=== PATIENT | male | born 1970 | race Caucasian/White ===

== ENCOUNTER 2019-10-29 12:53 | Day surgery (SDC) | payer MEDICARE, MEDICAID, SELFPAY ==
[2019-10-29 13:10] VITALS: BP 116/76; PULSE 83; RESP 16; TEMP 37.2; O2SAT 98; BMI 33.6
--- NOTE | 2019-10-29 13:18 | ANES.PREANE2 ---
Pre-Anesthetic Assessment Pre-Anesthetic Assessment: Height/Weight: Height 1.88 m Preop Diagnosis: Atrial Fibrillation Proposed Procedure: Operation Date: 10/29/19 14:00 Proposed Procedures p ANTONIO (Transesophageal Echocardiogram)(Not Applicable) - Namita Mckeon MD s Cardioversion(Not Applicable) - Namita Mckeon MD Was Beta Francisco taken within 24 hours: Yes Last intake: 10/27 2200 sip with meds 0600 Social: Social History: Tobacco (current smoker- 1.5pk a day) Exam: Pre-Anes Outpt Exam: alert, oriented x 3 and clear to auscultation bilaterally Airway: Submandibular: WNL Cervical ROM: WNL Additional comments: poor/missing Pulmonary: Pulmonary: COPD, ROY and SOB CV/HEM: CV/HEM: Afib, CAD and HTN Comments: 2x PTCA 2017 here in Aug 2019 AFib rvr. : : None reported Hepatic: Hepatic: None reported GI: GI: GERD Metabolic: Metabolic: Hyperlipidemia and Morbid obesity Musc/skel: Musc/skel: None reported Neuropsych: Neuropsych: CORONADO Anesthetic Plan: ASA status: 4 Anesthesia: MAC PFSH Anesthesia PFSH: Family History (Updated 08/24/19 @ 13:52 by Yamilet Carrera RN) Other CAD (coronary artery disease) Cancer Social History Smoking and tobacco status: current every day smoker cigarettes Packs smoked per day: 1.5 Alcohol intake: current Alcohol intake frequency: holidays/special occasions only Data Anesthesia Cardiac Studies: No Data to Display
--- NOTE | 2019-10-29 13:32 | USCV_ITS ---
Darlin Youssef Age: 49 Gender: M : 1970 Exam Date: 10/29/2019 14:15 Ordering Phys: Namita Mckeon MD ([email or web address]) Technologist: Mavrin Cornejo [place] [facility] [place]: AFIB, pre cardioversion BP: / HR: Rhythm: Atrial fibrillation Technical Quality: Excellent MEASUREMENTS (Male / Female) Normal Values Medications The posterior pharynx was sprayed with Cetacaine spray. Propofol by anesthesia. Complications Patient had a loose tooth so a focused exam was performed. Intubation attempts x1. No blood on probe post procedure. No complications post procedure. Proc. Components Multiple images were obtained at mid esophageal and transgastric level. FINDINGS Left Ventricle Normal left ventricular systolic function. Left ventricular ejection fraction is estimated at 55 %. No regional wall motion abnormalities. Right Ventricle Normal right ventricular size and [id number] function. Right Atrium Moderately increased right atrial size. Left Atrium Moderately increased left atrial size. LA Appendage Decreased flow velocities in the left atrial appendage. Echodense mass noted in left atrial appendage in multiple views, highly concerning for thrombus. IA Septum Normal interatrial septum. No patent foramen ovale atrial septal defect detected by color Doppler. Mitral Valve Structurally normal mitral valve. Trace mitral valve regurgitation. Aortic Valve Structurally normal trileaflet aortic valve. No aortic valve stenosis. Trace aortic valve regurgitation. Tricuspid Valve Structurally normal tricuspid valve. Trace tricuspid valve regurgitation. Pulmonic Valve Structurally normal pulmonic valve. Trace pulmonary valve regurgitation. Pericardium No pericardial effusion. Aorta Normal-sized aortic root and proximal ascending aorta. No aortic dilation aneurysm or dissection. CONCLUSIONS 1. Normal left ventricular systolic function. Left ventricular ejection fraction is estimated at 55 %. No regional wall motion abnormalities. 2. Normal right ventricular size and [id number] function. 3. Moderate biatrial enlargement. 4. Echodense mass noted in left atrial appendage in multiple views, highly concerning for thrombus. Namita Mckeon MD (Electronically Signed) Final Date: 03 November 2019 12:30 S
[2019-10-29 13:37] VITALS: PULSE 76; RESP 16; O2SAT 97
[2019-10-29] MEDS: sodium chloride 0.9% 1,000 ML 30 ML IV (13:54)
--- NOTE | 2019-10-29 13:55 | ECG_ITS ---
Measurements Intervals [place] Rate: 72 P: [place]: 0 QRS: 33 QRSD: 101 T: 88 QT: 416 QTc: 457 ATRIAL FIBRILLATION LOW QRS VOLTAGE IN PRECORDIAL LEADS [QRS DEFLECTION < 1.0 mV IN CHEST LEADS] POSSIBLE ANTERIOR MYOCARDIAL INFARCTION [30 ms Q WAVE IN V3/V4, OR R < 0.2 mV IN V4], PROBABLY OLD POSSIBLE INFERIOR MYOCARDIAL INFARCTION [30 ms Q WAVE IN II/aVF], PROBABLY OLD ABNORMAL RHYTHM ECG WARNING: DATA QUALITY MAY AFFECT INTERPRETATION Compared to ECG 06/06/2019 03:24:58 Low QRS voltage now present Ventricular premature complex(es) no longer present Aberrant conduction of supraventricular beat(s) no longer present Myocardial infarct finding still present Electronically Signed On 10-30-2019 8:03:50 CDT by Francheska Andrea [email or web address]
[2019-10-29 14:35] VITALS: BP 89/67; PULSE 90; RESP 18; TEMP 37.1; O2SAT 99
--- NOTE | 2019-10-29 15:39 | SUR.PHASEII ---
1445 VS 104/60 R 18 HR 68 SAT 99 room air 1500 VS 116/75 R 17 HR 83 Sat 96 room air
--- NOTE | 2019-10-30 16:52 | PM.ACPR ---
Procedure/Consent Time out: Time Out Performed: Yes Consent: Consent for Procedure: Consent obtained from patient, Risks & Benefits reviewed and Agrees to proceed with procedure Procedure Narrative: ANTONIO Indication: Atrial fibrillation Anesthesia: By Propofol Prelim: No ASD or PFO identified. Thrombus noted in RANJIT. Full report to follow. Acute Procedures Epistaxis Control: Time out performed: Yes
== END 2019-10-29 15:30 | disposition home or self-care (01) ==
PROVIDERS: PCP Nurse Practitioner Family; Visit Provider Internal Medicine Cardiovascular Disease
PROC: (CPT 93312; principal; 2019-10-29 14:00)
DX: I48.19 Other persistent atrial fibrillation (principal); I25.10 Atherosclerotic heart disease of native coronary artery without angina pectoris; I25.2 Old myocardial infarction; E78.5 Hyperlipidemia, unspecified; I10 Essential (primary) hypertension; Z79.82 Long term (current) use of aspirin; J44.9 Chronic obstructive pulmonary disease, unspecified; G47.30 Sleep apnea, unspecified; F17.210 Nicotine dependence, cigarettes, uncomplicated; Z82.49 Family history of ischemic heart disease and other diseases of the circulatory system; K21.9 Gastro-esophageal reflux disease without esophagitis
CPT/HCPCS: 12345; 93005; 93010; 93312; 93320; 93325; 94640; J2704; J3010; J7030; J7611

== ENCOUNTER → 2020-06-27 14:07 | Outpatient (BNVA) | payer MEDICARE, MEDICAID, SELFPAY | PROVIDERS: PCP Nurse Practitioner Family; Visit Provider Internal Medicine Cardiovascular Disease | DX: E78.5 Hyperlipidemia, unspecified (principal); I48.19 Other persistent atrial fibrillation; R06.02 Shortness of breath; Z79.899 Other long term (current) drug therapy | CPT/HCPCS: 80053; 83735; 84443; 85025 ==

== ENCOUNTER 2020-07-30 18:03 | Emergency (ER) | payer MEDICARE, MEDICAID, SELFPAY ==
[2020-07-30 18:06] VITALS: BP 167/117; PULSE 109; RESP 22; TEMP 36.7; O2SAT 94; BMI 38.2
--- NOTE | 2020-07-30 18:55 | ED_ITS ---
HPI - Nausea/Vomiting/Diarrhea General: Chief complaint: Nausea/Vomiting/Diarrhea Stated complaint: fever, n/v Time Seen by Provider: 07/30/20 18:25 History of Present Illness: HPI Narrative: 50-year-old gentleman here with nausea vomiting and diarrhea. He states it started last night. It was worse today, but is slowing down now he says. He remains quite nauseated though. He states I need water . No sick contacts. No family members with similar sympt oms. He states that he ate the same food as everyone else in his family recently. No blood in the stool. MD elicited complaint: nausea, vomiting and diarrhea Pertinent past history: other Onset (ago): hour(s) (24) Description of vomiting: food contents and watery Description of diarrhea: watery Associated nausea: Yes Associated abdominal pain: No Location of pain: None Radiation: diffuse Exacerbating factors: bowel movement and vomiting Associated symtoms: Reports decreased urine output, fevers/chills, headache(s), myalgias and nausea; Denies change in vision, chest pain, dizziness, dysuria, fecal incontinence, palpitations or short of breath Review of Systems Eyes: Denies: change in vision Card: Reports: irregular heart rhythm; Denies: chest pain or palpitations Resp: Reports: non-productive cough; Denies: dyspnea GI: Reports: nausea; Denies: fecal incontinence : Denies: dysuria Neuro: Reports: headache(s); Denies: dizziness [facility] ED PFSH: Medical History (Updated 07/30/20 @ 20:25 by Ethan Stevens DO) Atrial fibrillation CAD (coronary artery disease) COPD (chronic obstructive pulmonary disease) Dyslipidemia Hypotension Sleep apnea syndrome Tobacco abuse Family History Other CAD (coronary artery disease) Cancer Social History Smoking and tobacco status: current every day smoker cigarettes Packs smoked per day: 1.5 Alcohol intake: current Alcohol intake frequency: holidays/special occasions only Physical Exam Const: GENERAL APPEARANCE: ill appearing NUTRITIONAL APPEARANCE: obese Eye: COMMON NORMALS: Equal, round and reactive pupils present and EOMs intact bilaterally PUPIL: Yes Equal, round and reactive pupils present Chest: COMMONS NORMALS: normal inspection of the chest Resp: COMMON NORMALS: No use of accessory muscles and clear to auscultation bilaterally EFFORT & INSPECTION: Yes tachypneic AUSCULTATION: clear to auscultation bilaterally Cardio: COMMON NORMALS: Peripheral pulses 2+ throughout PERIPHERAL PULSES: Peripheral pulses 2+ throughout GI: COMMON NORMALS: Normal to inspection, nondistended, normoactive bowel sounds present, Soft to palpation and non-tender PALPATION: Yes Soft to palpation : COMMON NORMALS: No no CVA tenderness BLADDER/KIDNEY EXAM: No no CVA tenderness Back/Pelvis: COMMON NORMALS: negative for no CVA tenderness Skin: COMMON NORMALS: no rashes or lesions noted GENERAL SKIN EXAM: no rashes or lesions noted Course Vital Signs: Vital signs: Vital Signs Temperature 98.1 F 07/30/20 18:06 Pulse Rate 99 07/30/20 20:37 Respiratory Rate 18 07/30/20 20:37 Blood Pressure 169/114 07/30/20 20:37 Pulse Oximetry 92 07/30/20 20:37 MDM - Nausea/Vomiting/Diarrhea MDM Narrative: Medical decision making narrative: No vomiting since here. He is less nauseated. He is received an IV fluid bolus. He is been quite hyp ertensive, but this is improving. His chest x-ray shows some diffuse scarring with nothing acute. He has a history of emphysema according to his . There is no leukocytosis. His electrolytes are normal. His belly is nontender. He will be allowed home. He is in atrial fibrillation but his rate has been under control. He knows to return for worsening symptoms. He will be released on liquid diet with antiemetics. Lab Data: Labs: Lab Results 07/30/20 07/30/20 07/30/20 Range/Units 18:50 18:50 18:50 WBC 5.8 (4.0-10.0) 10^3/ uL RBC 5.36 H (4.1-5.3) 10^6/u L Hgb 17.1 H (11.7-16.6) g/dL Hct 49.0 (42.0-52.0) % MCV 91.4 (80-94) fL MCH 31.9 (28.0-34.0) pg MCHC 34.9 (30.0-36.0) g/dL RDW 12.4 (12.1-15.1) % Plt Count 211 (130-400) 10^3/c mm MPV 9.1 (7.4-10.4) fL Neut % (Auto) 76.4 % Lymph % (Auto) 19.8 % Piatt % (Auto) 2.1 % Eos % (Auto) 0.5 % Baso % (Auto) 1.0 % Neut # (Auto) 4.43 (1.8-7.7) 10^3/u L Lymph # (Auto) 1.2 (0.8-4.8) 10^3/u L Piatt # (Auto) 0.1 L (0.2-0.9) 10^3/u L Eos # (Auto) 0.0 (0.0-0.8) 10^3/u L Baso # (Auto) 0.1 (0.0-0.1) 10^3/u L Nucleated RBC % (a uto) 0 % Nucleated RBCs # 0.0 /100WBC Sodium 144 (136-145) mmol/L Potassium 4.1 (3.5-5.1) mmol/L Chloride 100 (98-107) mmol/L Carbon Dioxide 32 H (22-29) mmol/L Anion Gap 16.1 (5-19) BUN 10 (6-20) mg/dL Creatinine 0.8 (0.7-1.2) mg/dL GFR Calculation 101.9 (90-130) mL/min Glucose 139 H (65-115) mg/dL Calculated Osmolal ity 299 H (285-295) mOsm/k g Calcium 9.2 (8.5-10.5) mg/dL Total Bilirubin 0.8 (0.15-1.2) mg/dL AST 11 (0-40) U/L ALT 12 (0-41) U/L Alkaline Phosphata se 64 (40-130) IU/L C-Reactive Protein 0.9 (0.0-4.9) mg/L Total Protein 7.2 (6.6-8.7) g/dL Albumin 4.5 (3.5-5.2) g/dL Globulin 2.7 (1.3-4.6) g/dL Lipase 14 (13-60) U/L Procalcitonin 0.06 (0-0.5) ng/mL Urine Color (Yellow) Urine Appearance (CLEAR) Urine pH (5-7) Ur Specific Gravit y (1.005-1.030) Urine Protein (Negative) Urine Glucose (UA) (Normal) Urine Ketones (Negative) Urine Blood (Negative) Urine Nitrate (Negative) Urine Bilirubin (Negative) Urine Urobilinogen (Negative) mg/dL Ur Leukocyte Mag ase (Negative) Urine RBC (0-2) /hpf Urine WBC (0-5) /hpf Ur Squamous Epith Cells (0-5) /hpf Amorphous Sediment Urine Bacteria (NONE) /hpf Urine Mucus /hpf SARS-CoV-2 Ag (Rap id) Negative (Negative) 07/30/20 Range/Units 19:29 WBC (4.0-10.0) 10^3/ uL RBC (4.1-5.3) 10^6/u L Hgb (11.7-16.6) g/dL Hct (42.0-52.0) % MCV (80-94) fL MCH (28.0-34.0) pg MCHC (30.0-36.0) g/dL RDW (12.1-15.1) % Plt Count (130-400) 10^3/c mm MPV (7.4-10.4) fL Neut % (Auto) % Lymph % (Auto) % Piatt % (Auto) % Eos % (Auto) % Baso % (Auto) % Neut # (Auto) (1.8-7.7) 10^3/u L Lymph # (Auto) (0.8-4.8) 10^3/u L Piatt # (Auto) (0.2-0.9) 10^3/u L Eos # (Auto) (0.0-0.8) 10^3/u L Baso # (Auto) (0.0-0.1) 10^3/u L Nucleated RBC % (a uto) % Nucleated RBCs # /100WBC Sodium (136-145) mmol/L Potassium (3.5-5.1) mmol/L Chloride (98-107) mmol/L Carbon Dioxide (22-29) mmol/L Anion Gap (5-19) BUN (6-20) mg/dL Creatinine (0.7-1.2) mg/dL GFR Calculation (90-130) mL/min Glucose (65-115) mg/dL Calculated Osmolal ity (285-295) mOsm/k g Calcium (8.5-10.5) mg/dL Total Bilirubin (0.15-1.2) mg/dL AST (0-40) U/L ALT (0-41) U/L Alkaline Phosphata se (40-130) IU/L C-Reactive Protein (0.0-4.9) mg/L Total Protein (6.6-8.7) g/dL Albumin (3.5-5.2) g/dL Globulin (1.3-4.6) g/dL Lipase (13-60) U/L Procalcitonin (0-0.5) ng/mL Urine Color Yellow (Yellow) Urine Appearance Clear (CLEAR) Urine pH 5 (5-7) Ur Specific Gravit y 1.020 (1.005-1.030) Urine Protein Trace (Negative) Urine Glucose (UA) Norm (Normal) Urine Ketones 1+ H (Negative) Urine Blood Neg (Negative) Urine Nitrate Negative (Negative) Urine Bilirubin Neg (Negative) Urine Urobilinogen 1 H (Negative) mg/dL Ur Leukocyte Mag ase Negative (Negative) Urine RBC 0-4 H (0-2) /hpf Urine WBC 0-4 H (0-5) /hpf Ur Squamous Epith Cells 0-4 H (0-5) /hpf Amorphous Sediment Not Reportable Urine Bacteria Trace (NONE) /hpf Urine Mucus 3+ /hpf SARS-CoV-2 Ag (Rap id) (Negative) Discharge Plan Discharge Patient Disposition: Home Clinical Impression: Gastroenteritis Condition: Stable Prescriptions: New Zofran 4 mg tablet 4 mg PO Q6H PRN (Reason: nausea and vomiting) Qty: 10 RF: 0 No Action albuterol sulfate 90 mcg/actuation HFA aerosol inhaler See Rx Instructions .ROUTE .COMPLEX Qty: 25.5 RF: 3 aspirin [Adult Aspirin Regimen] 81 mg tablet,delayed release (DR/EC) 81 mg PO DAILY Qty: 30 RF: 0 verapamil 240 mg capsule,ext rel. pellets 24 hr 240 mg PO QAM Qty: 90 RF: 3 rivaroxaban [Xarelto] 20 mg tablet See Rx Instructions .ROUTE .COMPLEX Qty: 90 RF: 3 atorvastatin 40 mg tablet See Rx Instructions .ROUTE .COMPLEX Qty: 90 RF: 3 metoprolol succinate 100 mg tablet extended release 24 hr See Rx Instructions .ROUTE .COMPLEX Qty: 180 RF: 3 lisinopril 10 mg tablet See Rx Instructions .ROUTE .COMPLEX Qty: 90 RF: 3 nitroglycerin 0.4 mg tablet, sublingual 0.4 mg sublingual Q5M PRN (Reason: chest pain) Qty: 25 RF: 2 Discharge Orders: Discharge ED (Routine); Ordered 07/30/20 Ordered By: Ethan Stevens Referrals: Janelle Pryor FNP [Primary Care Provider] - 1-3 days Discharge Diet: Clear Liquid Discharge Activity: Limit activity as instructed Patient Instructions: Gastroenteritis (ED) Activity Restrictions/Additional Instructions: Follow a clear liquid diet for least 24 hours, then advance as tolerated. Use the nausea medicine you were given every 6 hours scheduled for the first 24 hours, then as needed. Return for significant belly pain, continued fever greater than 100, vomiting liquids and medications despite treatment, blood in the stool, any other concerning symptoms. Coding Level of Care Code ED Geoscience Laboratory Technician for Ronit Fwd Exam Detailed
[2020-07-30] MEDS: metoclopramide 5 mg/mL SDV 2 mL 10 MG IVP (18:59)
[2020-07-30] MEDS: sodium chloride 0.9% 1,000 ML 999 ML IV (18:59)
[2020-07-30] MEDS: ondansetron 2 mg/ML SDV 2 mL 4 MG IVP (18:59)
--- NOTE | 2020-07-30 18:59 | XRR_ITS ---
PROCEDURE INFORMATION: Exam: XR Chest, 1 View Exam date and time: 07/30/2020 7:28 PM Age: 50 years old Clinical indication: Cough; Patient HX: N/v/d chills, fever TECHNIQUE: Imaging protocol: XR of the chest Views: 1 view. COMPARISON: CR Chest 1 [place] [id number] 06/05/2019 10:49 AM FINDINGS: Lungs: Unremarkable. No consolidation. Pleural space: Unremarkable. No pleural effusion. No pneumothorax. Heart/Mediastinum: Unremarkable. No cardiomegaly. Bones/joints: Unremarkable. XR/XR chest 1V portable [id number] IMPRESSION: No acute findings.
--- NOTE | 2020-07-30 19:00 | PC.NURSE ---
Patient report received from EPIFANIO Funes and care transferred to EPIFANIO Ontiveros
[2020-07-30 19:01] LABS: Basophils # 0.1 10^3/uL (0.0-0.1); Eosinophils % 0.5 %; Hemoglobin 17.1 g/dL (11.7-16.6); Lymphocytes # 1.2 10^3/uL (0.8-4.8); Lymphocytes % 19.8 %; Mean Corpuscular HGB Conc 34.9 g/dL (30.0-36.0); Mean Corpuscular Hemoglobin 31.9 pg (28.0-34.0); Mean Corpuscular Volume 91.4 fL (80-94); Mean Platelet Volume 9.1 fL (7.4-10.4); Monocytes # 0.1 10^3/uL (0.2-0.9); Monocytes % 2.1 %; Neutrophils # 4.43 10^3/uL (1.8-7.7); Neutrophils % 76.4 %; Nucleated Red Blood Cells % 0 %; Platelet Count 211 10^3/cmm (130-400); Red Blood Count 5.36 10^6/uL (4.1-5.3); Red Cell Distribution Width 12.4 % (12.1-15.1); White Blood Count 5.8 10^3/uL (4.0-10.0)
--- NOTE | 2020-07-30 19:09 | PC.NURSE ---
patient given ice chips and urinal by this nurse
[2020-07-30 19:11] VITALS: BP 184/120
[2020-07-30 19:18] LABS: SARS Covid-2 Antigen Negative (Negative)
[2020-07-30 19:26] LABS: Procalcitonin 0.06 ng/mL (0-0.5)
[2020-07-30 19:31] VITALS: BP 171/97; RESP 17
[2020-07-30 19:36] LABS: Add Urine Microscopic? YES; Bilirubin Urine Neg (Negative); Blood Urine Neg (Negative); Glucose Urine UA Norm (Normal); Ketones Urine 1+ (Negative); Leukocyte Esterase Urine Negative (Negative); Nitrate Urine Negative (Negative); Protein Urine Trace (Negative); Urine Appearance Clear (CLEAR); Urine Color Yellow (Yellow); Urobilinogen Urine 1 mg/dL (Negative); pH Urine 5 (5-7)
[2020-07-30 19:37] LABS: Alanine Aminotransferase 12 U/L (0-41); Albumin Level 4.5 g/dL (3.5-5.2); Alkaline Phosphatase 64 IU/L (40-130); Anion Gap 16.1 (5-19); Aspartate Amino Transferase 11 U/L (0-40); Blood Urea Nitrogen 10 mg/dL (6-20); C Reactive Protein 0.9 mg/L (0.0-4.9); Calcium 9.2 mg/dL (8.5-10.5); Carbon Dioxide 32 mmol/L (22-29); Chloride 100 mmol/L (98-107); Globulin 2.7 g/dL (1.3-4.6); Glomerular Filtration Rate 101.9 mL/min (90-130); Glucose 139 mg/dL (65-115); Lipase 14 U/L (13-60); Osmolality Calculated 299 mOsm/kg (285-295); Potassium 4.1 mmol/L (3.5-5.1); Sodium 144 mmol/L (136-145); Total Bilirubin 0.8 mg/dL (0.15-1.2); Total Protein 7.2 g/dL (6.6-8.7)
[2020-07-30 19:43] LABS: Add Urine Culture? No; Bacteria Urine TRACE /hpf; Mucus Urine 3+ /hpf; RBC Urine 0-4 /hpf (0-2); Squamous Epithelial Cell Urine 0-4 /hpf (0-5); WBC Urine 0-4 /hpf (0-5)
[2020-07-30] MEDS: acetaminophen 500 mg Tablet 1000 MG PO (19:46)
[2020-07-30 20:21] VITALS: BP 146/113; PULSE 91; RESP 19; O2SAT 93
[2020-07-30 20:37] VITALS: BP 169/114; PULSE 99; RESP 18; O2SAT 92
[2020-07-31 15:12] LABS: Coronavirus Test Green County Not Detected
== END 2020-07-30 20:33 | disposition home or self-care (01) ==
PROVIDERS: Emergency Provider Emergency Medicine; PCP Nurse Practitioner Family
DX: K52.9 Noninfective gastroenteritis and colitis, unspecified (principal); Z79.82 Long term (current) use of aspirin; I48.91 Unspecified atrial fibrillation; I25.10 Atherosclerotic heart disease of native coronary artery without angina pectoris; J44.9 Chronic obstructive pulmonary disease, unspecified; E78.5 Hyperlipidemia, unspecified; F17.210 Nicotine dependence, cigarettes, uncomplicated
CPT/HCPCS: 12345; 71045; 80053; 81001; 83690; 84145; 85025; 86140; 87426; 87635; 96361; 96374; 96375; 99283; J2405; J2765; J7030

== ENCOUNTER 2020-08-17 15:38 | Emergency (ER) | payer MEDICARE, MEDICAID, SELFPAY ==
[2020-08-17 15:43] VITALS: BP 144/91; PULSE 65; RESP 24; TEMP 36.2; O2SAT 95; BMI 38.2
--- NOTE | 2020-08-17 18:03 | XR_ITS ---
WS: [id number] PORTABLE CHEST HISTORY: cough COMPARISON: 07/30/2020 New mild interstitial thickening throughout the LEFT lung. RIGHT lung remains clear. No pneumonia. No pleural effusion or pneumothorax. Cardiac size: Normal. Mediastinum/Aorta: Normal mediastinum. No osseous abnormality seen. XR/XR chest 1V portable [id number] IMPRESSION: New very mild interstitial thickening throughout the LEFT lung. Suspect very mi nimal areas of pneumonitis.
[2020-08-17 19:11] VITALS: O2SAT 92
[2020-08-17 19:18] VITALS: BP 130/83; PULSE 88; RESP 21; O2SAT 94
--- NOTE | 2020-08-17 19:20 | W.ED.COVID ---
HPI - COVID General: Chief Complaint: COVID symptoms Stated Complaint: COVID SYMPTOMS/SOB Time Seen by Provider: 08/17/20 18:38 Triage information: Has fever, cough or shortness of breath. No known COVID + exposure last 14 days History of Present Illness: HPI Narrative: Patient has had a flareup of his COPD said he has been tested twice for Covid last couple weeks been negative denies fever chills loss of taste or smell muscle aches or any Covid type symptoms besides shortness of breath and cough which he has a chronic history of. Prior covid testing: yes, results known COVID 19 common symptoms: positive cough and productive cough; negative fever(s), chills, body aches, headache(s), throat pain, nasal congestion, nausea or vomiting COVID 19 other sytmptoms: negative chest pain Onset (ago): day(s) Severity: mild Pertinent comorbid conditions: COPD/respiratory disease Treatment prior to arrival: none COVID Results: SARS-CoV-2 Antigen (Rapid) Negative (Negative) 07/30/20 18:50 07/30/20 Nasal/Oral Coronavirus 2019 PCR Not detected 07/30/20 18:50 07/30/20 Review of Systems Const: Denies: fever(s), chills or body aches Eyes: Denies: change in vision or blurry vision ENMT: Denies: throat pain or nasal congestion Card: Denies: chest pain or dyspnea on exertion Resp: Reports: productive cough GI: Denies: abdominal pain, nausea or vomiting : Denies: difficulty urinating Musc: Denies: extremity pain Skin/Breast: Denies: rash Neuro: Denies: headache(s) Psych: Denies: anxiety or depression Edouard/Lymph: Denies: easy bruising PFSH ED PFSH: Medical History (Updated 08/07/20 @ 00:00 by ) Atrial fibrillation CAD (coronary artery disease) COPD (chronic obstructive pulmonary disease) Dyslipidemia Hypotension Sleep apnea syndrome Tobacco abuse Family History Other CAD (coronary artery disease) Cancer Social History Smoking and tobacco status: current every day smoker cigarettes Packs smoked per day: 1.5 Alcohol intake: current Alcohol intake frequency: holidays/special occasions only Physical Exam Const: COMMON NORMALS: no acute distress, average body habitus and patient oriented x3 HENMT: COMMON NORMALS: normocephalic HEAD & SCALP: normal to inspection and normocephalic FACE & SINUS: normal facial exam Eye: COMMON NORMALS: conjunctivae normal GENERAL EYE: appearance normal, both eyes and all related structures CONJUNCTIVA: Yes conjunctivae normal Neck/C-Spine: COMMON NORMALS: no JVD Chest: COMMONS NORMALS: normal inspection of the chest Resp: COMMON NORMALS: normal respiratory effort and clear to auscultation bilaterally EFFORT & INSPECTION: No abnormal respiratory pattern, No respiratory distress and No pursed lip breathing AUSCULTATION: clear to auscultation bilaterally and diminished lung sounds Cardio: COMMON NORMALS: no JVD, regular rate and regular rhythm RATE: regular rate RHYTHM: regular rhythm GI: COMMON NORMALS: Normal to inspection, nondistended, normoactive bowel sounds present Extremity: COMMON NORMALS: normal to inspection and full ROM Neuro: COMMON NORMALS: patient oriented x3 Course Vital Signs: Vital signs: Vital Signs Temperature 97.2 F L 08/17/20 15:43 Pulse Rate 88 08/17/20 19:18 Respiratory Rate 21 H 08/17/20 19:18 Blood Pressure 130/83 08/17/20 19:18 Pulse Oximetry 94 08/17/20 19:18 MDM - COVID COVID Results: SARS-CoV-2 Antigen (Rapid) Negative (Negative) 07/30/20 18:50 07/30/20 Nasal/Oral Coronavirus 2019 PCR Not detected 07/30/20 18:50 07/30/20 Discharge Plan Discharge Prescriptions: No Action albuterol sulfate 90 mcg/actuation HFA aerosol inhaler See Rx Instructions .ROUTE .COMPLEX Qty: 25.5 RF: 3 aspirin [Adult Aspirin Regimen] 81 mg tablet,delayed release (DR/EC) 81 mg PO DAILY Qty: 30 RF: 0 verapamil 240 mg capsule,ext rel. pellets 24 hr 240 mg PO QAM Qty: 90 RF: 3 rivaroxaban [Xarelto] 20 mg tablet See Rx Instructions .ROUTE .COMPLEX Qty: 90 RF: 3 atorvastatin 40 mg tablet See Rx Instructions .ROUTE .COMPLEX Qty: 90 RF: 3 metoprolol succinate 100 mg tablet extended release 24 hr See Rx Instructions .ROUTE .COMPLEX Qty: 180 RF: 3 lisinopril 10 mg tablet See Rx Instructions .ROUTE .COMPLEX Qty: 90 RF: 3 nitroglycerin 0.4 mg tablet, sublingual 0.4 mg sublingual Q5M PRN (Reason: chest pain) Qty: 25 RF: 2 Zofran 4 mg tablet 4 mg PO Q6H PRN (Reason: nausea and vomiting) Qty: 10 RF: 0 Coding Level of Care Code ED Flight Instructor for Ronit Hendricks
[2020-08-17] MEDS: azithromycin 250 mg Tablet 500 MG PO (19:59)
[2020-08-17 20:00] VITALS: BP 147/101; PULSE 83; PULSE 85; RESP 18; O2SAT 91; O2SAT 95
[2020-08-17] MEDS: ipratropium-albuterol 3 mL Neb INHALATION (20:05)
[2020-08-17 20:09] VITALS: PULSE 85
[2020-08-17 20:25] VITALS: BP 151/93; PULSE 81; RESP 19; O2SAT 91
== END 2020-08-17 20:21 | disposition home or self-care (01) ==
PROVIDERS: Emergency Provider Nurse Practitioner Family
DX: R05 Cough (principal); R06.02 Shortness of breath; Z79.82 Long term (current) use of aspirin; I48.91 Unspecified atrial fibrillation; I25.10 Atherosclerotic heart disease of native coronary artery without angina pectoris; J44.9 Chronic obstructive pulmonary disease, unspecified; E78.5 Hyperlipidemia, unspecified; F17.210 Nicotine dependence, cigarettes, uncomplicated
CPT/HCPCS: 12345; 71045; 94640; 96374; 99283; J2930; Q0144

== ENCOUNTER 2020-08-21 14:34 | Emergency (ER) | payer MEDICARE, MEDICAID, SELFPAY ==
[2020-08-21 14:48] VITALS: BP 174/121; PULSE 91; RESP 16; TEMP 36.3; O2SAT 96; BMI 38.5
--- NOTE | 2020-08-21 15:09 | ECG_ITS ---
[facility] Test Date: 2020-08-21 Pat Name: Darlin Youssef Department: Room: Gender: Male Silverer: : 1970 Requested By: Andrew Mckeon Order Number: [id number] Indira MD: Namita Mckeon M.D. Measurements Intervals [place] Rate: 91 P: [place]: QRS: 64 QRSD: 83 T: 74 QT: 384 QTc: 474 Interpretive Statements ATRIAL FIBRILLATION ANTEROSEPTAL MYOCARDIAL INFARCTION , PROBABLY OLD [40+ ms Q WAVE IN V1-V4] Compared to ECG 10/29/2019 14:01:45 No significant changes Electronically Signed On 08-21-2020 17:21:34 AUTOMATIC FOLDER SEAMER by Namita Mckeon M.D. [email or web address]
[2020-08-21] MEDS: sodium chloride 0.9% 1,000 ML 999 ML IV ×2 (15:12→16:01)
[2020-08-21] MEDS: ondansetron 2 mg/ML SDV 2 mL 4 MG IVP ×2 (15:12→19:17)
--- NOTE | 2020-08-21 15:13 | ED_ITS ---
Documented by User: Andrew Sanches DO 08/22/20 06:46 HPI - Nausea/Vomiting/Diarrhea General: Chief complaint: Nausea/Vomiting/Diarrhea Stated complaint: vomiting Time Seen by Provider: 08/21/20 14:54 History of Present Illness: HPI Narrative: 50 yo male present to the ER with complaints of N/V that started today, and cough, myalgias for the last several days. no fever. he has had intermittnet chest pain. Pt does have a hx of CAD with previous stenting. Pt has a hx of COPD as well. he hasn't been able to keep anything down today. MD elicited complaint: nausea and vomiting Onset (ago): hour(s) Associated nausea: No Location of pain: Chest Radiation: chest Pain consistency: intermittent Severity: mild Exacerbating factors: none Relieving factors: none Associated symtoms: Reports chest pain and cough; Denies altered mental status, anxiety, bloating, change in vision, diaphoresis, decreased urine output, dizziness, dysuria, epistaxis, fatigue, fecal incontinence, fevers/chills, headache(s), anorexia, malaise, myalgias, nausea, numbness, palpitations, rash, short of breath, syncope, tenesmus, tinnitus or weakness Review of Systems Const: Denies: fatigue, malaise or diaphoresis Eyes: Denies: change in vision ENMT: Denies: tinnitus or epistaxis Card: Reports: chest pain; Denies: palpitations or syncope Resp: Reports: dyspnea and non-productive cough; Denies: productive cough GI: Denies: nausea, bloating or fecal incontinence : Denies: flank pain, dysuria, urinary frequency or urinary urgency Skin/Breast: Denies: rash or pruritus Neuro: Denies: headache(s) or dizziness Psych: Denies: anxiety PFSH ED PFSH: Medical History (Updated 08/21/20 @ 19:19 by Cam Tam MD) Atrial fibrillation CAD (coronary artery disease) COPD (chronic obstructive pulmonary disease) Dyslipidemia Hypotension Sleep apnea syndrome Tobacco abuse Family History Other CAD (coronary artery disease) Cancer Social History Smoking and tobacco status: current every day smoker cigarettes Packs smoked per day: 1.5 Alcohol intake: current Alcohol intake frequency: holidays/special occasions only Physical Exam Const: COMMON NORMALS: no acute distress EXAM LIMITATIONS: no altered mental status GENERAL APPEARANCE: cooperative and comfortable ORIENTATION/CONSCIOUSNESS: Yes awake, Yes oriented to person, Yes oriented to place and Yes oriented to time HENMT: COMMON NORMALS: normocephalic, atraumatic and hearing grossly normal bilaterally HEAD & SCALP: normocephalic and atraumatic Neck/C-Spine: COMMON NORMALS: no JVD Resp: COMMON NORMALS: normal respiratory effort, No retractions, No use of accessory muscles and clear to auscultation bilaterally AUSCULTATION: clear to auscultation bilaterally Cardio: COMMON NORMALS: no JVD, regular rate, regular rhythm and No murmurs present (Cardio) RATE: regular rate RHYTHM: regular rhythm GI: COMMON NORMALS: Soft to palpation and No hepatosplenomegaly present AUSCULTATION: Yes normoactive bowel sounds PALPATION: Yes Soft to palpation, No Tenderness to palpation present (GI), No Guarding due to palpation present (GI) and Yes No hepatosplenomegaly present Extremity: COMMON NORMALS: normal to inspection, capillary refill normal, no clubbing, cyanosis or edema, no calf tenderness and no pedal edema Neuro: SENSORIUM/ORIENTATION: Yes oriented to person, Yes oriented to place and Yes oriented to time Skin: COMMON NORMALS: no rashes or lesions noted GENERAL SKIN EXAM: no rashes or lesions noted Course Vital Signs: Vital signs: Vital Signs Temperature 97.3 F L 08/21/20 14:48 Pulse Rate 85 08/21/20 19:51 Respiratory Rate 18 08/21/20 19:51 Blood Pressure 165/89 08/21/20 19:51 Pulse Oximetry 96 08/21/20 19:51 MDM - Nausea/Vomiting/Diarrhea MDM Narrative: Medical decision making narrative: Care turned over to Dr. Tam at change of shift see his notes for final diagnosis and disposition Lab Data: Labs: Lab Results 08/21/20 08/21/20 08/21/20 Range/Units 15:08 15:08 15:08 WBC 9.6 (4.0-10.0) 10^3/ uL RBC 5.14 (4.1-5.3) 10^6/u L Hgb 16.5 (11.7-16.6) g/dL Hct 47.6 (42.0-52.0) % MCV 92.6 (80-94) fL MCH 32.1 (28.0-34.0) pg MCHC 34.7 (30.0-36.0) g/dL RDW 12.5 (12.1-15.1) % Plt Count 323 (130-400) 10^3/c mm MPV 8.7 (7.4-10.4) fL Neut % (Auto) 74.0 % Lymph % (Auto) 20.3 % [place] % (Auto) 4.4 % Eos % (Auto) 0.5 % Baso % (Auto) 0.5 % Neut # (Auto) 7.09 (1.8-7.7) 10^3/u L Lymph # (Auto) 1.9 (0.8-4.8) 10^3/u L [place] # (Auto) 0.4 (0.2-0.9) 10^3/u L Eos # (Auto) 0.1 (0.0-0.8) 10^3/u L Baso # (Auto) 0.1 (0.0-0.1) 10^3/u L Nucleated RBC % (a uto) 0 % Nucleated RBCs # 0.0 /100WBC Sodium 137 (136-145) mmol/L Potassium 3.7 (3.5-5.1) mmol/L Chloride 95 L (98-107) mmol/L Carbon Dioxide 35 H (22-29) mmol/L Anion Gap 10.7 (5-19) BUN 13 (6-20) mg/dL Creatinine 0.8 (0.7-1.2) mg/dL GFR Calculation 101.9 (90-130) mL/min Glucose 132 H (65-115) mg/dL Calculated Osmolal ity 286 (285-295) mOsm/k g Calcium 9.3 (8.5-10.5) mg/dL Total Bilirubin 0.7 (0.15-1.2) mg/dL AST 10 (0-40) U/L ALT 17 (0-41) U/L Alkaline Phosphata se 64 (40-130) IU/L Troponin T Baselin e 16 H (0-15) ng/L Troponin T 120 Min [place] (0-15) ng/L Delta Troponin T (0-10) ABS# Total Protein 6.6 (6.6-8.7) g/dL Albumin 4.2 (3.5-5.2) g/dL Globulin 2.4 (1.3-4.6) g/dL Lipase 26 (13-60) U/L Urine Color (Yellow) Urine Appearance (CLEAR) Urine pH (5-7) Ur Specific Gravit y (1.005-1.030) Urine Protein (Negative) Urine Glucose (UA) (Normal) Urine Ketones (Negative) Urine Blood (Negative) Urine Nitrate (Negative) Urine Bilirubin (Negative) Urine Urobilinogen (Negative) mg/dL Ur Leukocyte Mag ase (Negative) SARS-CoV-2 Ag (Rap id) (Negative) 08/21/20 08/21/20 08/21/20 Range/Units 15:45 15:58 17:24 WBC (4.0-10.0) 10^3/ uL RBC (4.1-5.3) 10^6/u L Hgb (11.7-16.6) g/dL Hct (42.0-52.0) % MCV (80-94) fL MCH (28.0-34.0) pg MCHC (30.0-36.0) g/dL RDW (12.1-15.1) % Plt Count (130-400) 10^3/c mm MPV (7.4-10.4) fL Neut % (Auto) % Lymph % (Auto) % [place] % (Auto) % Eos % (Auto) % Baso % (Auto) % Neut # (Auto) (1.8-7.7) 10^3/u L Lymph # (Auto) (0.8-4.8) 10^3/u L [place] # (Auto) (0.2-0.9) 10^3/u L Eos # (Auto) (0.0-0.8) 10^3/u L Baso # (Auto) (0.0-0.1) 10^3/u L Nucleated RBC % (a uto) % Nucleated RBCs # /100WBC Sodium (136-145) mmol/L Potassium (3.5-5.1) mmol/L Chloride (98-107) mmol/L Carbon Dioxide (22-29) mmol/L Anion Gap (5-19) BUN (6-20) mg/dL Creatinine (0.7-1.2) mg/dL GFR Calculation (90-130) mL/min Glucose (65-115) mg/dL Calculated Osmolal ity (285-295) mOsm/k g Calcium (8.5-10.5) mg/dL Total Bilirubin (0.15-1.2) mg/dL AST (0-40) U/L ALT (0-41) U/L Alkaline Phosphata se (40-130) IU/L Troponin T Baselin e (0-15) ng/L Troponin T 120 Min [place] 13.36 (0-15) ng/L Delta Troponin T -2.64 L (0-10) ABS# Total Protein (6.6-8.7) g/dL Albumin (3.5-5.2) g/dL Globulin (1.3-4.6) g/dL Lipase (13-60) U/L Urine Color Yellow (Yellow) Urine Appearance Clear (CLEAR) Urine pH 7 (5-7) Ur Specific Gravit y 1.005 (1.005-1.030) Urine Protein Neg (Negative) Urine Glucose (UA) Norm (Normal) Urine Ketones Negative (Negative) Urine Blood Neg (Negative) Urine Nitrate Negative (Negative) Urine Bilirubin Neg (Negative) Urine Urobilinogen 1 H (Negative) mg/dL Ur Leukocyte Mag ase Negative (Negative) SARS-CoV-2 Ag (Rap id) Negative (Negative) Discharge Plan Discharge Patient Disposition: Home Clinical Impression: Vomiting Qualifiers: Vomiting type: unspecified Vomiting Intractability: non-intractable Nausea presence: with nausea Qualified Code(s): R11.2 - Nausea with vomiting, unspecified Hypertension Qualifiers: Hypertension type: unspecified Qualified Code(s): I10 - Essential (primary) hypertension Condition: Stable Prescriptions: New ondansetron 4 mg tablet,disintegrating 4 mg PO Q6H PRN (Reason: nausea and vomiting) Qty: 14 RF: 0 No Action nitroglycerin 0.4 mg tablet, sublingual 0.4 mg sublingual Q5M PRN (Reason: chest pain) Qty: 25 RF: 2 ondansetron HCl [Zofran] 4 mg tablet 4 mg PO Q6H PRN (Reason: nausea and vomiting) Qty: 10 RF: 0 azithromycin [Zithromax Z-Toro] 250 mg tablet See Rx Instructions .ROUTE .COMPLEX Qty: 6 RF: 0 methylprednisolone [Medrol (Toro)] 4 mg tablets,dose pack See Rx Instructions .ROUTE .COMPLEX Qty: 21 RF: 0 Wixela Inhub 250-50 mcg/dose blister with device 2 inh INHALATION Q6H PRN (Reason: sob/wheezing) RF: 0 atorvastatin 40 mg tablet 40 mg PO DAILY@2199 RF: 0 metoprolol succinate 100 mg tablet extended release 24 hr 100 mg PO BID@1000,2199 RF: 0 Adult Aspirin Regimen 81 mg tablet,delayed release (DR/EC) 81 mg PO DAILY@999 RF: 0 lisinopril 10 mg tablet 10 mg PO DAILY@2199 RF: 0 ProAir HFA 90 mcg/actuation HFA aerosol inhaler See Rx Instructions .ROUTE .COMPLEX RF: 0 verapamil 240 mg capsule,ext rel. pellets 24 hr 240 mg PO DAILY@2199 RF: 0 Xarelto 20 mg tablet 20 mg PO DAILY@2199 RF: 0 Discharge Orders: Discharge ED (Routine); Ordered 08/21/20 Ordered By: Cam Tam Discharge Diet: Advance as tolerated Discharge Activity: Resume usual activity Patient Instructions: Acute Nausea and Vomiting (ED) Coding Level of Care Code ED Tax Adjuster for g Fwd Exam Comprehensive Documented by User: Cam Tam MD 08/21/20 19:24 HPI - Nausea/Vomiting/Diarrhea General: Chief complaint: Nausea/Vomiting/Diarrhea Stated complaint: vomiting Time Seen by Provider: 08/21/20 14:54 PFS ED PFSH: Medical History (Updated 08/21/20 @ 19:19 by Cam Tam MD) Atrial fibrillation CAD (coronary artery disease) COPD (chronic obstructive pulmonary disease) Dyslipidemia Hypotension Sleep apnea syndrome Tobacco abuse Family History Other CAD (coronary artery disease) Cancer Social History Smoking and tobacco status: current every day smoker cigarettes Packs smoked per day: 1.5 Alcohol intake: current Alcohol intake frequency: holidays/special occasions only Course Vital Signs: Vital signs: Vital Signs Temperature 97.3 F L 08/21/20 14:48 Pulse Rate 85 08/21/20 19:51 Respiratory Rate 18 08/21/20 19:51 Blood Pressure 165/89 08/21/20 19:51 Pulse Oximetry 96 08/21/20 19:51 MDM - Nausea/Vomiting/Diarrhea MDM Narrative: Medical decision making narrative: Took patient over from Dr. Whitlock. Patient's 2-hour troponin here is negative. He is hypertensive likely due to vomiting his medicine as he has not taken his medicine today. Patient feels much improved here and is able to tolerate p.o. We will not change his blood pressure medicine as he has not taken it today due to his vomiting. P atient's feeling much improved. He is stable for discharge will prescribe Zofran he is to follow-up his PCP and return if worsening. Lab Data: Labs: Lab Results 08/21/20 08/21/20 08/21/20 Range/Units 15:08 15:08 15:08 WBC 9.6 (4.0-10.0) 10^3/ uL RBC 5.14 (4.1-5.3) 10^6/u L Hgb 16.5 (11.7-16.6) g/dL Hct 47.6 (42.0-52.0) % MCV 92.6 (80-94) fL MCH 32.1 (28.0-34.0) pg MCHC 34.7 (30.0-36.0) g/dL RDW 12.5 (12.1-15.1) % Plt Count 323 (130-400) 10^3/c mm MPV 8.7 (7.4-10.4) fL Neut % (Auto) 74.0 % Lymph % (Auto) 20.3 % [place] % (Auto) 4.4 % Eos % (Auto) 0.5 % Baso % (Auto) 0.5 % Neut # (Auto) 7.09 (1.8-7.7) 10^3/u L Lymph # (Auto) 1.9 (0.8-4.8) 10^3/u L [place] # (Auto) 0.4 (0.2-0.9) 10^3/u L Eos # (Auto) 0.1 (0.0-0.8) 10^3/u L Baso # (Auto) 0.1 (0.0-0.1) 10^3/u L Nucleated RBC % (a uto) 0 % Nucleated RBCs # 0.0 /100WBC Sodium 137 (136-145) mmol/L Potassium 3.7 (3.5-5.1) mmol/L Chloride 95 L (98-107) mmol/L Carbon Dioxide 35 H (22-29) mmol/L Anion Gap 10.7 (5-19) BUN 13 (6-20) mg/dL Creatinine 0.8 (0.7-1.2) mg/dL GFR Calculation 101.9 (90-130) mL/min Glucose 132 H (65-115) mg/dL Calculated Osmolal ity 286 (285-295) mOsm/k g Calcium 9.3 (8.5-10.5) mg/dL Total Bilirubin 0.7 (0.15-1.2) mg/dL AST 10 (0-40) U/L ALT 17 (0-41) U/L Alkaline Phosphata se 64 (40-130) IU/L Troponin T Baselin e 16 H (0-15) ng/L Troponin T 120 Min [place] (0-15) ng/L Delta Troponin T (0-10) ABS# Total Protein 6.6 (6.6-8.7) g/dL Albumin 4.2 (3.5-5.2) g/dL Globulin 2.4 (1.3-4.6) g/dL Lipase 26 (13-60) U/L Urine Color (Yellow) Urine Appearance (CLEAR) Urine pH (5-7) Ur Specific Gravit y (1.005-1.030) Urine Protein (Negative) Urine Glucose (UA) (Normal) Urine Ketones (Negative) Urine Blood (Negative) Urine Nitrate (Negative) Urine Bilirubin (Negative) Urine Urobilinogen (Negative) mg/dL Ur Leukocyte Mag ase (Negative) SARS-CoV-2 Ag (Rap id) (Negative) 08/21/20 08/21/20 08/21/20 Range/Units 15:45 15:58 17:24 WBC (4.0-10.0) 10^3/ uL RBC (4.1-5.3) 10^6/u L Hgb (11.7-16.6) g/dL Hct (42.0-52.0) % MCV (80-94) fL MCH (28.0-34.0) pg MCHC (30.0-36.0) g/dL RDW (12.1-15.1) % Plt Count (130-400) 10^3/c mm MPV (7.4-10.4) fL Neut % (Auto) % Lymph % (Auto) % [place] % (Auto) % Eos % (Auto) % Baso % (Auto) % Neut # (Auto) (1.8-7.7) 10^3/u L Lymph # (Auto) (0.8-4.8) 10^3/u L [place] # (Auto) (0.2-0.9) 10^3/u L Eos # (Auto) (0.0-0.8) 10^3/u L Baso # (Auto) (0.0-0.1) 10^3/u L Nucleated RBC % (a uto) % Nucleated RBCs # /100WBC Sodium (136-145) mmol/L Potassium (3.5-5.1) mmol/L Chloride (98-107) mmol/L Carbon Dioxide (22-29) mmol/L Anion Gap (5-19) BUN (6-20) mg/dL Creatinine (0.7-1.2) mg/dL GFR Calculation (90-130) mL/min Glucose (65-115) mg/dL Calculated Osmolal ity (285-295) mOsm/k g Calcium (8.5-10.5) mg/dL Total Bilirubin (0.15-1.2) mg/dL AST (0-40) U/L ALT (0-41) U/L Alkaline Phosphata se (40-130) IU/L Troponin T Baselin e (0-15) ng/L Troponin T 120 Min [place] 13.36 (0-15) ng/L Delta Troponin T -2.64 L (0-10) ABS# Total Protein (6.6-8.7) g/dL Albumin (3.5-5.2) g/dL Globulin (1.3-4.6) g/dL Lipase (13-60) U/L Urine Color Yellow (Yellow) Urine Appearance Clear (CLEAR) Urine pH 7 (5-7) Ur Specific Gravit y 1.005 (1.005-1.030) Urine Protein Neg (Negative) Urine Glucose (UA) Norm (Normal) Urine Ketones Negative (Negative) Urine Blood Neg (Negative) Urine Nitrate Negative (Negative) Urine Bilirubin Neg (Negative) Urine Urobilinogen 1 H (Negative) mg/dL Ur Leukocyte Mag ase Negative (Negative) SARS-CoV-2 Ag (Rap id) Negative (Negative) Imaging Data^: CXR: Attestation: I personally reviewed and interpreted this imaging study as follows: My impression: no acute abnormalities EKG Data^: EKG 1: Attestation: I personally reviewed and interpreted this EKG as follows: EKG interpretation date: 08/21/20 EKG interpretation time: 15:22 Interpretation: afib hr [address] or t wave abnormalities qrs 83 qtc 433 unchanged from 10/28 EKG 2: Attestation: I personally reviewed and interpreted this EKG as follows: EKG interpretation date: 08/21/20 EKG interpretation time: 17:01 Interpretation: nsr hr [address] or t wave abnormalities qrs 83 qtc 433 Discharge Plan Discharge Patient Disposition: Home Clinical Impression: Vomiting Qualifiers: Vomiting type: unspecified Vomiting Intractability: non-intractable Nausea presence: with nausea Qualified Code(s): R11.2 - Nausea with vomiting, unspecified Hypertension Qualifiers: Hypertension type: unspecified Qualified Code(s): I10 - Essential (primary) hypertension Condition: Stable Prescriptions: New ondansetron 4 mg tablet,disintegrating 4 mg PO Q6H PRN (Reason: nausea and vomiting) Qty: 14 RF: 0 No Action nitroglycerin 0.4 mg tablet, sublingual 0.4 mg sublingual Q5M PRN (Reason: chest pain) Qty: 25 RF: 2 ondansetron HCl [Zofran] 4 mg tablet 4 mg PO Q6H PRN (Reason: nausea and vomiting) Qty: 10 RF: 0 azithromycin [Zithromax Z-Toro] 250 mg tablet See Rx Instructions .ROUTE .COMPLEX Qty: 6 RF: 0 methylprednisolone [Medrol (Toro)] 4 mg tablets,dose pack See Rx Instructions .ROUTE .COMPLEX Qty: 21 RF: 0 Wixela Inhub 250-50 mcg/dose blister with device 2 inh INHALATION Q6H PRN (Reason: sob/wheezing) RF: 0 atorvastatin 40 mg tablet 40 mg PO DAILY@2199 RF: 0 metoprolol succinate 100 mg tablet extended release 24 hr 100 mg PO BID@1000,2199 RF: 0 Adult Aspirin Regimen 81 mg tablet,delayed release (DR/EC) 81 mg PO DAILY@999 RF: 0 lisinopril 10 mg tablet 10 mg PO DAILY@2199 RF: 0 ProAir HFA 90 mcg/actuation HFA aerosol inhaler See Rx Instructions .ROUTE .COMPLEX RF: 0 verapamil 240 mg capsule,ext rel. pellets 24 hr 240 mg PO DAILY@2199 RF: 0 Xarelto 20 mg tablet 20 mg PO DAILY@2199 RF: 0 Discharge Orders: Discharge ED (Routine); Ordered 08/21/20 Ordered By: Cam Tam Discharge Diet: Advance as tolerated Discharge Activity: Resume usual activity Patient Instructions: Acute Nausea and Vomiting (ED) Coding Level of Care Code ED Tax Adjuster for Ronit Fwfrancisco Exam Comprehensive
[2020-08-21 15:30] LABS: Basophils # 0.1 10^3/uL (0.0-0.1); Basophils % 0.5 %; Eosinophils # 0.1 10^3/uL (0.0-0.8); Eosinophils % 0.5 %; Hematocrit 47.6 % (42.0-52.0); Hemoglobin 16.5 g/dL (11.7-16.6); Lymphocytes # 1.9 10^3/uL (0.8-4.8); Lymphocytes % 20.3 %; Mean Corpuscular HGB Conc 34.7 g/dL (30.0-36.0); Mean Corpuscular Hemoglobin 32.1 pg (28.0-34.0); Mean Corpuscular Volume 92.6 fL (80-94); Mean Platelet Volume 8.7 fL (7.4-10.4); Monocytes # 0.4 10^3/uL (0.2-0.9); Monocytes % 4.4 %; Neutrophils # 7.09 10^3/uL (1.8-7.7); Nucleated Red Blood Cells % 0 %; Platelet Count 323 10^3/cmm (130-400); Red Blood Count 5.14 10^6/uL (4.1-5.3); Red Cell Distribution Width 12.5 % (12.1-15.1); White Blood Count 9.6 10^3/uL (4.0-10.0)
[2020-08-21 16:05] LABS: Alanine Aminotransferase 17 U/L (0-41); Albumin Level 4.2 g/dL (3.5-5.2); Alkaline Phosphatase 64 IU/L (40-130); Anion Gap 10.7 (5-19); Aspartate Amino Transferase 10 U/L (0-40); Blood Urea Nitrogen 13 mg/dL (6-20); Calcium 9.3 mg/dL (8.5-10.5); Carbon Dioxide 35 mmol/L (22-29); Chloride 95 mmol/L (98-107); Globulin 2.4 g/dL (1.3-4.6); Glomerular Filtration Rate 101.9 mL/min (90-130); Glucose 132 mg/dL (65-115); Lipase 26 U/L (13-60); Osmolality Calculated 286 mOsm/kg (285-295); Potassium 3.7 mmol/L (3.5-5.1); Sodium 137 mmol/L (136-145); Total Bilirubin 0.7 mg/dL (0.15-1.2); Total Protein 6.6 g/dL (6.6-8.7)
[2020-08-21 16:06] LABS: Troponin(5th) Baseline 16 ng/L (0-15)
[2020-08-21 16:09] LABS: Add Urine Microscopic? NO
[2020-08-21 16:21] LABS: Bilirubin Urine Neg (Negative); Blood Urine Neg (Negative); Glucose Urine UA Norm (Normal); Ketones Urine Negative (Negative); Leukocyte Esterase Urine Negative (Negative); Nitrate Urine Negative (Negative); Protein Urine Neg (Negative); Specific Gravity, Urine 1.005 (1.005-1.030); Urine Appearance Clear (CLEAR); Urine Color Yellow (Yellow); Urobilinogen Urine 1 mg/dL (Negative); pH Urine 7 (5-7)
[2020-08-21 16:35] VITALS: BP 171/118; PULSE 93; RESP 16; O2SAT 89
[2020-08-21 16:38] LABS: SARS Covid-2 Antigen Negative (Negative)
[2020-08-21 17:00] VITALS: BP 152/103; PULSE 91; O2SAT 88
--- NOTE | 2020-08-21 17:09 | ECG_ITS ---
[facility] Test Date: 2020-08-21 Pat Name: Darlin Youssef Department: Room: Gender: Male Home Care Liaison: : 1970 Requested By: Andrew Mckeon Order Number: [id number] Indira MD: Namita Mckeon M.D. Measurements Intervals [place] Rate: 92 P: NM: QRS: 28 QRSD: 98 T: 72 QT: 383 QTc: 476 Interpretive Statements ATRIAL FIBRILLATION POSSIBLE ANTERIOR MYOCARDIAL INFARCTION , PROBABLY OLD [30 ms Q WAVE IN V3/V4, OR R < 0.2 mV IN V4] Compared to ECG 08/21/2020 15:23:22 No significant changes Electronically Signed On 08-21-2020 20:24:37 PROJECT PRODUCT MANAGER by Namita Mckeon M.D. [id number]
--- NOTE | 2020-08-21 18:22 | XRR_ITS ---
PROCEDURE INFORMATION: Exam: XR Chest, 1 View Exam date and time: 08/21/2020 6:41 PM Age: 50 years old Clinical indication: Shortness of breath; Prior surgery; Surgery type: Stents; Additional info: SOB TECHNIQUE: Imaging protocol: XR of the chest Views: 1 view. COMPARISON: CR XR chest 1V portable [id number] 08/17/2020 6:28 PM FINDINGS: Lungs: No consolidation. Pleural space: No pleural effusion. No pneumothorax. Heart/Mediastinum: No cardiomegaly. Bones/joints: No acute fracture. XR/XR chest 1V portable [id number] IMPRESSION: No acute findings.
[2020-08-21 18:30] VITALS: BP 169/127; PULSE 96; O2SAT 95
[2020-08-21 19:14] LABS: Troponin 5 2HR 13.36 ng/L (0-15)
[2020-08-21 19:15] LABS: Troponin 5 2HR Delta -2.64 ABS# (0-10)
[2020-08-21 19:51] VITALS: BP 165/89; PULSE 85; RESP 18; O2SAT 96
[2020-08-22 16:53] LABS: Coronavirus Test Green County Not Detected
== END 2020-08-21 19:53 | disposition home or self-care (01) ==
PROVIDERS: Family Medicine; Physician Assistant; Emergency Provider Emergency Medicine
DX: R11.2 Nausea with vomiting, unspecified (principal); I10 Essential (primary) hypertension; Z79.82 Long term (current) use of aspirin; I48.91 Unspecified atrial fibrillation; I25.10 Atherosclerotic heart disease of native coronary artery without angina pectoris; J44.9 Chronic obstructive pulmonary disease, unspecified; E78.5 Hyperlipidemia, unspecified; F17.210 Nicotine dependence, cigarettes, uncomplicated
CPT/HCPCS: 12345; 71045; 80053; 81003; 83690; 84484; 85025; 87426; 87635; 93005; 96361; 96374; 96376; 99283; 99284; J2405; J7030

== ENCOUNTER 2020-08-29 07:36 | Outpatient (CLI) | payer MEDICARE, MEDICAID, SELFPAY ==
--- NOTE | 2020-08-29 08:19 | PFTS_ITS ---
Date of Study:08/29/20 Date of Dictation: 09/06/20 MECHANICS: Forced vital capacity (FVC) is reduced . Forced expiratory volume in one second (FEV1) is reduced 30% . FEV1/FVC is reduced. There is significant response of bronchodilators FLOW VOLUME LOOP: severe scooping of expiratory limb suggestive of severe airway obstruction . LUNG VOLUMES: Not measured DIFFUSING CAPACITY FOR CARBON MONOXIDE: Moderately reduced . INTERPRETATION: The Spirometry consistent with severe obstruction. There is significant response of bronchodilators. Gas transfer is reduced moderately. Please correlate clinically. MTDD
== END 2020-08-29 07:37 | disposition home or self-care (01) ==
LOC: RT 07:37
PROVIDERS: Visit Provider Internal Medicine Cardiovascular Disease
DX: R06.00 Dyspnea, unspecified (principal)
CPT/HCPCS: 94060; 94729; J7611

== ENCOUNTER 2020-12-20 09:54 | Outpatient (CLI) | payer MEDICARE, MEDICAID, SELFPAY ==
--- NOTE | 2020-12-20 10:15 | CT_ITS ---
WS: [id number] HIGH-RESOLUTION CT CHEST TECHNIQUE: High-resolution CT chest with inspiratory, expiratory, prone imaging CLINICAL INFORMATION: CHRONIC OBSTRUCTIVE PULMONARY DZ,DYSPNEA ON EXERTION COMPARISON: CT chest 8 10,018 DLP: 352.[address] scans at [facility] use at least one of these dose optimization techniques: automat ed exposure control; mA and/or kV adjustment per patient size (includes targeted exams where dose is matched to clinical indication); or iterative reconstruction. FINDINGS: Moderate centrilobular emphysematous changes. Spiculated suspicious right lower lobe mass measuring a pproximately 2.3 x 3.6 cm. Masslike right hilar and infrahilar lymphadenopathy suspicious for neoplas m measuring approximately 1.9 x 3.9 cm and 5.1 x 3.1 CM. Associated right hilar and infrahilar bronch ovascular thickening. Additional pleural-based opacity along the right fissure measuring 10 mm. Recom mend further evaluation with contrast-enhanced diagnostic CT. No subpleural honeycombing to suggest interstitial lung disease. Coronary calcification. No axillary lymphadenopathy. Cholecystectomy clips. Fatty atrophy of the pancreas. Adrenal glands are normal. CT/CT chest wo con [id number] IMPRESSION: 1. Bulky masslike right hilar and infrahilar lymphadenopathy with right lower lobe spiculated mass measuring 2.3 x 3.6 cm suspicious for neoplasm. Only high- resolution images obtained today. Recommend further evaluation with contrast-en hanced diagnostic chest CT. 2. Additional suspicious Pleural-based nodule along the right fissure measurin g 10 mm adjacent to the spiculated mass. 3. No evidence of interstitial lung disease. No subpleural honeycombing. 4. Coronary calcification.
== END 2020-12-20 09:55 | disposition home or self-care (01) ==
LOC: RAD 09:58
PROVIDERS: Visit Provider Internal Medicine Cardiovascular Disease
DX: J44.9 Chronic obstructive pulmonary disease, unspecified (principal); R06.00 Dyspnea, unspecified; R91.1 Solitary pulmonary nodule
CPT/HCPCS: 71250

== ENCOUNTER → 2020-12-25 14:04 | Outpatient (BNVA) | payer MEDICARE, MEDICAID, SELFPAY | PROVIDERS: Visit Provider Internal Medicine Pulmonary Disease | DX: Z01.812 Encounter for preprocedural laboratory examination (principal); Z20.822 Contact with and (suspected) exposure to COVID-19 | CPT/HCPCS: 87635 ==

== ENCOUNTER 2020-12-29 05:45 | Day surgery (SDC) | payer MEDICARE, MEDICAID, SELFPAY ==
[2020-12-27 14:15] VITALS: BMI 34.7
[2020-12-29] VITALS (15 sets, daily range): BP systolic 66–129; BP diastolic 42–91; PULSE 50–86; RESP 14–20; TEMP 36.3–37.1; O2SAT 88–98
[2020-12-29] MEDS: sodium chloride 0.9% 1,000 ML 30 ML IV ×2 (06:39→08:05)
--- NOTE | 2020-12-29 06:47 | W.PM.OPSFHP ---
Same Day Surgery H&P Indication for Procedure/HPI DATE OF PROCEDURE: December 29, 2020 CHIEF COMPLAINT/INDICATIONFOR SURGICAL PROCEDURE: Right hilar lung mass PREOP DIAGNOSIS: Suspected lung cancer PLANNED PROCEDRUE: Bronchoscopy inspection of the airway, possible endobronchial biopsy, bronchoalveolar lavage, Cytobrush, endobronchial ultrasound-guided transbronchial aspiration of lymph nodes. Operation Date: 12/29/20 07:00 Proposed Procedures p Ebus [id number] R91.8(Not Applicable) - Fidel Anderson MD s Bronchoscopy(Not Applicable) - Fidel Anderson MD This is a 50-year-old gentleman with multiple medical comorbidities including atrial fibrillation on chronic anticoagulation, coronary disease status post ST elevated [place] in August 2016 requiring 2 stents. He also has COPD, obstructive sleep apnea. The patient had a high-resolution CT scan of the chest on December 20 and was found to have bulky right hilar lung mass.There is also a spiculated nodule in the right lower lobe measuring 2.3 x 3.6 cm. The patient was referred to me for bronchoscopic evaluation by my colleague Dr. Ortega. Medications/Allergies* Home Medications Medication Instructions Recorded Confirmed Type fluticasone propion-salmeterol 2 inh INHALATION Q6H PRN 08/21/20 12/27/20 History [Wixela Inhub] lisinopril 10 mg PO DAILY@2200 08/21/20 12/27/20 History aspirin 325 mg tablet 325 mg PO BID 10/25/20 12/27/20 History [id number]-guaifen 2 tab PO BID tab 12/13/20 12/29/20 History 5 mg-10 mg-325 mg-200 mg tablet sotalol 80 mg PO BID 12/29/20 12/29/20 History verapamil 240 mg PO DAILY 12/29/20 12/29/20 History Allergies/Adverse Reactions Allergy/AdvReac Type Severity Reaction Status Date / Time influenza virus vaccine Allergy Severe ALGY-Hives Verified 12/27/20 14:09 tval,purif- wool Allergy Unknown Verified 12/27/20 14:09 talcum powder Allergy Unknown Uncoded 12/27/20 14:09 Current Medications: Generic Name Dose Route Start Last Admin Trade Name Freq PRN Reason Stop Dose Admin Sodium Chloride 1,000 mls @ 30 mls/hr 12/29/20 06:15 12/29/20 06:39 Sodium Chloride 0.9% IV 12/30/20 06:14 30 mls/hr .Q24H ROCKY Administration Pertinent History/Comorbid Conditions* Medical History (Updated 12/13/20 @ 14:04 by Theodore Ortega MD) Atrial fibrillation CAD (coronary artery disease) COPD (chronic obstructive pulmonary disease) Dyslipidemia Hypotension Sleep apnea syndrome Tobacco abuse Family History (Updated 11/28/20 @ 10:38 by Yamilet Carrera RN) Diabetes CAD (coronary artery disease) Lung disease Cancer Stroke Denies family history of Bleeding disorder Social History Smoking and tobacco status: current every day smoker cigarettes Packs smoked per day: 1.5 Years cigarettes smoked: 48 Quit status (tobacco): considering quitting Second hand smoke exposure: Yes Smoking risk assessment/counseling performed?: Yes Alcohol intake: current Alcohol intake frequency: holidays/special occasions only Lives independently: Yes Household members: significant other and children Marital status: Life Partner service: No Current occupational status: disabled Pets and animals: Yes History of recent travel: No Current gender identity: Male Pertinent Exam Findings alert and oriented x 3 Pulmonary: Reduced breath sound bilaterally, no crackles, wheezing and rhonchi present bilaterally Cardiovascular: Regular rate and rhythm, S1-S2 present, no murmur Recommendations Surgery/Procedure today Coding Level of Care Code Acute Supervisor Hydrochloric Area for Ronit Hendricks
--- NOTE | 2020-12-29 06:57 | ANES.PREANE2 ---
Pre-Anesthetic Assessment Pre-Anesthetic Assessment: Height/Weight: Height 1.88 m Weight 122.47 kg Temp Pulse Resp BP Pulse Ox 98.3 F 68 18 120/82 93 12/29/20 06:26 12/29/20 06:26 12/29/20 06:26 12/29/20 06:26 12/29/20 06:26 Preop Diagnosis: Suspected lung cancer Proposed Procedure: Operation Date: 12/29/20 07:00 Proposed Procedures p Ebus [id number] R91.8(Not Applicable) - Fidel Anderson MD s Bronchoscopy(Not Applicable) - Fidel Anderson MD Was Beta Francisco taken within 24 hours: Yes Last intake: Intake Last Liquid Date 12/28/20 Last Liquid Time 22:00 Last Solid Date 12/28/20 Last Solid Time 21:30 Social: Social History: Alcohol and Tobacco Exam: Pre-Anes Outpt Exam: alert, oriented x 3, clear to auscultation bilaterally and regular rate & rhythm Airway: Submandibular: WNL Cervical ROM: WNL MP: 2 Additional comments: poor History/ROS: No significant history except as noted and No significant complaints Pulmonary: Pulmonary: COPD, Cough and SOB CV/HEM: CV/HEM: Afib, CAD, HTN and KS : : None reported Hepatic: Hepatic: None reported GI: GI: None reported Metabolic: Metabolic: None reported Musc/skel: Musc/skel: None reported Neuropsych: Neuropsych: None reported Anesthetic Plan: ASA status: 4 Anesthesia: Anesthesia Evaluation and General Risk of > 500 ml blood loss (7ml/kg in children): No Meds/Allergies Current Medications: Current Medications Generic Name Dose Route Start Last Admin Trade Name Freq PRN Reason Stop Dose Admin Sodium Chloride 1,000 mls @ 30 ml s/hr 12/29/20 06:15 12/29/20 06:39 Sodium Chloride 0.9% IV 12/30/20 06:14 30 mls/hr .Q24H ROCKY Administration PFSH Anesthesia PFSH: Medical History (Updated 12/13/20 @ 14:04 by Theodore Ortega MD) Atrial fibrillation CAD (coronary artery disease) COPD (chronic obstructive pulmonary disease) Dyslipidemia Hypotension Sleep apnea syndrome Tobacco abuse Family History Other CAD (coronary artery disease) Cancer Diabetes Lung disease Stroke Denies family history of Bleeding disorder Social History (Updated 12/13/20 @ 13:57 by Darvin Saeed LPN) Smoking and tobacco status: current every day smoker cigarettes Packs smoked per day: 1.5 Years cigarettes smoked: 48 Quit status (tobacco): considering quitting Second hand smoke exposure: Yes Smoking risk assessment/counseling performed?: Yes Alcohol intake: current Alcohol intake frequency: holidays/special occasions only Lives independently: Yes Household members: significant other and children Marital status: Life Partner service: No Current occupational status: disabled Pets and animals: Yes History of recent travel: No Current gender identity: Male Data Anesthesia Cardiac Studies: Holter Monitor 12/24/19
[2020-12-29] MEDS: lidocaine 1% INJ 20 mL XX (07:33)
--- NOTE | 2020-12-29 08:11 | P.OP_ITS ---
Operative Report Date of procedure: December 29, 2020 Pre-op Diagnosis: Suspected lung cancer Brief History: This is a 50-year-old gentleman with recently identified right hilar lung mass in addition to a spiculated right lower lobe lung nodule coming in for bronchoscopic evaluation. Procedure: Name of the procedure: Bronchoscopy with inspection of the airway, endobronchial sound guided transbronchial needle aspiration of lymph nodes and control of bleeding. Indication: Suspected lung cancer Anesthesia: General anesthesia. Local anesthesia: The dahiana in the right and left mainstem bronchi were anesthetized with 1% lidocaine, 3 mL. Description of the procedure: The procedure was explained to the patient and the consent was obtained. The patient was brought to the OR. The patient underwent endotracheal intubation for general anesthesia. Following induction of general anesthesia, the bronchoscope was advanced through the ET tube. The lower trachea appeared to be normal. The dahiana was sharp. The dahiana, the right and left mainstem bronchi are anesthetized with 1% lidocaine. In a systematic manner bilateral bronchial tree was then examined. The bronchoscope was advanced into the left mainstem bronchus. The left upper lobe, lingula and left lower lobe bronchi were examined up to the third subsegmental level and no abnormalities were identified.The bronchoscope was then introduced into the r ight mainstem bronchus. The right upper lobe, right middle lobe and right lower lobe bronchi were examined up to the third subsegmental level and no abnormalities were identified. There was mucus throughout the airways. The endobronchial ultrasound was introduced through the ET tube. Large right hilar mass was identified. No significant lymphadenopathy was noted in the paratracheal and subcarinal lymph node area. Fine-needle aspiration was performed from station 7 and right hilar lung mass. Samples: 1. The transbronchial needle aspiration of the aforementioned lymph node groups were sent for histopathology. Complications: There was no immediate complications.
--- NOTE | 2020-12-29 09:03 | SUR.PHASEI ---
0900 PT AWAKE EARLIER AND ORAL AIRWAY OUT PT VERBALIZING APPROP, VSS PT COUGHING UP BRIGHT RED THICK BLOOD, PT HOB ELEVATED , SATS 90-92 ON 8L MASK.DR DONG AT BEDSIDE, ALBUTEROL NEB ORDERED PT UP IN BED AT 45 DEGREES, LUNGS WITH DIM NOTED IN RT UPPER AND LOWER, SOME RHONCHI TO LT LOWER BUT NO WHEEZING OTHERWISE CLEAR TO LT UPPER AND LOWER. 0908 SATS UP TO 98% PT COUGHS OCCASIONALLY VSS.
--- NOTE | 2020-12-29 09:33 | SUR.PHASEI ---
0915 PT SITTING UP IN BED BP STABLE SATS 92% ON 3LNC PT AWAKE AND TALKATIVE , TAKEN TO OPS HANDOFF AT BEDSIDE.
--- NOTE | 2020-12-29 11:06 | SUR.PHASEII ---
1030: blood pressure of 96/[address] Crooks. He says patient is ok to be discharged. Patient awake and alert, room air at 94%.
--- NOTE | 2020-12-29 12:46 | ANE.PACU2 ---
Inpatient post-anesthesia follow up: Airway intact: Yes Vital signs: Temperature 98.7 F Pulse Rate 62 Respiratory Rate 18 Blood Pressure 96/42 Pulse Oximetry 93 Oxygen Delivery Me thod Room Air Oxygen Flow Rate 3 Fraction of Inspir ed Oxygen Hydration adequate: Yes Nausea and vomiting: No Pain level: 2 Mental status: Baseline
[2021-01-15 05:38] LABS: PD-L1 (Clone 22C3) by IHC BBPL See Report
== END 2020-12-29 10:50 | disposition home or self-care (01) ==
PROVIDERS: Internal Medicine Critical Care Medicine; Visit Provider Internal Medicine Pulmonary Disease
PROC: BB4BZZZ Ultrasonography of Pleura (ICD-10-PCS; principal; 2020-12-29 07:00)
PROC: 0BJ08ZZ Inspection of Tracheobronchial Tree, Via Natural or Artificial Opening Endoscopic (ICD-10-PCS; CPT 31622; 2020-12-29 07:00)
DX: C34.90 Malignant neoplasm of unspecified part of unspecified bronchus or lung (principal); J44.9 Chronic obstructive pulmonary disease, unspecified; I48.91 Unspecified atrial fibrillation; I25.10 Atherosclerotic heart disease of native coronary artery without angina pectoris; I25.2 Old myocardial infarction; E78.5 Hyperlipidemia, unspecified; F17.210 Nicotine dependence, cigarettes, uncomplicated
CPT/HCPCS: 31622; 31652; 80500; 88305; 88342; 96360; 96361; J2370; J2704; J2710; J3010; J3490; J7030

== ENCOUNTER 2021-01-03 11:48 | Outpatient (CLI) | payer MEDICARE, MEDICAID, SELFPAY ==
--- NOTE | 2021-01-04 05:06 | ONC CON_ITS ---
Dr. Jo New Patient Note Patient: Darlin Youssef Unit #: [id number]: 1970 Dicatated By: Theron Jo M.D.Date of Visit: January 03, 2021 Onc MED New Patient/Consult Referring Physician: Theodore Ortega Chief Complaint: Lung cancer. 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 Patient with known COPD and coronary artery disease. He underwent coronary angioplasty with stent placement following myocardial infarction in August 2016. He also has atrial fibrillation for which he is on anticoagulation with rivaroxaban. He has chronic cough and he had presented to Dr. Mckeon in November with complaints of worsening shortness of breath. He had pulmonary consultation with Dr. Ortega on 12/13/2020. His chest CT on 12/20/2020 showed moderate centrilobular emphysematous changes. A spiculated right lower lobe mass measuring 2.3 x 3.6 cm was suspicious for neoplasm and there was associated masslike right hilar and infrahilar lymphadenopathy measuring 1.9 x 3.9 cm and 5.1 x 3.1 cm. An additional pleural-based opacity along the right fissure measured 10 mm. With those findings he underwent bronchoscopy/EBUS on 12/29/2020. There were no endobronchial lesions identified. The endobronchial ultrasound showed evidence of large right hilar mass but no significant lymphadenopathy was noted in the paratracheal or subcarinal node areas. He underwent FNA biopsies of the right hilar mass and station 7 lymph node. Pathology showed adenocarcinoma at both sites. He is scheduled to have staging PET/CT on Friday. He says his energy is not real great, and he does have limited activity. He is able to do some light work. His ECOG score is 1. His appetite is good and his weight has been stable. He has not had fever. He has been having episodes of sweating both during the daytime and at night. He has shortness of breath with any activity and he also complains that he coughs a lot. His indicates that he typically coughs for about 3 hours when he first gets up in the morning, and he brings up sputum which varies from white to brown to green-colored. He has had no hemoptysis other than transiently following the bronchoscopy. He sometimes has chest pain and he also has palpitations. He has no GI/ complaints other than some mild constipation. He has joint pain, mainly in the hands and knees, and he has chronic back pain. He says he has had headaches all his life. He occasionally has dizziness, mainly with coughing. He has some numbness in his hands which comes and goes. Past Medical History: His medical history includes anxiety, atrial fibrillation, chronic obstructive pulmonary disease, coronary artery disease, dyslipidemia, hypotension, macular degeneration, and sleep apnea syndrome. Past Surgical History: He underwent bronchoscopy/EBUS on 12/29/2020. His other surgical/procedural history includes coronary angioplasty/stent placement in 2017, and cholecystectomy in 2011. Medications: Advair Diskus 2 Inhalation (of 250-50 mcg/dose) Aerosol Powder, Breath Activated Inhalation b.i.d., Albuterol Sulfate HFA 2 Puff(s) (of 108 (90 base) mcg/act) Aerosol, solution Inhalation q 4 to 6 hours PRN, Aspirin 1 (325 mg) Tablet Oral daily, Atorvastatin Calcium 1 (40 mg) Tablet Oral daily, Combivent Respimat Aerosol, solution Inhalation PRN, Lisinopril 1 (10 mg) Tablet Oral daily, Nicotine 1 Patch(es) (of 21 mg/24hr) Patch 24 Hr Transdermal daily, Trelegy Ellipta 1 (100-62.5-25 mcg/inh) Aerosol Powder, Breath Activated Inhalation daily, Verapamil HCl ER 1 (240 mg) Capsule SR 24 HR Oral daily, Xarelto 1 (20 mg) Tablet Oral daily Allergies: Influenza Virus Vacc Split PF Social History: Mr. Youssef is . He began smoking at age 7 and he smoked up to 3 packs of cigarettes daily. He has cut down now to 10 cigarettes/day. He had heavy alcohol use in the past, from about age 13 through age 24. He now has just very occasional alcohol use. Family History: Father at age 53 with emphysema. Mother with lung cancer at around age 60. A brother age 32 with complications of epilepsy. He also had heart disease. His other brother with lung disease. Review Of Symptoms: Constitutional - His energy is not real great. He has limited activity, but he is able to do some light work. Appetite is good and weight is stable. He has had episodes of sweating both during the daytime and at night. ECOG score is 1, Eyes - His vision has been declining due to macular degeneration, ENMT - No hearing loss or tinnitus. He has chronic sinus drainage. No mouth sores. No sore throat or difficulty swallowing, Hematologic/Lymphatic - No abnormal bruising or bleeding, Respiratory - He has shortness of breath, which has been getting worse over the past 8 months or so. He coughs a lot, typically for about 3 hours when he first gets up in the morning. He brings up sputum which varies from white to brown to green in color. No pleuritic pain or hemoptysis, Cardiovascular - He has coronary artery disease and atrial fibrillation. He sometimes has chest pain he has palpitations, Gastrointestinal - No nausea or vomiting. No heartburn or acid reflux. He has constipation, but it is adequately managed. No blood in the stool or black stools, Genitourinary (M) - No dysuria or hematuria. No urinary frequency. No urgency or incontinence, Musculoskeletal - He has joint pain, mainly in his hands and knees, and he has chronic back pain, Integumentary - No skin rash or other skin changes, Neurologic - He has had headaches all his life. He has occasional dizziness, mainly in association with coughing. He has numbness in his hands which comes and goes, Psychiatric - He has anxiety and he has insomnia. Vital Signs: Performed on January 03, 2021 13:13: 0, 7, 35.33 (HIGH), 2.49 sq.m, 74 in, 95 % (LOW), 82 /min, 18 /min, 115/62 mm(hg), 96.9 F (LOW), and 275.2 lbs (HIGH). Physical Examination: Constitutional - He appears chronically ill, Eyes - Sclerae nonicteric. Conjunctivae clear, ENMT - No lesions noted in the oral cavity, Neck - No mass or thyromegaly, Hematologic/Lymphatic - No cervical, clavicular, or axillary adenopathy, Respiratory - Lungs show markedly diminished air movement bilaterally, Cardiovascular - Heart rhythm is irregular. There is no murmur, gallop, or rub noted, Abdomen - Mildly distended. Liver and spleen are not enlarged. There is no abdominal mass or ascites noted and there is no inguinal adenopathy, Back/Spine - No spine or CVA tenderness noted, Extremities - No edema, Integumentary - No rashes. No suspicious skin lesions noted, Neurologic - No focal neurologic deficits noted. Problem List: 1. Adenocarcinoma involving the lower lobe of the right lung. 2. COPD. 3. Coronary artery disease with previous angioplasty/stent placement. 4. Atrial fibrillation. 5. Dyslipidemia. 6. Hypotension. 7. Sleep apnea syndrome. 8. Macular degeneration. 9. Chronic anxiety. Problems Addressed with this Encounter and Plan: Patient with adenocarcinoma involving the lower lobe of the right lung. He underwent bronchoscopy/EBUS on 12/29/2020. By clinical evaluation, his disease is stage at least IIIA (T2a, N2, M0). However, he does need to complete his staging evaluation with PET/CT, which has been scheduled for this Friday, and with brain MRI, which will be scheduled now. We discussed the fact that with hilar and mediastinal lymph node involvement, his disease is inoperable. If it is localized to lung/lymph nodes the recommended treatment will be chemoradiation with the potential for maintenance immunotherapy to follow. He also will need additional pathologic studies, including assessment of PD-L1 expression and a next generation sequencing, and those studies will be requested. I will see him again to discuss treatment in more detail when the staging studies have been completed. Signed By: Theron Jo M.D. <<Signature on File>>
== END 2021-01-03 11:49 | disposition home or self-care (01) ==
LOC: ONCMED 11:53
PROVIDERS: Visit Provider Internal Medicine Medical Oncology
DX: C34.31 Malignant neoplasm of lower lobe, right bronchus or lung (principal); J44.9 Chronic obstructive pulmonary disease, unspecified; I25.10 Atherosclerotic heart disease of native coronary artery without angina pectoris; Z95.5 Presence of coronary angioplasty implant and graft; I48.20 Chronic atrial fibrillation, unspecified; E78.5 Hyperlipidemia, unspecified; I10 Essential (primary) hypertension; I95.1 Orthostatic hypotension; G47.30 Sleep apnea, unspecified; H35.30 Unspecified macular degeneration; F41.9 Anxiety disorder, unspecified; Z79.899 Other long term (current) drug therapy
CPT/HCPCS: 99205

== ENCOUNTER 2021-01-23 08:07 | Outpatient (CLI) | payer MEDICARE, MEDICAID, SELFPAY ==
--- NOTE | 2021-01-23 08:45 | MR_ITS ---
WS: [id number] MRI BRAIN WITH AND WITHOUT CONTRAST HISTORY: LUNG CA COMPARISON: CT head 10/16/2014 TECHNIQUE: Multiplanar imaging performed through the brain with MultiHance 20 ml's IV. No acute infarcts are seen. Poole-white matter differentiation is well preserved. Mild chronic microvascular ischemic type changes. No cytotoxic or vasogenic edema. No susceptibility artifacts or prior lacunar infarcts. Ventricles and extra-axial spaces are normal. Clivus and pituitary gland are normal. Visualized posterior fossa and brainstem are also normal. Postcontrast images are negative for masses or vascular malformations. Dural venous sinuses are normal. Paranasal sinuses: Well aerated with no significant disease. Mastoid air cells: Normal. Calvarium and scalp: Normal. MR/MR head wo/w con [id number] IMPRESSION: 1. No acute infarcts. 2. No evidence for metastatic disease to the brain. 3. Mild chronic microvascular ischemic changes.
[2021-01-23] MEDS: gadobenate dimeglumine 20 mL vial IV (10:53)
== END 2021-01-23 08:08 | disposition home or self-care (01) ==
PROVIDERS: Visit Provider Internal Medicine Medical Oncology
DX: C34.31 Malignant neoplasm of lower lobe, right bronchus or lung (principal)
CPT/HCPCS: 70553; A9577

== ENCOUNTER 2021-01-31 10:33 | Outpatient (CLI) | payer MEDICARE, MEDICAID, SELFPAY ==
--- NOTE | 2021-01-31 11:29 | N.ONRAD NP_ITS ---
Radiation Oncology Consultation Patient Name: Darlin Youssef Date of : 1970 Date of Service: 01/31/2021 Attending Physician: Jeff Stewart M.D. Darlin Youssef was seen in consultation this morning at the request of Theron Jo M.D. for consideration of thoracic radiotherapy in the management of a recently diagnosed non-small cell lung cancer. He was evaluated by Theodore Ortega M.D. 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 Pulmonary function testing acquired in August revealed an FVC of 3.2 L (56% of predicted), and FEV1 of 0.96 L (21% of predicted), and a DLCO of 21.8 mL/min/mmHg (57% of predicted). A high resolution CT chest with inspiratory, expiratory and prone imaging was ordered on December 20, 2020. A spiculated right lower lobe mass measuring 2.3 cm x 3.6 cm was identified with a right hilar lymphadenopathy measuring 1.9 cm x 3.9 cm and right infrahilar lymphadenopathy measuring 5.1 cm x 3.1 cm. A bronchoscopy with endobronchial ultrasound guided biopsy performed on December 29, 2020 diagnosed and adenocarcinoma from biopsy specimens from the right hilar mass and station 7 lymph node. PD???L1 expression level was less than 1%. A PET CT completed on January 06, 2021 demonstrated a hypermetabolic right lower lobe nodule measuring 1.3 cm x 1.5 cm (SUV 6.8), and a right inferior hilar mass measuring 3.3 cm x 3.6 cm (SUV 10.6). Subcentimeter mediastinal lymphadenopathy was present but FDG negative. An MRI of the brain obtained on January 23, 2021 did not demonstrate metastatic disease. The patient was evaluated for definitive thoracic radiotherapy. I discussed with Mr. Youssef the AJCC clinical stage IIIA (T2aN2) lung cancer corresponding to his disease. I also reviewed the National Comprehensive Cancer Network Guidelines for concurrent chemoradiotherapy in the management of locally advanced lung cancer established by the classic study RTOG 9410 comparing sequential versus concurrent chemoradiotherapy that demonstrated an overall survival advantage for the concurrent chemoradiotherapy regimen I would endorse a six week course of thoracic radiotherapy. A computed tomographic radiotherapy planning scan in the treatment position will be performed and co-registered to the patient's staging PET CT scan to identify the gross tumor volume. The potential toxicities of thoracic radiotherapy were reviewed. I will prescribe a PPI for dyspepsia symptom prevention during radiotherapy. I have also ordered a home oxygen qualification assessment. The patient has verbalized understanding would like to proceed as recommended. The patient???s treatment plan was discussed with Theron Jo M.D. Signed by: Dr. Jeff Stewart 01/31/2021 11:28:10 AM
[2021-01-31 12:45] LABS: Basophils # 0.1 10^3/uL (0.0-0.1); Basophils % 1.6 %; Eosinophils # 0.1 10^3/uL (0.0-0.8); Eosinophils % 2.5 %; Hematocrit 44.1 % (42.0-52.0); Hemoglobin 15.1 g/dL (11.7-16.6); Lymphocytes % 36.4 %; Mean Corpuscular HGB Conc 34.2 g/dL (30.0-36.0); Mean Corpuscular Hemoglobin 31.9 pg (28.0-34.0); Mean Platelet Volume 9.4 fL (7.4-10.4); Monocytes # 0.3 10^3/uL (0.2-0.9); Monocytes % 5.5 %; Neutrophils # 2.96 10^3/uL (1.8-7.7); Neutrophils % 53.8 %; Nucleated Red Blood Cells % 0 %; Platelet Count 184 10^3/cmm (130-400); Red Blood Count 4.74 10^6/uL (4.1-5.3); Red Cell Distribution Width 11.6 % (12.1-15.1); White Blood Count 5.5 10^3/uL (4.0-10.0)
[2021-01-31 13:08] LABS: Alanine Aminotransferase 15 U/L (0-41); Albumin Level 4.2 g/dL (3.5-5.2); Alkaline Phosphatase 65 IU/L (40-130); Anion Gap 10.2 (5-19); Aspartate Amino Transferase 12 U/L (0-40); Blood Urea Nitrogen 11 mg/dL (6-20); Calcium 9.1 mg/dL (8.5-10.5); Carbon Dioxide 32 mmol/L (22-29); Chloride 105 mmol/L (98-107); Glucose 105 mg/dL (65-115); Osmolality Calculated 296 mOsm/kg (285-295); Potassium 4.2 mmol/L (3.5-5.1); Sodium 143 mmol/L (136-145); Total Bilirubin 0.4 mg/dL (0.15-1.2); Total Protein 6.2 g/dL (6.6-8.7)
== END 2021-01-31 10:34 | disposition home or self-care (01) ==
PROVIDERS: Visit Provider Radiology Radiation Oncology
DX: C34.31 Malignant neoplasm of lower lobe, right bronchus or lung (principal); J44.9 Chronic obstructive pulmonary disease, unspecified; Z79.899 Other long term (current) drug therapy
CPT/HCPCS: 80053; 85025; 99205

== ENCOUNTER → 2021-02-09 10:29 | Outpatient (BNVA) | payer MEDICARE, MEDICAID, SELFPAY | PROVIDERS: Visit Provider Surgery | DX: Z11.52 Encounter for screening for COVID-19 (principal); C34.91 Malignant neoplasm of unspecified part of right bronchus or lung; Z79.01 Long term (current) use of anticoagulants | CPT/HCPCS: 87635 ==

== ENCOUNTER 2021-02-14 10:45 | Day surgery (SDC) | payer MEDICARE, MEDICAID, SELFPAY ==
[2021-02-13 11:59] VITALS: BMI 34.7
[2021-02-14] VITALS (8 sets, daily range): BP systolic 62–142; BP diastolic 42–101; PULSE 66–92; RESP 17–21; TEMP 36.1–36.6; O2SAT 92–99
--- NOTE | 2021-02-14 | SCC_ITS ---
Procedure Done: Placement of PowerPort in the left subclavian vein Fluoroscopic guidance and interpretation for placement of catheter 33.9 seconds of fluoroscopic guidance, for a cumulative dose of 9.02 mGy, was provided to Dr. Freedman by the radiology department. C-arm images of the chest were saved for the patient's permanent record. [facility]
--- NOTE | 2021-02-14 | SC_ITS ---
C-ARM RADIOGRAPHS CHEST; 3 IMAGES HISTORY: PORT COMPARISON: None available. Intraoperative imaging during LEFT subclavian Mediport placement. Tip overlies the distal SVC. IMPRESSION: Intraoperative imaging during Mediport placement. [facility] SC/C-arm FL for CVA [id number] Impression: Possible left lower lobe consolidation, atelectasis and/or effusion.
[2021-02-14] MEDS: sodium chloride 0.9% 1,000 ML 30 ML IV (11:24)
--- NOTE | 2021-02-14 11:38 | ANES.PREANE2 ---
Pre-Anesthetic Assessment Pre-Anesthetic Assessment: Height/Weight: Height 1.88 m Weight 122.47 kg Temp Pulse Resp BP Pulse Ox 97.8 F 70 18 124/81 95 02/14/21 11:10 02/14/21 11:10 02/14/21 11:10 02/14/21 11:10 02/14/21 11:10 Preop Diagnosis: Right lung cancer Proposed Procedure: Operation Date: 02/14/21 12:30 Proposed Procedures p Portacath Placement 29744 C34.91(Not Applicable) - Tomas Freedman MD Familial anesthetic complications: none Was Beta Francisco taken within 24 hours: Yes Was Clonidine taken within 24 hours: N/A Last intake: Intake Last Liquid Date 02/13/21 Last Liquid Time 22:00 Last Solid Date 02/13/21 Last Solid Time 21:00 Social: Social History: Alcohol and Tobacco Exam: Pre-Anes Outpt Exam: alert, oriented x 3 and regular rate & rhythm Additional Exam Findings (including area of procedure): coarse breath sounds b/l Airway: Cervical ROM: WNL MP: 4 Dentition: Other (poor dentition) Additional comments: Full claudio Pulmonary: Pulmonary: COPD, Cough and Sleep apnea Comments: lung cancer CV/HEM: CV/HEM: Afib, CAD (Stent in 2017) and HTN (2017) Metabolic: Metabolic: Hyperlipidemia and Morbid obesity Anesthetic Plan: ASA status: 4 Anesthesia: MAC Risk of > 500 ml blood loss (7ml/kg in children): No Meds/Allergies Current Medications: Current Medications Generic Name Dose Route Start Last Admin Trade Name Freq PRN Reason Stop Dose Admin Sodium Chloride 1,000 mls @ 30 ml s/hr 02/14/21 11:00 02/14/21 11:24 Sodium Chloride 0.9% IV 02/15/21 10:59 30 mls/hr .Q24H ROCKY Administration PFSH Anesthesia PFSH: Medical History (Updated 02/09/21 @ 10:33 by Tomas Freedman MD) Atrial fibrillation CAD (coronary artery disease) COPD (chronic obstructive pulmonary disease) Dyslipidemia Hypotension Sleep apnea syndrome Surgical History (Updated 02/09/21 @ 10:33 by Tomas Freedman MD) History of cholecystectomy Family History Other CAD (coronary artery disease) Cancer Diabetes Lung disease Stroke Denies family history of Bleeding disorder Social History (Updated 12/13/20 @ 13:57 by Darvin Saeed LPN) Smoking and tobacco status: current every day smoker cigarettes Packs smoked per day: 1.5 Years cigarettes smoked: 48 Quit status (tobacco): considering quitting Second hand smoke exposure: Yes Smoking risk assessment/counseling performed?: Yes Alcohol intake: current Alcohol intake frequency: holidays/special occasions only Lives independently: Yes Household members: significant other and children Marital status: Life Partner service: No Current occupational status: disabled Pets and animals: Yes History of recent travel: No Current gender identity: Male Data Anesthesia Cardiac Studies: Holter Monitor 12/24/19
--- NOTE | 2021-02-14 11:40 | W.PM.OPSUD ---
Surgery/Procedure H&P Update DATE OF PROCEDURE: February 14, 2021 DATE H&P PERFORMED: 02/09/21 H&P UPDATE INFORMATION: I have reviewed H&P completed within last 30 days, I have examined patient prior to procedure and No changes to prior documentation PREOP DIAGNOSIS: Right lung cancer PLANNED PROCEDURE: Operation Date: 02/14/21 12:30 Proposed Procedures p Portacath Placement 92950 C34.91(Not Applicable) - Tomas Freedman MD
[2021-02-14] MEDS: lidocaine 1% INJ 20 mL SUBCUT (12:36)
[2021-02-14] MEDS: heparin, porcine 1,000 unit/mL INJ 10 mL 10000 UNIT IRRIGATION (12:36)
--- NOTE | 2021-02-14 12:37 | SC_ITS ---
WS: [id number] Portable AP upright chest, 02/14/2021 Clinical Data: PORT Comparison: Portable chest, 07/16/2018. Findings: There is a retrocardiac density which may represent consolidation, atelectasis and/or effus ion. There is a minimal patchy opacity in the lateral aspect of the right midlung which is probably a telectasis and is unchanged. There is also patchy atelectasis at the right costophrenic angle. No nod ules or masses are seen. The heart is normal. The pulmonary vascularity is not increased. No pneumoni a or pneumothorax is seen. Monitor leads are on the chest wall.
--- NOTE | 2021-02-14 13:01 | PM.OP ---
Operative Report Date of procedure: February 14, 2021 Pre-op Diagnosis: Right lung cancer Post-op diagnosis: same Procedure Done: Placement of PowerPort in the left subclavian vein Fluoroscopic guidance and interpretation for placement of catheter Pathology: none sent Surgeon: Tomas Freedman Anesthesia: MAC Condition: stable Disposition: PACU Procedure: The patient was taken to the Operating Room and the chest and neck bilaterally were prepped and draped in a sterile manner after the antibiotic had been administered and shoulder rolls had been placed. A total of 10 mL of 1% lidocaine with 0.5% Marcaine was infiltrated under the clavicle on the left side at the site of the planned entry into the subclavian vein. An introducer needle was then used to access the subclavian vein under the clavicle and after withdrawing blood syringe was removed and a guidewire passed under fluoroscopy into the superior vena cava. The site of the planned port was then marked on the chest and a 15 blade was used to make a 3 cm skin incision this was extended into the subcutaneous tissue using electrocautery and a subcutaneous pocket over the pectoralis fascia was created 2-0 Vicryl suture was used to suture the port to the pectoral fascia in the pocket on 3 sides. The catheter, after having been flushed with hep saline, was attached to the tunneler and a tunnel created between the port site and the subclavian vein entry site. Under fluoroscopy the dilator sheath was passed over the guidewire into the proximal superior vena cava. The inner dilator was removed and the sheath left behind and~ the catheter was introduced through the peel-away sheath with the tip in the superior vena cava. The peel-away sheath was removed. The proximal end of the catheter was cut to the right size and was attached to the port. Using a Weiss needle the port was accessed, it withdrew blood easily and flushed easily. A final 5cc of heparin was used to flush the PowerPort. The subcutaneous tissue was approximated using interrupted 3-0 Vicryl sutures and the skin at the introducer site and the port site was closed using subcuticular running 4-0 Monocryl sutures. Surgical glue was applied and the patient was stable throughout the procedure. Fluoroscopic guidance and interpretation was performed for introduction of the guidewire in the left subclavian vein, passage of dilator and placement of catheter tip in the distal superior vena cava.
--- NOTE | 2021-02-14 14:32 | ANE.PACU2 ---
Inpatient post-anesthesia follow up: Airway intact: Yes Vital signs: Temperature 97 F Pulse Rate 66 Respiratory Rate 18 Blood Pressure 112/81 Pulse Oximetry 92 Oxygen Delivery Me thod Room Air Oxygen Flow Rate 6 Fraction of Inspir ed Oxygen Hydration adequate: Yes Nausea and vomiting: No Pain level: 2 Mental status: Baseline
== END 2021-02-14 14:00 | disposition home or self-care (01) ==
PROVIDERS: Visit Provider Surgery
PROC: (CPT 36561; principal; 2021-02-14 12:30)
DX: C34.91 Malignant neoplasm of unspecified part of right bronchus or lung (principal); J44.9 Chronic obstructive pulmonary disease, unspecified; G47.30 Sleep apnea, unspecified; I48.91 Unspecified atrial fibrillation; I25.10 Atherosclerotic heart disease of native coronary artery without angina pectoris; Z95.5 Presence of coronary angioplasty implant and graft; I10 Essential (primary) hypertension; E78.5 Hyperlipidemia, unspecified; E66.01 Morbid (severe) obesity due to excess calories; Z68.34 Body mass index [BMI] 34.0-34.9, adult; F17.210 Nicotine dependence, cigarettes, uncomplicated
CPT/HCPCS: 36561; 77001; C1788; J0690; J1644; J2704; J3010; J3490; J7030

== ENCOUNTER 2021-03-09 05:50 | Outpatient (RCR) | payer MEDICARE, MEDICAID, SELFPAY ==
--- NOTE | 2021-02-16 | CT_ITS ---
Radiation Therapy Planning CT images; total exam DLP: 1294.91 mGy-cm MTDD
[2021-03-05 11:51] LABS: Basophils # 0.1 10^3/uL (0.0-0.1); Basophils % 1.8 %; Eosinophils # 0.2 10^3/uL (0.0-0.8); Eosinophils % 3.9 %; Hematocrit 42.6 % (42.0-52.0); Lymphocytes % 34.7 %; Mean Corpuscular HGB Conc 35.2 g/dL (30.0-36.0); Mean Corpuscular Hemoglobin 32.8 pg (28.0-34.0); Mean Corpuscular Volume 93.2 fL (80-94); Mean Platelet Volume 9.1 fL (7.4-10.4); Monocytes # 0.2 10^3/uL (0.2-0.9); Monocytes % 4.2 %; Neutrophils # 3.14 10^3/uL (1.8-7.7); Neutrophils % 55.2 %; Nucleated Red Blood Cells % 0 %; Platelet Count 206 10^3/cmm (130-400); Red Blood Count 4.57 10^6/uL (4.1-5.3); White Blood Count 5.7 10^3/uL (4.0-10.0)
[2021-03-05 12:08] LABS: Alanine Aminotransferase 11 U/L (0-41); Albumin Level 3.9 g/dL (3.5-5.2); Alkaline Phosphatase 64 IU/L (40-130); Anion Gap 10.4 (5-19); Aspartate Amino Transferase 10 U/L (0-40); Blood Urea Nitrogen 9 mg/dL (6-20); Calcium 8.5 mg/dL (8.5-10.5); Carbon Dioxide 31 mmol/L (22-29); Chloride 102 mmol/L (98-107); Globulin 2.2 g/dL (1.3-4.6); Glomerular Filtration Rate 141.5 mL/min (90-130); Glucose 194 mg/dL (65-115); Osmolality Calculated 294 mOsm/kg (285-295); Potassium 3.4 mmol/L (3.5-5.1); Sodium 140 mmol/L (136-145); Total Bilirubin 0.6 mg/dL (0.15-1.2); Total Protein 6.1 g/dL (6.6-8.7)
--- NOTE | 2021-03-05 13:38 | ONCRAD TMN_ITS ---
Radiation Oncology Weekly Treatment Management Patient: Darlin Youssef MR#: [id number] : 1970 Attending Physician: Dr. Nahun Zhu Date of Service: 03/05/2021 Referring Physician(s) : Lucretia Sun Diagnosis: C34.31 - Malignant neoplasm of lower lobe, right bronchus or lung, Diagnosed 01/03/2021 (Active) Stage IIIA, T2a, N2, M0 Radiotherapy to date: Course: Lung 2020, Treatment Site: Lung Ca RLL, Ref. ID: [id number], Energy: 6X, Dose/Fx (cGy): 200, #Fx: , Dose Correction (cGy): 0, Total Dose (cGy): 200, Start Date: 03/05/2021, Elapsed Days: 0 Reason for visit: The patient is being seen today as part of their regularly scheduled weekly on treatment visits to assess for acute toxicities from radiotherapy. Review of Systems: No new complaints. He has a chronic productive cough that is unchanged. Dyspnea with exertion and wheezing are unchanged as well. He is on a nicotine patch but is still smoking about a half a pack of cigarettes a day. He was not aware to take his premeds today before coming in for chemotherapy. Chemotherapy was canceled and will be given tomorrow. Vital Signs: Performed on 03/05/2021 12:24 PM Height - 74.00 in, Weight - 276 lbs (low), BSA - 2.49 sq.m, BMI - 35.44 (high), Temperature - 97.4 f (low), Pulse - 83 /min, Respiration - 18 /min, O2 Sat - 95 % (low), Pain - 0 and BP - 133/ 76 mm(hg). Physical Exam: Alert, oriented, no distress. No cervical or supraclavicular lymphadenopathy. Lungs are clear bilaterally with no rales rhonchi or wheezes. Heart rhythm regular. Imaging: Radiation therapy imaging related to accurate target localization (i.e. KV, MV and CBCT) was reviewed. Appropriate changes, if any, were made to ensure treatment accuracy. The treatment set up was reviewed at the treatment console. The set up appears excellent. Plan: Continue treatment as planned. He will receive chemotherapy tomorrow. He will receive his radiation treatment at 1030 and then will start the process of getting his chemotherapy at 11 AM. He has a written schedule. Signed by: Dr. Nahun Zhu 03/05/2021 1:36:41 PM
[2021-03-06] MEDS: famotidine 20 mg/2 mL INJ IVP (11:16)
[2021-03-06] MEDS: sodium chloride 0.9% 250 ML 75 ML IV (11:17)
[2021-03-06] MEDS: palonosetron 0.25 mg/5 mL SDV IVP (11:17)
[2021-03-06] MEDS: diphenhydrAMINE 50 mg/mL SDV 1mL 25 MG IVP (11:18)
--- NOTE | 2021-03-08 16:09 | ONC FU_ITS ---
Dr. Jo Patient Follow-Up Note Patient: Darlin Youssef Unit #: [id number]: 1970 Dicatated By: Theron Jo M.D.Date of Visit:Mar 05, 2021 Onc Med Follow-up/Prog Note Chief Complaint: Lung cancer. 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 Patient with known COPD and coronary artery disease. He underwent coronary angioplasty with stent placement following myocardial infarction in August 2016. He also has atrial fibrillation for which he is on anticoagulation with rivaroxaban. He has chronic cough and he had presented to Dr. Mckeon in November with complaints of worsening shortness of breath. He had pulmonary consultation with Dr. Ortega on 12/13/2020. His chest CT on 12/20/2020 showed moderate centrilobular emphysematous changes. A spiculated right lower lobe mass measuring 2.3 x 3.6 cm was suspicious for neoplasm and there was associated masslike right hilar and infrahilar lymphadenopathy measuring 1.9 x 3.9 cm and 5.1 x 3.1 cm. An additional pleural-based opacity along the right fissure measured 10 mm. With those findings he underwent bronchoscopy/EBUS on 12/29/2020. There were no endobronchial lesions identified. The endobronchial ultrasound showed evidence of large right hilar mass but no significant lymphadenopathy was noted in the paratracheal or subcarinal node areas. He underwent FNA biopsies of the right hilar mass and station 7 lymph node. Pathology showed adenocarcinoma at both sites. His staging PET/CT on 01/06/2021 showed central right lower lobe solid nodule measuring 1.3 x 1.5 cm, SUV 6.8, consistent with malignancy. An adjacent nodule was noted to be almost contiguous and likely malignant. A right inferior hilar mass measuring 3.3 x 3.6 cm has SUV 10.6 consistent with local metastatic disease. Other mediastinal lymph nodes are subcentimeter in size and FDG negative. His brain MRI showed no evidence of metastatic disease. With those findings he was recommended to undergo radiation concurrently with weekly carboplatin/paclitaxel chemotherapy. There was a significant delay in getting his port placed in his treatment started due to interim illnesses in part to compliance issues. His other medical illnesses include COPD, dyslipidemia, coronary artery disease, hypotension, obstructive sleep apnea, macular degeneration, and chronic anxiety. He has a history of smoking beginning at age 7. He had previously smoked up to 3 packs of cigarettes daily. He has cut down to less than 1/2 pack/day. He is seen for a follow-up visit. He says he is feeling all right, though he has been sleeping a lot. He is able to do some light work. ECOG score is 1. Appetite has been okay. He has not had fever. He has sweating both during the daytime and at night. He always has sinus drainage and he has chronic cough. He has shortness of breath with activity. He has just occasional chest pain. He has no GI complaints other than his bowels tend to be pretty loose. He has frequent urination. He has joint pain, mainly in the knees. He has chronic back pain. He says he has headache all the time. He does not complain of dizziness. He has some intermittent numbness/tingling, which tends to be positional. Medications: Advair Diskus 2 Inhalation (of 250-50 mcg/dose) Aerosol Powder, Breath Activated Inhalation b.i.d., Albuterol Sulfate HFA 2 Puff(s) (of 108 (90 base) mcg/act) Aerosol, solution Inhalation q 4 to 6 hours PRN, Aspirin 1 (325 mg) Tablet Oral daily, Atorvastatin Calcium 1 (40 mg) Tablet Oral daily, Combivent Respimat Aerosol, solution Inhalation PRN, Lisinopril 1 (10 mg) Tablet Oral daily, Nicotine 1 Patch(es) (of 21 mg/24hr) Patch 24 Hr Transdermal daily, Trelegy Ellipta 1 (100-62.5-25 mcg/inh) Aerosol Powder, Breath Activated Inhalation daily, Verapamil HCl ER 1 (240 mg) Capsule SR 24 HR Oral daily, Xarelto 1 (20 mg) Tablet Oral daily Allergies: Influenza Virus Vacc Split PF, Marigold, Talcum powder, and Wool. Vital Signs: Performed on Mar 05, 2021 13:20 Height - 74.00 in Weight - 276.0 lbs Temperature - 97.4 F Pulse - 83 Respiration - 18 BP - 133/76 mm(hg) O2 Sat - 95 % (LOW) Pain - 0 Performed on Mar 05, 2021 13:20 BMI - 35.437 kg/m2 (HIGH) Performed on Mar 05, 2021 12:24 Height - 74.00 in Weight - 276 lbs (LOW) BSA - 2.49 sq.m BMI - 35.44 (HIGH) Temperature - 97.4 F (LOW) Pulse - 83 /min Respiration - 18 /min BP - 133/76 mm(hg) O2 Sat - 95 % (LOW) Pain - 0 Physical Examination: Constitutional - He appears chronically ill, Eyes - Sclerae nonicteric. Conjunctivae clear, ENMT - No lesions noted in the oral cavity, Hematologic/Lymphatic - No cervical, clavicular, or axillary adenopathy, Respiratory - Lungs show diminished air movement bilaterally, Cardiovascular - Heart rhythm is irregular. There is no murmur, gallop, or rub noted, Abdomen - Moderately distended. Liver and spleen are not enlarged. There is no abdominal mass or ascites noted and there is no inguinal adenopathy, Extremities - No edema, Neurologic - No focal neurologic deficits noted. Lab/Imaging: Test performed on Mar 05, 2021 11:32 Sodium 140 mmol/L Potassium 3.4 mmol/L Chloride 102 mmol/L CO2 31 mmol/L Anion Gap 10.4 BUN 9 mg/dL Creatinine 0.6 mg/dL Cr Clearance (Est) 255.02 mL/min eGFR 141.5 mL/min Glucose 194 mg/dL Osmolality - Calculated 294 mOsm/kg Calcium 8.5 mg/dL Protein, Total 6.1 g/dL Albumin 3.9 g/dL Globulin 2.2 g/dL Bilirubin, Total 0.6 mg/dL ALT (SGPT) 11 U/L AST (SGOT) 10 U/L Alkaline Phosphatase 64 IU/L WBC 5.7 10 3/uL RBC 4.57 10 6/uL HGB 15.0 g/dL HCT 42.6 % MCV 93.2 fL MCH 32.8 pg MCHC 35.2 g/dL RDW 13.0 % Platelet Count 206 10 3/cmm MPV 9.1 fL Neutrophils 3.14 10 3/uL Lymphocytes 2.0 10 3/uL Monocytes 0.2 10 3/uL Eosinophils 0.2 10 3/uL Basophils 0.1 10 3/uL Neutrophil % 55.2 % Lymphocyte % 34.7 % Monocyte % 4.2 % Eosinophil % 3.9 % Basophils % 1.8 % NRBC % 0 % Problem List: 1. Adenocarcinoma involving the lower lobe of the right lung, stage IIIB (T3, N2, M0). 2. COPD. 3. Coronary artery disease with previous angioplasty/stent placement. 4. Atrial fibrillation. 5. Dyslipidemia. 6. Hypotension. 7. Sleep apnea syndrome. 8. Macular degeneration. 9. Chronic anxiety. Problems Addressed with this Encounter and Plan: Patient with adenocarcinoma involving the lower lobe of the right lung. He underwent bronchoscopy/EBUS on 12/29/2020. By clinical evaluation, his disease is stage IIIB(T3, N2, M0). I reviewed the clinical findings and staging with the patient. We discussed the fact that the recommended treatment is radiation concurrently with weekly carboplatin/paclitaxel chemotherapy. Depending on response, he would then potentially be eligible for maintenance immunotherapy with avelumab. He will be starting radiation today. He will see his initial chemotherapy treatment tomorrow, as he neglected to take his steroid premedication yesterday. I did review anticipated side effects with the chemotherapy which may include nausea/vomiting, alopecia, fatigue, low blood counts, and neuropathy, among others. I will see him again in 1 week. Signed By: Theron Jo M.D. <<Signature on File>>
== END 2021-03-10 23:59 | disposition home or self-care (01) ==
LOC: ONCMED 05:50
PROVIDERS: Absent Provider Specialist; Visit Provider Internal Medicine Medical Oncology
DX: Z51.0 Encounter for antineoplastic radiation therapy (principal); Z51.11 Encounter for antineoplastic chemotherapy; C34.31 Malignant neoplasm of lower lobe, right bronchus or lung; J44.9 Chronic obstructive pulmonary disease, unspecified; I25.10 Atherosclerotic heart disease of native coronary artery without angina pectoris; Z95.5 Presence of coronary angioplasty implant and graft; I48.20 Chronic atrial fibrillation, unspecified; E78.5 Hyperlipidemia, unspecified; I95.1 Orthostatic hypotension; G47.33 Obstructive sleep apnea (adult) (pediatric); H35.30 Unspecified macular degeneration; F41.9 Anxiety disorder, unspecified; Z79.899 Other long term (current) drug therapy
CPT/HCPCS: 36591; 77300; 77301; 77334; 77338; 77386; 77470; 80053; 85025; 96367; 96375; 96413; 96417; 99215; J1100; J1200; J2469; J3490; J7030; J7040; J7050; J9045; J9267; Q9967

== ENCOUNTER 2021-03-16 05:52 | Outpatient (RCR) | payer MEDICARE, MEDICAID, SELFPAY ==
--- NOTE | 2021-03-12 11:15 | ONCRAD TMN_ITS ---
Radiation Oncology Treatment Management Note Patient Name: Darlin Youssef Date of : 1970 Date of Service: 03/12/2021 Attending Physician: Jeff Stewart M.D. Darlin Youssef is a 51 year-old white male diagnosed with a clinical stage IIIA (T2aN2) adenocarcinoma of the right lower lobe of the lung (PD???L1 expression level was less than 1%). The patient has received 10 Gy of a prescribed 60 Poole with an intensity modulated radiotherapy plan utilizing a step and shoot treatment technique. He has been prescribed Carboplatin (AUC 2) and Paclitaxel (50 mg/m???) weekly during therapy. Upon review of systems, he denied pulmonary symptoms. On physical examination, the patient weighed 274 lbs. Her temperature was 96.5 ???F with a blood pressure of 112/60 mmHg. The pulse was 65 bpm and his respiratory rate was 20. Oxygen saturation while breathing room air was 95%. There was no erythema within the treatment guerrero. Auscultation of the posterior lung guerrero identified significantly decreased breath sounds. Continue thoracic radiotherapy as prescribed. Signed by: Dr. Jeff Stewart 03/12/2021 11:13:26 AM
[2021-03-13 11:58] LABS: Basophils % 0.3 %; Hematocrit 39.3 % (42.0-52.0); Hemoglobin 13.9 g/dL (11.7-16.6); Lymphocytes # 0.6 10^3/uL (0.8-4.8); Lymphocytes % 5.3 %; Mean Corpuscular HGB Conc 35.4 g/dL (30.0-36.0); Mean Corpuscular Hemoglobin 32.7 pg (28.0-34.0); Mean Corpuscular Volume 92.5 fL (80-94); Mean Platelet Volume 9.7 fL (7.4-10.4); Monocytes # 0.3 10^3/uL (0.2-0.9); Monocytes % 2.4 %; Neutrophils # 10.66 10^3/uL (1.8-7.7); Neutrophils % 89.9 %; Nucleated Red Blood Cells % 0 %; Platelet Count 244 10^3/cmm (130-400); Red Blood Count 4.25 10^6/uL (4.1-5.3); Red Cell Distribution Width 12.6 % (12.1-15.1); White Blood Count 11.9 10^3/uL (4.0-10.0)
[2021-03-13 12:29] LABS: Alanine Aminotransferase 7 U/L (0-41); Albumin Level 3.7 g/dL (3.5-5.2); Alkaline Phosphatase 59 IU/L (40-130); Anion Gap 10.2 (5-19); Aspartate Amino Transferase 6 U/L (0-40); Blood Urea Nitrogen 15 mg/dL (6-20); Calcium 8.9 mg/dL (8.5-10.5); Carbon Dioxide 34 mmol/L (22-29); Chloride 96 mmol/L (98-107); Globulin 2.1 g/dL (1.3-4.6); Glomerular Filtration Rate 141.5 mL/min (90-130); Glucose 237 mg/dL (65-115); Osmolality Calculated 293 mOsm/kg (285-295); Potassium 3.2 mmol/L (3.5-5.1); Sodium 137 mmol/L (136-145); Total Bilirubin 0.5 mg/dL (0.15-1.2); Total Protein 5.8 g/dL (6.6-8.7)
[2021-03-14] MEDS: sodium chloride 0.9% 250 ML 75 ML IV (11:46)
[2021-03-14] MEDS: famotidine 20 mg/2 mL INJ IVP (11:46)
[2021-03-14] MEDS: diphenhydrAMINE 50 mg/mL SDV 1mL 25 MG IV (11:48)
[2021-03-14] MEDS: LORazepam 2 mg/mL INJ 1 mL 0.5 MG IV (11:52)
[2021-03-14] MEDS: palonosetron 0.25 mg/5 mL SDV IV (11:57)
--- NOTE | 2021-03-14 19:45 | ONC FU_ITS ---
Dr. Jo Patient Follow-Up Note Patient: Darlin Youssef Unit #: [id number]: 1970 Dicatated By: Theron Jo M.D.Date of Visit:Mar 14, 2021 Onc Med Follow-up/Prog Note Chief Complaint: Lung cancer. 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 Patient with known COPD and coronary artery disease. He underwent coronary angioplasty with stent placement following myocardial infarction in August 2016. He also has atrial fibrillation for which he is on anticoagulation with rivaroxaban. He has chronic cough and he had presented to Dr. Mckeon in November with complaints of worsening shortness of breath. He had pulmonary consultation with Dr. Ortega on 12/13/2020. His chest CT on 12/20/2020 showed moderate centrilobular emphysematous changes. A spiculated right lower lobe mass measuring 2.3 x 3.6 cm was suspicious for neoplasm and there was associated masslike right hilar and infrahilar lymphadenopathy measuring 1.9 x 3.9 cm and 5.1 x 3.1 cm. An additional pleural-based opacity along the right fissure measured 10 mm. With those findings he underwent bronchoscopy/EBUS on 12/29/2020. There were no endobronchial lesions identified. The endobronchial ultrasound showed evidence of large right hilar mass but no significant lymphadenopathy was noted in the paratracheal or subcarinal node areas. He underwent FNA biopsies of the right hilar mass and station 7 lymph node. Pathology showed adenocarcinoma at both sites. His staging PET/CT on 01/06/2021 showed central right lower lobe solid nodule measuring 1.3 x 1.5 cm, SUV 6.8, consistent with malignancy. An adjacent nodule was noted to be almost contiguous and likely malignant. A right inferior hilar mass measuring 3.3 x 3.6 cm has SUV 10.6 consistent with local metastatic disease. Other mediastinal lymph nodes are subcentimeter in size and FDG negative. His brain MRI showed no evidence of metastatic disease. With those findings he was recommended to undergo radiation concurrently with weekly carboplatin/paclitaxel chemotherapy. There was a significant delay in getting his port placed in his treatment started due to interim illnesses in part to compliance issues. His other medical illnesses include COPD, dyslipidemia, coronary artery disease, hypotension, obstructive sleep apnea, macular degeneration, and chronic anxiety. He has a history of smoking beginning at age 7. He had previously smoked up to 3 packs of cigarettes daily. He has cut down to less than 1/2 pack/day. INTERIM HISTORY: He began radiation on 03/05/2021. He received his initial infusion of chemotherapy was deferred to the following day, as he had neglected to take his steroid premedication. He tolerated the chemotherapy without acute toxicity. He is seen for a followup visit. He continues to have very limited activity. His ECOG score is 2. His appetite has been poor. He initially did not have any nausea or vomiting, but he has been having recurrent episodes of vomiting during the past 2 days. He thinks he may have had some low-grade fever. He has had a lot of sweating. He has not had mouth sores. He has shortness of breath. He has normal cough. He does not complain of chest pain. His bowels have not been moving well. Bladder function remains adequate. He has joint pain, which is chronic. He has chronic headache. He has lightheadness with coughing. He has just occasional numbness. Medications: Advair Diskus 2 Inhalation (of 250-50 mcg/dose) Aerosol Powder, Breath Activated Inhalation b.i.d., Albuterol Sulfate HFA 2 Puff(s) (of 108 (90 base) mcg/act) Aerosol, solution Inhalation q 4 to 6 hours PRN, Aspirin 1 (325 mg) Tablet Oral daily, Atorvastatin Calcium 1 (40 mg) Tablet Oral daily, Combivent Respimat Aerosol, solution Inhalation PRN, Lisinopril 1 (10 mg) Tablet Oral daily, Nicotine 1 Patch(es) (of 21 mg/24hr) Patch 24 Hr Transdermal daily, Trelegy Ellipta 1 (100-62.5-25 mcg/inh) Aerosol Powder, Breath Activated Inhalation daily, Verapamil HCl ER 1 (240 mg) Capsule SR 24 HR Oral daily, Xarelto 1 (20 mg) Tablet Oral daily Allergies: Influenza Virus Vacc Split PF, Marigold, Talcum powder, and Wool. Vital Signs: Performed on Mar 14, 2021 14:56 Height - 74.00 in Weight - 275.2 lbs (HIGH) BSA - 2.49 sq.m BMI - 35.33 (HIGH) Temperature - 97.3 F (LOW) Pulse - 109 /min (HIGH) Respiration - 20 /min BP - 133/77 mm(hg) O2 Sat - 98 % Pain - 0 Fatigue - 5 Physical Examination: Constitutional - He appears chronically ill, Eyes - Sclerae nonicteric. Conjunctivae clear, ENMT - No lesions noted in the oral cavity, Hematologic/Lymphatic - No cervical, clavicular, or axillary adenopathy, Respiratory - Lungs show markedly diminished air movement bilaterally, Cardiovascular - Heart rhythm is irregular. There is no murmur, gallop, or rub noted, Abdomen - Moderately distended. Liver and spleen are not enlarged. There is no abdominal mass or ascites noted and there is no inguinal adenopathy, Extremities - No edema, Neurologic - No focal neurologic deficits noted. Lab/Imaging: Test performed on Mar 13, 2021 11:30 Sodium 137 mmol/L Potassium 3.2 mmol/L Chloride 96 mmol/L CO2 34 mmol/L Anion Gap 10.2 BUN 15 mg/dL Creatinine 0.6 mg/dL Cr Clearance (Est) 255.0200 mL/min eGFR 141.5 mL/min Glucose 237 mg/dL Osmolality - Calculated 293 mOsm/kg Calcium 8.9 mg/dL Protein, Total 5.8 g/dL Albumin 3.7 g/dL Globulin 2.1 g/dL Bilirubin, Total 0.5 mg/dL ALT (SGPT) 7 U/L AST (SGOT) 6 U/L Alkaline Phosphatase 59 IU/L WBC 11.9 10 3/uL RBC 4.25 10 6/uL HGB 13.9 g/dL HCT 39.3 % MCV 92.5 fL MCH 32.7 pg MCHC 35.4 g/dL RDW 12.6 % Platelet Count 244 10 3/cmm MPV 9.7 fL Neutrophils 10.66 10 3/uL Lymphocytes 0.6 10 3/uL Monocytes 0.3 10 3/uL Eosinophils 0.0 10 3/uL Basophils 0.0 10 3/uL Neutrophil % 89.9 % Lymphocyte % 5.3 % Monocyte % 2.4 % Eosinophil % 0.0 % Basophils % 0.3 % NRBC % 0 % Problem List: 1. Adenocarcinoma involving the lower lobe of the right lung, stage IIIB (T3, N2, M0). 2. COPD. 3. Coronary artery disease with previous angioplasty/stent placement. 4. Atrial fibrillation. 5. Dyslipidemia. 6. Hypotension. 7. Sleep apnea syndrome. 8. Macular degeneration. 9. Chronic anxiety. Problems Addressed with this Encounter and Plan: Patient with adenocarcinoma involving the lower lobe of the right lung. He underwent bronchoscopy/EBUS on 12/29/2020. By clinical evaluation, his disease was stage IIIB (T3, N2, M0) at intial diagnosis. He was recommended to undergo chemoradiation. He began radiation on 03/05/2021. His initial chemotherapy infusion was deferred to the following day because he had neglected to take his steroid premedication. He tolerated the chemotherapy without acute toxicity. However, he has now developed significant nausea/vomiting, which I assume is a delayed effect from the chemotherapy. He will be given IV hydration and IV anti-emetics today. If his symptoms improve, I will continue with his week 2 carboplatin/paclitaxel with a dexamethasone taper. He will be scheduled for a followup visit in 1 week. In the meantime, he will be given further IV hydration as needed. Signed By: Theron Jo M.D. <<Signature on File>>
[2021-03-16] MEDS: LORazepam 2 mg/mL INJ 1 mL 1 MG IV (11:33)
[2021-03-16] MEDS: sodium chloride 0.9% 1,000 ML 999 ML IV (11:33)
== END 2021-03-17 04:00 | disposition home or self-care (01) ==
LOC: ONCMED 05:52
PROVIDERS: Internal Medicine Medical Oncology; Absent Provider Radiology Radiation Oncology; Visit Provider Radiology Radiation Oncology
DX: Z51.0 Encounter for antineoplastic radiation therapy (principal); Z51.11 Encounter for antineoplastic chemotherapy; C34.31 Malignant neoplasm of lower lobe, right bronchus or lung; J44.9 Chronic obstructive pulmonary disease, unspecified; I25.10 Atherosclerotic heart disease of native coronary artery without angina pectoris; Z95.5 Presence of coronary angioplasty implant and graft; I48.91 Unspecified atrial fibrillation; E78.5 Hyperlipidemia, unspecified; I95.9 Hypotension, unspecified; G47.30 Sleep apnea, unspecified; H35.30 Unspecified macular degeneration; F41.9 Anxiety disorder, unspecified; Z79.899 Other long term (current) drug therapy
CPT/HCPCS: 36415; 36591; 77336; 77386; 80053; 85025; 96361; 96365; 96367; 96375; 96413; 96417; 99214; J1100; J1200; J2060; J2469; J3490; J7030; J7040; J7050; J9045; J9267

== ENCOUNTER 2021-03-17 04:23 | Emergency (ER) | payer MEDICARE, MEDICAID, SELFPAY ==
[2021-03-17] VITALS (7 sets, daily range): BP systolic 114–157; BP diastolic 82–109; PULSE 78–98; RESP 16–18; TEMP 36–36.6; O2SAT 88–99; BMI 33.3
--- NOTE | 2021-03-17 05:10 | XRR_ITS ---
PROCEDURE INFORMATION: Exam: XR Chest Exam date and time: 03/17/2021 5:10 AM Age: 51 years old Clinical indication: Other: Hiccups x 3 days; Prior surgery; Surgery type: Coronary stents, port; Additional info: Cancer TECHNIQUE: Imaging protocol: XR of the chest. Views: 1 view. COMPARISON: CT chest con [id number] 12/20/2020 10:32 AM FINDINGS: Tubes, catheters and devices: There is a left subclavian port with the catheter tip in the superior vena cava. Lungs: There are changes compatible with emphysema. The previously demonstrated right lower lobe mass is not radiographically apparent. However, there does appear to be asymmetric enlargement of the inferior right hilum which can be due to adenopathy. No pulmonary vascular congestion, pulmonary edema or pneumonia. Pleural spaces: No large pleural effusion. The extreme costophrenic sulci are not on the image. No pneumothorax. Heart/Mediastinum: The heart is not felt to be enlarged when allowing for the AP portable nature of the radiograph. The mediastinal contours are normal. Bones/joints: No acute osseous abnormality. XR/XR chest 1V portable [id number] IMPRESSION: 1. Emphysema. 2. Possible inferior right hilar adenopathy.
--- NOTE | 2021-03-17 05:10 | W.ED.GENADLT ---
HPI - General Adult General: Chief complaint: General Medical Stated complaint: Chemo PT\ Diaphragm is Jumping\Cant Sleep Time Seen by Provider: 03/17/21 04:48 Source: patient Mode of arrival: ambulatory Limitations: no limitations History of Present Illness: HPI narrative: 51-year-old male who has a history of lung cancer states he has had persistent hiccups over the last 2 nights. He states he is currently on radiation and has had these hiccups in the past. He states that have something to relax diaphragm. States he is not able to sleep due to the hiccups. Denies any pain denies any fever denies any cough. Associated symptoms: Deny chest pain, dyspnea, headache(s), nausea, rash or vomiting Review of Systems Const: Denies: fever(s), chills, body aches or change in appetite Eyes: Denies: blurry vision or eye discomfort ENMT: Denies: throat pain or dental pain Card: Denies: chest pain Resp: Denies: dyspnea GI: Denies: abdominal pain, nausea, vomiting or diarrhea : Denies: dysuria Musc: Denies: neck pain or back pain Skin/Breast: Denies: rash Neuro: Denies: headache(s) Psych: Denies: depression Edouard/Lymph: Denies: easy bruising All/Imm: Denies: urticaria PFSH ED PFSH: Medical History Atrial fibrillation CAD (coronary artery disease) COPD (chronic obstructive pulmonary disease) Dyslipidemia Hypotension Sleep apnea syndrome Surgical History History of cholecystectomy Port-A-Cath in place (02/14/21) Family History Other CAD (coronary artery disease) Cancer Diabetes Lung disease Stroke Denies family history of Bleeding disorder Social History Quit status (tobacco): considering quitting Second hand smoke exposure: Yes Smoking risk assessment/counseling performed?: Yes Alcohol intake: current Alcohol intake frequency: holidays/special occasions only Lives independently: Yes Household members: significant other and children Marital status: Life Partner service: No Current occupational status: disabled Pets and animals: Yes History of recent travel: No Current gender identity: Male Physical Exam Const: COMMON NORMALS: no acute distress, patient oriented x3 and healthy appearing HENMT: COMMON NORMALS: normocephalic and atraumatic HEAD & SCALP: normocephalic and atraumatic Eye: COMMON NORMALS: Equal, round and reactive pupils present and EOMs intact bilaterally PUPIL: Yes Equal, round and reactive pupils present Neck/C-Spine: COMMON NORMALS: full ROM and supple Chest: COMMONS NORMALS: normal inspection of the chest and normal palpation of entire chest wall Resp: COMMON NORMALS: normal respiratory effort, No retractions, No use of accessory muscles and clear to auscultation bilaterally AUSCULTATION: clear to auscultation bilaterally Cardio: COMMON NORMALS: regular rate, regular rhythm and No murmurs present (Cardio) RATE: regular rate RHYTHM: regular rhythm GI: COMMON NORMALS: Normal to inspection, nondistended, normoactive bowel sounds present, Soft to palpation, non-tender and no masses PALPATION: Yes Soft to palpation Extremity: COMMON NORMALS: normal to inspection and full ROM Neuro: COMMON NORMALS: patient oriented x3, moves all extremities and no focal motor deficits Psych: COMMON NORMALS: mental status grossly normal, Normal thought process present and cooperative THOUGHT PROCESS: Normal thought process present Skin: COMMON NORMALS: no rashes or lesions noted and no wounds GENERAL SKIN EXAM: no rashes or lesions noted Course Vital Signs: Vital signs: Vital Signs Temperature 97.9 F 03/17/21 05:15 Pulse Rate 97 03/17/21 05:15 Respiratory Rate 18 03/17/21 04:38 Blood Pressure 147/93 03/17/21 05:15 Pulse Oximetry 94 03/17/21 05:15 MDM - General Adult MDM Narrative: Medical decision making narrative: Patient presents here with hiccups likely from his cancer. X-ray shows no acute findings. He feels much improved after Reglan and Benadryl and is stable for discharge. He is to follow-up his PCP and return if worsening. Imaging Data^: CXR: Attestation: I personally reviewed and interpreted this imaging study as follows: My impression: No acute findings Discharge Plan Discharge Patient Disposition: Home Clinical Impression: Hiccups Condition: Stable Prescriptions: No Action atorvastatin 40 mg tablet 40 mg PO DAILY@2200 Qty: 30 RF: 3 nitroglycerin 0.4 mg tablet, sublingual 0.4 mg sublingual Q5M PRN (Reason: chest pain) Qty: 25 RF: 2 aspirin 325 mg tablet See Rx Instructions PO DAILY RF: 0 metoprolol succinate 100 mg tablet extended release 24 hr 100 mg PO BID Qty: 90 RF: 2 Tylenol Cold and Flu Severe 8-02-101-200 mg tablet 2 tab PO BID RF: 0 Trelegy Ellipta 100-62.5-25 mcg blister with device 1 inh inhalation DAILY Qty: 60 RF: 3 nicotine 21 mg/24 hr patch 24 hour 1 patch transdermal DAILY Qty: 28 RF: 1 Combivent Respimat 20-100 mcg/actuation mist 1 puff inhalation QID PRN (Reason: shortness of breath) Qty: 4 RF: 3 Xarelto 20 mg tablet 20 mg PO DAILY Qty: 90 RF: 1 Hold Instructions: Resume on 02/17/21. albuterol sulfate 90 mcg/actuation HFA aerosol inhaler 1 puff inhalation PRN RF: 0 Zofran 4 mg tablet 4 mg PO Q6H PRN (Reason: nausea and vomiting) Qty: 20 RF: 0 Colace 100 mg capsule 100 mg PO BID Qty: 30 RF: 0 hydrocodone-acetaminophen 5-325 mg tablet 1 tab PO Q6H PRN (Reason: pain) Qty: 20 RF: 0 fluticasone propion-salmeterol [Wixela Inhub] 250-50 mcg/dose blister with device 2 inh INHALATION Q6H PRN (Reason: sob/wheezing) RF: 0 lisinopril 10 mg tablet 10 mg PO DAILY@2200 RF: 0 verapamil 240 mg capsule,ext rel. pellets 24 hr 240 mg PO DAILY RF: 0 Discharge Orders: Discharge ED (Routine); Ordered 03/17/21 Ordered By: Cam Tam Discharge Diet: Advance as tolerated Discharge Activity: Resume usual activity Patient Instructions: Hiccups (ED) Coding Level of Care Code ED Photographic Enlarger Operator for Dennisg Fwd Exam Comprehensive
[2021-03-17] MEDS: diphenhydrAMINE 50 mg/mL SDV 1mL IVP (05:40)
[2021-03-17] MEDS: metoclopramide 5 mg/mL SDV 2 mL 10 MG IVP (05:40)
--- NOTE | 2021-03-17 06:16 | PC.NURSE ---
WHILE ATTEMPTING TO DISCHARGE PT, HE BEGAN HICCUPING AGAIN. DR OLVERA NOTIFIED. ORDERS RECEIVED.
--- NOTE | 2021-03-17 06:36 | PC.NURSE ---
PT RE-ATTACHED TO CARDIAC MONITORING AND FOUND TO HAVE AN ELEVATED HEART RATE 130-145; DR. HUMPHREYS NOTIFIED. EKG OBTAINED. ATRIAL FIBRILATION RVR RATE 128 AND BP 165/105. PT PLACED ON OXYGEN AT 2L/NC WITH SPO2 AT 94-95%.
--- NOTE | 2021-03-17 06:41 | W.ED.GENADLT ---
HPI - General Adult General: Chief complaint: General Medical Stated complaint: Chemo PT\ Diaphragm is Jumping\Cant Sleep Time Seen by Provider: 03/17/21 04:48 Source: patient Mode of arrival: ambulatory Limitations: no limitations History of Present Illness: HPI narrative: 51-year-old male presented to the ER with complaints of hiccups. At change of shift he was scheduled for discharge. The nurse went in to evaluate him for discharge and noted he was tachycardic he was still having some hiccups. We had ordered a small dose of Haldol he was placed on a night monitor and found to be in A. fib with rapid ventricular response.Patient does have a history of lung cancer. Patient is a known history of coronary artery disease with previous angioplasty and stenting he also has a known history of atrial fibrillation. He is on oral anticoagulants. He had been throwing up yesterday because of his hiccups and is not sure he kept much of his medication down including his metoprolol or verapamil. He is denying any chest pain at this time. He is somewhat sedated due to the Benadryl he had earlier. Onset (ago): hour(s) Associated symptoms: Reports decreased appetite, malaise, nausea and palpitations; Deny chest pain, confusion, cough, diaphoresis, dyspnea, fevers/chills, headache(s), rash, seizures, short of breath, syncope, vomiting or weakness Review of Systems Const: Reports: malaise; Denies: diaphoresis Card: Reports: palpitations; Denies: chest pain or syncope Resp: Denies: dyspnea GI: Reports: nausea; Denies: vomiting Skin/Breast: Denies: rash Neuro: Denies: headache(s) or confusion PFSH ED PFSH: Medical History Atrial fibrillation CAD (coronary artery disease) COPD (chronic obstructive pulmonary disease) Dyslipidemia Sleep apnea syndrome Surgical History History of cholecystectomy Port-A-Cath in place (02/14/21) Family History Other CAD (coronary artery disease) Cancer Diabetes Lung disease Stroke Denies family history of Bleeding disorder Social History Quit status (tobacco): considering quitting Second hand smoke exposure: Yes Smoking risk assessment/counseling performed?: Yes Alcohol intake: current Alcohol intake frequency: holidays/special occasions only Lives independently: Yes Household members: significant other and children Marital status: Life Partner service: No Current occupational status: disabled Pets and animals: Yes History of recent travel: No Current gender identity: Male Physical Exam Const: COMMON NORMALS: no acute distress GENERAL APPEARANCE: cooperative HENMT: COMMON NORMALS: normocephalic, atraumatic and hearing grossly normal bilaterally HEAD & SCALP: normocephalic and atraumatic Neck/C-Spine: COMMON NORMALS: supple and no JVD Resp: COMMON NORMALS: normal respiratory effort, No retractions, No use of accessory muscles and clear to auscultation bilaterally AUSCULTATION: clear to auscultation bilaterally Cardio: COMMON NORMALS: no JVD and No murmurs present (Cardio) RATE: tachycardic RHYTHM: abnormal rhythm irregularly irregular GI: COMMON NORMALS: Soft to palpation and No hepatosplenomegaly present AUSCULTATION: Yes normoactive bowel sounds PALPATION: Yes Soft to palpation, No Tenderness to palpation present (GI), No Guarding due to palpation present (GI) and Yes No hepatosplenomegaly present Extremity: COMMON NORMALS: normal to inspection, capillary refill normal, no clubbing, cyanosis or edema, no calf tenderness and no pedal edema Skin: COMMON NORMALS: no rashes or lesions noted GENERAL SKIN EXAM: no rashes or lesions noted Course Vital Signs: Vital signs: Vital Signs Temperature 97.9 F 03/17/21 05:15 Pulse Rate 82 03/17/21 11:58 Respiratory Rate 16 03/17/21 11:58 Blood Pressure 131/91 03/17/21 11:58 Pulse Oximetry 94 03/17/21 11:58 MDM - General Adult MDM Narrative: Medical decision making narrative: Give the patient his oral metoprolol and verapamil this morning given 5 IV metoprolol now to try to's get control of his heart rate. When I came to see the patient he was lying back he had experienced a little bit of sleep apnea after getting the Benadryl. He does not usually wear oxygen at home he was on 2 L by nasal cannula. His nurse told me it was started just because he had started dozing off and he satting low but after getting the Benadryl. We will try him off of the oxygen for now and see how his sats to. We were able to get his heart rate controlled. But he continues to require oxygen. His accommodation of his COPD and is lung cancer we will go ahead and qualify him for home O2 at 3 L/min discharge home continue his other medications regularly. Also started him on doxycycline return to his primary care doctor or to the ER if he has any further problems or worsening of symptoms. Lab Data: Labs: Lab Results 03/17/21 03/17/21 03/17/21 Range/Units 07:48 09:35 09:35 WBC 5.1 (4.0-10.0) 10^3/ uL RBC 4.66 (4.1-5.3) 10^6/u L Hgb 15.2 (11.7-16.6) g/dL Hct 42.1 (42.0-52.0) % MCV 90.3 (80-94) fL MCH 32.6 (28.0-34.0) pg MCHC 36.1 H (30.0-36.0) g/dL RDW 12.2 (12.1-15.1) % Plt Count 195 (130-400) 10^3/c mm MPV 10.1 (7.4-10.4) fL Neut % (Auto) 86.5 % Lymph % (Auto) 7.0 % Isabela % (Auto) 5.9 % Eos % (Auto) 0.0 % Baso % (Auto) 0.2 % Neut # (Auto) 4.43 (1.8-7.7) 10^3/u L Lymph # (Auto) 0.4 L (0.8-4.8) 10^3/u L Isabela # (Auto) 0.3 (0.2-0.9) 10^3/u L Eos # (Auto) 0.0 (0.0-0.8) 10^3/u L Baso # (Auto) 0.0 (0.0-0.1) 10^3/u L Nucleated RBC % (a uto) 0 % Nucleated RBCs # 0.0 /100WBC Sodium 137 (136-145) mmol/L Potassium 3.5 (3.5-5.1) mmol/L Chloride 93 L (98-107) mmol/L Carbon Dioxide 37 H (22-29) mmol/L Anion Gap 10.5 (5-19) BUN 13 (6-20) mg/dL Creatinine 0.4 L (0.7-1.2) mg/dL GFR Calculation 225.9 H (90-130) mL/min Glucose 200 H (65-115) mg/dL Calculated Osmolal ity 290 (285-295) mOsm/k g Calcium 8.0 L (8.5-10.5) mg/dL Total Bilirubin 2.4 H (0.15-1.2) mg/dL AST 11 (0-40) U/L ALT 9 (0-41) U/L Alkaline Phosphata se 44 (40-130) IU/L Troponin T Baselin e (0-15) ng/L Total Protein 5.2 L (6.6-8.7) g/dL Albumin 3.6 (3.5-5.2) g/dL Globulin 1.6 (1.3-4.6) g/dL Urine Color Yellow (Yellow) Urine Appearance Clear (CLEAR) Urine pH 7 (5-7) Ur Specific Gravit y 1.010 (1.005-1.030) Urine Protein Neg (Negative) Urine Glucose (UA) 1+ (Normal) Urine Ketones Negative (Negative) Urine Blood Neg (Negative) Urine Nitrate Negative (Negative) Urine Bilirubin Neg (Negative) Urine Urobilinogen Norm (Negative) mg/dL Ur Leukocyte Mag ase Negative (Negative) 03/17/21 Range/Units 09:35 WBC (4.0-10.0) 10^3/ uL RBC (4.1-5.3) 10^6/u L Hgb (11.7-16.6) g/dL Hct (42.0-52.0) % MCV (80-94) fL MCH (28.0-34.0) pg MCHC (30.0-36.0) g/dL RDW (12.1-15.1) % Plt Count (130-400) 10^3/c mm MPV (7.4-10.4) fL Neut % (Auto) % Lymph % (Auto) % Isabela % (Auto) % Eos % (Auto) % Baso % (Auto) % Neut # (Auto) (1.8-7.7) 10^3/u L Lymph # (Auto) (0.8-4.8) 10^3/u L Isabela # (Auto) (0.2-0.9) 10^3/u L Eos # (Auto) (0.0-0.8) 10^3/u L Baso # (Auto) (0.0-0.1) 10^3/u L Nucleated RBC % (a uto) % Nucleated RBCs # /100WBC Sodium (136-145) mmol/L Potassium (3.5-5.1) mmol/L Chloride (98-107) mmol/L Carbon Dioxide (22-29) mmol/L Anion Gap (5-19) BUN (6-20) mg/dL Creatinine (0.7-1.2) mg/dL GFR Calculation (90-130) mL/min Glucose (65-115) mg/dL Calculated Osmolal ity (285-295) mOsm/k g Calcium (8.5-10.5) mg/dL Total Bilirubin (0.15-1.2) mg/dL AST (0-40) U/L ALT (0-41) U/L Alkaline Phosphata se (40-130) IU/L Troponin T Baselin e 9 (0-15) ng/L Total Protein (6.6-8.7) g/dL Albumin (3.5-5.2) g/dL Globulin (1.3-4.6) g/dL Urine Color (Yellow) Urine Appearance (CLEAR) Urine pH (5-7) Ur Specific Gravit y (1.005-1.030) Urine Protein (Negative) Urine Glucose (UA) (Normal) Urine Ketones (Negative) Urine Blood (Negative) Urine Nitrate (Negative) Urine Bilirubin (Negative) Urine Urobilinogen (Negative) mg/dL Ur Leukocyte Mag ase (Negative) Discharge Plan Discharge Patient Disposition: Home Clinical Impression: Hiccups, COPD (chronic obstructive pulmonary disease), Cancer of right lung, Atrial fibrillation Condition: Stable Prescriptions: New doxycycline hyclate 100 mg capsule 100 mg PO BID 10 Days Qty: 20 RF: 0 No Action atorvastatin 40 mg tablet 40 mg PO DAILY@2200 Qty: 30 RF: 3 nitroglycerin 0.4 mg tablet, sublingual 0.4 mg sublingual Q5M PRN (Reason: chest pain) Qty: 25 RF: 2 aspirin 325 mg tablet See Rx Instructions PO DAILY RF: 0 metoprolol succinate 100 mg tablet extended release 24 hr 100 mg PO BID Qty: 90 RF: 2 Tylenol Cold and Flu Severe 9-34-608-200 mg tablet 2 tab PO BID RF: 0 Trelegy Ellipta 100-62.5-25 mcg blister with device 1 inh inhalation DAILY Qty: 60 RF: 3 nicotine 21 mg/24 hr patch 24 hour 1 patch transdermal DAILY Qty: 28 RF: 1 Combivent Respimat 20-100 mcg/actuation mist 1 puff inhalation QID PRN (Reason: shortness of breath) Qty: 4 RF: 3 Xarelto 20 mg tablet 20 mg PO DAILY Qty: 90 RF: 1 Hold Instructions: Resume on 02/17/21. albuterol sulfate 90 mcg/actuation HFA aerosol inhaler 1 puff inhalation PRN RF: 0 Zofran 4 mg tablet 4 mg PO Q6H PRN (Reason: nausea and vomiting) Qty: 20 RF: 0 Colace 100 mg capsule 100 mg PO BID Qty: 30 RF: 0 hydrocodone-acetaminophen 5-325 mg tablet 1 tab PO Q6H PRN (Reason: pain) Qty: 20 RF: 0 fluticasone propion-salmeterol [Wixela Inhub] 250-50 mcg/dose blister with device 2 inh INHALATION Q6H PRN (Reason: sob/wheezing) RF: 0 lisinopril 10 mg tablet 10 mg PO DAILY@2200 RF: 0 verapamil 240 mg capsule,ext rel. pellets 24 hr 240 mg PO DAILY RF: 0 Discharge Orders: Discharge ED (Routine); Ordered 03/17/21 Ordered By: Andrew Sanches Other Ambulatory Orders: DME: Oxygen (Order) Location: None Selected Ordered By: Andrew Sanches Discharge Diet: Advance as tolerated Discharge Activity: Resume usual activity Patient Instructions: Hiccups (ED) Coding Level of Care Code ED Marketing Representative for Chg Fwd Exam Comprehensive
--- NOTE | 2021-03-17 06:43 | ECG_ITS ---
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 Measurements Intervals [place] Rate: 112 P: [place]: QRS: 3 QRSD: 83 T: 59 QT: 353 QTc: 483 Interpretive Statements ATRIAL FIBRILLATION WITH RAPID VENTRICULAR RESPONSE WITH ABERRANT CONDUCTION OR VENTRICULAR PREMATURE COMPLEXES ANTEROSEPTAL MYOCARDIAL INFARCTION [40+ ms Q WAVE IN V1-V4], OF INDETERMINATE AGE Compared to ECG 08/21/2020 17:56:31 Ventricular premature complex(es) now present Aberrant conduction of supraventricular beat(s) now present Myocardial infarct finding still present Electronically Signed On 03-22-2021 9:39:58 CDT by Namita Mckeon M.D. [id number]
[2021-03-17] MEDS: metoprolol tartrate 1 mg/1 mL SDV 5 mL 5 MG IV (06:57)
[2021-03-17] MEDS: metoprolol succinate ER (24 HR) 100 mg Tablet PO (07:29)
--- NOTE | 2021-03-17 07:36 | PC.NURSE ---
patient denied any chest pain, no acute distress noted.
--- NOTE | 2021-03-17 07:46 | XRR_ITS ---
PROCEDURE INFORMATION: Exam: XR Chest Exam date and time: 03/17/2021 7:46 AM Age: 51 years old Clinical indication: Dyspnea/cough TECHNIQUE: Imaging protocol: XR of the chest. Views: 1 view. COMPARISON: 1. CR (CHEST, ) 03/17/2021 5:[address] chest wo con [id number] 12/20/2020 10:32:25 AM FINDINGS: Tubes, catheters and devices: There is a left subclavian port with the catheter tip in the superior vena cava. Lungs: There are changes compatible with emphysema. The previously demonstrated right lower lobe mass is not radiographically apparent. However, there does appear to be asymmetric enlargement of the inferior right hilum which can be due to adenopathy. No pulmonary vascular congestion, pulmonary edema or pneumonia. Pleural spaces: No pleural effusion or pneumothorax. Heart/Mediastinum: The heart is not felt to be enlarged when allowing for the AP portable nature of the radiograph. The mediastinal contours are normal. Bones/joints: No acute osseous abnormality. XR/XR chest 1V portable [id number] IMPRESSION: No significant change when compared to CR (CHEST, ) 03/17/2021 5:10 AM.
[2021-03-17 07:58] LABS: Add Urine Microscopic? NO; Charge for UA Resulting for Rev
[2021-03-17 08:08] LABS: Blood Urine Neg (Negative); Glucose Urine UA 1+ (Normal); Ketones Urine Negative (Negative); Protein Urine Neg (Negative); Urine Appearance Clear (CLEAR); Urine Color Yellow (Yellow); pH Urine 7 (5-7)
[2021-03-17 08:09] LABS: Nitrate Urine Negative (Negative)
[2021-03-17 08:13] LABS: Bilirubin Urine Neg (Negative); Leukocyte Esterase Urine Negative (Negative); Urobilinogen Urine Norm (Negative)
[2021-03-17] MEDS: verapamil ER 240 mg Tablet PO (08:23)
--- NOTE | 2021-03-17 08:43 | ECG_ITS ---
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 Measurements Intervals [place] Rate: 119 P: ND: QRS: -3 QRSD: 101 T: 86 QT: 365 QTc: 515 Interpretive Statements ATRIAL FIBRILLATION WITH RAPID VENTRICULAR RESPONSE WITH ABERRANT CONDUCTION OR VENTRICULAR PREMATURE COMPLEXES POSSIBLE ANTERIOR MYOCARDIAL INFARCTION [30 ms Q WAVE IN V3/V4, OR R < 0.2 mV IN V4], OF INDETERMINATE AGE Compared to ECG 03/17/2021 08:50:24 No significant changes Electronically Signed On 03-22-2021 10:07:23 CDT by Namita Mckeon M.D. [id number]
[2021-03-17] MEDS: metoprolol tartrate 1 mg/1 mL SDV 5 mL 2.5 MG IV (09:31)
[2021-03-17 09:45] LABS: Basophils % 0.2 %; Hematocrit 42.1 % (42.0-52.0); Hemoglobin 15.2 g/dL (11.7-16.6); Lymphocytes # 0.4 10^3/uL (0.8-4.8); Mean Corpuscular HGB Conc 36.1 g/dL (30.0-36.0); Mean Corpuscular Hemoglobin 32.6 pg (28.0-34.0); Mean Corpuscular Volume 90.3 fL (80-94); Mean Platelet Volume 10.1 fL (7.4-10.4); Monocytes # 0.3 10^3/uL (0.2-0.9); Monocytes % 5.9 %; Neutrophils # 4.43 10^3/uL (1.8-7.7); Neutrophils % 86.5 %; Nucleated Red Blood Cells % 0 %; Platelet Count 195 10^3/cmm (130-400); Red Blood Count 4.66 10^6/uL (4.1-5.3); Red Cell Distribution Width 12.2 % (12.1-15.1); White Blood Count 5.1 10^3/uL (4.0-10.0)
[2021-03-17 10:08] LABS: Troponin(5th) Baseline 9 ng/L (0-15)
[2021-03-17 10:10] LABS: Alanine Aminotransferase 9 U/L (0-41); Albumin Level 3.6 g/dL (3.5-5.2); Alkaline Phosphatase 44 IU/L (40-130); Blood Urea Nitrogen 13 mg/dL (6-20); Carbon Dioxide 37 mmol/L (22-29); Chloride 93 mmol/L (98-107); Globulin 1.6 g/dL (1.3-4.6); Glomerular Filtration Rate 225.9 mL/min (90-130); Glucose 200 mg/dL (65-115); Osmolality Calculated 290 mOsm/kg (285-295); Sodium 137 mmol/L (136-145); Total Bilirubin 2.4 mg/dL (0.15-1.2); Total Protein 5.2 g/dL (6.6-8.7)
[2021-03-17 10:18] LABS: Anion Gap 10.5 (5-19); Aspartate Amino Transferase 11 U/L (0-40); Potassium 3.5 mmol/L (3.5-5.1)
--- NOTE | 2021-03-17 12:43 | ECG_ITS ---
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 Measurements Intervals [place] Rate: 124 P: [place]: QRS: -16 QRSD: 94 T: 14 QT: 405 QTc: 583 Interpretive Statements ATRIAL FIBRILLATION WITH RAPID VENTRICULAR RESPONSE WITH ABERRANT CONDUCTION OR VENTRICULAR PREMATURE COMPLEXES POSSIBLE ANTERIOR MYOCARDIAL INFARCTION [30 ms Q WAVE IN V3/V4, OR R < 0.2 mV IN V4], OF INDETERMINATE AGE Compared to ECG 08/21/2020 17:56:31 Aberrant conduction of supraventricular beat(s) now present Ventricular premature complex(es) now present Myocardial infarct finding still present Electronically Signed On 03-18-2021 12:24:28 CDT by Marcus Infante M.D. [id number]
== END 2021-03-17 12:00 | disposition home or self-care (01) ==
PROVIDERS: Emergency Provider Family Medicine
DX: R06.6 Hiccough (principal); J44.9 Chronic obstructive pulmonary disease, unspecified; E78.5 Hyperlipidemia, unspecified; Z77.22 Contact with and (suspected) exposure to environmental tobacco smoke (acute) (chronic); Z85.118 Personal history of other malignant neoplasm of bronchus and lung; Z79.899 Other long term (current) drug therapy; I25.10 Atherosclerotic heart disease of native coronary artery without angina pectoris
CPT/HCPCS: 36415; 71045; 80053; 81003; 84484; 85025; 93005; 96374; 96375; 99284; J1200; J1630; J2765; J3490

== ENCOUNTER 2021-04-10 05:46 | Outpatient (RCR) | payer MEDICARE, MEDICAID, SELFPAY ==
--- NOTE | 2021-03-19 11:26 | ONCRAD TMN_ITS ---
Radiation Oncology Treatment Management Note Patient Name: Darlin Youssef Date of : 1970 Date of Service: 03/19/2021 Attending Physician: Jeff Stewart M.D. Darlin Youssef is a 51 year-old white male diagnosed with a clinical stage IIIA (T2aN2) adenocarcinoma of the right lower lobe of the lung (PD???L1 expression level was less than 1%). The patient has received 20 Gy of a prescribed 60 [place] with an intensity modulated radiotherapy plan utilizing a step and shoot treatment technique. He has been prescribed Carboplatin (AUC 2) and Paclitaxel (50 mg/m???) weekly during therapy. Upon review of systems, he reported increased mucous production and nausea. On physical examination, the patient weighed 262 lbs. Her temperature was 96.4 ???F with a blood pressure of 84/49 mmHg. The pulse was 77 bpm and his respiratory rate was 24. Oxygen saturation while breathing room air was 97%. There was no erythema within the treatment guerrero. Auscultation of the posterior lung guerrero identified significantly decreased breath sounds. Continue thoracic radiotherapy as planned. I will order IVF with an anti-emetic. Signed by: Dr. Jeff Stewart 03/19/2021 11:25:03 AM
[2021-03-19] MEDS: LORazepam 2 mg/mL INJ 1 mL 1 MG IV (11:55)
[2021-03-19] MEDS: sodium chloride 0.9% 1,000 ML 999 ML IV (12:17)
[2021-03-20] MEDS: sodium chloride 0.9% 1,000 ML 999 ML IV (11:20)
[2021-03-20] MEDS: ondansetron 2 mg/ML SDV 2 mL 8 MG IVP (11:20)
[2021-03-20] MEDS: LORazepam 2 mg/mL INJ 1 mL 1 MG IV (12:00)
[2021-03-20 12:06] LABS: Basophils % 0.6 %; Eosinophils % 0.2 %; Hematocrit 40.4 % (42.0-52.0); Hemoglobin 14.5 g/dL (11.7-16.6); Lymphocytes # 0.5 10^3/uL (0.8-4.8); Mean Corpuscular HGB Conc 35.9 g/dL (30.0-36.0); Mean Corpuscular Hemoglobin 32.4 pg (28.0-34.0); Mean Corpuscular Volume 90.2 fL (80-94); Mean Platelet Volume 10.3 fL (7.4-10.4); Monocytes # 0.2 10^3/uL (0.2-0.9); Monocytes % 4.9 %; Neutrophils % 83.3 %; Nucleated Red Blood Cells % 0 %; Platelet Count 218 10^3/cmm (130-400); Red Blood Count 4.48 10^6/uL (4.1-5.3); White Blood Count 4.9 10^3/uL (4.0-10.0)
[2021-03-20 12:41] LABS: Alanine Aminotransferase 9 U/L (0-41); Albumin Level 3.5 g/dL (3.5-5.2); Alkaline Phosphatase 48 IU/L (40-130); Anion Gap 10.1 (5-19); Aspartate Amino Transferase 7 U/L (0-40); Blood Urea Nitrogen 15 mg/dL (6-20); Calcium 8.6 mg/dL (8.5-10.5); Carbon Dioxide 36 mmol/L (22-29); Chloride 93 mmol/L (98-107); Globulin 2.2 g/dL (1.3-4.6); Glomerular Filtration Rate 141.5 mL/min (90-130); Glucose 174 mg/dL (65-115); Osmolality Calculated 287 mOsm/kg (285-295); Potassium 3.1 mmol/L (3.5-5.1); Sodium 136 mmol/L (136-145); Total Bilirubin 1.1 mg/dL (0.15-1.2); Total Protein 5.7 g/dL (6.6-8.7)
[2021-03-21] MEDS: famotidine 20 mg/2 mL INJ IVP (11:55)
[2021-03-21] MEDS: sodium chlor 0.9% + KCl 40 mEq 40 MEQ/1,000 ML BAG 500 MEQ IV (11:55)
[2021-03-21] MEDS: ondansetron 2 mg/ML SDV 2 mL 8 MG IV (11:57)
--- NOTE | 2021-03-22 17:40 | ONC FU_ITS ---
Dr. Jo Patient Follow-Up Note Patient: Darlin Youssef Unit #: [id number]: 1970 Dicatated By: Theron Jo M.D.Date of Visit:Mar 21, 2021 Onc Med Follow-up/Prog Note Chief Complaint: Lung cancer. 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 Patient with known COPD and coronary artery disease. He underwent coronary angioplasty with stent placement following myocardial infarction in August 2016. He also has atrial fibrillation for which he is on anticoagulation with rivaroxaban. He has chronic cough and he had presented to Dr. Mckeon in November with complaints of worsening shortness of breath. He had pulmonary consultation with Dr. Ortega on 12/13/2020. His chest CT on 12/20/2020 showed moderate centrilobular emphysematous changes. A spiculated right lower lobe mass measuring 2.3 x 3.6 cm was suspicious for neoplasm and there was associated masslike right hilar and infrahilar lymphadenopathy measuring 1.9 x 3.9 cm and 5.1 x 3.1 cm. An additional pleural-based opacity along the right fissure measured 10 mm. With those findings he underwent bronchoscopy/EBUS on 12/29/2020. There were no endobronchial lesions identified. The endobronchial ultrasound showed evidence of large right hilar mass but no significant lymphadenopathy was noted in the paratracheal or subcarinal node areas. He underwent FNA biopsies of the right hilar mass and station 7 lymph node. Pathology showed adenocarcinoma at both sites. His staging PET/CT on 01/06/2021 showed central right lower lobe solid nodule measuring 1.3 x 1.5 cm, SUV 6.8, consistent with malignancy. An adjacent nodule was noted to be almost contiguous and likely malignant. A right inferior hilar mass measuring 3.3 x 3.6 cm has SUV 10.6 consistent with local metastatic disease. Other mediastinal lymph nodes are subcentimeter in size and FDG negative. His brain MRI showed no evidence of metastatic disease. With those findings he was recommended to undergo radiation concurrently with weekly carboplatin/paclitaxel chemotherapy. There was a significant delay in getting his port placed in his treatment started due to interim illnesses in part to compliance issues. His other medical illnesses include COPD, dyslipidemia, coronary artery disease, hypotension, obstructive sleep apnea, macular degeneration, and chronic anxiety. He has a history of smoking beginning at age 7. He had previously smoked up to 3 packs of cigarettes daily. He has cut down to less than 1/2 pack/day. INTERIM HISTORY: He began radiation on 03/05/2021. He received his initial infusion of chemotherapy was deferred to the following day, as he had neglected to take his steroid premedication. He tolerated the chemotherapy without acute toxicity. He had subsequently developed recurrent nausea/vomiting, requiring IV hydration and IV antiemetics. He was able, though, to continue with his week 2 chemotherapy on 03/14/2021. He is seen for a followup visit. He has not been feeling good. He was back in the emergency room over the weekend with recurrent vomiting and he did receive additional IV hydration and IV antiemetics. He has been feeling a little better since then, though he is still not eating, and he also has had increasing shortness of breath and cough. He says he has been pretty slow-moving. He has very limited activity. ECOG score is 3. He has not had fever, he has been having episodes of sweating. He has sore mouth. He has not been having difficulty swallowing. He does not complain of chest pain. In addition to the nausea, he is still having constipation. Bladder function has been okay. He has joint pain, which is chronic. He also has frequent headaches. He has just occasional dizziness. He has some numbness/tingling, but it is intermittent. Medications: Advair Diskus 2 Inhalation (of 250-50 mcg/dose) Aerosol Powder, Breath Activated Inhalation b.i.d., Albuterol Sulfate HFA 2 Puff(s) (of 108 (90 base) mcg/act) Aerosol, solution Inhalation q 4 to 6 hours PRN, Aspirin 1 (325 mg) Tablet Oral daily, Atorvastatin Calcium 1 (40 mg) Tablet Oral daily, Combivent Respimat Aerosol, solution Inhalation PRN, Lisinopril 1 (10 mg) Tablet Oral daily, Nicotine 1 Patch(es) (of 21 mg/24hr) Patch 24 Hr Transdermal daily, Trelegy Ellipta 1 (100-62.5-25 mcg/inh) Aerosol Powder, Breath Activated Inhalation daily, Verapamil HCl ER 1 (240 mg) Capsule SR 24 HR Oral daily, Xarelto 1 (20 mg) Tablet Oral daily Allergies: Influenza Virus Vacc Split PF, Marigold, Talcum powder, and Wool. Vital Signs: Performed on Mar 21, 2021 11:25 Height - 74.00 in Weight - 262 lbs (HIGH) BSA - 2.44 sq.m BMI - 33.64 (HIGH) Temperature - 95.6 F (LOW) Pulse - 64 /min Respiration - 18 /min BP - 115/69 mm(hg) O2 Sat - 96 % Pain - 4 Fatigue - 10 Physical Examination: Constitutional - He appears generally weak and short of breath, Eyes - Sclerae nonicteric. Conjunctivae clear, ENMT - There is evidence of oral candidiasis, Hematologic/Lymphatic - No cervical, clavicular, or axillary adenopathy, Respiratory - Lungs show markedly diminished air movement bilaterally. Breath sounds are coarse and there are scattered rales present, Cardiovascular - Heart rhythm is irregular. There is no murmur, gallop, or rub noted, Abdomen - Mildly distended. Liver and spleen are not enlarged. There is no abdominal mass or ascites noted and there is no inguinal adenopathy, Extremities - No edema, Neurologic - No focal neurologic deficits noted. Lab/Imaging: Test performed on Mar 13, 2021 11:30 Sodium 137 mmol/L Potassium 3.2 mmol/L Chloride 96 mmol/L CO2 34 mmol/L Anion Gap 10.2 BUN 15 mg/dL Creatinine 0.6 mg/dL Cr Clearance (Est) 255.0200 mL/min eGFR 141.5 mL/min Glucose 237 mg/dL Osmolality - Calculated 293 mOsm/kg Calcium 8.9 mg/dL Protein, Total 5.8 g/dL Albumin 3.7 g/dL Globulin 2.1 g/dL Bilirubin, Total 0.5 mg/dL ALT (SGPT) 7 U/L AST (SGOT) 6 U/L Alkaline Phosphatase 59 IU/L WBC 11.9 10 3/uL RBC 4.25 10 6/uL HGB 13.9 g/dL HCT 39.3 % MCV 92.5 fL MCH 32.7 pg MCHC 35.4 g/dL RDW 12.6 % Platelet Count 244 10 3/cmm MPV 9.7 fL Neutrophils 10.66 10 3/uL Lymphocytes 0.6 10 3/uL Monocytes 0.3 10 3/uL Eosinophils 0.0 10 3/uL Basophils 0.0 10 3/uL Neutrophil % 89.9 % Lymphocyte % 5.3 % Monocyte % 2.4 % Eosinophil % 0.0 % Basophils % 0.3 % NRBC % 0 % Test performed on Mar 05, 2021 00:00 Manual Diff Cancelled via OM: Cancelled in Connected System Problem List: 1. Adenocarcinoma involving the lower lobe of the right lung, stage IIIB (T3, N2, M0). 2. COPD. 3. Coronary artery disease with previous angioplasty/stent placement. 4. Atrial fibrillation. 5. Dyslipidemia. 6. Hypotension. 7. Sleep apnea syndrome. 8. Macular degeneration. 9. Chronic anxiety. Problems Addressed with this Encounter and Plan: 1. Patient with adenocarcinoma involving the lower lobe of the right lung. He underwent bronchoscopy/EBUS on 12/29/2020. By clinical evaluation, his disease was stage IIIB (T3, N2, M0) at intial diagnosis. He was recommended to undergo chemoradiation. He began radiation on 03/05/2021. His initial chemotherapy infusion was deferred to the following day because he had neglected to take his steroid premedication. He has now completed 2 weekly infusions of carboplatin/paclitaxel. He has had pretty significant nausea/vomiting with the chemotherapy, requiring IV hydration and IV antiemetics on several occasions. He also now has increased shortness of breath and cough, which I suspect is due to his underlying COPD. Given the severity of his symptoms, I am going to defer any further chemotherapy at least until next week. In the meantime, he will be given additional IV fluids. He is also to start using his pulmonary nebulizer at least 3 or 4 times a day. 2. He has oral candidiasis. He will start treatment with fluconazole 100 mg daily for 14 days. Signed By: Theron Jo M.D. <<Signature on File>>
--- NOTE | 2021-03-22 17:48 | ONC FU_ITS ---
Dr. Jo Patient Follow-Up Note Patient: Darlin Youssef Unit #: [id number]: 1970 Dicatated By: Theron Jo M.D.Date of Visit:Mar 21, 2021 Onc Med Follow-up/Prog Note Chief Complaint: Lung cancer. 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 Patient with known COPD and coronary artery disease. He underwent coronary angioplasty with stent placement following myocardial infarction in August 2016. He also has atrial fibrillation for which he is on anticoagulation with rivaroxaban. He has chronic cough and he had presented to Dr. Mckeon in November with complaints of worsening shortness of breath. He had pulmonary consultation with Dr. Ortega on 12/13/2020. His chest CT on 12/20/2020 showed moderate centrilobular emphysematous changes. A spiculated right lower lobe mass measuring 2.3 x 3.6 cm was suspicious for neoplasm and there was associated masslike right hilar and infrahilar lymphadenopathy measuring 1.9 x 3.9 cm and 5.1 x 3.1 cm. An additional pleural-based opacity along the right fissure measured 10 mm. With those findings he underwent bronchoscopy/EBUS on 12/29/2020. There were no endobronchial lesions identified. The endobronchial ultrasound showed evidence of large right hilar mass but no significant lymphadenopathy was noted in the paratracheal or subcarinal node areas. He underwent FNA biopsies of the right hilar mass and station 7 lymph node. Pathology showed adenocarcinoma at both sites. His staging PET/CT on 01/06/2021 showed central right lower lobe solid nodule measuring 1.3 x 1.5 cm, SUV 6.8, consistent with malignancy. An adjacent nodule was noted to be almost contiguous and likely malignant. A right inferior hilar mass measuring 3.3 x 3.6 cm has SUV 10.6 consistent with local metastatic disease. Other mediastinal lymph nodes are subcentimeter in size and FDG negative. His brain MRI showed no evidence of metastatic disease. With those findings he was recommended to undergo radiation concurrently with weekly carboplatin/paclitaxel chemotherapy. There was a significant delay in getting his port placed in his treatment started due to interim illnesses in part to compliance issues. His other medical illnesses include COPD, dyslipidemia, coronary artery disease, hypotension, obstructive sleep apnea, macular degeneration, and chronic anxiety. He has a history of smoking beginning at age 7. He had previously smoked up to 3 packs of cigarettes daily. He has cut down to less than 1/2 pack/day. INTERIM HISTORY: He began radiation on 03/05/2021. He received his initial infusion of chemotherapy was deferred to the following day, as he had neglected to take his steroid premedication. He tolerated the chemotherapy without acute toxicity. He had subsequently developed recurrent nausea/vomiting, requiring IV hydration and IV antiemetics. He was able, though, to continue with his week 2 chemotherapy on 03/14/2021. He is seen for a followup visit. He has not been feeling good. He was back in the emergency room over the weekend with recurrent vomiting and he did receive additional IV hydration and IV antiemetics. He has been feeling a little better since then, though he is still not eating, and he also has had increasing shortness of breath and cough. He says he has been pretty slow-moving. He has very limited activity. ECOG score is 3. He has not had fever, he has been having episodes of sweating. He has sore mouth. He has not been having difficulty swallowing. He does not complain of chest pain. In addition to the nausea, he is still having constipation. Bladder function has been okay. He has joint pain, which is chronic. He also has frequent headaches. He has just occasional dizziness. He has some numbness/tingling, but it is intermittent. Medications: Advair Diskus 2 Inhalation (of 250-50 mcg/dose) Aerosol Powder, Breath Activated Inhalation b.i.d., Albuterol Sulfate HFA 2 Puff(s) (of 108 (90 base) mcg/act) Aerosol, solution Inhalation q 4 to 6 hours PRN, Aspirin 1 (325 mg) Tablet Oral daily, Atorvastatin Calcium 1 (40 mg) Tablet Oral daily, Combivent Respimat Aerosol, solution Inhalation PRN, Lisinopril 1 (10 mg) Tablet Oral daily, Nicotine 1 Patch(es) (of 21 mg/24hr) Patch 24 Hr Transdermal daily, Trelegy Ellipta 1 (100-62.5-25 mcg/inh) Aerosol Powder, Breath Activated Inhalation daily, Verapamil HCl ER 1 (240 mg) Capsule SR 24 HR Oral daily, Xarelto 1 (20 mg) Tablet Oral daily Allergies: Influenza Virus Vacc Split PF, Marigold, Talcum powder, and Wool. Vital Signs: Performed on Mar 21, 2021 11:25 Height - 74.00 in Weight - 262 lbs (HIGH) BSA - 2.44 sq.m BMI - 33.64 (HIGH) Temperature - 95.6 F (LOW) Pulse - 64 /min Respiration - 18 /min BP - 115/69 mm(hg) O2 Sat - 96 % Pain - 4 Fatigue - 10 Physical Examination: Constitutional - He appears generally weak and short of breath, Eyes - Sclerae nonicteric. Conjunctivae clear, ENMT - There is evidence of oral candidiasis, Hematologic/Lymphatic - No cervical, clavicular, or axillary adenopathy, Respiratory - Lungs show markedly diminished air movement bilaterally. Breath sounds are coarse and there are scattered rales present, Cardiovascular - Heart rhythm is irregular. There is no murmur, gallop, or rub noted, Abdomen - Mildly distended. Liver and spleen are not enlarged. There is no abdominal mass or ascites noted and there is no inguinal adenopathy, Extremities - No edema, Neurologic - No focal neurologic deficits noted. Lab/Imaging: CBC shows hemoglobin 14.5 g, white blood cell count 4900, and platelet count 218,000. Comprehensive metabolic profile is unremarkable except for low potassium at 3.1 mmol/L. Problem List: 1. Adenocarcinoma involving the lower lobe of the right lung, stage IIIB (T3, N2, M0). 2. COPD. 3. Coronary artery disease with previous angioplasty/stent placement. 4. Atrial fibrillation. 5. Dyslipidemia. 6. Hypotension. 7. Sleep apnea syndrome. 8. Macular degeneration. 9. Chronic anxiety. Problems Addressed with this Encounter and Plan: 1. Patient with adenocarcinoma involving the lower lobe of the right lung. He underwent bronchoscopy/EBUS on 12/29/2020. By clinical evaluation, his disease was stage IIIB (T3, N2, M0) at intial diagnosis. He was recommended to undergo chemoradiation. He began radiation on 03/05/2021. His initial chemotherapy infusion was deferred to the following day because he had neglected to take his steroid premedication. He has now completed 2 weekly infusions of carboplatin/paclitaxel. He has had pretty significant nausea/vomiting with the chemotherapy, requiring IV hydration and IV antiemetics on several occasions. He also now has increased shortness of breath and cough, which I suspect is due to his underlying COPD. Given the severity of his symptoms, I am going to defer any further chemotherapy at least until next week. In the meantime, he will be given additional IV fluids. He is also to start using his pulmonary nebulizer at least 3 or 4 times a day. 2. He has oral candidiasis. He will start treatment with fluconazole 100 mg daily for 14 days. 3. He has COPD and he has become hypoxic with his oxygen saturation on room air decreasing from 96% at rest to 86% with activity. With oxygen at 2 L/min is oxygen saturation with activity remains adequate at 94%. As such, he will be ordered home oxygen at 2 L/min. Signed By: Theron Jo M.D. <<Signature on File>>
[2021-03-26 08:35] LABS: Basophils % 0.3 %; Eosinophils % 0.4 %; Hematocrit 38.3 % (42.0-52.0); Hemoglobin 13.4 g/dL (11.7-16.6); Lymphocytes # 0.5 10^3/uL (0.8-4.8); Lymphocytes % 7.3 %; Mean Corpuscular Hemoglobin 32.5 pg (28.0-34.0); Mean Platelet Volume 9.3 fL (7.4-10.4); Monocytes # 0.4 10^3/uL (0.2-0.9); Monocytes % 6.3 %; Neutrophils # 5.98 10^3/uL (1.8-7.7); Nucleated Red Blood Cells % 0 %; Platelet Count 218 10^3/cmm (130-400); Red Blood Count 4.12 10^6/uL (4.1-5.3); Red Cell Distribution Width 12.7 % (12.1-15.1)
[2021-03-26 09:06] LABS: Alanine Aminotransferase 15 U/L (0-41); Albumin Level 3.4 g/dL (3.5-5.2); Alkaline Phosphatase 59 IU/L (40-130); Anion Gap 10.9 (5-19); Aspartate Amino Transferase 8 U/L (0-40); Blood Urea Nitrogen 12 mg/dL (6-20); Calcium 8.2 mg/dL (8.5-10.5); Carbon Dioxide 31 mmol/L (22-29); Chloride 100 mmol/L (98-107); Globulin 1.9 g/dL (1.3-4.6); Glomerular Filtration Rate 141.5 mL/min (90-130); Glucose 195 mg/dL (65-115); Osmolality Calculated 291 mOsm/kg (285-295); Potassium 3.9 mmol/L (3.5-5.1); Sodium 138 mmol/L (136-145); Total Bilirubin 0.7 mg/dL (0.15-1.2); Total Protein 5.3 g/dL (6.6-8.7)
--- NOTE | 2021-03-26 10:52 | ONCRAD TMN_ITS ---
Radiation Oncology Treatment Management Note Patient Name: Darlin Youssef Date of : 1970 Date of Service: 03/26/2021 Attending Physician: Jeff Stewart M.D. Darlin Youssef is a 51 year-old white male diagnosed with a clinical stage IIIA (T2aN2) adenocarcinoma of the right lower lobe of the lung (PD???L1 expression level was less than 1%). The patient has received 30 Gy of a prescribed 60 [place] with an intensity modulated radiotherapy plan utilizing a step and shoot treatment technique. He has been prescribed Carboplatin (AUC 2) and Paclitaxel (50 mg/m???) weekly during therapy. Upon review of systems, he reported increased mucous production. On physical examination, the patient weighed 261 lbs. Her temperature was 98 ???F with a blood pressure of 102/64 mmHg. The pulse was 86 bpm and his respiratory rate was 18. Oxygen saturation while breathing room air was 97%. There was no erythema within the treatment guerrero. Auscultation of the posterior lung guerrero identified decreased breath sounds. Continue thoracic radiotherapy as prescribed. Signed by: Dr. Jeff Stewart 03/26/2021 10:50:34 AM
--- NOTE | 2021-03-26 17:01 | ONC FU_ITS ---
Dr. Jo Patient Follow-Up Note Patient: Darlin Youssef Unit #: [id number]: 1970 Dicatated By: Theron Jo M.D.Date of Visit:Mar 26, 2021 Onc Med Follow-up/Prog Note Chief Complaint: Lung cancer. 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 Patient with known COPD and coronary artery disease. He underwent coronary angioplasty with stent placement following myocardial infarction in August 2016. He also has atrial fibrillation for which he is on anticoagulation with rivaroxaban. He has chronic cough and he had presented to Dr. Mckeon in November with complaints of worsening shortness of breath. He had pulmonary consultation with Dr. Ortega on 12/13/2020. His chest CT on 12/20/2020 showed moderate centrilobular emphysematous changes. A spiculated right lower lobe mass measuring 2.3 x 3.6 cm was suspicious for neoplasm and there was associated masslike right hilar and infrahilar lymphadenopathy measuring 1.9 x 3.9 cm and 5.1 x 3.1 cm. An additional pleural-based opacity along the right fissure measured 10 mm. With those findings he underwent bronchoscopy/EBUS on 12/29/2020. There were no endobronchial lesions identified. The endobronchial ultrasound showed evidence of large right hilar mass but no significant lymphadenopathy was noted in the paratracheal or subcarinal node areas. He underwent FNA biopsies of the right hilar mass and station 7 lymph node. Pathology showed adenocarcinoma at both sites. His staging PET/CT on 01/06/2021 showed central right lower lobe solid nodule measuring 1.3 x 1.5 cm, SUV 6.8, consistent with malignancy. An adjacent nodule was noted to be almost contiguous and likely malignant. A right inferior hilar mass measuring 3.3 x 3.6 cm has SUV 10.6 consistent with local metastatic disease. Other mediastinal lymph nodes are subcentimeter in size and FDG negative. His brain MRI showed no evidence of metastatic disease. With those findings he was recommended to undergo radiation concurrently with weekly carboplatin/paclitaxel chemotherapy. There was a significant delay in getting his port placed in his treatment started due to interim illnesses in part to compliance issues. His other medical illnesses include COPD, dyslipidemia, coronary artery disease, hypotension, obstructive sleep apnea, macular degeneration, and chronic anxiety. He has a history of smoking beginning at age 7. He had previously smoked up to 3 packs of cigarettes daily. He has cut down to less than 1/2 pack/day. INTERIM HISTORY: He began radiation on 03/05/2021. He received his initial infusion of chemotherapy was deferred to the following day, as he had neglected to take his steroid premedication. He tolerated the chemotherapy without acute toxicity. He had subsequently developed recurrent nausea/vomiting, requiring IV hydration and IV antiemetics. He was able, though, to continue with his week 2 chemotherapy on 03/14/2021. At his follow-up visit on 03/21/2021 he was again having problems with nausea/vomiting, requiring additional IV hydration. He was also a lot more short of breath, and I did opt to put his chemotherapy on hold. He is seen for a followup visit. He is feeling much better now. He still has fatigue and shortness of breath, but his breathing is better and he is able to do some light work. ECOG score is 1. His appetite also is better. He has not had fever. He is having some sweating. He always has sinus drainage. He says his mouth is still sore. He has no difficulty swallowing. He continues to have some shortness of breath and cough. He does not complain of chest pain. He currently is not having nausea. His acid reflux symptoms are adequately managed. Bowel and bladder function have been okay. He has chronic pain, which is unchanged. He also has frequent headaches, but that is chronic as well. He has a little bit of dizziness. He has no numbness/paresthesia or other focal neurologic symptoms. Medications: Advair Diskus 2 Inhalation (of 250-50 mcg/dose) Aerosol Powder, Breath Activated Inhalation b.i.d., Albuterol Sulfate HFA 2 Puff(s) (of 108 (90 base) mcg/act) Aerosol, solution Inhalation q 4 to 6 hours PRN, Aspirin 1 (325 mg) Tablet Oral daily, Atorvastatin Calcium 1 (40 mg) Tablet Oral daily, Combivent Respimat Aerosol, solution Inhalation PRN, Lisinopril 1 (10 mg) Tablet Oral daily, Nicotine 1 Patch(es) (of 21 mg/24hr) Patch 24 Hr Transdermal daily, Trelegy Ellipta 1 (100-62.5-25 mcg/inh) Aerosol Powder, Breath Activated Inhalation daily, Verapamil HCl ER 1 (240 mg) Capsule SR 24 HR Oral daily, Xarelto 1 (20 mg) Tablet Oral daily Allergies: Influenza Virus Vacc Split PF, Marigold, Talcum powder, and Wool. Vital Signs: Performed on Mar 26, 2021 10:11 Height - 74.00 in Weight - 261.4 lbs Temperature - 98.0 F Pulse - 86 Respiration - 18 BP - 102/64 mm(hg) O2 Sat - 97 % Pain - 2 Performed on Mar 26, 2021 10:11 BMI - 33.562 kg/m2 (HIGH) Performed on Mar 26, 2021 10:07 Height - 74.00 in Weight - 261.4 lbs (LOW) BSA - 2.44 sq.m BMI - 33.56 (HIGH) Temperature - 98.0 F (LOW) Pulse - 86 /min Respiration - 18 /min BP - 102/64 mm(hg) O2 Sat - 97 % Pain - 2 Fatigue - 2 Physical Examination: Constitutional - He appears somewhat weak generally, Eyes - Sclerae nonicteric. Conjunctivae clear, ENMT - His mouth looks much better. There are no lesions noted in the oral cavity, Hematologic/Lymphatic - No cervical, clavicular, or axillary adenopathy, Respiratory - Lungs show markedly diminished air movement bilaterally. There are a few coarse rales present, Cardiovascular - Heart rhythm is irregular. There is no murmur, gallop, or rub noted, Abdomen - Mildly distended. Liver and spleen are not enlarged. There is no abdominal mass or ascites noted and there is no inguinal adenopathy, Extremities - No edema, Neurologic - No focal neurologic deficits noted. Lab/Imaging: Test performed on Mar 26, 2021 14:10 Creatinine 0.6 mg/dL Cr Clearance (Est) 255.02 mL/min Test performed on Mar 26, 2021 08:10 Sodium 138 mmol/L Potassium 3.9 mmol/L Chloride 100 mmol/L CO2 31 mmol/L Anion Gap 10.9 BUN 12 mg/dL eGFR 141.5 mL/min Glucose 195 mg/dL Osmolality - Calculated 291 mOsm/kg Calcium 8.2 mg/dL Protein, Total 5.3 g/dL Albumin 3.4 g/dL Globulin 1.9 g/dL Bilirubin, Total 0.7 mg/dL ALT (SGPT) 15 U/L AST (SGOT) 8 U/L Alkaline Phosphatase 59 IU/L WBC 7.0 10 3/uL RBC 4.12 10 6/uL HGB 13.4 g/dL HCT 38.3 % MCV 93.0 fl MCH 32.5 pg MCHC 35.0 g/dL RDW 12.7 % Platelet Count 218 10 3/cmm MPV 9.3 fL Neutrophils 5.98 10 3/uL Lymphocytes 0.5 10 3/uL Monocytes 0.4 10 3/uL Eosinophils 0.0 10 3/uL Basophils 0.0 10 3/uL Neutrophil % 85.0 % Lymphocyte % 7.3 % Monocyte % 6.3 % Eosinophil % 0.4 % Basophils % 0.3 % NRBC % 0 % Problem List: 1. Adenocarcinoma involving the lower lobe of the right lung, stage IIIB (T3, N2, M0). 2. COPD. 3. Coronary artery disease with previous angioplasty/stent placement. 4. Atrial fibrillation. 5. Dyslipidemia. 6. Hypotension. 7. Sleep apnea syndrome. 8. Macular degeneration. 9. Chronic anxiety. Problems Addressed with this Encounter and Plan: Patient with adenocarcinoma involving the lower lobe of the right lung. He underwent bronchoscopy/EBUS on 12/29/2020. By clinical evaluation, his disease was stage IIIB (T3, N2, M0) at intial diagnosis. He was recommended to undergo chemoradiation. He began radiation on 03/05/2021. His initial chemotherapy infusion was deferred to the following day because he had neglected to take his steroid premedication. He has completed 2 weekly infusions of carboplatin/paclitaxel. With both infusions he had pretty significant nausea/vomiting, requiring IV hydration and IV antiemetics on several occasions. At his follow-up visit last week he was significantly more short of breath, and I did opt to put his chemotherapy on hold. Since then he has been feeling significantly better. As such, he will return tomorrow for his week 3 carboplatin/paclitaxel infusion. He continues his radiation daily. I will see him again in 1 week. Signed By: Theron Jo M.D. <<Signature on File>>
[2021-03-27] MEDS: nicotine 21 mg Patch 1 PATCH TRANSDERMA (12:00)
[2021-03-27] MEDS: famotidine 20 mg/2 mL INJ IVP (12:00)
[2021-03-27] MEDS: diphenhydrAMINE 50 mg/mL SDV 1mL 25 MG IV (12:01)
[2021-03-27] MEDS: palonosetron 0.25 mg/5 mL SDV IV (12:02)
[2021-03-27] MEDS: sodium chloride 0.9% 250 ML 75 ML IV (12:02)
[2021-04-02 10:59] LABS: Basophils # 0.1 10^3/uL (0.0-0.1); Basophils % 1.1 %; Eosinophils % 0.7 %; Hematocrit 35.5 % (42.0-52.0); Hemoglobin 12.4 g/dL (11.7-16.6); Lymphocytes # 0.6 10^3/uL (0.8-4.8); Lymphocytes % 13.2 %; Mean Corpuscular HGB Conc 34.9 g/dL (30.0-36.0); Mean Corpuscular Hemoglobin 32.9 pg (28.0-34.0); Mean Corpuscular Volume 94.2 fl (80-94); Mean Platelet Volume 9.5 fL (7.4-10.4); Monocytes # 0.1 10^3/uL (0.2-0.9); Monocytes % 2.1 %; Neutrophils # 3.58 10^3/uL (1.8-7.7); Neutrophils % 81.8 %; Nucleated Red Blood Cells % 0 %; Platelet Count 160 10^3/cmm (130-400); Red Blood Count 3.77 10^6/uL (4.1-5.3); Red Cell Distribution Width 12.8 % (12.1-15.1); White Blood Count 4.4 10^3/uL (4.0-10.0)
[2021-04-02 11:35] LABS: Alanine Aminotransferase 17 U/L (0-41); Albumin Level 3.4 g/dL (3.5-5.2); Alkaline Phosphatase 54 IU/L (40-130); Aspartate Amino Transferase 8 U/L (0-40); Blood Urea Nitrogen 9 mg/dL (6-20); Calcium 8.3 mg/dL (8.5-10.5); Carbon Dioxide 30 mmol/L (22-29); Chloride 101 mmol/L (98-107); Globulin 1.8 g/dL (1.3-4.6); Glomerular Filtration Rate 141.5 mL/min (90-130); Glucose 139 mg/dL (65-115); Osmolality Calculated 289 mOsm/kg (285-295); Sodium 139 mmol/L (136-145); Total Bilirubin 0.3 mg/dL (0.15-1.2); Total Protein 5.2 g/dL (6.6-8.7)
--- NOTE | 2021-04-03 11:16 | ONCRAD TMN_ITS ---
Radiation Oncology Treatment Management Note Patient Name: Darlin Youssef Date of : 1970 Date of Service: 04/03/2021 Attending Physician: Jeff Stewart M.D. Darlin Youssef is a 51 year-old white male diagnosed with a clinical stage IIIA (T2aN2) adenocarcinoma of the right lower lobe of the lung (PD???L1 expression level was less than 1%). The patient has received 42 Gy of a prescribed 60 Poole with an intensity modulated radiotherapy plan utilizing a step and shoot treatment technique. He has been prescribed Carboplatin (AUC 2) and Paclitaxel (50 mg/m???) weekly during therapy. Upon review of systems, he reported insomnia. On physical examination, the patient weighed 267 lbs. His temperature was 97.2 ???F with a blood pressure of 97/64 mmHg. The pulse was 80 bpm and his respiratory rate was 24. Oxygen saturation while breathing room air was 99%. There was no erythema within the treatment guerrero. Auscultation of the posterior lung guerrero identified decreased breath sounds. Continue thoracic radiotherapy as planned. I recommended Benadryl for insomnia. Signed by: Dr. Jeff Stewart 04/03/2021 11:14:40 AM
[2021-04-04] MEDS: sodium chloride 0.9% 250 ML 75 ML IV (12:00)
[2021-04-04] MEDS: palonosetron 0.25 mg/5 mL SDV IV (12:00)
[2021-04-04] MEDS: nicotine 21 mg Patch 1 PATCH TRANSDERMA (12:15)
[2021-04-04] MEDS: famotidine 20 mg/2 mL INJ IVP (12:25)
[2021-04-04] MEDS: diphenhydrAMINE 50 mg/mL SDV 1mL 25 MG IV (12:26)
--- NOTE | 2021-04-04 18:43 | ONC FU_ITS ---
Dr. Jo Patient Follow-Up Note Patient: Darlin Youssef Unit #: [id number]: 1970 Dicatated By: Theron Jo M.D.Date of Visit:Apr 04, 2021 Onc Med Follow-up/Prog Note Chief Complaint: Lung cancer. 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 Patient with known COPD and coronary artery disease. He underwent coronary angioplasty with stent placement following myocardial infarction in August 2016. He also has atrial fibrillation for which he is on anticoagulation with rivaroxaban. He has chronic cough and he had presented to Dr. Mckeon in November with complaints of worsening shortness of breath. He had pulmonary consultation with Dr. Ortega on 12/13/2020. His chest CT on 12/20/2020 showed moderate centrilobular emphysematous changes. A spiculated right lower lobe mass measuring 2.3 x 3.6 cm was suspicious for neoplasm and there was associated masslike right hilar and infrahilar lymphadenopathy measuring 1.9 x 3.9 cm and 5.1 x 3.1 cm. An additional pleural-based opacity along the right fissure measured 10 mm. With those findings he underwent bronchoscopy/EBUS on 12/29/2020. There were no endobronchial lesions identified. The endobronchial ultrasound showed evidence of large right hilar mass but no significant lymphadenopathy was noted in the paratracheal or subcarinal node areas. He underwent FNA biopsies of the right hilar mass and station 7 lymph node. Pathology showed adenocarcinoma at both sites. His staging PET/CT on 01/06/2021 showed central right lower lobe solid nodule measuring 1.3 x 1.5 cm, SUV 6.8, consistent with malignancy. An adjacent nodule was noted to be almost contiguous and likely malignant. A right inferior hilar mass measuring 3.3 x 3.6 cm has SUV 10.6 consistent with local metastatic disease. Other mediastinal lymph nodes are subcentimeter in size and FDG negative. His brain MRI showed no evidence of metastatic disease. With those findings he was recommended to undergo radiation concurrently with weekly carboplatin/paclitaxel chemotherapy. There was a significant delay in getting his port placed in his treatment started due to interim illnesses in part to compliance issues. His other medical illnesses include COPD, dyslipidemia, coronary artery disease, hypotension, obstructive sleep apnea, macular degeneration, and chronic anxiety. He has a history of smoking beginning at age 7. He had previously smoked up to 3 packs of cigarettes daily. He has cut down to less than 1/2 pack/day. INTERIM HISTORY: He began radiation on 03/05/2021. He received his initial infusion of chemotherapy was deferred to the following day, as he had neglected to take his steroid premedication. He tolerated the chemotherapy without acute toxicity. He had subsequently developed recurrent nausea/vomiting, requiring IV hydration and IV antiemetics. He was able, though, to continue with his week 2 chemotherapy on 03/14/2021. At his follow-up visit on 03/21/2021 he was again having problems with nausea/vomiting, requiring additional IV hydration. He was also a lot more short of breath, and I did opt to put his chemotherapy on hold. As of his follow-up visit on 03/26/2021 he was feeling better, and he was able to continue with his week 3 carboplatin/paclitaxel infusion the following day. He is seen for a followup visit. He has been feeling pretty good lately. He had been having problems with insomnia, he tried taking Benadryl last night, and he says that it knocked him out . He has limited activity tolerance, but he is able to do light work at home. ECOG score is 1. He has good appetite. He has not had fever. He says he always has sweating at night. He has sinus drainage and he has cough productive of greenish to brown sputum. His breathing has been better with more regular use of pulmonary nebulizers. He is still oxygen dependent. He does not complain of chest pain. His nausea is much better now and is being managed adequately with medication. Bowel function also is better now. He has frequent urination. He has chronic back pain, but he says that he is not hurting today. He has frequent headaches on a chronic basis, but that is also not bothering him today. He has no numbness/paresthesia or other neuropathy symptoms. Medications: Advair Diskus 2 Inhalation (of 250-50 mcg/dose) Aerosol Powder, Breath Activated Inhalation b.i.d., Albuterol Sulfate HFA 2 Puff(s) (of 108 (90 base) mcg/act) Aerosol, solution Inhalation q 4 to 6 hours PRN, Aspirin 1 (325 mg) Tablet Oral daily, Atorvastatin Calcium 1 (40 mg) Tablet Oral daily, Benadryl Allergy 1 - 2 Caplet (of 25 mg) Capsule Oral daily PRN, Combivent Respimat Aerosol, solution Inhalation PRN, Lisinopril 1 (10 mg) Tablet Oral daily, Nicotine 1 Patch(es) (of 21 mg/24hr) Patch 24 Hr Transdermal daily, Trelegy Ellipta 1 (100-62.5-25 mcg/inh) Aerosol Powder, Breath Activated Inhalation daily, Verapamil HCl ER 1 (240 mg) Capsule SR 24 HR Oral daily, Xarelto 1 (20 mg) Tablet Oral daily Allergies: Influenza Virus Vacc Split PF, Marigold, Talcum powder, and Wool. Vital Signs: Performed on Apr 04, 2021 11:07 Height - 74.00 in Weight - 255.2 lbs (LOW) BSA - 2.41 sq.m BMI - 32.77 (HIGH) Temperature - 97.5 F (LOW) Pulse - 106 /min (HIGH) Respiration - 24 /min BP - 131/83 mm(hg) O2 Sat - 97 % Pain - 0 Physical Examination: Constitutional - He appears somewhat weak generally, Eyes - Sclerae nonicteric. Conjunctivae clear, ENMT - No lesions noted in the oral cavity, Hematologic/Lymphatic - No cervical, clavicular, or axillary adenopathy, Respiratory - Lungs show markedly diminished air movement bilaterally. There is slight expiratory wheezing, Cardiovascular - Heart rhythm is irregular. There is no murmur, gallop, or rub noted, Abdomen - Mildly distended. Liver and spleen are not enlarged. There is no abdominal mass or ascites noted and there is no inguinal adenopathy, Extremities - No edema, Neurologic - No focal neurologic deficits noted. Lab/Imaging: Test performed on Apr 04, 2021 11:16 Creatinine 0.6 mg/dL Cr Clearance (Est) 255.02 mL/min Test performed on Apr 02, 2021 10:37 Sodium 139 mmol/L Potassium 4.0 mmol/L Chloride 101 mmol/L CO2 30 mmol/L Anion Gap 12.0 BUN 9 mg/dL eGFR 141.5 mL/min Glucose 139 mg/dL Osmolality - Calculated 289 mOsm/kg Calcium 8.3 mg/dL Protein, Total 5.2 g/dL Albumin 3.4 g/dL Globulin 1.8 g/dL Bilirubin, Total 0.3 mg/dL ALT (SGPT) 17 U/L AST (SGOT) 8 U/L Alkaline Phosphatase 54 IU/L WBC 4.4 10 3/uL RBC 3.77 10 6/uL HGB 12.4 g/dL HCT 35.5 % MCV 94.2 fl MCH 32.9 pg MCHC 34.9 g/dL RDW 12.8 % Platelet Count 160 10 3/cmm MPV 9.5 fL Neutrophils 3.58 10 3/uL Lymphocytes 0.6 10 3/uL Monocytes 0.1 10 3/uL Eosinophils 0.0 10 3/uL Basophils 0.1 10 3/uL Neutrophil % 81.8 % Lymphocyte % 13.2 % Monocyte % 2.1 % Eosinophil % 0.7 % Basophils % 1.1 % NRBC % 0 % Problem List: 1. Adenocarcinoma involving the lower lobe of the right lung, stage IIIB (T3, N2, M0). 2. COPD. 3. Coronary artery disease with previous angioplasty/stent placement. 4. Atrial fibrillation. 5. Dyslipidemia. 6. Hypotension. 7. Sleep apnea syndrome. 8. Macular degeneration. 9. Chronic anxiety. Problems Addressed with this Encounter and Plan: Patient with adenocarcinoma involving the lower lobe of the right lung. He underwent bronchoscopy/EBUS on 12/29/2020. By clinical evaluation, his disease was stage IIIB (T3, N2, M0) at intial diagnosis. He was recommended to undergo chemoradiation. He began radiation on 03/05/2021. His initial chemotherapy infusion was deferred to the following day because he had neglected to take his steroid premedication. He has completed 2 weekly infusions of carboplatin/paclitaxel. With both infusions he had pretty significant nausea/vomiting, requiring IV hydration and IV antiemetics on several occasions. The following week he was significantly more short of breath, and I did opt to put his chemotherapy on hold. As of his follow-up visit on 03/26/2021 he was feeling much better and he was able to proceed with his week 3 carboplatin/paclitaxel the following day. At this point he appears to be tolerating his chemotherapy much better. His overall clinical status appears stable. Blood counts remain adequate. He will proceed with week 4 carboplatin/paclitaxel. I will see him again in 1 week. Signed By: Theron Jo M.D. <<Signature on File>>
--- NOTE | 2021-04-09 11:30 | ONCRAD TMN_ITS ---
Radiation Oncology Weekly Treatment Management Patient: Mikael Saeed> MR#: [id number] : 1970> Attending Physician: Dr. Nahun Zhu Date of Service: 04/09/2021 Referring Physician(s) : Lucretia Sun M.D. Diagnosis: C34.31 - Malignant neoplasm of lower lobe, right bronchus or lung, Diagnosed 03/05/2021 (Active) Stage IIIB, T3, N2, M0 Radiotherapy to date: Course: Lung 2020, Treatment Site: Lung Ca RLL, Ref. ID: [id number], Energy: 6X, Dose/Fx (cGy): 200, #Fx: / 30, Dose Correction (cGy): 0, Total Dose (cGy): 5,000, Start Date: 03/05/2021, Elapsed Days: 35 Reason for visit: The patient is being seen today as part of their regularly scheduled weekly on treatment visits to assess for acute toxicities from radiotherapy. Review of Systems: He has 1 week to go of radiation treatment. Chemotherapy is scheduled for . He needs his premeds and our nurse will contact chemotherapy to get that arranged. He has been using Benadryl for insomnia and that has worked well. He is going about his usual activity on 3 L O2 and is tolerating that well. He has a mild productive cough. He denies hemoptysis. He reports having symptoms of esophagitis early in treatment but that has improved recently. He mentions a few episodes of lightheadedness. Those have occurred when he has a more protracted episode of coughing or when he stands suddenly after sitting a prolonged period of time. 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 Vital Signs: Performed on 04/09/2021 10:56 AM BMI - 32.715 kg/m2 (high), Height - 74.00 in, Weight - 254.8 lbs, Temperature - 97.1 f, Pulse - 62 /min, Respiration - 22 /min (high), O2 Sat - 99 %, Pain - 0 and BP - 107/ 62 mm(hg)(/low). Physical Exam: Pulse ox is 99% on 3 L O2 at rest. Auscultation of his lungs reveals almost silent breath sounds. Heart sounds were distant enough that I could not characterize them. He has no skin reaction. Imaging: Radiation therapy imaging related to accurate target localization (i.e. KV, MV and CBCT) was reviewed. Appropriate changes, if any, were made to ensure treatment accuracy. Plan: He will let us know if he has a change in the character of his episodes of lightheadedness. I told him if there is a change he may need a scan. Continue radiation as planned. Signed by: Dr. Nahun Zhu 04/09/2021 11:29:53 AM
== END 2021-04-10 23:59 | disposition home or self-care (01) ==
LOC: ONCMED 05:46
PROVIDERS: Internal Medicine Medical Oncology; Absent Provider Radiology Radiation Oncology; Visit Provider Specialist
DX: Z51.0 Encounter for antineoplastic radiation therapy (principal); Z51.11 Encounter for antineoplastic chemotherapy; C34.31 Malignant neoplasm of lower lobe, right bronchus or lung; J44.9 Chronic obstructive pulmonary disease, unspecified; I25.10 Atherosclerotic heart disease of native coronary artery without angina pectoris; Z95.5 Presence of coronary angioplasty implant and graft; I48.91 Unspecified atrial fibrillation; E78.5 Hyperlipidemia, unspecified; I95.9 Hypotension, unspecified; G47.30 Sleep apnea, unspecified; H35.30 Unspecified macular degeneration; F41.9 Anxiety disorder, unspecified; Z79.899 Other long term (current) drug therapy
CPT/HCPCS: 36415; 36591; 77336; 77386; 80053; 85025; 96361; 96365; 96366; 96367; 96375; 96413; 96417; 99214; J1100; J1200; J2060; J2405; J2469; J3490; J7030; J7040; J7050; J9045; J9267

== ENCOUNTER 2021-04-17 05:34 | Outpatient (RCR) | payer MEDICARE, MEDICAID, SELFPAY ==
[2021-04-11 11:42] LABS: Basophils % 0.8 %; Eosinophils % 0.8 %; Hematocrit 33.1 % (42.0-52.0); Hemoglobin 11.4 g/dL (11.7-16.6); Lymphocytes # 0.4 10^3/uL (0.8-4.8); Lymphocytes % 15.1 %; Mean Corpuscular HGB Conc 34.4 g/dL (30.0-36.0); Mean Corpuscular Hemoglobin 32.6 pg (28.0-34.0); Mean Corpuscular Volume 94.6 fl (80-94); Mean Platelet Volume 9.1 fL (7.4-10.4); Monocytes # 0.1 10^3/uL (0.2-0.9); Monocytes % 4.6 %; Neutrophils # 1.86 10^3/uL (1.8-7.7); Neutrophils % 78.3 %; Nucleated Red Blood Cells % 0.8 %; Platelet Count 185 10^3/cmm (130-400); Red Cell Distribution Width 13.3 % (12.1-15.1); White Blood Count 2.4 10^3/uL (4.0-10.0)
[2021-04-11 12:03] LABS: Alanine Aminotransferase 15 U/L (0-41); Albumin Level 3.3 g/dL (3.5-5.2); Alkaline Phosphatase 65 IU/L (40-130); Anion Gap 11.2 (5-19); Aspartate Amino Transferase 7 U/L (0-40); Blood Urea Nitrogen 7 mg/dL (6-20); Calcium 8.6 mg/dL (8.5-10.5); Carbon Dioxide 31 mmol/L (22-29); Chloride 100 mmol/L (98-107); Globulin 2.1 g/dL (1.3-4.6); Glomerular Filtration Rate 174.6 mL/min (90-130); Glucose 145 mg/dL (65-115); Osmolality Calculated 287 mOsm/kg (285-295); Potassium 4.2 mmol/L (3.5-5.1); Sodium 138 mmol/L (136-145); Total Bilirubin 0.4 mg/dL (0.15-1.2); Total Protein 5.4 g/dL (6.6-8.7)
[2021-04-12] MEDS: nicotine 21 mg Patch 1 PATCH TRANSDERMA (10:49)
[2021-04-12] MEDS: sodium chloride 0.9% 250 ML 75 ML IV (10:51)
[2021-04-12] MEDS: famotidine 20 mg/2 mL INJ IVP (10:51)
[2021-04-12] MEDS: diphenhydrAMINE 50 mg/mL SDV 1mL 25 MG IVP (10:53)
[2021-04-12] MEDS: palonosetron 0.25 mg/5 mL SDV IVP (10:55)
--- NOTE | 2021-04-12 14:07 | ONC FU_ITS ---
Dr. Jo Patient Follow-Up Note Patient: Darlin Youssef Unit #: [id number]: 1970 Dicatated By: Theron Jo M.D.Date of Visit:Apr 12, 2021 Onc Med Follow-up/Prog Note Chief Complaint: Lung cancer. 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 Patient with known COPD and coronary artery disease. He underwent coronary angioplasty with stent placement following myocardial infarction in August 2016. He also has atrial fibrillation for which he is on anticoagulation with rivaroxaban. He has chronic cough and he had presented to Dr. Mckeon in November with complaints of worsening shortness of breath. He had pulmonary consultation with Dr. Ortega on 12/13/2020. His chest CT on 12/20/2020 showed moderate centrilobular emphysematous changes. A spiculated right lower lobe mass measuring 2.3 x 3.6 cm was suspicious for neoplasm and there was associated masslike right hilar and infrahilar lymphadenopathy measuring 1.9 x 3.9 cm and 5.1 x 3.1 cm. An additional pleural-based opacity along the right fissure measured 10 mm. With those findings he underwent bronchoscopy/EBUS on 12/29/2020. There were no endobronchial lesions identified. The endobronchial ultrasound showed evidence of large right hilar mass but no significant lymphadenopathy was noted in the paratracheal or subcarinal node areas. He underwent FNA biopsies of the right hilar mass and station 7 lymph node. Pathology showed adenocarcinoma at both sites. His staging PET/CT on 01/06/2021 showed central right lower lobe solid nodule measuring 1.3 x 1.5 cm, SUV 6.8, consistent with malignancy. An adjacent nodule was noted to be almost contiguous and likely malignant. A right inferior hilar mass measuring 3.3 x 3.6 cm has SUV 10.6 consistent with local metastatic disease. Other mediastinal lymph nodes are subcentimeter in size and FDG negative. His brain MRI showed no evidence of metastatic disease. With those findings he was recommended to undergo radiation concurrently with weekly carboplatin/paclitaxel chemotherapy. There was a significant delay in getting his port placed in his treatment started due to interim illnesses in part to compliance issues. His other medical illnesses include COPD, dyslipidemia, coronary artery disease, hypotension, obstructive sleep apnea, macular degeneration, and chronic anxiety. He has a history of smoking beginning at age 7. He had previously smoked up to 3 packs of cigarettes daily. He has cut down to less than 1/2 pack/day. INTERIM HISTORY: He began radiation on 03/05/2021. He received his initial infusion of chemotherapy was deferred to the following day, as he had neglected to take his steroid premedication. He tolerated the chemotherapy without acute toxicity. He had subsequently developed recurrent nausea/vomiting, requiring IV hydration and IV antiemetics. He was able, though, to continue with his week 2 chemotherapy on 03/14/2021. At his follow-up visit on 03/21/2021 he was again having problems with nausea/vomiting, requiring additional IV hydration. He was also a lot more short of breath, and I did opt to put his chemotherapy on hold. As of his follow-up visit on 03/26/2021 he was feeling better. He was able to proceed with his week 3 carboplatin/paclitaxel infusion the following day and he continued with week 4 treatment on 04/04/2021. He is seen for a followup visit. He has been feeling pretty good. He still has limited activity tolerance, but he is able to do light work. ECOG score is 1. His appetite is better. He has not had fever. He says he always has sweating. He has some sinus drainage. He continues to have cough productive of green or yellow sputum. His breathing is the same. He is using oxygen as needed. He does not complain of chest pain. He has just occasional nausea now. Bowel and bladder function have been okay. He does have generalized joint pain and back pain, which is chronic. He also has headaches chronically. He has no numbness/paresthesia or other neuropathy symptoms. Medications: Advair Diskus 2 Inhalation (of 250-50 mcg/dose) Aerosol Powder, Breath Activated Inhalation b.i.d., Albuterol Sulfate HFA 2 Puff(s) (of 108 (90 base) mcg/act) Aerosol, solution Inhalation q 4 to 6 hours PRN, Aspirin 1 (325 mg) Tablet Oral daily, Atorvastatin Calcium 1 (40 mg) Tablet Oral daily, Benadryl Allergy 1 - 2 Caplet (of 25 mg) Capsule Oral daily PRN, Combivent Respimat Aerosol, solution Inhalation PRN, Lisinopril 1 (10 mg) Tablet Oral daily, Nicotine 1 Patch(es) (of 21 mg/24hr) Patch 24 Hr Transdermal daily, Trelegy Ellipta 1 (100-62.5-25 mcg/inh) Aerosol Powder, Breath Activated Inhalation daily, Verapamil HCl ER 1 (240 mg) Capsule SR 24 HR Oral daily, Xarelto 1 (20 mg) Tablet Oral daily Allergies: Influenza Virus Vacc Split PF, Marigold, Talcum powder, and Wool. Vital Signs: Performed on Apr 12, 2021 09:52 Height - 74.00 in Weight - 251 lbs (LOW) BSA - 2.39 sq.m BMI - 32.23 (HIGH) Temperature - 95.8 F (LOW) Pulse - 101 /min (HIGH) Respiration - 20 /min BP - 98/65 mm(hg) O2 Sat - 98 % Pain - 0 Fatigue - 2 Physical Examination: Constitutional - He does not appear acutely ill, Eyes - Sclerae nonicteric. Conjunctivae clear, ENMT - No lesions noted in the oral cavity, Hematologic/Lymphatic - No cervical, clavicular, or axillary adenopathy, Respiratory - Lungs show markedly diminished air movement bilaterally. There are mild expiratory rhonchi, Cardiovascular - Heart rhythm is irregular. There is no murmur, gallop, or rub noted, Abdomen - Mildly distended. Liver and spleen are not enlarged. There is no abdominal mass or ascites noted and there is no inguinal adenopathy, Extremities - No edema, Neurologic - No focal neurologic deficits noted. Lab/Imaging: CBC shows hemoglobin 11.4 g, white blood cell count 2400, and platelet count 185,000. The absolute neutrophil count is 1800. Comprehensive metabolic profile is unremarkable. Problem List: 1. Adenocarcinoma involving the lower lobe of the right lung, stage IIIB (T3, N2, M0). 2. COPD. 3. Coronary artery disease with previous angioplasty/stent placement. 4. Atrial fibrillation. 5. Dyslipidemia. 6. Hypotension. 7. Sleep apnea syndrome. 8. Macular degeneration. 9. Chronic anxiety. Problems Addressed with this Encounter and Plan: Patient with adenocarcinoma involving the lower lobe of the right lung. He underwent bronchoscopy/EBUS on 12/29/2020. By clinical evaluation, his disease was stage IIIB (T3, N2, M0) at intial diagnosis. He was recommended to undergo chemoradiation. He began radiation on 03/05/2021. His initial chemotherapy infusion was deferred to the following day because he had neglected to take his steroid premedication. He has completed 2 weekly infusions of carboplatin/paclitaxel. With both infusions he had pretty significant nausea/vomiting, requiring IV hydration and IV antiemetics on several occasions. The following week he was significantly more short of breath, and I did opt to put his chemotherapy on hold. As of his follow-up visit on 03/26/2021 he was feeling much better and he was able to proceed with his week 3 carboplatin/paclitaxel the following day. As of his follow-up visit any 2020 he appeared stable clinically and he was able to continue with his week for chemotherapy. He has now developed moderately severe neutropenia, but he otherwise appears to be tolerating treatment well. I am going to go ahead with his week 5 carboplatin/paclitaxel. This will complete his course of chemotherapy, as he is due to finish radiation next week. He will be given a dose of Neupogen tomorrow and he will be given antibiotic coverage with Levaquin for 5 days. He will have a repeat CBC next week. I will tentatively plan a follow-up visit with restaging chest CT in 1 month. Signed By: Theron Jo M.D. <<Signature on File>>
--- NOTE | 2021-04-17 14:03 | N.ONRD TS_ITS ---
Radiation OncologyTreatment Summary Patient Name: Darlin Youssef Date of : 1970 Date of Service: 04/17/2021 Attending Physician: Jeff Stewart M.D. Darlin Youssef has completed definitive thoracic radiotherapy for the management of a clinical stage IIIA (T2aN2) adenocarcinoma of the right lower lobe of the lung (PD???L1 expression level was less than 1%). He has been prescribed Carboplatin (AUC 2) and Paclitaxel (50 mg/m???) weekly during therapy. Thoracic radiation therapy was delivered between the dates of March 05, 2021 through April 17, 2021. A prescribed dose of 60 Gy was delivered in 30 fractions encompassing 44 elapsed days. The right lower-lobe mass and mediastinal lymphadenopathy were treated utilizing an intensity modulated radiotherapy plan with a step and shoot treatment technique. The plan required seven gantry angles (0???, 170???, 190???, 220???, 240???, 300???, and 330???) replicating a partial arc. The collimator rotation 0???. The field sizes spanned between 12.7 cm x 13.8 cm to 14.8 cm x 13.8 cm. The SSDs measured a minimum of 81.9 cm to a maximum of 86.8 cm. The ports delivered 298 MU, 252 MU, 279 MU, 212 MU, 204 MU, 185 MU, and 261 MU corresponding to the gantry angles described. All treatments were performed with the [employer] linear accelerator and an isocentric technique. The dose was calculated by Anisotropic Analytic Algorithm. A photon energy of 6 MV was prescribed with the plan normalized to deliver 100% of the prescription dose to 95% of the planning target volume. He has was prescribed Carboplatin (AUC 2) and Paclitaxel (50 mg/m???) weekly during therapy under the supervision of Theron Jo M.D. Signed by: Dr. Jeff Stewart 04/17/2021 2:02:28 PM
[2021-04-17 15:03] LABS: Basophils % 0.8 %; Eosinophils % 0.4 %; Hematocrit 33.5 % (42.0-52.0); Hemoglobin 11.8 g/dL (11.7-16.6); Lymphocytes # 0.4 10^3/uL (0.8-4.8); Lymphocytes % 13.8 %; Mean Corpuscular HGB Conc 35.2 g/dL (30.0-36.0); Mean Corpuscular Hemoglobin 32.9 pg (28.0-34.0); Mean Corpuscular Volume 93.3 fl (80-94); Mean Platelet Volume 9.6 fL (7.4-10.4); Monocytes # 0.1 10^3/uL (0.2-0.9); Monocytes % 5.1 %; Neutrophils % 78.7 %; Nucleated Red Blood Cells % 0 %; Platelet Count 235 10^3/cmm (130-400); Red Blood Count 3.59 10^6/uL (4.1-5.3); Red Cell Distribution Width 13.2 % (12.1-15.1); White Blood Count 2.5 10^3/uL (4.0-10.0)
[2021-04-17 16:02] LABS: Alanine Aminotransferase 18 U/L (0-41); Albumin Level 3.6 g/dL (3.5-5.2); Alkaline Phosphatase 71 IU/L (40-130); Anion Gap 13.1 (5-19); Aspartate Amino Transferase 10 U/L (0-40); Blood Urea Nitrogen 13 mg/dL (6-20); Calcium 9.2 mg/dL (8.5-10.5); Carbon Dioxide 32 mmol/L (22-29); Chloride 95 mmol/L (98-107); Globulin 2.2 g/dL (1.3-4.6); Glomerular Filtration Rate 118.4 mL/min (90-130); Glucose 130 mg/dL (65-115); Osmolality Calculated 284 mOsm/kg (285-295); Potassium 4.1 mmol/L (3.5-5.1); Sodium 136 mmol/L (136-145); Total Bilirubin 0.9 mg/dL (0.15-1.2); Total Protein 5.8 g/dL (6.6-8.7)
== END 2021-05-10 23:59 | disposition home or self-care (01) ==
LOC: ONCMED 05:34
PROVIDERS: Absent Provider Radiology Radiation Oncology; Visit Provider Internal Medicine Medical Oncology
DX: Z51.0 Encounter for antineoplastic radiation therapy (principal); Z51.11 Encounter for antineoplastic chemotherapy; C34.31 Malignant neoplasm of lower lobe, right bronchus or lung; J44.9 Chronic obstructive pulmonary disease, unspecified; I25.10 Atherosclerotic heart disease of native coronary artery without angina pectoris; Z95.5 Presence of coronary angioplasty implant and graft; I48.91 Unspecified atrial fibrillation; E78.5 Hyperlipidemia, unspecified; I95.9 Hypotension, unspecified; G47.30 Sleep apnea, unspecified; H35.30 Unspecified macular degeneration; F41.9 Anxiety disorder, unspecified; Z79.899 Other long term (current) drug therapy
CPT/HCPCS: 36591; 77336; 77386; 80053; 85025; 96367; 96372; 96375; 96413; 96417; 99215; J1100; J1200; J2469; J3490; J7030; J7040; J7050; J9045; J9267; Q5101

== ENCOUNTER 2021-07-02 10:45 | Emergency (ER) | payer MEDICARE, MEDICAID, SELFPAY ==
[2021-07-02 11:25] VITALS: BP 106/61; PULSE 82; RESP 22; TEMP 37.4; O2SAT 92; BMI 32.5
--- NOTE | 2021-07-02 11:33 | XR_ITS ---
WS: [id number] CHEST 2 VIEWS HISTORY: Evaluate pneumonia. Short of breath and coughing. COMPARISON: 03/17/2021 Lungs: Hyperinflated lungs. Flattening of the diaphragms. Focal area of increased density projecting over the mid thoracic spine on the lateral projection. This may be postoperative and postradiation ch neida. Cardiac size: Normal. Mediastinum/Aorta: LEFT subclavian line is present with tip in the distal SVC. Bones: Normal. XR/XR chest 2V* [id number] IMPRESSION: 1. Increased opacification projects over the spine on the lateral projection. This may be postoperative or posttreatment changes. Recurrent neoplasm is not e xcluded. No prior studies for comparison since 12/20/2020. 2. No pneumonia.
--- NOTE | 2021-07-02 11:44 | ED_ITS ---
Documented by User: Andra Gutiérrez MD 07/02/21 11:47 HPI - General Adult General: Chief complaint: Shortness of Breath/Dyspnea Stated complaint: Difficulty Breathing Time Seen by Provider: 07/02/21 11:41 History of Present Illness: HPI narrative: Patient is a 51-year-old male with a history of pneumonia, CAD status post stent x2, hypertension who presents the emergency room with concerns for possible pneumonia. Patient tells me he has been coughing for last 2 to 3 days with rustic sputum production. Patient denies any fever chills endorses mild shortness of breath. At home, patient takes 2 to 3 L of oxygen. Patient does not know why he is taking oxygen. Patient has had 1 episode pneumonia requiring hospitalization last year. No complaints of increased work of breathing, nausea/vomiting, abdominal complaints, complaints at this time Onset: 3 days ago Duration:3 days Location:home Severity:moderate Review of Systems Narrative: Constitutional: No fever, no chills. HEENT: No vision changes CV: No chest pain, no palpitations PULM: +cough, +dyspnea. GI: No abdominal pain, no N/V/D. : No dysuria MSKEL: No muscle pain SKIN: No new rashes, no lesions. NEURO: No headache, no focal weakness. HEME: No visible bruises PSYCH: Normal mood PFSH ED PFSH: Medical History Atrial fibrillation CAD (coronary artery disease) COPD (chronic obstructive pulmonary disease) Dyslipidemia Sleep apnea syndrome Surgical History History of cholecystectomy Port-A-Cath in place (02/14/21) Family History Other CAD (coronary artery disease) Cancer Diabetes Lung disease Stroke Denies family history of Bleeding disorder Social History Quit status (tobacco): considering quitting Second hand smoke exposure: Yes Smoking risk assessment/counseling performed?: Yes Alcohol intake: current Alcohol intake frequency: holidays/special occasions only Lives independently: Yes Household members: significant other and children Marital status: Life Partner service: No Current occupational status: disabled Pets and animals: Yes History of recent travel: No Current gender identity: Male Physical Exam Narrative: EXAM NARRATIVE: Head: Atraumatic Eyes: PERRL, conjunctiva without injection ENT: Mucous membrane moist NECK: Supple, ROM intact LUNGS: Coarse breath sounds b/l CV: RRR, 2+ UE pulses b/l ABDOMEN: Soft, nontender in all quadrants EXTREMITY: Normal ROM SKIN: No rash or erythema NEURO: Awake and alert, no focal motor deficits PSYCH: Normal mood and affect Course Vital Signs: Vital signs: Vital Signs Temperature 99.4 F 07/02/21 11:25 Pulse Rate 99 07/02/21 16:03 Respiratory Rate 24 H 07/02/21 16:03 Blood Pressure 124/81 07/02/21 16:03 Pulse Oximetry 92 07/02/21 16:03 MDM - General Adult MDM Narrative: Medical decision making narrative: 51-year-old male with history of prior pneumonia, stent x2, hypertension presenting to the emergency room for concerns of cough and rustic sputum production x2 days. Patient is concerned that he may have pneumonia. On PE, patient is satting 90% on room air. Patient normally uses 2 to 3 L of oxygen. Lung sounds appear to be coarse bilaterally. Workup: CBC, BMP, CRP, Procal, XR chest Lab Data: Labs: Lab Results 07/02/21 07/02/21 07/02/21 11:45 11:45 11:45 WBC 8.2 10^3/uL 10^3/ uL (4.0-10.0) RBC 4.20 10^6/uL 10^6 /uL (4.1-5.3) Hgb 13.8 g/dL g/dL (11.7-16.6) Hct 41.0 % L % (42.0-52.0) MCV 97.6 fl H fl (80-94) MCH 32.9 pg pg (28.0-34.0) MCHC 33.7 g/dL g/dL (30.0-36.0) RDW 11.8 % L % (12.1-15.1) Plt Count 254 10^3/cmm 10^3 /cmm (130-400) MPV 9.4 fL fL (7.4-10.4) Neut % (Auto) 79.6 % % Lymph % (Auto) 11.1 % % [place] % (Auto) 7.1 % % Eos % (Auto) 1.0 % % Baso % (Auto) 1.0 % % Neut # (Auto) 6.52 10^3/uL 10^3 /uL (1.8-7.7) Lymph # (Auto) 0.9 10^3/uL 10^3/ uL (0.8-4.8) [place] # (Auto) 0.6 10^3/uL 10^3/ uL (0.2-0.9) Eos # (Auto) 0.1 10^3/uL 10^3/ uL (0.0-0.8) Baso # (Auto) 0.1 10^3/uL 10^3/ uL (0.0-0.1) Nucleated RBC % (a uto) 0 % % Nucleated RBCs # 0.0 /100WBC /100W BC Sodium 138 mmol/L mmol/L (136-145) Potassium 3.7 mmol/L mmol/L (3.5-5.1) Chloride 98 mmol/L mmol/L (98-107) Carbon Dioxide 29 mmol/L mmol/L (22-29) Anion Gap 14.7 (5-19) BUN 8 mg/dL mg/dL (6-20) Creatinine 0.6 mg/dL L mg/dL (0.7-1.2) GFR Calculation 141.5 mL/min H mL /min (90-130) Glucose 111 mg/dL mg/dL (65-115) Calculated Osmolal ity 285 mOsm/kg mOsm/ kg (285-295) Calcium 8.8 mg/dL mg/dL (8.5-10.5) Troponin T Baselin e 19 ng/L H ng/L (0-15) Troponin T 120 Min janette Delta Troponin T C-Reactive Protein 74.6 mg/L H mg/L (0.0-4.9) Procalcitonin 0.09 ng/mL ng/mL (0-0.5) SARS-CoV-2 Ag (Rap id) 07/02/21 07/02/21 12:04 13:54 WBC RBC Hgb Hct MCV MCH MCHC RDW Plt Count MPV Neut % (Auto) Lymph % (Auto) [place] % (Auto) Eos % (Auto) Baso % (Auto) Neut # (Auto) Lymph # (Auto) [place] # (Auto) Eos # (Auto) Baso # (Auto) Nucleated RBC % (a uto) Nucleated RBCs # Sodium Potassium Chloride Carbon Dioxide Anion Gap BUN Creatinine GFR Calculation Glucose Calculated Osmolal ity Calcium Troponin T Baselin e Troponin T 120 Min janette 20.41 ng/L H ng/L (0-15) Delta Troponin T 1.41 ABS# ABS# (0-10) C-Reactive Protein Procalcitonin SARS-CoV-2 Ag (Rap id) Negative (Negative) Discharge Plan Discharge Patient Disposition: Home Clinical Impression: Acute exacerbation of chronic obstructive airways disease, Suspected 2019-nCoV infection, Lung cancer Condition: Stable Prescriptions: New doxycycline hyclate 100 mg capsule 100 mg PO BID 10 Days Qty: 20 RF: 0 dexamethasone 6 mg tablet 6 mg PO DAILY Qty: 7 RF: 0 albuterol sulfate 90 mcg/actuation HFA aerosol inhaler 2 inh INHALATION Q4H PRN (Reason: shortness of breath or wheezing) Qty: 18 RF: 0 No Action nitroglycerin 0.4 mg tablet, sublingual 0.4 mg sublingual Q5M PRN (Reason: chest pain) Qty: 25 RF: 2 aspirin 325 mg tablet 325 mg PO QAM RF: 0 Tylenol Cold and Flu Severe 8-19-277-200 mg tablet 2 tab PO BID RF: 0 Trelegy Ellipta 100-62.5-25 mcg blister with device 1 inh inhalation DAILY Qty: 60 RF: 3 nicotine 21 mg/24 hr patch 24 hour 1 patch transdermal DAILY Qty: 28 RF: 1 ProAir RespiClick 90 mcg/actuation aerosol powdr breath activated See Rx Instructions .ROUTE .COMPLEX Qty: 1 RF: 0 atorvastatin 40 mg tablet 40 mg PO DAILY@2200 Qty: 90 RF: 3 verapamil 240 mg capsule,ext rel. pellets 24 hr 240 mg PO BEDTIME RF: 0 Xarelto 20 mg tablet 10 mg PO BEDTIME RF: 0 prochlorperazine maleate 10 mg tablet 10 mg PO Q4H PRN (Reason: Nausea And Vomiting) RF: 0 dexamethasone 4 mg tablet See Rx Instructions .ROUTE .COMPLEX RF: 0 fluticasone propion-salmeterol [Wixela Inhub] 250-50 mcg/dose blister with device 1 inh INHALATION BEDTIME RF: 0 lisinopril 10 mg tablet 10 mg PO DAILY@2200 RF: 0 Discharge Orders: Discharge ED (Routine); Ordered 07/02/21 Ordered By: Andrew Sanches Discharge Diet: Usual diet Discharge Activity: Increase activity as tolerated Patient Instructions: Opioid Safety Coding Level of Care Code ED Printed Circuit Board Reworker for Chg Fwd Exam Comprehensive Documented by User: Andrew Sanches DO 07/02/21 16:17 HPI - General Adult General: Chief complaint: Shortness of Breath/Dyspnea Stated complaint: Difficulty Breathing Time Seen by Provider: 07/02/21 11:41 History of Present Illness: HPI narrative: 51-year-old male with a history of COPD coronary disease and hypertension he continues to smoke regularly. Comes in today complaining of shortness of breath and cough increasing symptoms. He has had change in character of his sputum with increased discoloration over the last 2 to 3 days. At home patient uses 3 L of oxygen on occasion but not continuously. Patient has had diarrhea denies any anosmia. Onset (ago): day(s) Location: chest Severity: moderate Relieving factors: rest and other (Oxygen) Exacerbating factors: other (Exertion) Associated symptoms: Reports cough and dyspnea; Deny chest pain, confusion, diaphoresis, decreased appetite, fevers/chills, headache(s), malaise, nausea, rash, palpitations, seizures, short of breath, syncope, vomiting or weakness Treatments prior to arrival: none Review of Systems Const: Denies: malaise or diaphoresis ENMT: Denies: throat pain, ear or mastoid pain, nasal discharge or nasal congestion Card: Denies: chest pain, palpitations or syncope Resp: Reports: dyspnea GI: Denies: nausea or vomiting : Denies: flank pain, dysuria, urinary frequency or urinary urgency Skin/Breast: Denies: rash Neuro: Denies: headache(s) or confusion PFS ED PFSH: Medical History Atrial fibrillation CAD (coronary artery disease) COPD (chronic obstructive pulmonary disease) Dyslipidemia Sleep apnea syndrome Surgical History History of cholecystectomy Port-A-Cath in place (02/14/21) Family History Other CAD (coronary artery disease) Cancer Diabetes Lung disease Stroke Denies family history of Bleeding disorder Social History Quit status (tobacco): considering quitting Second hand smoke exposure: Yes Smoking risk assessment/counseling performed?: Yes Alcohol intake: current Alcohol intake frequency: holidays/special occasions only Lives independently: Yes Household members: significant other and children Marital status: Life Partner service: No Current occupational status: disabled Pets and animals: Yes History of recent travel: No Current gender identity: Male Physical Exam Const: COMMON NORMALS: no acute distress GENERAL APPEARANCE: cooperative and comfortable ORIENTATION/CONSCIOUSNESS: Yes awake, Yes oriented to person, Yes oriented to place and Yes oriented to time HENMT: COMMON NORMALS: normocephalic, atraumatic and hearing grossly normal bilaterally HEAD & SCALP: normocephalic and atraumatic Neck/C-Spine: COMMON NORMALS: no JVD Resp: AUSCULTATION: rhonchi and wheezes Cardio: COMMON NORMALS: no JVD, regular rate, regular rhythm and No murmurs p resent (Cardio) RATE: regular rate RHYTHM: regular rhythm GI: COMMON NORMALS: Soft to palpation and No hepatosplenomegaly present AUSCULTATION: Yes normoactive bowel sounds PALPATION: Yes Soft to palpation, No Tenderness to palpation present (GI), No Guarding due to palpation present (GI) and Yes No hepatosplenomegaly present Extremity: COMMON NORMALS: normal to inspection, capillary refill normal, no clubbing, cyanosis or edema, no calf tenderness and no pedal edema Neuro: SENSORIUM/ORIENTATION: Yes oriented to person, Yes oriented to place and Yes oriented to time Skin: COMMON NORMALS: no rashes or lesions noted GENERAL SKIN EXAM: no rashes or lesions noted Course Vital Signs: Vital signs: Vital Signs Temperature 99.4 F 07/02/21 11:25 Pulse Rate 99 07/02/21 16:03 Respiratory Rate 24 H 07/02/21 16:03 Blood Pressure 124/81 07/02/21 16:03 Pulse Oximetry 92 07/02/21 16:03 MDM - General Adult MDM Narrative: Medical decision making narrative: Care assumed from Dr. Gutiérrez. Patient was placed in the ER and my pod but I was tied up with emergent procedure. Dr. Gutiérrez initially seen the patient and labs with him turned care over to myself. Acute exacerbation COPD patient is a known history of lung cancer as well sats are good chest x-ray did show acute infiltrate. Started on steroids doxycycline aggressive use of beta agonist. And recheck with primary care within the next 2 days. Return if is worsening problems. Lab Data: Labs: Lab Results 07/02/21 07/02/21 07/02/21 11:45 11:45 11:45 WBC 8.2 10^3/uL 10^3/ uL (4.0-10.0) RBC 4.20 10^6/uL 10^6 /uL (4.1-5.3) Hgb 13.8 g/dL g/dL (11.7-16.6) Hct 41.0 % L % (42.0-52.0) MCV 97.6 fl H fl (80-94) MCH 32.9 pg pg (28.0-34.0) MCHC 33.7 g/dL g/dL (30.0-36.0) RDW 11.8 % L % (12.1-15.1) Plt Count 254 10^3/cmm 10^3 /cmm (130-400) MPV 9.4 fL fL (7.4-10.4) Neut % (Auto) 79.6 % % Lymph % (Auto) 11.1 % % [place] % (Auto) 7.1 % % Eos % (Auto) 1.0 % % Baso % (Auto) 1.0 % % Neut # (Auto) 6.52 10^3/uL 10^3 /uL (1.8-7.7) Lymph # (Auto) 0.9 10^3/uL 10^3/ uL (0.8-4.8) [place] # (Auto) 0.6 10^3/uL 10^3/ uL (0.2-0.9) Eos # (Auto) 0.1 10^3/uL 10^3/ uL (0.0-0.8) Baso # (Auto) 0.1 10^3/uL 10^3/ uL (0.0-0.1) Nucleated RBC % (a uto) 0 % % Nucleated RBCs # 0.0 /100WBC /100W BC Sodium 138 mmol/L mmol/L (136-145) Potassium 3.7 mmol/L mmol/L (3.5-5.1) Chloride 98 mmol/L mmol/L (98-107) Carbon Dioxide 29 mmol/L mmol/L (22-29) Anion Gap 14.7 (5-19) BUN 8 mg/dL mg/dL (6-20) Creatinine 0.6 mg/dL L mg/dL (0.7-1.2) GFR Calculation 141.5 mL/min H mL /min (90-130) Glucose 111 mg/dL mg/dL (65-115) Calculated Osmolal ity 285 mOsm/kg mOsm/ kg (285-295) Calcium 8.8 mg/dL mg/dL (8.5-10.5) Troponin T Baselin e 19 ng/L H ng/L (0-15) Troponin T 120 Min janette Delta Troponin T C-Reactive Protein 74.6 mg/L H mg/L (0.0-4.9) Procalcitonin 0.09 ng/mL ng/mL (0-0.5) SARS-CoV-2 Ag (Rap id) 07/02/21 07/02/21 12:04 13:54 WBC RBC Hgb Hct MCV MCH MCHC RDW Plt Count MPV Neut % (Auto) Lymph % (Auto) [place] % (Auto) Eos % (Auto) Baso % (Auto) Neut # (Auto) Lymph # (Auto) [place] # (Auto) Eos # (Auto) Baso # (Auto) Nucleated RBC % (a uto) Nucleated RBCs # Sodium Potassium Chloride Carbon Dioxide Anion Gap BUN Creatinine GFR Calculation Glucose Calculated Osmolal ity Calcium Troponin T Baselin e Troponin T 120 Min janetet 20.41 ng/L H ng/L (0-15) Delta Troponin T 1.41 ABS# ABS# (0-10) C-Reactive Protein Procalcitonin SARS-CoV-2 Ag (Rap id) Negative (Negative) Discharge Plan Discharge Patient Disposition: Home Clinical Impression: Acute exacerbation of chronic obstructive airways disease, Suspected 2019-nCoV infection, Lung cancer Condition: Stable Prescriptions: New doxycycline hyclate 100 mg capsule 100 mg PO BID 10 Days Qty: 20 RF: 0 dexamethasone 6 mg tablet 6 mg PO DAILY Qty: 7 RF: 0 albuterol sulfate 90 mcg/actuation HFA aerosol inhaler 2 inh INHALATION Q4H PRN (Reason: shortness of breath or wheezing) Qty: 18 RF: 0 No Action nitroglycerin 0.4 mg tablet, sublingual 0.4 mg sublingual Q5M PRN (Reason: chest pain) Qty: 25 RF: 2 aspirin 325 mg tablet 325 mg PO QAM RF: 0 Tylenol Cold and Flu Severe 0-45-530-200 mg tablet 2 tab PO BID RF: 0 Trelegy Ellipta 100-62.5-25 mcg blister with device 1 inh inhalation DAILY Qty: 60 RF: 3 nicotine 21 mg/24 hr patch 24 hour 1 patch transdermal DAILY Qty: 28 RF: 1 ProAir RespiClick 90 mcg/actuation aerosol powdr breath activated See Rx Instructions .ROUTE .COMPLEX Qty: 1 RF: 0 atorvastatin 40 mg tablet 40 mg PO DAILY@2200 Qty: 90 RF: 3 verapamil 240 mg capsule,ext rel. pellets 24 hr 240 mg PO BEDTIME RF: 0 Xarelto 20 mg tablet 10 mg PO BEDTIME RF: 0 prochlorperazine maleate 10 mg tablet 10 mg PO Q4H PRN (Reason: Nausea And Vomiting) RF: 0 dexamethasone 4 mg tablet See Rx Instructions .ROUTE .COMPLEX RF: 0 fluticasone propion-salmeterol [Wixela Inhub] 250-50 mcg/dose blister with device 1 inh INHALATION BEDTIME RF: 0 lisinopril 10 mg tablet 10 mg PO DAILY@2200 RF: 0 Discharge Orders: Discharge ED (Routine); Ordered 07/02/21 Ordered By: Andrew Sanches Discharge Diet: Usual diet Discharge Activity: Increase activity as tolerated Patient Instructions: Opioid Safety Coding Level of Care Code ED Printed Circuit Board Reworker for g Fwd Exam Comprehensive
[2021-07-02 12:08] VITALS: BP 136/90; PULSE 94; RESP 23; O2SAT 93
[2021-07-02 12:13] VITALS: PULSE 92; RESP 18; O2SAT 98
[2021-07-02 12:13] LABS: Basophils # 0.1 10^3/uL (0.0-0.1); Eosinophils # 0.1 10^3/uL (0.0-0.8); Hemoglobin 13.8 g/dL (11.7-16.6); Lymphocytes # 0.9 10^3/uL (0.8-4.8); Lymphocytes % 11.1 %; Mean Corpuscular HGB Conc 33.7 g/dL (30.0-36.0); Mean Corpuscular Hemoglobin 32.9 pg (28.0-34.0); Mean Corpuscular Volume 97.6 fl (80-94); Mean Platelet Volume 9.4 fL (7.4-10.4); Monocytes # 0.6 10^3/uL (0.2-0.9); Monocytes % 7.1 %; Neutrophils # 6.52 10^3/uL (1.8-7.7); Neutrophils % 79.6 %; Nucleated Red Blood Cells % 0 %; Platelet Count 254 10^3/cmm (130-400); Red Cell Distribution Width 11.8 % (12.1-15.1); White Blood Count 8.2 10^3/uL (4.0-10.0)
[2021-07-02] MEDS: ipratropium-albuterol 3 mL Neb INHALATION (12:16)
[2021-07-02 12:18] VITALS: PULSE 96
[2021-07-02 12:36] LABS: SARS Covid-2 Antigen Negative (Negative)
[2021-07-02 12:55] LABS: Procalcitonin 0.09 ng/mL (0-0.5)
[2021-07-02 13:06] LABS: Anion Gap 14.7 (5-19); Blood Urea Nitrogen 8 mg/dL (6-20); C Reactive Protein 74.6 mg/L (0.0-4.9); Calcium 8.8 mg/dL (8.5-10.5); Carbon Dioxide 29 mmol/L (22-29); Chloride 98 mmol/L (98-107); Glomerular Filtration Rate 141.5 mL/min (90-130); Glucose 111 mg/dL (65-115); Osmolality Calculated 285 mOsm/kg (285-295); Potassium 3.7 mmol/L (3.5-5.1); Sodium 138 mmol/L (136-145)
--- NOTE | 2021-07-02 13:10 | ECG_ITS ---
[facility] Test Date: 2021-07-02 Pat Name: Darlin Youssef Department: Room: Gender: Male Religious Healer: : 1970 Requested By: Andrew Mckeon Order Number: [id number] Indira MD: Glen Hernandez M.D. Measurements Intervals [place] Rate: 107 P: [place]: QRS: 50 QRSD: 80 T: 72 QT: 358 QTc: 478 Interpretive Statements ATRIAL FIBRILLATION WITH RAPID VENTRICULAR RESPONSE WITH ABERRANT CONDUCTION OR VENTRICULAR PREMATURE COMPLEXES LOW QRS VOLTAGE IN PRECORDIAL LEADS [QRS DEFLECTION < 1.0 mV IN CHEST LEADS] ANTEROSEPTAL MYOCARDIAL INFARCTION , PROBABLY OLD [40+ ms Q WAVE IN V1-V4] Compared to ECG 03/17/2021 08:51:24 Low QRS voltage now present Myocardial infarct finding still present Electronically Signed On 07-02-2021 20:04:41 BEAUTY OPERATOR by Glen Hernandez M.D. [email or web address]
[2021-07-02] MEDS: nicotine 21 mg Patch 1 PATCH TRANSDERMA (13:26)
[2021-07-02 14:07] LABS: Troponin(5th) Baseline 19 ng/L (0-15)
[2021-07-02 14:34] LABS: Troponin 5 2HR 20.41 ng/L (0-15); Troponin 5 2HR Delta 1.41 ABS# (0-10)
--- NOTE | 2021-07-02 15:00 | PC.PHAR ---
PT STATES HE TAKES CARE OF HIS OWN MEDICATIONS-PT STATES HE IS NO LONGER TAKING METOPROLOL SUCCINATE-PT STATES HE IS TAKING XARELTO 10MG HS RX WAS FILLED FOR 20MG AT BEDTIME ON 03/10/21 90D/S PT STATES HE DECIDED TO JUST CUT THEM IN HALF PT STATES HE DIDNT TALK TO HIS DR ABOUT CUTTING THEM IN HALF-PT STATES HE DOESNT USE THE COMBIVENT INHALER ANY LONGER-PT STATE HE IS STILL USING THE WIXELA INHALER LAST FILLED 05/27/2018-NOTES ARE MADE IN THE PHARMACY COMMENTS
[2021-07-02 16:03] VITALS: BP 124/81; PULSE 99; RESP 24; O2SAT 92
[2021-07-04 07:27] LABS: Coronavirus Test Green County Not Detected
--- NOTE | 2021-07-04 09:38 | PC.NURSE ---
pt called no answer no message system.
== END 2021-07-02 16:05 | disposition home or self-care (01) ==
PROVIDERS: Emergency Medicine; Emergency Provider Family Medicine
DX: J44.1 Chronic obstructive pulmonary disease with (acute) exacerbation (principal); C34.90 Malignant neoplasm of unspecified part of unspecified bronchus or lung; Z20.822 Contact with and (suspected) exposure to COVID-19; Z79.82 Long term (current) use of aspirin; I25.10 Atherosclerotic heart disease of native coronary artery without angina pectoris; E78.5 Hyperlipidemia, unspecified; Z77.22 Contact with and (suspected) exposure to environmental tobacco smoke (acute) (chronic)
CPT/HCPCS: 71046; 80048; 84145; 84484; 85025; 86140; 87426; 87635; 93005; 94640; 99283

== ENCOUNTER 2021-09-09 15:06 | Emergency (ER) | payer MEDICARE, MEDICAID, SELFPAY ==
[2021-09-09 15:16] VITALS: BP 114/70; PULSE 88; RESP 24; TEMP 37.1; O2SAT 94; BMI 34.8
--- NOTE | 2021-09-09 15:27 | ED_ITS ---
Documented by User: SARAH Sepulveda 09/13/21 07:16 HPI - Male Genitourinary General: Chief complaint: Urogenital-Male Stated complaint: Lower Back Pain Time Seen by Provider: 09/09/21 15:20 History of Present Illness: Patient presents with back pain as left lower side. Patient states that he has been cutting some wood in an home and and his back started hurting after that. Then he said he thought maybe had a UTI but never when seen by the provider.And this is all the last 3 days. Patient denies any hematuria. Patient has pain with range of motion, lifting of legs and getting up out of chair and twisting around. MD Complaint: other (Back pain) Onset (ago): day(s) Location: left flank Exacerbating factors: movement Associated symptoms: Reports nausea and vomiting Review of Systems Const: Denies: fever(s), chills or body aches Eyes: Denies: eye discomfort ENMT: Denies: throat pain Card: Reports: dyspnea on exertion; Denies: chest pain Resp: Denies: dyspnea GI: Reports: nausea and vomiting; Denies: abdominal pain : Reports: other (Patient has some dysuria the first day but none any longer.) Musc: Reports: back pain Skin/Breast: Denies: rash Neuro: Denies: headache(s) Psych: Denies: depression or suicidal ideation PFSH ED PFSH: Medical History Atrial fibrillation CAD (coronary artery disease) COPD (chronic obstructive pulmonary disease) Dyslipidemia Sleep apnea syndrome Surgical History History of cholecystectomy Port-A-Cath in place (02/14/21) Family History Other CAD (coronary artery disease) Cancer Diabetes Lung disease Stroke Denies family history of Bleeding disorder Social History Quit status (tobacco): considering quitting Second hand smoke exposure: Yes Smoking risk assessment/counseling performed?: Yes Alcohol intake: current Alcohol intake frequency: holidays/special occasions only Lives independently: Yes Household members: significant other and children Marital status: Life Partner service: No Current occupational status: disabled Pets and animals: Yes History of recent travel: No Current gender identity: Male Physical Exam Const: COMMON NORMALS: no acute distress, patient oriented x3 and alert HENMT: COMMON NORMALS: normocephalic HEAD & SCALP: normocephalic Eye: COMMON NORMALS: EOMs intact bilaterally Neck/C-Spine: COMMON NORMALS: no JVD Resp: COMMON NORMALS: normal respiratory effort and No use of accessory muscles Cardio: COMMON NORMALS: no JVD GI: INSPECTION: Yes normal to inspection : OTHER: Left flank pain with range of motion Back/Pelvis: LUMBAR SPINE/LOWER BACK: Yes pain with ROM, No straight leg raise negative bilaterally, No straight leg raise positive right and Yes straight leg raise positive left Extremity: COMMON NORMALS: normal to inspection and full ROM Neuro: COMMON NORMALS: patient oriented x3 SENSORIUM/ORIENTATION: Yes alert Psych: COMMON NORMALS: mental status grossly normal Skin: COMMON NORMALS: no rashes or lesions noted GENERAL SKIN EXAM: no rashes or lesions noted Course Vital Signs: Vital signs: Vital Signs Temperature 98.7 F 09/09/21 15:16 Pulse Rate 57 L 09/09/21 17:15 Respiratory Rate 16 09/09/21 17:15 Blood Pressure 114/70 09/09/21 15:16 Pulse Oximetry 90 09/09/21 17:15 MDM - Male Medical Decision Making Patient presents with a low back pain that occurred after he was loading and cutting wood the other day. He said he thought he might have an infection or kidney stone also. Urine was clear. Patient does have clinical exam consistent with low back pain and sciatica on the left side- goes down the hip. Patient was provided instructions on low back pain- given a prescription-and is to follow-up with his primary care provider Lab Data Laboratory Results Urine Color Yellow (Yellow) 09/09/21 16:20 Urine Appearance Clear (CLEAR) 09/09/21 16:20 Urine pH 5 (5-7) 09/09/21 16:20 Ur Specific [place] 1.020 (1.005-1.030) 09/09/21 16:20 Urine Protein Neg (Negative) 09/09/21 16:20 Urine Glucose (UA) Norm (Normal) 09/09/21 16:20 Urine Ketones Negative (Negative) 09/09/21 16:20 Urine Blood Neg (Negative) 09/09/21 16:20 Urine Nitrate Negative (Negative) 09/09/21 16:20 Urine Bilirubin 1+ (Negative) H 09/09/21 16:20 Urine Urobilinogen 1 mg/dL (Negative) H 09/09/21 16:20 Ur Leukocyte Esterase Negative (Negative) 09/09/21 16:20 Discharge Plan Discharge Patient Disposition: Home Clinical Impression: Low back pain Condition: Stable Prescriptions: New Celebrex 100 mg capsule 100 mg PO BID Qty: 20 0RF No Action nitroglycerin 0.4 mg tablet, sublingual 0.4 mg sublingual Q5M PRN (Reason: chest pain) Qty: 25 2RF Rx Instructions: do not exceed 3 doses per episode aspirin 325 mg tablet 325 mg PO QAM 0RF Tylenol Cold and Flu Severe 9-56-079-200 mg tablet 2 tab PO BID 0RF Trelegy Ellipta 100-62.5-25 mcg blister with device 1 inh inhalation DAILY Qty: 60 3RF nicotine 21 mg/24 hr patch 24 hour 1 patch transdermal DAILY Qty: 28 1RF atorvastatin 40 mg tablet 40 mg PO DAILY@2200 Qty: 90 3RF lisinopril 10 mg tablet See Rx Instructions .ROUTE .COMPLEX Qty: 90 0RF Dose Instruction: TAKE 1 TABLET BY MOUTH DAILY Rx Instructions: TAKE 1 TABLET BY MOUTH DAILY ProAir RespiClick 90 mcg/actuation aerosol powdr breath activated See Rx Instructions .ROUTE .COMPLEX Qty: 1 0RF Dose Instruction: INHALE 1 TO 2 PUFFS BY MOUTH EVERY 4 HOURS NEEDED FOR SHORTNESS OF BREATH OR WHEEZING Rx Instructions: INHALE 1 TO 2 PUFFS BY MOUTH EVERY 4 HOURS NEEDED FOR SHORTNESS OF BREATH OR WHEEZING; needs appt prior to refill Xarelto 20 mg tablet 10 mg PO BEDTIME Qty: 90 1RF Rx Instructions: patient needs appt for future refills verapamil 240 mg capsule,ext rel. pellets 24 hr 240 mg PO BEDTIME 0RF prochlorperazine maleate 10 mg tablet 10 mg PO Q4H PRN (Reason: Nausea And Vomiting) 0RF dexamethasone 4 mg tablet See Rx Instructions .ROUTE .COMPLEX 0RF Rx Instructions: 5 TABS PO 12 HOURS AND 6 HOURS PRIOR TO EACH CHEMO TREATMENT dexamethasone 6 mg tablet 6 mg PO DAILY Qty: 7 0RF albuterol sulfate 90 mcg/actuation HFA aerosol inhaler 2 inh INHALATION Q4H PRN (Reason: shortness of breath or wheezing) Qty: 18 0RF fluticasone propion-salmeterol [Wixela Inhub] 250-50 mcg/dose blister with device 1 inh INHALATION BEDTIME 0RF Discharge Orders: Discharge ED (Routine); Ordered 09/09/21 Ordered By: Tony Elizondo Discharge Diet: Usual diet Discharge Activity: Increase activity as tolerated Patient Instructions: Back Pain (ED) Activity Restrictions/Additional Instructions: Follow-up with medical provider as directed. Take medications as prescribed. Return to the ER or your medical provider if condition worsens. Please read and understand discharge instructions. If any questions ask please. No lifting over 10 pounds for next 3 weeks. Coding Level of Care Code ED Tire Specialist for Chg Fwd Exam Comprehensive Documented by User: Gen Cuadra MD 09/13/21 13:18 HPI - Male Genitourinary General: Chief complaint: Urogenital-Male Stated complaint: Lower Back Pain Time Seen by Provider: 09/09/21 15:20 PFSH ED PFSH: Medical History Atrial fibrillation CAD (coronary artery disease) COPD (chronic obstructive pulmonary disease) Dyslipidemia Sleep apnea syndrome Surgical History History of cholecystectomy Port-A-Cath in place (02/14/21) Family History Other CAD (coronary artery disease) Cancer Diabetes Lung disease Stroke Denies family history of Bleeding disorder Social History Quit status (tobacco): considering quitting Second hand smoke exposure: Yes Smoking risk assessment/counseling performed?: Yes Alcohol intake: current Alcohol intake frequency: holidays/special occasions only Lives independently: Yes Household members: significant other and children Marital status: Life Partner service: No Current occupational status: disabled Pets and animals: Yes History of recent travel: No Current gender identity: Male Course Vital Signs: Vital signs: Vital Signs Temperature 98.7 F 09/09/21 15:16 Pulse Rate 57 L 09/09/21 17:15 Respiratory Rate 16 09/09/21 17:15 Blood Pressure 114/70 09/09/21 15:16 Pulse Oximetry 90 09/09/21 17:15 [facility] - Male Medical Decision Making Patient presents with a low back pain that occurred after he was loading and cutting wood the other day. He said he thought he might have an infection or kidney stone also. Urine was clear. Patient does have clinical exam consistent with low back pain and sciatica on the left side- goes down the hip. Patient was provided instructions on low back pain- given a prescription-and is to follow-up with his primary care provider I have reviewed this documentation by Tony Elizondo NP. Gen Cuadra MD Emergency Medicine Lab Data Laboratory Results Urine Color Yellow (Yellow) 09/09/21 16:20 Urine Appearance Clear (CLEAR) 09/09/21 16:20 Urine pH 5 (5-7) 09/09/21 16:20 Ur Specific [place] 1.020 (1.005-1.030) 09/09/21 16:20 Urine Protein Neg (Negative) 09/09/21 16:20 Urine Glucose (UA) Norm (Normal) 09/09/21 16:20 Urine Ketones Negative (Negative) 09/09/21 16:20 Urine Blood Neg (Negative) 09/09/21 16:20 Urine Nitrate Negative (Negative) 09/09/21 16:20 Urine Bilirubin 1+ (Negative) H 09/09/21 16:20 Urine Urobilinogen 1 mg/dL (Negative) H 09/09/21 16:20 Ur Leukocyte Esterase Negative (Negative) 09/09/21 16:20 Discharge Plan Discharge Patient Disposition: Home Clinical Impression: Low back pain Condition: Stable Prescriptions: New Celebrex 100 mg capsule 100 mg PO BID Qty: 20 0RF No Action nitroglycerin 0.4 mg tablet, sublingual 0.4 mg sublingual Q5M PRN (Reason: chest pain) Qty: 25 2RF Rx Instructions: do not exceed 3 doses per episode aspirin 325 mg tablet 325 mg PO QAM 0RF Tylenol Cold and Flu Severe 4-13-488-200 mg tablet 2 tab PO BID 0RF Trelegy Ellipta 100-62.5-25 mcg blister with device 1 inh inhalation DAILY Qty: 60 3RF nicotine 21 mg/24 hr patch 24 hour 1 patch transdermal DAILY Qty: 28 1RF atorvastatin 40 mg tablet 40 mg PO DAILY@2200 Qty: 90 3RF lisinopril 10 mg tablet See Rx Instructions .ROUTE .COMPLEX Qty: 90 0RF Dose Instruction: TAKE 1 TABLET BY MOUTH DAILY Rx Instructions: TAKE 1 TABLET BY MOUTH DAILY ProAir RespiClick 90 mcg/actuation aerosol powdr breath activated See Rx Instructions .ROUTE .COMPLEX Qty: 1 0RF Dose Instruction: INHALE 1 TO 2 PUFFS BY MOUTH EVERY 4 HOURS NEEDED FOR SHORTNESS OF BREATH OR WHEEZING Rx Instructions: INHALE 1 TO 2 PUFFS BY MOUTH EVERY 4 HOURS NEEDED FOR SHORTNESS OF BREATH OR WHEEZING; needs appt prior to refill Xarelto 20 mg tablet 10 mg PO BEDTIME Qty: 90 1RF Rx Instructions: patient needs appt for future refills verapamil 240 mg capsule,ext rel. pellets 24 hr 240 mg PO BEDTIME 0RF prochlorperazine maleate 10 mg tablet 10 mg PO Q4H PRN (Reason: Nausea And Vomiting) 0RF dexamethasone 4 mg tablet See Rx Instructions .ROUTE .COMPLEX 0RF Rx Instructions: 5 TABS PO 12 HOURS AND 6 HOURS PRIOR TO EACH CHEMO TREATMENT dexamethasone 6 mg tablet 6 mg PO DAILY Qty: 7 0RF albuterol sulfate 90 mcg/actuation HFA aerosol inhaler 2 inh INHALATION Q4H PRN (Reason: shortness of breath or wheezing) Qty: 18 0RF fluticasone propion-salmeterol [Wixela Inhub] 250-50 mcg/dose blister with device 1 inh INHALATION BEDTIME 0RF Discharge Orders: Discharge ED (Routine); Ordered 09/09/21 Ordered By: Tony Elizondo Discharge Diet: Usual diet Discharge Activity: Increase activity as tolerated Patient Instructions: Back Pain (ED) Activity Restrictions/Additional Instructions: Follow-up with medical provider as directed. Take medications as prescribed. Return to the ER or your medical provider if condition worsens. Please read and understand discharge instructions. If any questions ask please. No lifting over 10 pounds for next 3 weeks. Coding Level of Care Code ED Tire Specialist for Ronit Fwd Exam Comprehensive
[2021-09-09] MEDS: ketorolac 30 mg/mL INJ 15 MG IVP (15:34)
[2021-09-09 16:33] LABS: Add Urine Microscopic? NO; Charge for UA Resulting for Rev
[2021-09-09 16:40] LABS: Bilirubin Urine 1+ (Negative); Blood Urine Neg (Negative); Glucose Urine UA Norm (Normal); Ketones Urine Negative (Negative); Leukocyte Esterase Urine Negative (Negative); Nitrate Urine Negative (Negative); Protein Urine Neg (Negative); Urine Appearance Clear (CLEAR); Urine Color Yellow (Yellow); Urobilinogen Urine 1 mg/dL (Negative); pH Urine 5 (5-7)
[2021-09-09 17:15] VITALS: PULSE 57; RESP 16; O2SAT 90
== END 2021-09-09 17:15 | disposition home or self-care (01) ==
PROVIDERS: Emergency Provider Nurse Practitioner Family
DX: M54.50 Low back pain, unspecified (principal); Z79.82 Long term (current) use of aspirin; I25.10 Atherosclerotic heart disease of native coronary artery without angina pectoris; J44.9 Chronic obstructive pulmonary disease, unspecified; E78.5 Hyperlipidemia, unspecified; Z87.891 Personal history of nicotine dependence
CPT/HCPCS: 81003; 96374; 99283; J1885

== ENCOUNTER 2021-10-02 17:32 | Emergency (ER) | payer MEDICARE, MEDICAID, SELFPAY ==
[2021-10-02] VITALS (8 sets, daily range): BP systolic 93–132; BP diastolic 56–78; PULSE 87–130; RESP 16–22; TEMP 36.7–37.5; O2SAT 3–99; BMI 29.5
--- NOTE | 2021-10-02 17:42 | XRR_ITS ---
PROCEDURE INFORMATION: Exam: XR Chest Exam date and time: 10/02/2021 5:42 PM Age: 51 years old Clinical indication: Shortness of breath; Prior surgery; Surgery date: 6+ months; Additional info: Dyspnea TECHNIQUE: Imaging protocol: XR of the chest. Views: 2 views. COMPARISON: CR XR chest 2V* [id number] 07/02/2021 11:46 AM FINDINGS: Lungs: The lungs are clear. Pleural spaces: Unremarkable. No pleural effusion. No pneumothorax. Heart/Mediastinum: Unremarkable. No cardiomegaly. Vasculature: The left subclavian Infusaport is stable in position. Bones/joints: Unremarkable. XR/XR chest 2V* [id number] IMPRESSION: No acute cardiopulmonary abnormality.
--- NOTE | 2021-10-02 18:12 | ECG_ITS ---
[facility] Test Date: 2021-10-02 Pat Name: Darlin Youssef Department: Room: Gender: Male Pathology Secretary/Transcriptionist: : 1970 Requested By: Cam Tam Order Number: [id number] Indira MD: Namita Mckeon M.D. Measurements Intervals [place] Rate: 104 P: LA: QRS: 118 QRSD: 98 T: 55 QT: 379 QTc: 500 Interpretive Statements ATRIAL FIBRILLATION WITH RAPID VENTRICULAR RESPONSE WITH ABERRANT CONDUCTION OR VENTRICULAR PREMATURE COMPLEXES LOW QRS VOLTAGE IN PRECORDIAL LEADS [QRS DEFLECTION < 1.0 mV IN CHEST LEADS] LEFT POSTERIOR FASCICULAR BLOCK [QRS AXIS > 109, INFERIOR Q] Compared to ECG 07/02/2021 13:55:21 Left posterior fascicular block now present Myocardial infarct finding no longer present Electronically Signed On 10-02-2021 20:38:08 INFORMATION SYSTEMS PROFESSOR by Namita Mckeon M.D. [id number]
--- NOTE | 2021-10-02 18:19 | W.ED.SOB ---
HPI - SOB/Dyspnea General: Chief Complaint: Shortness of Breath/Dyspnea Stated Complaint: Shortness of breath Time Seen by Provider: 10/02/21 18:13 Source: patient Mode of arrival: ambulatory Limitations: no limitations History of Present Illness: HPI Narrative: 51-year-old that has a history of COPD states that he has had a cough wheezing increased shortness of breath over the last 4 to 5 days he states he is having some sharp pain in his lower chest mainly with coughing. Denies any fevers denies any sick contacts denies any worsening improving factors. Associated symptoms: Deny abdominal pain, chest pain, fever(s), nausea or vomiting Review of Systems Const: Denies: fever(s), chills, body aches or change in appetite Eyes: Denies: blurry vision or eye discomfort ENMT: Denies: throat pain or dental pain Card: Denies: chest pain Resp: Reports: dyspnea, non-productive cough and wheezing GI: Denies: abdominal pain, nausea, vomiting or diarrhea : Denies: dysuria Musc: Denies: neck pain or back pain Skin/Breast: Denies: rash Neuro: Denies: headache(s) Psych: Denies: depression [place]/Lymph: Denies: easy bruising All/Imm: Denies: urticaria PFSH ED PFSH: Medical History Atrial fibrillation CAD (coronary artery disease) COPD (chronic obstructive pulmonary disease) Dyslipidemia Sleep apnea syndrome Surgical History History of cholecystectomy Port-A-Cath in place (02/14/21) Family History Other CAD (coronary artery disease) Cancer Diabetes Lung disease Stroke Denies family history of Bleeding disorder Social History Quit status (tobacco): considering quitting Second hand smoke exposure: Yes Smoking risk assessment/counseling performed?: Yes Alcohol intake: current Alcohol intake frequency: holidays/special occasions only Lives independently: Yes Household members: significant other and children Marital status: Life Partner service: No Current occupational status: disabled Pets and animals: Yes History of recent travel: No Current gender identity: Male Physical Exam Const: COMMON NORMALS: no acute distress, patient oriented x3 and healthy appearing HENMT: COMMON NORMALS: normocephalic and atraumatic HEAD & SCALP: normocephalic and atraumatic Eye: COMMON NORMALS: Equal, round and reactive pupils present and EOMs intact bilaterally PUPIL: Yes Equal, round and reactive pupils present Neck/C-Spine: COMMON NORMALS: full ROM and supple Chest: COMMONS NORMALS: normal inspection of the chest and normal palpation of entire chest wall Resp: COMMON NORMALS: normal respiratory effort, No retractions and No use of accessory muscles EFFORT & INSPECTION: Yes tachypneic AUSCULTATION: wheezes Cardio: COMMON NORMALS: regular rate, regular rhythm and No murmurs present (Cardio) RATE: regular rate RHYTHM: regular rhythm GI: COMMON NORMALS: Normal to inspection, nondistended, normoactive bowel sounds present, Soft to palpation, non-tender and no masses PALPATION: Yes Soft to palpation Extremity: COMMON NORMALS: normal to inspection and full ROM Neuro: COMMON NORMALS: patient oriented x3, moves all extremities and no focal motor deficits Psych: COMMON NORMALS: mental status grossly normal, Normal thought process present and cooperative THOUGHT PROCESS: Normal thought process present Skin: COMMON NORMALS: no rashes or lesions noted and no wounds GENERAL SKIN EXAM: no rashes or lesions noted Course Vital Signs: Vital signs: Vital Signs Temperature 98.1 F 10/02/21 18:51 Pulse Rate 123 H 10/02/21 21:05 Respiratory Rate 20 H 10/02/21 21:05 Blood Pressure 132/78 10/02/21 21:05 Pulse Oximetry 93 10/02/21 21:05 MDM - SOB/Dyspnea Medical Decision Making Patient presents here with dyspnea likely bronchitis COPD exacerbation he is having chest pain was likely muscular as it is worse with cough and palpation troponins are normal CT shows no signs of pulmonary [place] feels improved here after breathing treatments we will start him on a 5-day course of steroids along with antibiotics he is to follow-up his PCP and return if worsening. Lab Data : 10/02/21 18:24 10/02/21 18:24 Labs/Radiology: Radiology Impressions Chest X-Ray 10/02/21 17:42 IMPRESSION: No acute cardiopulmonary abnormality. Chest CTA 10/02/21 19:39 IMPRESSION: 1. No pulmonary embolus or acute pulmonary pathology. 2. Mild centrilobular pulmonary emphysema and right perihilar scarring. 3. Small loculated right pleural effusion. 4. Coronary artery disease. 5. Small pericardial effusion. Laboratory Results WBC 6.0 10^3/uL (4.0-10.0) 10/02/21 18: RBC 4.47 10^6/uL (4.1-5.3) 10/02/21 18: Hgb 13.8 g/dL (11.7-16.6) 10/02/21 18: Hct 41.3 % (42.0-52.0) L 10/02/21 18: MCV 92.4 fl (80-94) 10/02/21 18: MCH 30.9 pg (28.0-34.0) 10/02/21: MCHC 33.4 g/dL (30.0-36.0) 10/02/21: RDW 14.0 % (12.1-15.1) 10/02/21: Plt Count 387 10^3/cmm (130-400) 10/02/21: MPV 8.9 fL (7.4-10.4) 10/02/21: Neut % (Auto) 74.5 % 10/02/21: Lymph % (Auto) 16.5 % 10/02/21: [place] % (Auto) 6.7 % 10/02/21: Eos % (Auto) 0.8 % 10/02/21: Baso % (Auto) 1.2 % 10/02/21: Neut # (Auto) 4.43 10^3/uL (1.8-7.7) 10/02/21 18: Lymph # (Auto) 1.0 10^3/uL (0.8-4.8) 10/02/21: [place] # (Auto) 0.4 10^3/uL (0.2-0.9) 10/02/21 18: Eos # (Auto) 0.1 10^3/uL (0.0-0.8) 10/02/21 18: Baso # (Auto) 0.1 10^3/uL (0.0-0.1) 10/02/21 18:24 Nucleated RBC % (auto) 0 % 10/02/21 18:24 Nucleated RBCs # 0.0 /100WBC 10/02/21 18:24 D-Dimer 0.78 ug/mIFEU (0-0.59) H 10/02/21 18:22 Sodium 143 mmol/L (136-145) 10/02/21 18:24 Potassium 3.9 mmol/L (3.5-5.1) 10/02/21 18:24 Chloride 102 mmol/L (98-107) 10/02/21 18:24 Carbon Dioxide 30 mmol/L (22-29) H 10/02/21 18:24 Anion Gap 14.9 (5-19) 10/02/21 18:24 BUN 9 mg/dL (6-20) 10/02/21 18:24 Creatinine 0.9 mg/dL (0.7-1.2) 10/02/21 18:24 GFR Calculation 88.6 mL/min (90-130) L 10/02/21 18:24 Glucose 109 mg/dL (65-115) 10/02/21 18:24 Calculated Osmolality 295 mOsm/kg (285-295) 10/02/21 18:24 Calcium 9.4 mg/dL (8.5-10.5) 10/02/21 18:24 Total Bilirubin 0.3 mg/dL (0.15-1.2) 10/02/21 18:24 AST 8 U/L (0-40) 10/02/21 18:24 ALT 9 U/L (0-41) 10/02/21 18:24 Alkaline Phosphatase 91 IU/L (40-130) 10/02/21 18:24 Troponin T Baseline 43 ng/L (0-15) H 10/02/21 18:24 Troponin T 120 Minute 33.45 ng/L (0-15) H 10/02/21 20:52 Delta Troponin T -9.55 ABS# (0-10) L 10/02/21 20:52 NT-Pro-B Natriuret Pep 1718 pg/mL (0-125) H 10/02/21 18:24 Total Protein 6.3 g/dL (6.6-8.7) L 10/02/21 18:24 Albumin 3.7 g/dL (3.5-5.2) 10/02/21 18:24 Globulin 2.6 g/dL (1.3-4.6) 10/02/21 18:24 EKG Data EKG 1: I personally reviewed and interpreted this EKG as follows: EKG Interpretation Date: 10/02/21 EKG interpretation time: 18:20 Interpretation: afib hr [address] or t wave abnormalities qrs 98 qtc 439 Discharge Plan Discharge Patient Disposition: Home Clinical Impression: Acute exacerbation of chronic obstructive pulmonary disease (COPD) Condition: Stable Prescriptions: New hydrocodone-acetaminophen 5-325 mg tablet 1 tab PO Q6H PRN (Reason: pain) Qty: 14 0RF prednisone 50 mg tablet 50 mg PO DAILY Qty: 5 0RF doxycycline hyclate 100 mg tablet 100 mg PO BID 7 Days Qty: 14 0RF No Action nitroglycerin 0.4 mg tablet, sublingual 0.4 mg sublingual Q5M PRN (Reason: chest pain) Qty: 25 2RF Rx Instructions: do not exceed 3 doses per episode aspirin 325 mg tablet 325 mg PO QAM 0RF Tylenol Cold and Flu Severe 8-07-586-200 mg tablet 2 tab PO BID 0RF Trelegy Ellipta 100-62.5-25 mcg blister with device 1 inh inhalation DAILY Qty: 60 3RF nicotine 21 mg/24 hr patch 24 hour 1 patch transdermal DAILY Qty: 28 1RF atorvastatin 40 mg tablet 40 mg PO DAILY@2200 Qty: 90 3RF lisinopril 10 mg tablet See Rx Instructions .ROUTE .COMPLEX Qty: 90 0RF Dose Instruction: TAKE 1 TABLET BY MOUTH DAILY Rx Instructions: TAKE 1 TABLET BY MOUTH DAILY ProAir RespiClick 90 mcg/actuation aerosol powdr breath activated See Rx Instructions .ROUTE .COMPLEX Qty: 1 0RF Dose Instruction: INHALE 1 TO 2 PUFFS BY MOUTH EVERY 4 HOURS NEEDED FOR SHORTNESS OF BREATH OR WHEEZING Rx Instructions: INHALE 1 TO 2 PUFFS BY MOUTH EVERY 4 HOURS NEEDED FOR SHORTNESS OF BREATH OR WHEEZING; needs appt prior to refill Xarelto 20 mg tablet 10 mg PO BEDTIME Qty: 90 1RF Rx Instructions: patient needs appt for future refills verapamil 240 mg capsule,ext rel. pellets 24 hr 240 mg PO BEDTIME 0RF prochlorperazine maleate 10 mg tablet 10 mg PO Q4H PRN (Reason: Nausea And Vomiting) 0RF dexamethasone 4 mg tablet See Rx Instructions .ROUTE .COMPLEX 0RF Rx Instructions: 5 TABS PO 12 HOURS AND 6 HOURS PRIOR TO EACH CHEMO TREATMENT dexamethasone 6 mg tablet 6 mg PO DAILY Qty: 7 0RF albuterol sulfate 90 mcg/actuation HFA aerosol inhaler 2 inh INHALATION Q4H PRN (Reason: shortness of breath or wheezing) Qty: 18 0RF fluticasone propion-salmeterol [Wixela Inhub] 250-50 mcg/dose blister with device 1 inh INHALATION BEDTIME 0RF Celebrex 100 mg capsule 100 mg PO BID Qty: 20 0RF Discharge Orders: Discharge ED (Routine); Ordered 10/02/21 Ordered By: Cam Tam Discharge Diet: Advance as tolerated Discharge Activity: Resume usual activity Patient Instructions: COPD (Chronic Obstructive Pulmonary Disease) (ED), Opioid Safety Coding Level of Care Code ED Associate Professor Of Library Media for Dennisg Fwd Exam Comprehensive
--- NOTE | 2021-10-02 18:22 | PC.NURSE ---
DURING TRIAGE ASSESSMENT, PT BEGAN LIGHTHEADED. BP DROPPED TO 64/40 AND HR INCREASED TO THE 130'S. PT PLACED IN SUPINE POSITION. IV ACCESSED OBTAINED. PT BP INCREASED TO 93/49. DR. MULLIGAN NOTIFIED.
[2021-10-02 18:43] LABS: Basophils # 0.1 10^3/uL (0.0-0.1); Basophils % 1.2 %; Eosinophils # 0.1 10^3/uL (0.0-0.8); Eosinophils % 0.8 %; Hematocrit 41.3 % (42.0-52.0); Hemoglobin 13.8 g/dL (11.7-16.6); Lymphocytes % 16.5 %; Mean Corpuscular HGB Conc 33.4 g/dL (30.0-36.0); Mean Corpuscular Hemoglobin 30.9 pg (28.0-34.0); Mean Corpuscular Volume 92.4 fl (80-94); Mean Platelet Volume 8.9 fL (7.4-10.4); Monocytes # 0.4 10^3/uL (0.2-0.9); Monocytes % 6.7 %; Neutrophils # 4.43 10^3/uL (1.8-7.7); Neutrophils % 74.5 %; Nucleated Red Blood Cells % 0 %; Platelet Count 387 10^3/cmm (130-400); Red Blood Count 4.47 10^6/uL (4.1-5.3)
[2021-10-02] MEDS: sodium chloride 0.9% 1,000 ML 999 ML IV (18:56)
[2021-10-02 19:18] LABS: Troponin(5th) Baseline 43 ng/L (0-15)
[2021-10-02 19:20] LABS: Alanine Aminotransferase 9 U/L (0-41); Albumin Level 3.7 g/dL (3.5-5.2); Alkaline Phosphatase 91 IU/L (40-130); Anion Gap 14.9 (5-19); Aspartate Amino Transferase 8 U/L (0-40); Blood Urea Nitrogen 9 mg/dL (6-20); Calcium 9.4 mg/dL (8.5-10.5); Carbon Dioxide 30 mmol/L (22-29); Chloride 102 mmol/L (98-107); Globulin 2.6 g/dL (1.3-4.6); Glomerular Filtration Rate 88.6 mL/min (90-130); Glucose 109 mg/dL (65-115); NT Pro B Type Natriuretic Pept 1718 pg/mL (0-125); Osmolality Calculated 295 mOsm/kg (285-295); Potassium 3.9 mmol/L (3.5-5.1); Sodium 143 mmol/L (136-145); Total Bilirubin 0.3 mg/dL (0.15-1.2); Total Protein 6.3 g/dL (6.6-8.7)
[2021-10-02 19:37] LABS: D Dimer 0.78 ug/mIFEU (0-0.59)
--- NOTE | 2021-10-02 19:39 | CTR_ITS ---
PROCEDURE INFORMATION: Exam: CTA Chest With Contrast Exam date and time: 10/02/2021 7:39 PM Age: 51 years old Clinical indication: Shortness of breath; Prior surgery; Surgery type: Stents. ; Patient HX: HX of lung cancer; Additional info: SOB TECHNIQUE: Imaging protocol: Computed tomographic angiography of the chest with contrast. 3D rendering (Not supervised by radiologist): MIP and/or 3D reconstructed images were created by the technologist. Radiation optimization: All CT scans at this facility use at least one of these dose optimization techniques: automated exposure control; mA and/or kV adjustment per patient size (includes targeted exams where dose is matched to clinical indication); or iterative reconstruction. Contrast material: OMNI 350; Contrast volume: 70 ml; Contrast route: INTRAVENOUS (IV); COMPARISON: CT chest [facility] [id number] 12/20/2020 10:32 AM RADIATION DOSE METRICS: Total DLP (mGy-cm): 650.32 FINDINGS: Pulmonary arteries: No pulmonary embolus is visualized. Aorta: Unremarkable. No aortic aneurysm. No aortic dissection. Lungs: Mild centrilobular emphysema changes are again noted. Mild scarring is present in the right perihilar region involving the upper, middle and lower lobes. The previously seen right upper lobe spiculated lesion is not present on the current exam. Right middle lobe medial segment atelectasis and or scarring is also appreciated. No acute airspace process is visualized. Pleural spaces: A small loculated pleural effusion is present in the right major fissure posteriorly Heart: The heart is normal in size. Coronary artery calcifications are appreciated. A small pericardial effusion is present. Lymph nodes: Unremarkable. No enlarged lymph nodes. Gallbladder and bile ducts: The gallbladder has been removed. No biliary ductal dilatation. Bones/joints: Unremarkable. No acute fracture. Soft tissues: Unremarkable. CT/CT angio chest PE protcl [id number] IMPRESSION: 1. No pulmonary embolus or acute pulmonary pathology. 2. Mild centrilobular pulmonary emphysema and right perihilar scarring. 3. Small loculated right pleural effusion. 4. Coronary artery disease. 5. Small pericardial effusion.
[2021-10-02] MEDS: ipratropium-albuterol 3 mL Neb INHALATION (19:55)
[2021-10-02] MEDS: iohexol 350 mg/mL 100 mL Btl IV (20:41)
[2021-10-02 21:30] LABS: Troponin 5 2HR 33.45 ng/L (0-15); Troponin 5 2HR Delta -9.55 ABS# (0-10)
== END 2021-10-02 22:05 | disposition home or self-care (01) ==
PROVIDERS: Nurse Practitioner Family; Emergency Provider Emergency Medicine
DX: J44.1 Chronic obstructive pulmonary disease with (acute) exacerbation (principal); Z79.82 Long term (current) use of aspirin; I25.10 Atherosclerotic heart disease of native coronary artery without angina pectoris; E78.5 Hyperlipidemia, unspecified; Z77.22 Contact with and (suspected) exposure to environmental tobacco smoke (acute) (chronic)
CPT/HCPCS: 71046; 71275; 80053; 83880; 84484; 85025; 85378; 93005; 94640; 96361; 96374; 96375; 96376; 99285; J2930; J3490; J7030; Q9967

== ENCOUNTER → 2021-12-26 14:59 | Outpatient (BNVA) | payer MEDICARE, MEDICAID, SELFPAY | PROVIDERS: Visit Provider Internal Medicine Cardiovascular Disease | DX: I25.10 Atherosclerotic heart disease of native coronary artery without angina pectoris (principal); R06.02 Shortness of breath; I48.11 Longstanding persistent atrial fibrillation; F17.210 Nicotine dependence, cigarettes, uncomplicated; G47.30 Sleep apnea, unspecified | CPT/HCPCS: 99214 ==

== ENCOUNTER → 2021-12-27 08:02 | Outpatient (BNVA) | payer MEDICARE, MEDICAID, SELFPAY | PROVIDERS: Visit Provider Internal Medicine Pulmonary Disease | DX: C34.91 Malignant neoplasm of unspecified part of right bronchus or lung (principal); G47.30 Sleep apnea, unspecified; I25.10 Atherosclerotic heart disease of native coronary artery without angina pectoris; I48.91 Unspecified atrial fibrillation; J44.9 Chronic obstructive pulmonary disease, unspecified; R06.02 Shortness of breath; F17.210 Nicotine dependence, cigarettes, uncomplicated | CPT/HCPCS: 99214 ==

== ENCOUNTER → 2022-03-28 08:22 | Outpatient (BNVA) | payer MEDICARE, MEDICAID, SELFPAY | PROVIDERS: Visit Provider Internal Medicine Pulmonary Disease | DX: R06.02 Shortness of breath (principal); J44.9 Chronic obstructive pulmonary disease, unspecified; G47.30 Sleep apnea, unspecified; I25.10 Atherosclerotic heart disease of native coronary artery without angina pectoris; I48.91 Unspecified atrial fibrillation; C34.91 Malignant neoplasm of unspecified part of right bronchus or lung; F17.210 Nicotine dependence, cigarettes, uncomplicated; C34.31 Malignant neoplasm of lower lobe, right bronchus or lung; Z99.81 Dependence on supplemental oxygen; Z95.5 Presence of coronary angioplasty implant and graft | CPT/HCPCS: 99214 ==

== ENCOUNTER 2022-04-04 08:50 | Oncology outpatient (recurring) (ONCR) | payer MEDICARE, MEDICAID, SELFPAY ==
[2022-04-04 10:13] LABS: Basophils # 0.2 10^3/uL (0.0-0.1); Basophils % 2.6 %; Eosinophils # 0.5 10^3/uL (0.0-0.8); Eosinophils % 8.3 %; Hematocrit 44.6 % (42.0-52.0); Hemoglobin 15.2 g/dL (11.7-16.6); Lymphocytes % 17.6 %; Mean Corpuscular HGB Conc 34.1 g/dL (30.0-36.0); Mean Corpuscular Hemoglobin 32.1 pg (28.0-34.0); Mean Corpuscular Volume 94.3 fl (80-94); Mean Platelet Volume 9.2 fL (7.4-10.4); Monocytes # 0.4 10^3/uL (0.2-0.9); Monocytes % 6.9 %; Neutrophils # 3.67 10^3/uL (1.8-7.7); Neutrophils % 64.4 %; Nucleated Red Blood Cells % 0 %; Platelet Count 230 10^3/cmm (130-400); Red Blood Count 4.73 10^6/uL (4.1-5.3); Red Cell Distribution Width 12.9 % (12.1-15.1); White Blood Count 5.7 10^3/uL (4.0-10.0)
[2022-04-04 10:49] LABS: Alanine Aminotransferase 11 U/L (0-41); Albumin Level 4.1 g/dL (3.5-5.2); Alkaline Phosphatase 83 U/L (40-130); Anion Gap 13.1 (5-19); Aspartate Amino Transferase 11 U/L (0-40); Blood Urea Nitrogen 13 mg/dL (6-20); Calcium 9.5 mg/dL (8.5-10.5); Carbon Dioxide 34 mmol/L (22-29); Chloride 99 mmol/L (98-107); Globulin 2.5 g/dL (1.3-4.6); Glomerular Filtration Rate 88.3 mL/min (90-130); Glucose 125 mg/dL (65-115); Osmolality Calculated 296 mOsm/kg (285-295); Potassium 4.1 mmol/L (3.5-5.1); Sodium 142 mmol/L (136-145); Thyroid Stimulating Hormone 1.09 uIU/mL (0.27-4.20); Total Bilirubin 0.5 mg/dL (0.15-1.2); Total Protein 6.6 g/dL (6.6-8.7)
== END 2022-04-10 23:59 | disposition home or self-care (01) ==
PROVIDERS: Visit Provider Internal Medicine Medical Oncology
DX: C34.31 Malignant neoplasm of lower lobe, right bronchus or lung (principal); F17.210 Nicotine dependence, cigarettes, uncomplicated; Z99.81 Dependence on supplemental oxygen; R19.7 Diarrhea, unspecified; R53.83 Other fatigue
CPT/HCPCS: 36591; 80053; 84443; 85025; 99214

== ENCOUNTER 2022-04-25 13:30 | Oncology outpatient (recurring) (ONCR) | payer MEDICARE, MEDICAID, SELFPAY ==
--- NOTE | 2022-04-25 13:34 | CTR_ITS ---
PROCEDURE INFORMATION: Exam: CT Chest With Contrast; Diagnostic Exam date and time: 04/25/2022 3:24 PM Age: 52 years old Clinical indication: Condition or disease; Lung condition and disease; Cancer of the lung; Bilateral; Unspecified; Prior surgery; Surgery type: Gb; Additional info: Restaging TECHNIQUE: Imaging protocol: Diagnostic computed tomography of the chest with contrast. Radiation optimization: All CT scans at this facility use at least one of these dose optimization techniques: automated exposure control; mA and/or kV adjustment per patient size (includes targeted exams where dose is matched to clinical indication); or iterative reconstruction. Contrast material: OMNI 350; Contrast volume: 95 ml; Contrast route: INTRAVENOUS (IV); COMPARISON: CT angio chest PE protcl [id number] 10/02/2021 8:39 PM RADIATION DOSE METRICS: Total DLP (mGy-cm): 1890.88 FINDINGS: Lungs: Centrilobular emphysema is present. Interval resolution of small right pleural effusion. Interval improvement of streaky atelectasis in the right middle and lower lobes. There is new nodular opacities with surrounding ground-glass in the left lower lobe, the largest measuring 2.2 cm. Slightly increased faint patchy ground-glass opacities in the left upper lobe. There is a nonspecific pleural base nodular opacity in the lingula, which may represent atelectasis or nodule. Pleural spaces: No pleural effusion or pneumothorax. Heart: Mildly enlarged heart. Coronary atherosclerotic calcifications seen. No pericardial effusion. Lymph nodes: Unremarkable. No enlarged lymph nodes. Vasculature: Unremarkable. No aortic aneurysm. Bones/joints: Degenerative changes of the spine seen. No acute fracture. Soft tissues: Unremarkable. PROCEDURE INFORMATION: Exam: CT Abdomen And Pelvis With Contrast Exam date and time: 04/25/2022 3:24 PM Age: 52 years old Clinical indication: Condition or disease; Lung condition and disease; Cancer of the lung; Bilateral; Unspecified; Prior surgery; Surgery type: Gb; Additional info: Restaging TECHNIQUE: Imaging protocol: Computed tomography of the abdomen and pelvis with contrast. Radiation optimization: All CT scans at this facility use at least one of these dose optimization techniques: automated exposure control; mA and/or kV adjustment per patient size (includes targeted exams where dose is matched to clinical indication); or iterative reconstruction. Contrast material: OMNI 350; Contrast volume: 95 ml; Contrast route: INTRAVENOUS (IV); COMPARISON: CT angio chest PE protcl [id number] 10/02/2021 8:39 PM RADIATION DOSE METRICS: Total DLP (mGy-cm): 1890.88 FINDINGS: Liver: There is an ill-defined focus of decreased attenuation along the anterior aspect of the liver and adjacent to the falciform ligament, consistent with focal fatty infiltration. The liver is otherwise unremarkable. Gallbladder and bile ducts: The gallbladder has been surgically removed. Pancreas: Normal. No ductal dilation. Spleen: Normal. No splenomegaly. Adrenal glands: Normal. No mass. Kidneys and ureters: Normal. No hydronephrosis. Stomach and bowel: There is mild wall thickening of the 2/3 portion of the duodenum, in association with small amount of free fluid extending along the right anterior pararenal space into the pelvis. Appendix: No evidence of appendicitis. Intraperitoneal space: New small amount of perihepatic free fluid seen. Vasculature: Unremarkable. No abdominal aortic aneurysm. Lymph nodes: Interval increase in size of alex hepatis lymphadenopathy, the largest conglomerate measuring 6.9 x 6.2 x 5.4 cm (previously 2.7 x 3.8 x 2.4 cm). There is an additional conglomerate of abnormally enlarged lymph nodes/mesenteric implants anterior to the 2nd portion of the duodenum and right mid abdomen, measuring approximately 4.0 cm and 3.0 cm respectively. Other smaller but enlarged retroperitoneal lymph nodes noted in the para-aortic region, the largest on the left measuring 2.4 x 1.5 cm. Urinary bladder: Unremarkable as visualized. Reproductive: Unremarkable as visualized. Bones/joints: Degenerative changes of the spine seen. No acute fracture. Soft tissues: Unremarkable. CT/CT chest abd pel w con* IMPRESSION: 1. Interval progression of metastatic disease, manifested by new left lower lobe pulmonary nodules, interval increase in size of retroperitoneal lymphadenopathy, and mesenteric lymphadenopathy/implants. 2. Mild wall thickening of the 2/3 portion of the duodenum in association with small amount of fluid extending along the right anterior pararenal space into the pelvis. These findings may be secondary to adjacent retroperitoneal lymphadenopathy, duodenitis, or less likely malignant involvement of the duodenum. 3. Trace perihepatic ascites.
== END 2022-05-10 23:59 | disposition home or self-care (01) ==
LOC: RAD 13:32 → ONCMED 05-01 13:24
PROVIDERS: Visit Provider Internal Medicine Medical Oncology
DX: C34.31 Malignant neoplasm of lower lobe, right bronchus or lung (principal); F17.210 Nicotine dependence, cigarettes, uncomplicated; Z99.81 Dependence on supplemental oxygen; R53.83 Other fatigue
CPT/HCPCS: 71260; 74177

== ENCOUNTER 2022-05-15 23:55 | Emergency (ER) | payer MEDICARE, MEDICAID, SELFPAY ==
[2022-05-15 23:59] VITALS: BP 121/71; PULSE 61; RESP 22; TEMP 36.3; O2SAT 96; BMI 34.7
--- NOTE | 2022-05-16 00:07 | CTR_ITS ---
PROCEDURE INFORMATION: Exam: CT Abdomen And Pelvis With Contrast Exam date and time: 05/16/2022 12:28 AM Age: 52 years old Clinical indication: Nausea and vomiting; Abdominal pain; Generalized; Prior surgery; Surgery type: Gb; Patient HX: C/O diffuse abd pain with n/v. History of lung cancer. ; Additional info: N/v abd pain TECHNIQUE: Imaging protocol: Computed tomography of the abdomen and pelvis with contrast. Radiation optimization: All CT scans at this facility use at least one of these dose optimization techniques: automated exposure control; mA and/or kV adjustment per patient size (includes targeted exams where dose is matched to clinical indication); or iterative reconstruction. Contrast material: OMNI 350; Contrast volume: 80 ml; Contrast route: INTRAVENOUS (IV); COMPARISON: CT chest abd pel w con* 04/25/2022 3:24 PM RADIATION DOSE METRICS: Total DLP (mGy-cm): 1074.63 FINDINGS: Lungs: Emphysematous changes. Heart: Coronary artery atherosclerotic calcifications. Liver: Normal. No mass. Gallbladder and bile ducts: Cholecystectomy. Pancreas: Normal. No ductal dilation. Spleen: Normal. No splenomegaly. Adrenal glands: Normal. No mass. Kidneys and ureters: Normal. No hydronephrosis. Stomach and bowel: Unremarkable. No obstruction. No mucosal thickening. Appendix: No evidence of appendicitis. Intraperitoneal space: Unremarkable. No free air. No significant fluid collection. Vasculature: Unremarkable. No abdominal aortic aneurysm. Lymph nodes: Edema seen in the central mesentery with several prominent subcentimeter lymph nodes, similar to prior exam may reflect a chronic inflammatory process such as sclerosing mesenteritis, metastatic disease is also consideration.Large cystic lymph nodes again seen at the alex hepatis contacting the inferior vena cava, similar in size compared to prior exam, likely reflecting metastatic disease. Additional scattered lymph nodes are seen about the 2nd, 3rd and 4th portion of the duodenum, similar in size and number compared to prior exam in aggregate measuring up to at least 4 cm, likely reflecting metastatic disease. Urinary bladder: Unremarkable as visualized. Reproductive: Unremarkable as visualized. Bones/joints: Unremarkable. No acute fracture. Soft tissues: Unremarkable. CT/CT abdomen pelvis w con* [id number] IMPRESSION: 1. Negative for focal acute inflammatory process in the abdomen or pelvis. 2. Emphysematous changes. 3. Coronary artery atherosclerotic calcifications. 4. Cholecystectomy. 5. Edema seen in the central mesentery with several prominent subcentimeter lymph nodes, similar to prior exam may reflect a chronic inflammatory process such as sclerosing mesenteritis, metastatic disease is also consideration. 6. Large cystic lymph nodes again seen at the alex hepatis contacting the inferior vena cava, similar in size compared to prior exam, likely reflecting metastatic disease. Additional scattered lymph nodes are seen about the 2nd, 3rd and 4th portion of the duodenum, similar in size and number compared to prior exam in aggregate measuring up to at least 4 cm, likely reflecting metastatic disease.
--- NOTE | 2022-05-16 00:19 | XRR_ITS ---
PROCEDURE INFORMATION: Exam: XR Chest Exam date and time: 05/16/2022 12:39 AM Age: 52 years old Clinical indication: Cough and shortness of breath and wheezing; Prior surgery; Surgery type: Chest port. Gb. Patient HX: Cough with SOB and wheezing. History of lung cancer. ; Additional info: Cough, wheezing, decreased air in bases TECHNIQUE: Imaging protocol: Radiologic exam of the chest. Views: 1 view. COMPARISON: CT chest abd pel w con* 04/25/2022 3:24 PM FINDINGS: Tubes, catheters and devices: Left-sided Port-A-Cath. Lungs: Right hilar airspace opacification, similar to prior exam, concerning for underlying malignancy. Pleural spaces: Trace bilateral pleural effusions. Heart/Mediastinum: Cardiomegaly. Bones/joints: Unremarkable. XR/XR chest 1V portable [id number] IMPRESSION: 1. Right hilar airspace opacification, similar to prior exam, concerning for underlying malignancy. 2. Cardiomegaly. 3. Trace bilateral pleural effusions.
--- NOTE | 2022-05-16 00:20 | ED_ITS ---
HPI - Abdominal Pain General: Chief Complaint: Abdominal Pain Stated Complaint: abd pain Time Seen by Provider: 05/16/22 00:05 History of Present Illness: 52-year-old male patient comes in today for complaints of right abdominal pain and discomfort. Patient reports eating supper and then becoming ill to his stomach. After that patient had several episodes of nausea and vomiting. Patient reports some improvement in his nausea since arriving to the ER but continues to have significant pain in the right upper quadrant of the abdomen. Patient had a history of a gallbladder removal and a liver nodule removal. Patient does have lung cancer. Patient still has his appendix. Patient also has a history of coronary artery disease, atrial fibrillation, tobacco abuse, and COPD. Associated Symptoms: Reports nausea and vomiting; Denies fever(s) Review of Systems General: Reports: 10 or more systems reviewed and unremarkable except in HPI and below Const: Denies: fever(s) Card: Denies: chest pain Resp: Reports: wheezing; Denies: dyspnea GI: Reports: abdominal pain, nausea and vomiting Skin/Breast: Denies: rash PFSH ED PFSH: Medical History (Updated 05/16/22 @ 01:45 by SARAH Torre) Atrial fibrillation CAD (coronary artery disease) Chronic anxiety COPD (chronic obstructive pulmonary disease) Dyslipidemia Macular degeneration Non-small cell lung cancer Obstructive sleep apnea Surgical History (Updated 04/04/22 @ 09:27 by Theron Jo MD) History of bronchoscopy 12/29/2020 - Bronchoscopy/EBUS History of cholecystectomy History of coronary angioplasty with insertion of stent 08/2016 Port-A-Cath in place (02/14/21) Family History Other CAD (coronary artery disease) Cancer Diabetes Lung disease Stroke Denies family history of Bleeding disorder Social History Smoking and tobacco status: current every day smoker (1.5 ppd, smoked x 45 years) cigarettes Packs smoked per day: 1.5 Years cigarettes smoked: 48 Quit status (tobacco): considering quitting Second hand smoke exposure: Yes Smoking risk assessment/counseling performed?: Yes Alcohol intake: current Alcohol intake frequency: holidays/special occasions only Lives independently: Yes Household members: significant other and children Marital status: Life Partner service: No Current occupational status: disabled Pets and animals: Yes History of recent travel: No Current gender identity: Male Physical Exam Const: COMMON NORMALS: alert HENMT: COMMON NORMALS: normocephalic HEAD & SCALP: normocephalic Neck/C-Spine: COMMON NORMALS: full ROM Chest: COMMONS NORMALS: normal inspection of the chest Resp: AUSCULTATION: wheezes and diminished lung sounds bilateral in the lower lung guerrero Cardio: COMMON NORMALS: regular rate and regular rhythm RATE: regular rate RHYTHM: regular rhythm GI: COMMON NORMALS: Soft to palpation (Mildly distended) AUSCULTATION: Yes Hyperactive bowel sounds present PALPATION: Yes Soft to palpation (Mildly distended) and Yes Tenderness to palpation present (GI) : COMMON NORMALS: Yes no CVA tenderness BLADDER/KIDNEY EXAM: Yes no CVA tenderness Back/Pelvis: COMMON NORMALS: no CVA tenderness Extremity: COMMON NORMALS: no pedal edema Neuro: SENSORIUM/ORIENTATION: Yes alert Skin: COMMON NORMALS: turgor normal GENERAL SKIN EXAM: turgor normal Course Vital Signs: Vital signs: Vital Signs Temperature 97.4 F L 05/15/22 23:59 Pulse Rate 61 05/15/22 23:59 Respiratory Rate 22 H 05/15/22 23:59 Blood Pressure 121/71 05/15/22 23:59 Pulse Oximetry 96 05/15/22 23:59 Oxygen Delivery Me thod 05/15/22 23:59 MDM - Abdominal Pain Medical Decision Making 52-year-old male patient comes in today with right upper quadrant abdominal pain after an episode of nausea and vomiting. On exam patient has hyperactive bowel sounds and tenderness on palpation of the right upper abdomen. Skin is warm and dry. Color is normal. Vital signs are normal except for some elevation in respirations at 22. Differential diagnosis includes but not limited to bowel obstruction, appendicitis, gastritis, abdominal pain secondary to surgical adhesions. CT of the abdomen pelvis was unremarkable. Chest x-ray was stable. CBC and CMP were unremarkable. Patient was given 500 mL of saline, 4 mg of Zofran, and 4 mg of morphine sulfate. Patient had improvement in pain and nausea. Patient was able to tolerate fluids. I believe patient probably had a bout of gastritis or gastroenteritis which caused retching and irritation of his surgical adhesions. Patient was recommended to use Zofran as needed for nausea and a few hydrocodone tablets for pain. Patient was further recommended to monitor for worsening signs and symptoms specially blood in vomit or stool or high fever. Patient reported understanding of care plan need for follow-up or return to the ER. Lab Data : 05/16/22 00:14 05/16/22 00:56 Labs/Radiology: Radiology Impressions Abdomen/Pelvis CT 05/16/22 00:07 IMPRESSION: 1. Negative for focal acute inflammatory process in the abdomen or pelvis. 2. Emphysematous changes. 3. Coronary artery atherosclerotic calcifications. 4. Cholecystectomy. 5. Edema seen in the central mesentery with several prominent subcentimeter lymph nodes, similar to prior exam may reflect a chronic inflammatory process such as sclerosing mesenteritis, metastatic disease is also consideration. 6. Large cystic lymph nodes again seen at the alex hepatis contacting the inferior vena cava, similar in size compared to prior exam, likely reflecting metastatic disease. Additional scattered lymph nodes are seen about the 2nd, 3rd and 4th portion of the duodenum, similar in size and number compared to prior exam in aggregate measuring up to at least 4 cm, likely reflecting metastatic disease. Chest X-Ray 05/16/22 00:19 IMPRESSION: 1. Right hilar airspace opacification, similar to prior exam, concerning for underlying malignancy. 2. Cardiomegaly. 3. Trace bilateral pleural effusions. Laboratory Results WBC 6.4 10^3/uL (4.0-10.0) 05/16/22 00:14 RBC 4.99 10^6/uL (4.1-5.3) 05/16/22 00:14 Hgb 16.1 g/dL (11.7-16.6) 05/16/22 00:14 Hct 47.5 % (42.0-52.0) 05/16/22 00:14 MCV 95.2 fl (80-94) H 05/16/22 00:14 MCH 32.3 pg (28.0-34.0) 05/16/22 00:14 MCHC 33.9 g/dL (30.0-36.0) 05/16/22 00:14 RDW 12.2 % (12.1-15.1) 05/16/22 00:14 Plt Count 227 10^3/cmm (130-400) 05/16/22 00:14 MPV 9.4 fL (7.4-10.4) 05/16/22 00:14 Neut % (Auto) 60.3 % 05/16/22 00:14 Lymph % (Auto) 22.2 % 05/16/22 00:14 [place] % (Auto) 7.0 % 05/16/22 00:14 Eos % (Auto) 8.3 % 05/16/22 00:14 Baso % (Auto) 2.0 % 05/16/22 00:14 Neut # (Auto) 3.86 10^3/uL (1.8-7.7) 05/16/22 00:14 Lymph # (Auto) 1.4 10^3/uL (0.8-4.8) 05/16/22 00:14 [place] # (Auto) 0.5 10^3/uL (0.2-0.9) 05/16/22 00:14 Eos # (Auto) 0.5 10^3/uL (0.0-0.8) 05/16/22 00:14 Baso # (Auto) 0.1 10^3/uL (0.0-0.1) 05/16/22 00:14 Nucleated RBC % (auto) 0 % 05/16/22 00:14 Nucleated RBCs # 0.0 /100WBC 05/16/22 00:14 Sodium 137 mmol/L (136-145) 05/16/22 00:56 Potassium 4.1 mmol/L (3.5-5.1) 05/16/22 00:56 Chloride 97 mmol/L (98-107) L 05/16/22 00:56 Carbon Dioxide 32 mmol/L (22-29) H 05/16/22 00:56 Anion Gap 12.1 (5-19) 05/16/22 00:56 BUN 15 mg/dL (6-20) 05/16/22 00:56 Creatinine 0.9 mg/dL (0.7-1.2) 05/16/22 00:56 GFR Calculation 88.3 mL/min (90-130) L 05/16/22 00:56 Glucose 125 mg/dL (65-115) H 05/16/22 00:56 Calculated Osmolality 286 mOsm/kg (285-295) 05/16/22 00:56 Calcium 8.8 mg/dL (8.5-10.5) 05/16/22 00:56 Total Bilirubin 0.3 mg/dL (0.15-1.2) 05/16/22 00:56 AST 7 U/L (0-40) 05/16/22 00:56 ALT 8 U/L (0-41) 05/16/22 00:56 Alkaline Phosphatase 79 U/L (40-130) 05/16/22 00:56 Total Protein 5.8 g/dL (6.6-8.7) L 05/16/22 00:56 Albumin 3.6 g/dL (3.5-5.2) 05/16/22 00:56 Globulin 2.2 g/dL (1.3-4.6) 05/16/22 00:56 Lipase 33 U/L (13-60) 05/16/22 00:56 Discharge Plan Discharge Patient Disposition: Home Clinical Impression: Abdominal pain Qualifiers: Abdominal location: right upper quadrant Qualified Code(s): R10.11 - Right upper quadrant pain Condition: Stable Prescriptions: New ondansetron 4 mg tablet,disintegrating 4 mg PO TID PRN (Reason: nausea and vomiting) 3 Days Qty: 7 0RF hydrocodone-acetaminophen 5-325 mg tablet 1 tab PO Q8H PRN (Reason: pain) Qty: 7 0RF No Action nicotine 21 mg/24 hr patch 24 hour 1 patch transdermal DAILY Qty: 28 1RF Primatene Mist 0.125 mg/actuation HFA aerosol inhaler 1 puff inhalation Q6H PRN Rx Instructions: may repeat once after 1 minute hydrochlorothiazide 12.5 mg tablet 12.5 mg PO DAILY PRN (Reason: edema) Qty: 30 3RF aspirin [Adult Aspirin Regimen] 81 mg tablet,delayed release (DR/EC) 81 mg PO DAILY Qty: 30 6RF atorvastatin 40 mg tablet 40 mg PO DAILY@2200 Qty: 90 3RF nitroglycerin 0.4 mg tablet, sublingual 0.4 mg sublingual Q5M PRN (Reason: chest pain) Qty: 25 2RF Rx Instructions: do not exceed 3 doses per episode ipratropium-albuterol 0.5 mg-3 mg(2.5 mg base)/3 mL solution for nebulization 3 ml inhalation Q6H PRN (Reason: wheezing) Qty: 90 3RF Trelegy Ellipta 100-62.5-25 mcg blister with device 1 inh inhalation DAILY Qty: 60 3RF albuterol sulfate 90 mcg/actuation HFA aerosol inhaler 2 puff inhalation Q4H PRN (Reason: shortness of breath or wheezing) Qty: 8.5 5RF Xarelto 20 mg tablet 20 mg PO BEDTIME Qty: 90 2RF verapamil 240 mg capsule,ext rel. pellets 24 hr 240 mg PO BEDTIME Qty: 90 1RF Discharge Orders: Discharge ED (Routine); Ordered 05/16/22 Ordered By: Shakir Kenyon Discharge Diet: Advance as tolerated Discharge Activity: Increase activity as tolerated Patient Instructions: Abdominal Pain (ED) Activity Restrictions/Additional Instructions: Stay well-hydrated. Drink plenty of water and fluids with frequent sips. Increase diet as tolerated. Use medication for nausea and pain. Follow-up with primary care as needed. Return to ER for worsening symptoms such as fever greater than 100.4, blood in vomit or stool, or new concerns. 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
[2022-05-16 00:21] LABS: Basophils # 0.1 10^3/uL (0.0-0.1); Eosinophils # 0.5 10^3/uL (0.0-0.8); Eosinophils % 8.3 %; Hematocrit 47.5 % (42.0-52.0); Hemoglobin 16.1 g/dL (11.7-16.6); Lymphocytes # 1.4 10^3/uL (0.8-4.8); Lymphocytes % 22.2 %; Mean Corpuscular HGB Conc 33.9 g/dL (30.0-36.0); Mean Corpuscular Hemoglobin 32.3 pg (28.0-34.0); Mean Corpuscular Volume 95.2 fl (80-94); Mean Platelet Volume 9.4 fL (7.4-10.4); Monocytes # 0.5 10^3/uL (0.2-0.9); Neutrophils # 3.86 10^3/uL (1.8-7.7); Neutrophils % 60.3 %; Nucleated Red Blood Cells % 0 %; Platelet Count 227 10^3/cmm (130-400); Red Blood Count 4.99 10^6/uL (4.1-5.3); Red Cell Distribution Width 12.2 % (12.1-15.1); White Blood Count 6.4 10^3/uL (4.0-10.0)
[2022-05-16] MEDS: iohexol 350 mg/mL 100 mL Btl IV (00:31)
[2022-05-16] MEDS: ondansetron 2 mg/ML SDV 2 mL 4 MG IVP (01:02)
[2022-05-16] MEDS: morphine 4 mg/mL SDV 1 mL IVP (01:02)
[2022-05-16] MEDS: sodium chloride 0.9% 1,000 ML 999 ML IV (01:02)
[2022-05-16 01:26] LABS: Alanine Aminotransferase 8 U/L (0-41); Albumin Level 3.6 g/dL (3.5-5.2); Alkaline Phosphatase 79 U/L (40-130); Anion Gap 12.1 (5-19); Aspartate Amino Transferase 7 U/L (0-40); Blood Urea Nitrogen 15 mg/dL (6-20); Calcium 8.8 mg/dL (8.5-10.5); Carbon Dioxide 32 mmol/L (22-29); Chloride 97 mmol/L (98-107); Globulin 2.2 g/dL (1.3-4.6); Glomerular Filtration Rate 88.3 mL/min (90-130); Glucose 125 mg/dL (65-115); Lipase 33 U/L (13-60); Osmolality Calculated 286 mOsm/kg (285-295); Potassium 4.1 mmol/L (3.5-5.1); Sodium 137 mmol/L (136-145); Total Bilirubin 0.3 mg/dL (0.15-1.2); Total Protein 5.8 g/dL (6.6-8.7)
[2022-05-16] MEDS: nicotine 21 mg Patch 1 PATCH TRANSDERMA (01:34)
[2022-05-16 01:59] VITALS: BP 118/82; PULSE 65; RESP 22; TEMP 36.3; O2SAT 95
== END 2022-05-16 02:01 | disposition home or self-care (01) ==
PROVIDERS: Emergency Provider Nurse Practitioner Family
DX: R10.11 Right upper quadrant pain (principal); Z79.1 Long term (current) use of non-steroidal anti-inflammatories (NSAID); F17.210 Nicotine dependence, cigarettes, uncomplicated; I25.10 Atherosclerotic heart disease of native coronary artery without angina pectoris; J44.9 Chronic obstructive pulmonary disease, unspecified; E78.5 Hyperlipidemia, unspecified; H35.30 Unspecified macular degeneration; Z85.118 Personal history of other malignant neoplasm of bronchus and lung; Z95.5 Presence of coronary angioplasty implant and graft
CPT/HCPCS: 71045; 74177; 80053; 83690; 85025; 96361; 96374; 96375; 99285; J2270; J2405; J7030; Q9967

== ENCOUNTER 2022-05-27 18:30 | Observation (INO) | payer MEDICARE, MEDICAID, SELFPAY ==
[2022-05-27] VITALS (10 sets, daily range): BP systolic 102–147; BP diastolic 73–89; PULSE 79–124; RESP 18–22; TEMP 36.8; O2SAT 91–95; BMI 34.7
--- NOTE | 2022-05-27 18:32 | XRR_ITS ---
PROCEDURE INFORMATION: Exam: XR Chest Exam date and time: 05/27/2022 7:01 PM Age: 52 years old Clinical indication: Chest wall pain; Prior surgery; Additional info: Cp TECHNIQUE: Imaging protocol: Radiologic exam of the chest. Views: 1 view. COMPARISON: CR (CHEST, ) 05/16/2022 12:39 AM FINDINGS: Tubes, catheters and devices: Stable left Mediport catheter. Lungs: Stable COPD . Pleural spaces: Unremarkable. No pleural effusion. No pneumothorax. Heart/Mediastinum: Stable borderline to mild cardiomegaly. Bones/joints: Unremarkable. XR/XR chest 1V portable [id number] IMPRESSION: 1. Stable COPD . 2. Stable borderline to mild cardiomegaly. 3. Stable left Mediport catheter.
--- NOTE | 2022-05-27 18:37 | ECG_ITS ---
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 Measurements Intervals [place] Rate: 109 P: WA: QRS: 61 QRSD: 129 T: 72 QT: 344 QTc: 464 Interpretive Statements ATRIAL FIBRILLATION WITH RAPID VENTRICULAR RESPONSE ANTEROSEPTAL MYOCARDIAL INFARCTION , PROBABLY OLD [40+ ms Q WAVE IN V1-V4] Compared to ECG 10/02/2021 18:20:41 Myocardial infarct finding now present Aberrant conduction of supraventricular beat(s) no longer present Ventricular premature complex(es) no longer present Left posterior fascicular block no longer present Electronically Signed On 05-28-2022 3:46:44 CDT by Marcus Infante M.D. [email or web address] ([email or web address]) montgomery va medical centerUrigen Pharmaceuticalsmercy health st[facility].[id number]
--- NOTE | 2022-05-27 18:47 | W.ED.CHESTPA ---
Documented by User: Gen Cuadra MD 06/03/22 00:51 HPI - Chest Pain General: Chief Complaint: Chest Pain Stated Complaint: Chest Pain Time Seen by Provider: 05/27/22 18:47 History of Present Illness: Mr. Youssef is a 52-year-old gentleman with complex past medical history including lung cancer, CAD, COPD, atrial fibrillation who presents to the emergency department due to chest pain. He reports 2 episodes earlier today without known specific provoking factor. Patient has baseline shortness of breath and abdominal discomfort and he has difficulty associating any new symptoms with this. Intensity symptoms is moderate to severe. Course has worsened. No other specific changes in health, exacerbating, or alleviating factors identified. Onset (ago): hour(s) Timing of current episode: constant Prior episodes: Yes Onset: during exertion Pain location: substernal Severity: moderate Associated symptoms: Reports no associated symptoms Review of Systems General: Reports: 10 or more systems reviewed and unremarkable except in HPI and below PFSH ED PFSH: Medical History Atrial fibrillation CAD (coronary artery disease) Chronic anxiety COPD (chronic obstructive pulmonary disease) Dyslipidemia Macular degeneration Non-small cell lung cancer Obstructive sleep apnea Surgical History History of bronchoscopy 12/29/2020 - Bronchoscopy/EBUS History of cholecystectomy History of coronary angioplasty with insertion of stent 08/2016 Port-A-Cath in place (02/14/21) Family History Other CAD (coronary artery disease) Cancer Diabetes Lung disease Stroke Denies family history of Bleeding disorder Social History Smoking and tobacco status: current every day smoker (1.5 ppd, smoked x 45 years) cigarettes Packs smoked per day: 1.5 Years cigarettes smoked: 48 Quit status (tobacco): considering quitting Second hand smoke exposure: Yes Smoking risk assessment/counseling performed?: Yes Alcohol intake: current Alcohol intake frequency: holidays/special occasions only Lives independently: Yes Household members: significant other and children Marital status: Life Partner service: No Current occupational status: disabled Pets and animals: Yes History of recent travel: No Current gender identity: Male Physical Exam Const: COMMON NORMALS: alert GENERAL APPEARANCE: cooperative and well developed HENMT: COMMON NORMALS: normocephalic and atraumatic HEAD & SCALP: normocephalic and atraumatic Eye: COMMON NORMALS: conjunctivae normal CONJUNCTIVA: Yes conjunctivae normal SCLERA: sclerae normal Neck/C-Spine: COMMON NORMALS: supple GENERAL: Yes trachea midline Resp: EFFORT & INSPECTION: Yes able to speak in complete sentences and Yes tachypneic AUSCULTATION: diminished lung sounds Cardio: COMMON NORMALS: regular rate and regular rhythm RATE: regular rate RHYTHM: regular rhythm GI: COMMON NORMALS: Soft to palpation PALPATION: Yes Soft to palpation and No Tenderness to palpation present (GI) Extremity: GENERAL: Yes normal exam except as noted and Yes edema Neuro: COMMON NORMALS: moves all extremities SENSORIUM/ORIENTATION: Yes alert and No Orientation impaired Psych: COMMON NORMALS: mental status grossly normal and Normal thought process present THOUGHT PROCESS: Normal thought process present Course Vital Signs: Vital signs: Vital Signs Temperature 98.6 F 05/30/22 00:00 Pulse Rate 100 05/30/22 08:28 Respiratory Rate 20 H 05/30/22 08:28 Blood Pressure 92/71 05/30/22 12:20 Pulse Oximetry 91 05/30/22 08:28 Oxygen Delivery Me thod 05/30/22 08:28 Oxygen Flow Rate 3 05/29/22 20:41 MDM - Chest Pain Medical Decision Making 52-year-old gentleman with cardiac risk factors presenting with typical chest pain. Patient has remote history of lung cancer and cardiac stents. Patient continues to smoke. Overall chronically ill in appearance and somewhat uncomfortable appearing. EKG shows sinus rhythm with nonspecific ST segment abnormalities. Laboratory studies notable for no leukocytosis, normal hemoglobin. D-dimer negative. No acute metabolic derangement requiring intervention. 2-hour delta troponin is positive. Chest x-ray with COPD and mild cardiomegaly, no lobar consolidation or pneumothorax. Patient received albuterol RT treatment, analgesia, antiemetic, aspirin, and medication for rate control/A. fib RVR as well as IV fluids and Lovenox as part of ED treatment. Most likely etiology of patient symptoms is chest pain in the context of not low risk by heart score concerning for cardiac etiology. The results of ED evaluation were discussed with the patient including plan for admission due to requirement for level of care not available if discharged to prevent significant worsening/deterioration. Patient agreeable with plan. Medical Records I reviewed the patient's medical records. Lab Data I reviewed the patient's lab results. : 05/30/22 02:07 05/30/22 02:07 Radiology Impressions Chest X-Ray 05/27/22 18:32 IMPRESSION: 1. Stable COPD . 2. Stable borderline to mild cardiomegaly. 3. Stable left Mediport catheter. Laboratory Results WBC 6.5 10^3/uL (4.0-10.0) 05/27/22 18:56 RBC 5.16 10^6/uL (4.1-5.3) 05/27/22 18:56 Hgb 16.4 g/dL (11.7-16.6) 05/27/22 18:56 Hct 49.4 % (42.0-52.0) 05/27/22 18:56 MCV 95.7 fl (80-94) H 05/27/22 18:56 MCH 31.8 pg (28.0-34.0) 05/27/22 18:56 MCHC 33.2 g/dL (30.0-36.0) 05/27/22 18:56 RDW 12.5 % (12.1-15.1) 05/27/22 18:56 Plt Count 261 10^3/cmm (130-400) 05/27/22 18:56 MPV 9.2 fL (7.4-10.4) 05/27/22 18:56 Neut % (Auto) 72.6 % 05/27/22 18:56 Lymph % (Auto) 17.0 % 05/27/22 18:56 [place] % (Auto) 5.1 % 05/27/22 18:56 Eos % (Auto) 3.1 % 05/27/22 18:56 Baso % (Auto) 1.9 % 05/27/22 18:56 Neut # (Auto) 4.71 10^3/uL (1.8-7.7) 05/27/22 18:56 Lymph # (Auto) 1.1 10^3/uL (0.8-4.8) 05/27/22 18:56 [place] # (Auto) 0.3 10^3/uL (0.2-0.9) 05/27/22 18:56 Eos # (Auto) 0.2 10^3/uL (0.0-0.8) 05/27/22 18:56 Baso # (Auto) 0.1 10^3/uL (0.0-0.1) 05/27/22 18:56 Nucleated RBC % (auto) 0 % 05/27/22 18:56 Nucleated RBCs # 0.0 /100WBC 05/27/22 18:56 D-Dimer 0.36 ug/mIFEU (0-0.59) 05/27/22 18:56 Sodium 135 mmol/L (136-145) L 05/27/22 18:56 Potassium 3.5 mmol/L (3.5-5.1) 05/27/22 18:56 Chloride 94 mmol/L (98-107) L 05/27/22 18:56 Carbon Dioxide 32 mmol/L (22-29) H 05/27/22 18:56 Anion Gap 12.5 (5-19) 05/27/22 18:56 BUN 13 mg/dL (6-20) 05/27/22 18:56 Creatinine 0.8 mg/dL (0.7-1.2) 05/27/22 18:56 GFR Calculation 101.1 mL/min (90-130) 05/27/22 18:56 Glucose 114 mg/dL (65-115) 05/27/22 18:56 Calculated Osmolality 281 mOsm/kg (285-295) L 05/27/22 18:56 Calcium 9.6 mg/dL (8.5-10.5) 05/27/22 18:56 Magnesium 1.8 mg/dL (1.7-2.3) 05/27/22 18:56 Total Bilirubin 0.4 mg/dL (0.15-1.2) 05/27/22 18:56 AST 11 U/L (0-40) 05/27/22 18:56 ALT 11 U/L (0-41) 05/27/22 18:56 Alkaline Phosphatase 101 U/L (40-130) 05/27/22 18:56 Troponin T Baseline 31 ng/L (0-15) H 05/27/22 18:56 Troponin T 120 Minute 41.02 ng/L (0-15) H 05/27/22 20:36 Delta Troponin T 10.02 ABS# (0-10) H* 05/27/22 20:36 Total Protein 7.2 g/dL (6.6-8.7) 05/27/22 18:56 Albumin 4.1 g/dL (3.5-5.2) 05/27/22 18:56 Globulin 3.1 g/dL (1.3-4.6) 05/27/22 18:56 SARS-CoV-2 Ag (Rapid) negative (Negative) 05/27/22 19:41 Discharge Plan Discharge Patient Disposition: Placed in Observation Admit Provider: Aruna Vallejo Clinical Impression: Chest pain, Non-ST elevation CT (NSTEMI) Discharge Diet: Cardiac Discharge Activity: Resume usual activity Coding Level of Care Code ED Digital Account Manager for Chg Fwd Documented by User: Aruna Vallejo MD 06/01/22 07:40 HPI - Chest Pain General: Chief Complaint: Chest Pain Stated Complaint: Chest Pain Time Seen by Provider: 05/27/22 18:47 [facility] ED PFSH: Medical History Atrial fibrillation CAD (coronary artery disease) Chronic anxiety COPD (chronic obstructive pulmonary disease) Dyslipidemia Macular degeneration Non-small cell lung cancer Obstructive sleep apnea Surgical History History of bronchoscopy 12/29/2020 - Bronchoscopy/EBUS History of cholecystectomy History of coronary angioplasty with insertion of stent 08/2016 Port-A-Cath in place (02/14/21) Family History Other CAD (coronary artery disease) Cancer Diabetes Lung disease Stroke Denies family history of Bleeding disorder Social History Smoking and tobacco status: current every day smoker (1.5 ppd, smoked x 45 years) cigarettes Packs smoked per day: 1.5 Years cigarettes smoked: 48 Quit status (tobacco): considering quitting Second hand smoke exposure: Yes Smoking risk assessment/counseling performed?: Yes Alcohol intake: current Alcohol intake frequency: holidays/special occasions only Lives independently: Yes Household members: significant other and children Marital status: Life Partner service: No Current occupational status: disabled Pets and animals: Yes History of recent travel: No Current gender identity: Male Course Vital Signs: Vital signs: Vital Signs Temperature 98.6 F 05/30/22 00:00 Pulse Rate 100 05/30/22 08:28 Respiratory Rate 20 H 05/30/22 08:28 Blood Pressure 92/71 05/30/22 12:20 Pulse Oximetry 91 05/30/22 08:28 Oxygen Delivery Me thod 05/30/22 08:28 Oxygen Flow Rate 3 05/29/22 20:41 MDM - Chest Pain Medical Decision Making see hospitalist note Lab Data : 05/30/22 02:07 05/30/22 02:07 Radiology Impressions Chest X-Ray 05/27/22 18:32 IMPRESSION: 1. Stable COPD . 2. Stable borderline to mild cardiomegaly. 3. Stable left Mediport catheter. Laboratory Results WBC 6.5 10^3/uL (4.0-10.0) 05/27/22 18:56 RBC 5.16 10^6/uL (4.1-5.3) 05/27/22 18:56 Hgb 16.4 g/dL (11.7-16.6) 05/27/22 18:56 Hct 49.4 % (42.0-52.0) 05/27/22 18:56 MCV 95.7 fl (80-94) H 05/27/22 18:56 MCH 31.8 pg (28.0-34.0) 05/27/22 18:56 MCHC 33.2 g/dL (30.0-36.0) 05/27/22 18:56 RDW 12.5 % (12.1-15.1) 05/27/22 18:56 Plt Count 261 10^3/cmm (130-400) 05/27/22 18:56 MPV 9.2 fL (7.4-10.4) 05/27/22 18:56 Neut % (Auto) 72.6 % 05/27/22 18:56 Lymph % (Auto) 17.0 % 05/27/22 18:56 Haralson % (Auto) 5.1 % 05/27/22 18:56 Eos % (Auto) 3.1 % 05/27/22 18:56 Baso % (Auto) 1.9 % 05/27/22 18:56 Neut # (Auto) 4.71 10^3/uL (1.8-7.7) 05/27/22 18:56 Lymph # (Auto) 1.1 10^3/uL (0.8-4.8) 05/27/22 18:56 Haralson # (Auto) 0.3 10^3/uL (0.2-0.9) 05/27/22 18:56 Eos # (Auto) 0.2 10^3/uL (0.0-0.8) 05/27/22 18:56 Baso # (Auto) 0.1 10^3/uL (0.0-0.1) 05/27/22 18:56 Nucleated RBC % (auto) 0 % 05/27/22 18:56 Nucleated RBCs # 0.0 /100WBC 05/27/22 18:56 D-Dimer 0.36 ug/mIFEU (0-0.59) 05/27/22 18:56 Sodium 135 mmol/L (136-145) L 05/27/22 18:56 Potassium 3.5 mmol/L (3.5-5.1) 05/27/22 18:56 Chloride 94 mmol/L (98-107) L 05/27/22 18:56 Carbon Dioxide 32 mmol/L (22-29) H 05/27/22 18:56 Anion Gap 12.5 (5-19) 05/27/22 18:56 BUN 13 mg/dL (6-20) 05/27/22 18:56 Creatinine 0.8 mg/dL (0.7-1.2) 05/27/22 18:56 GFR Calculation 101.1 mL/min (90-130) 05/27/22 18:56 Glucose 114 mg/dL (65-115) 05/27/22 18:56 Calculated Osmolality 281 mOsm/kg (285-295) L 05/27/22 18:56 Calcium 9.6 mg/dL (8.5-10.5) 05/27/22 18:56 Magnesium 1.8 mg/dL (1.7-2.3) 05/27/22 18:56 Total Bilirubin 0.4 mg/dL (0.15-1.2) 05/27/22 18:56 AST 11 U/L (0-40) 05/27/22 18:56 ALT 11 U/L (0-41) 05/27/22 18:56 Alkaline Phosphatase 101 U/L (40-130) 05/27/22 18:56 Troponin T Baseline 31 ng/L (0-15) H 05/27/22 18:56 Troponin T 120 Minute 41.02 ng/L (0-15) H 05/27/22 20:36 Delta Troponin T 10.02 ABS# (0-10) H* 05/27/22 20:36 Total Protein 7.2 g/dL (6.6-8.7) 05/27/22 18:56 Albumin 4.1 g/dL (3.5-5.2) 05/27/22 18:56 Globulin 3.1 g/dL (1.3-4.6) 05/27/22 18:56 SARS-CoV-2 Ag (Rapid) negative (Negative) 05/27/22 19:41 Other Data please see hosoitalist note for assessment. Chart assigned to hospitalist in error. Unbale to be fixed by IT. ED note does not require hospitalist co sign Discharge Plan Discharge Patient Disposition: Placed in Observation Admit Provider: Aruna Vallejo Clinical Impression: Chest pain, Non-ST elevation CT (NSTEMI) Discharge Diet: Cardiac Discharge Activity: Resume usual activity Coding Level of Care Code ED Digital Account Manager for Ronit Hendricks
[2022-05-27 19:23] LABS: Basophils # 0.1 10^3/uL (0.0-0.1); Basophils % 1.9 %; Eosinophils # 0.2 10^3/uL (0.0-0.8); Eosinophils % 3.1 %; Hematocrit 49.4 % (42.0-52.0); Hemoglobin 16.4 g/dL (11.7-16.6); Lymphocytes # 1.1 10^3/uL (0.8-4.8); Mean Corpuscular HGB Conc 33.2 g/dL (30.0-36.0); Mean Corpuscular Hemoglobin 31.8 pg (28.0-34.0); Mean Corpuscular Volume 95.7 fl (80-94); Mean Platelet Volume 9.2 fL (7.4-10.4); Monocytes # 0.3 10^3/uL (0.2-0.9); Monocytes % 5.1 %; Neutrophils # 4.71 10^3/uL (1.8-7.7); Neutrophils % 72.6 %; Nucleated Red Blood Cells % 0 %; Platelet Count 261 10^3/cmm (130-400); Red Blood Count 5.16 10^6/uL (4.1-5.3); Red Cell Distribution Width 12.5 % (12.1-15.1); White Blood Count 6.5 10^3/uL (4.0-10.0)
[2022-05-27] MEDS: morphine 4 mg/mL SDV 1 mL IVP ×2 (19:28→23:16)
[2022-05-27] MEDS: ondansetron 2 mg/ML SDV 2 mL 4 MG IVP (19:29)
[2022-05-27] MEDS: sodium chloride 0.9% 1,000 ML 999 ML IV (19:31)
[2022-05-27] MEDS: ipratropium-albuterol 3 mL Neb INHALATION (19:35)
[2022-05-27] MEDS: aspirin 81 mg Chew Tablet 324 MG PO (19:37)
[2022-05-27 19:40] LABS: D Dimer 0.36 ug/mIFEU (0-0.59)
[2022-05-27 19:50] LABS: Troponin(5th) Baseline 31 ng/L (0-15)
[2022-05-27 19:52] LABS: Alanine Aminotransferase 11 U/L (0-41); Albumin Level 4.1 g/dL (3.5-5.2); Alkaline Phosphatase 101 U/L (40-130); Anion Gap 12.5 (5-19); Aspartate Amino Transferase 11 U/L (0-40); Blood Urea Nitrogen 13 mg/dL (6-20); Calcium 9.6 mg/dL (8.5-10.5); Carbon Dioxide 32 mmol/L (22-29); Chloride 94 mmol/L (98-107); Creatinine Clr Calc Pharmacy 148.7603; Globulin 3.1 g/dL (1.3-4.6); Glomerular Filtration Rate 101.1 mL/min (90-130); Glucose 114 mg/dL (65-115); Osmolality Calculated 281 mOsm/kg (285-295); Potassium 3.5 mmol/L (3.5-5.1); Sodium 135 mmol/L (136-145); Total Bilirubin 0.4 mg/dL (0.15-1.2); Total Protein 7.2 g/dL (6.6-8.7)
[2022-05-27] MEDS: dilTIAZem 5 mg/mL SDV 5 mL 20 MG IVP (20:00)
[2022-05-27 20:15] LABS: Magnesium 1.8 mg/dL (1.7-2.3)
[2022-05-27] MEDS: nicotine 14 mg Patch 1 PATCH TRANSDERMA (20:19)
[2022-05-27 20:27] LABS: SARS Covid-2 Antigen negative (Negative)
--- NOTE | 2022-05-27 20:32 | ECG_ITS ---
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 Measurements Intervals [place] Rate: 100 P: ID: QRS: -4 QRSD: 85 T: 72 QT: 358 QTc: 462 Interpretive Statements ATRIAL FIBRILLATION WITH RAPID VENTRICULAR RESPONSE INDETERMINATE AXIS LOW QRS VOLTAGE IN PRECORDIAL LEADS [QRS DEFLECTION < 1.0 mV IN CHEST LEADS] ANTEROSEPTAL MYOCARDIAL INFARCTION , OF INDETERMINATE AGE [40+ ms Q WAVE IN V1-V4] Compared to ECG 05/27/2022 18:37:03 Indeterminate axis now present Low QRS voltage now present Myocardial infarct finding still present Electronically Signed On 05-28-2022 3:48:36 CDT by Marcus Infante M.D. [id number]
[2022-05-27 20:57] LABS: Troponin 5 2HR 41.02 ng/L (0-15)
[2022-05-27 21:11] LABS: Troponin 5 2HR Delta 10.02 ABS# (0-10)
[2022-05-27] MEDS: enoxaparin 120 mg/0.8 mL Syringe SUBCUT (21:47)
[2022-05-28] VITALS (24 sets, daily range): BP systolic 99–133; BP diastolic 50–83; PULSE 87–147; RESP 16–24; TEMP 36.2–36.9; O2SAT 88–98; BMI 30.8
--- NOTE | 2022-05-28 | ECG_ITS ---
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 Interpretive Statements NAME OF STUDY: LEXISCAN SESTAMIBI STRESS TEST INDICATION: Chest Pain PROCEDURE: At the baseline, the blood pressure was 171/64 mmHg with a heart rate of 119 beats per min. The electrocardiogram showed atrial fibrillation with rapid Response. Right axis deviation. Low QRS voltage. Anteroseptal MD of indeterminate age. The Lexiscan was infused over a period of 20 seconds. A total of 0.4 milligrams of Lexiscan was infused. The stress phase was continued for a total of 5 minutes. Heart rate at the end of the stress phase was 129 bpm with a blood pressure of 148/75 mmHg. The EKG at the peak infusion revealed atrial fibrillation with rapid response with no significant ST-T wave changes. The study was terminated due to protocol completion. Sestamibi was injected 20 seconds after the Lexiscan infusion. Blood pressure at the end of the recovery phase was 133/72 mmHg with a heart rate of 137 beats per minute. CONCLUSION: 1. No significant EKG changes with the LexiScan infusion. 2. No LexiScan induced chest pain or cardiac arrhythmia. 3. Normal blood pressure and heart rate response. 4. Sestamibi/sestamibi perfusion scan pending; see separate report. Electronically Signed On 05-28-2022 12:46:49 CDT by Namita Mckeon M.D. [id number]
--- NOTE | 2022-05-28 00:32 | ECG_ITS ---
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 Measurements Intervals [place] Rate: 96 P: [place]: QRS: -17 QRSD: 101 T: 72 QT: 374 QTc: 473 Interpretive Statements ATRIAL FIBRILLATION INDETERMINATE AXIS LOW QRS VOLTAGE IN PRECORDIAL LEADS [QRS DEFLECTION < 1.0 mV IN CHEST LEADS] INCOMPLETE RIGHT BUNDLE BRANCH BLOCK [90+ ms QRS DURATION, TERMINAL R IN V1/V2, 40+ ms S IN I/aVL/V4/V5/V6] POSSIBLE ANTERIOR MYOCARDIAL INFARCTION , PROBABLY OLD [30 ms Q WAVE IN V3/V4, OR R < 0.2 mV IN V4] ABNORMAL RHYTHM ECG Compared to ECG 05/27/2022 20:38:33 Incomplete right bundle-branch block now present Myocardial infarct finding still present Electronically Signed On 05-28-2022 3:47:31 CDT by Marcus Infante M.D. [id number]
--- NOTE | 2022-05-28 00:51 | NMCV_ITS ---
NM belen perf SPECT r/s* [id number] Darlin Youssef Age: 52 Gender: M : 1970 Exam Date: 05/28/2022 06:53 Ordering Phys: Aruna Vallejo MD Technologist: MARII Golden Exam Location: [facility] Indications: CHEST PAIN STRESS TEST Please see separate stress test report in [facility] for full findings IMAGE PROTOCOL Rest/Stress 1 Lexiscan Day Radiopharmaceutical Dose (mCi) Administration Site Administered by Rest: Tc-99m 10.9 IV MARII Dunlap Sestamibi Stress:Tc-99m 33.0 IV MARII Dunlap Sestamibi Rest: 28-May-2022 60 Discovery 630 Stress: 28-May-2022 30 Discovery 630 0.4mg Lexiscan. Images obtained in supine and prone position. SPECT RESULTS Technical Quality: Excellent Raw Data Analysis: Normal Image Corrections: No attenuation or motion correction applied Summed Stress Score: 11 Summed Rest Score: 11 Summed Difference Score: 1 PERFUSION FINDINGS Medium sized perfusion abnormality of mild to moderate severity of mid to apical inferior, mid to apical inferoseptal, mid to apical anteroseptal, apical anterior and apical huitron on rest images with some reversibility in septal huitron on supine stress images and somewhat improved tracer uptake on septal wall in prone stress images. FUNCTIONAL RESULTS (calculated via Gated SPECT) Stress Image LV EF (%): 35 Stress EDV (mL):147 TID: 0.96 Stress ESV (mL):95 FUNCTIONAL FINDINGS: The left ventricle is normal in size. Transient Ischemia Dilatation of 0.96. The left ventricular ejection fraction is moderately reduced with a value of 35%. There seems to be basal to mid inferior and apical hypokinesis. Abnormal septal motion. Increased end-diastolic end-systolic volumes. IMPRESSIONS 1. Medium sized perfusion abnormality of mid to apical inferior, mid to apical inferoseptal, mid to apical anteroseptal, apical anterior and apical huitron with some reversibilty in septal wall on supine stress images and somehat improved tracer uptake in prone stress images. 2. This may represent old myocardial infarction in right coronary artery/LAD artery territory with mild marisol-infarct ischemia or attenuation artifact. 3. The left ventricular ejection fraction is moderately reduced with a value of 35%. 4. There seems to be basal to mid to apical inferior and apical hypokinesis. Abnormal septal motion. 5. EKG portion of the study will be reported separately. Namita Mckeon MD (Electronically Signed) Final Date: 28 May 2022 13:06 Amended: 28 May 2022 21:34 C
[2022-05-28 02:36] LABS: Troponin 5 6HR 36.87 ng/L (0-15)
[2022-05-28 02:37] LABS: Troponin 5 6HR Delta 5.87 ng/L (0-12)
[2022-05-28] MEDS: ipratropium-albuterol 3 mL Neb INHALATION ×4 (03:00→20:27)
--- NOTE | 2022-05-28 06:57 | PM.HP ---
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 placement to culprit mid RCA and 85% lesion in circumflex artery.? He was also found to have proximal to mid chronically occluded 100% left anterior descending with retrograde filling from left to left collaterals and distal segment. He presents to the emergency room today With chief complaints of chest pain. States that pain is located in the middle of the chest, 8 out of 10, radiating into the jaw. No specific exacerbating or relieving factors. Described dyspena, but no more than baseline. Found to have mildly elevated troponin of 31, 2 hr at 41 and 6 hr at 36 with a delta of 10 and 5 respectively. Pain is relieved with nitro. It appears he was supposed to have stress test as an outpatient, however has been noncompliant with them recently. Review of Systems General: Reports: 10 or more systems reviewed and unremarkable except in HPI and below Const: Denies: fever(s), chills or body aches Eyes: Denies: change in vision, blurry vision or photophobia ENMT: Reports: hoarseness; Denies: throat pain, enlarged tonsils, odynophagia or nasal congestion Card: Denies: chest pain, palpitations, irregular heart rhythm, edema, swelling of feet/ankles, lightheadedness, pre-syncope, dyspnea on exertion or orthopnea Resp: Denies: dyspnea, productive cough, non-productive cough, wheezing, stridor, pain on inspiration, change in phlegm color, hemoptysis or chest congestion GI: Denies: abdominal pain, nausea, vomiting, hematemesis, coffee ground emesis, dysphagia, heartburn, diarrhea, constipation, GI cramping, change in stool character, hematochezia or melena : Denies: flank pain, dysuria, urinary frequency, urinary urgency, urinary hesitancy or hematuria Musc: Denies: neck pain, back pain, extremity pain, joint swelling, joint warmth or deformity Neuro: Denies: headache(s), numbness in extremities, weakness in extremities, sensory changes, difficulty walking, frequent falls, dizziness, vertigo, behavioral changes, Slurred speech present or seizure-like activity Psych: Denies: anxiety, depression, suicidal ideation or homicidal ideation Endo: Denies: polyuria, polydipsia, tired all the time, cold intolerance or hot flashes Edouard/Lymph: Denies: easy bruising or easy bleeding Medications/Allergies Home Medications Medication Instructions Recorded Confirmed Last Taken Type aspirin 81 mg tablet,delayed 81 mg PO DAILY #30 tabs 12/26/21 05/28/22 05/27/22 Rx release (Adult Aspirin Regimen) atorvastatin 40 mg tablet 40 mg PO DAILY@2200 #90 tabs 12/26/21 05/28/22 05/26/22 21:00 Rx epinephrine 0.125 mg/actuation 1 puff inhalation Q6H PRN 12/26/21 05/28/22 05/27/22 History aerosol inhaler (Primatene Mist) Shortness Of Breath nitroglycerin 0.4 mg sublingual 0.4 mg sublingual Q5M PRN chest 12/26/21 05/28/22 05/27/22 Rx tablet pain #25 tabs ipratropium 0.5 mg-albuterol 3 mg 3 ml inhalation Q6H PRN wheezing 12/27/21 05/28/22 Unknown Rx (2.5 mg base)/3 mL nebulization #90 mL soln rivaroxaban 20 mg tablet (Xarelto) 20 mg PO BEDTIME #90 tabs 02/04/22 05/28/22 05/27/22 Rx Trelegy Ellipta 100 mcg-62.5 1 inh inhalation DAILY #60 ea 03/28/22 05/28/22 05/27/22 Rx mcg-25 mcg powder for inhalation ([id number]) albuterol sulfate 90 mcg/actuation 2 puff inhalation Q4H PRN 03/28/22 05/28/22 05/27/22 Rx aerosol inhaler shortness of breath or wheezing #8.5 grams verapamil 240 mg 24 hr 240 mg PO BEDTIME #90 caps 05/01/22 05/28/22 05/27/22 Rx capsule,extended release hydrocodone 5 mg-acetaminophen 325 1 tab PO Q8H PRN pain #7 tabs 05/16/22 05/28/22 Unknown Rx mg tablet ibuprofen 200 mg tablet 600 mg PO Q6H PRN Pain 05/28/22 05/28/22 Unknown History naproxen sodium 220 mg tablet 440 mg PO BID PRN Pain 05/28/22 05/28/22 Unknown History (Aleve) Allergies Allergy/AdvReac Type Severity Reaction Status Date / Time influenza virus vaccine Allergy Severe ALGY-Hives Verified 04/04/22 08:57 tval,purif- wool Allergy Unknown Verified 04/04/22 08:57 talcum powder Allergy Unknown Uncoded 04/04/22 08:57 PFSH Acute PFSH: Medical History Atrial fibrillation CAD (coronary artery disease) Chronic anxiety COPD (chronic obstructive pulmonary disease) Dyslipidemia Macular degeneration Non-small cell lung cancer Obstructive sleep apnea Surgical History History of bronchoscopy 12/29/2020 - Bronchoscopy/EBUS History of cholecystectomy History of coronary angioplasty with insertion of stent 08/2016 Port-A-Cath in place (02/14/21) Family History Other CAD (coronary artery disease) Cancer Diabetes Lung disease Stroke Denies family history of Bleeding disorder Social History Smoking and tobacco status: current every day smoker (1.5 ppd, smoked x 45 years) cigarettes Packs smoked per day: 1.5 Years cigarettes smoked: 48 Quit status (tobacco): considering quitting Second hand smoke exposure: Yes Smoking risk assessment/counseling performed?: Yes Alcohol intake: current Alcohol intake frequency: holidays/special occasions only Lives independently: Yes Household members: significant other and children Marital status: Life Partner service: No Current occupational status: disabled Pets and animals: Yes History of recent travel: No Current gender identity: Male Vitals/I&O/Wt Last Vital Signs Temp 97.9 F 05/28/22 04:00 Pulse 100 05/28/22 05:47 Resp 18 05/28/22 04:00 BP 112/72 05/28/22 04:00 Pulse Ox 93 05/28/22 04:00 O2 Del Method 05/28/22 04:00 O2 Flow Rate 3 05/28/22 04:00 05/27/22 05/27/22 05/28/22 14:59 22:59 06:59 Intake Total 1000 / 1000 Balance 1000 / 1000 Weight last 48 hrs Weight 108.998 kg Weight 122.924 kg Physical Exam Narrative: General: No acute distress, AO x3 HEENT: PERRLA, pupils bilaterally equal and reactive, pallors not present Chest: Normal vesicular breath sounds, no added sounds, equal good air entry bilaterally CVS: S1-S2 regular, no murmurs, no tachycardia, no gallops, no rubs Abdomen: Soft, nontender, no organomegaly, bowel sounds present Neuro: No focal deficits, no facial deformity, AO x3, power 5/5 in all limbs Data : 05/27/22 18:56 05/27/22 18:56 A&P Assessment and plan (1) Chest pain: Patient with medical comorbidities including lung cancer, COPD, CAD presenting with chest pain. EKG without acute ST-T wave changes. Troponin with mild elevation, delta of 10 at 2 hours and 5 at 6 hours. Chest pain may be branch service representative of underlying angina. Order for stress test in the morning Echocardiogram to be checked. aspirin 81, atorvastatin 40 mg p.o. daily. Review of outpatient notes reflect that patient is also supposed to be on metoprolol 100 mg p.o. daily, however does not appear to be taking this. Currently heart rate. Ranging between 100-1 20. We will start metoprolol 50 mg p.o. twice daily. Attestations Medical Necessity Statement*: Anticipate less than 2 midnight stay for cardiac stress test, further course depending on results of this test. Coding Level of Care Code Acute Foreman Or Supervisor And Operator for Ronit Hendricks Diagnoses Chest pain R07.9
--- NOTE | 2022-05-28 07:01 | USCV_ITS ---
Darlin Youssef Age: 52 Gender: M : 1970 Exam Date: 05/28/2022 09:32 Ordering Phys: Aruna Vallejo MD Technologist: Marvin Cornejo Exam Location: [facility] – [place] Indication: ANGINA, ELEVATED TROPONIN BP: 145 / 82 HR: 128 Rhythm: Sinus Technical Quality: Adequate MEASUREMENTS (Male / Female) Normal Values 2D ECHO LVOT Diameter 2.0 cm LV Ejection Fraction MOD 2C 47.6 % LV Ejection Fraction 2C AL 44.7 % LA Diameter 5.1 cm Aorta at Sinotubular Diameter 3.3 cm M-MODE Aortic Annulus Diameter 4.2 cm LA Ao Ratio MM 1.3 MV E Point Septal Separation 2.7 cm DOPPLER AV Peak Velocity 123.0 cm/s LVOT Peak Velocity 92.0 cm/s AV Area Cont Eq vti 2.4 cm squared AV Area Cont Eq pk 2.5 cm squared MV Area PHT 5.0 cm squared Mitral E to A Ratio 2.6 MV E' Velocity 62.0 cm/s Mitral E to MV E' Ratio 14.2 Mitral E to LV E' Lateral Ratio 9.5 Mitral E to LV E' Septal Ratio 28.0 TR Peak Velocity 169.0 cm/s TR Peak Gradient 11.4 mmHg TV Peak E Velocity 132.0 cm/s Right Atrial Pressure 3.0 mmHg Pulmonary Artery Systolic Pressu 14.4 mmHg PV Peak Velocity 84.0 cm/s RV Acceleration Time 0.1 s FINDINGS Left Ventricle Normal left ventricular size and mildly decreased left ventricular systolic function. Left ventricular ejection fraction is estimated at 40-45 %. Mild global hypokinesis with abnormal septal motion. Rhythm precludes evaluation of diastolic function. Right Ventricle Upper normal right ventricular size with mildly decreased right ventricular systolic function. RVSP could not be calculated due to incomplete tricuspid regurgitation velocity profile. Right Atrium Normal right atrial size. Left Atrium Moderately increased left atrial size. Mitral Valve Structurally normal mitral valve. No mitral valve stenosis. No mitral valve regurgitation. Aortic Valve Aortic valve not well visualized. No aortic valve stenosis. No aortic valve regurgitation. Tricuspid Valve Structurally normal tricuspid valve. Trace tricuspid valve regurgitation. Pulmonic Valve Pulmonic valve not well visualized. Pericardium No pericardial effusion. Aorta Aorta not well visualized. IVC Inferior vena cava not visualized. CONCLUSIONS 1. Normal left ventricular size and mildly decreased left ventricular systolic function. Left ventricular ejection fraction is estimated at 40-45 %. Mild global hypokinesis with abnormal septal motion. 2. Upper normal right ventricular size with mildly decreased right ventricular systolic function. 3. When compared to study dated 06/04/2019, left ventricular systolic function has decreased. Namita Mckeon MD (Electronically Signed) Final Date: 01 June 2022 06:57 S
[2022-05-28] MEDS: regadenoson 0.4 Mg/5 ml Syringe IVP (08:04)
--- NOTE | 2022-05-28 08:09 | PC.NURSE ---
0700 pt off floor for stress test.
--- NOTE | 2022-05-28 08:11 | USCV_ITS ---
Darlin Youssef Age: 52 Gender: M : 1970 Exam Date: 05/28/2022 08:31 Ordering Phys: Thuan Kovacs MD Technologist: Exam Location: [facility] – [place] Indication: bilat edema PROCEDURES: The venous duplex Doppler examination of both lower extremities was performed in the standard fashion. The following venous structures were evaluated: common femoral vein, profunda vein, proximal portion of the greater saphenous vein, superficial femoral vein, and the popliteal vein. FINDINGS: Normal 2-D Doppler and augmentation and compressibility throughout the lower extremity venous structures. Additional imaging through the proximal calf veins also reveals no thrombus. Limited evaluation of the greater saphenous vein is patent with no thrombus.. CONCLUSIONS No evidence of right lower extremity DVT. No evidence of left lower extremity DVT. Thomas Goncalves MD (Electronically Signed) Final Date: 28 May 2022 12:02 S
[2022-05-28] MEDS: nicotine 14 mg Patch 1 PATCH TRANSDERMA (10:02)
[2022-05-28] MEDS: metoprolol tartrate 50 mg Tablet PO ×2 (10:03→21:21)
[2022-05-28] MEDS: aspirin 81 mg EC Tablet PO (10:03)
[2022-05-28] MEDS: pantoprazole DR 40 mg Tablet PO (10:04)
[2022-05-28 10:40] LABS: D Dimer 0.29 ug/mIFEU (0-0.59)
--- NOTE | 2022-05-28 13:28 | P.PN_ITS ---
Subjective Subjective: Patient was seen this morning, denies any chest pain currently no fevers, chills Vitals/I&O/Wt Last Vital Signs Temp 98.5 F 05/28/22 11:56 Pulse 100 05/28/22 12:04 Resp 20 H 05/28/22 12:04 BP 112/72 05/28/22 11:56 Pulse Ox 94 05/28/22 12:04 O2 Del Method 05/28/22 12:04 O2 Flow Rate 3 05/28/22 12:04 05/27/22 05/28/22 05/28/22 22:59 06:59 14:59 Intake Total 1000 / 1000 480 / 1480 780 / 780 Balance 1000 / 1000 480 / 1480 780 / 780 Weight last 48 hrs Weight 108.998 kg Weight 122.924 kg Physical Exam Const: COMMON NORMALS: no acute distress and patient oriented x3 Resp: COMMON NORMALS: normal respiratory effort, No retractions, No use of accessory muscles and clear to auscultation bilaterally AUSCULTATION: clear to auscultation bilaterally Cardio: COMMON NORMALS: regular rate, regular rhythm, S1 normal heart sound present and S2 normal heart sound present RATE: regular rate RHYTHM: regular rhythm HEART SOUNDS: S1 normal heart sound present and S2 normal heart sound present GI: COMMON NORMALS: Normal to inspection, nondistended, normoactive bowel so unds present, non-tender and no masses Extremity: COMMON NORMALS: no pedal edema Neuro: COMMON NORMALS: patient oriented x3 Psych: COMMON NORMALS: mental status grossly normal Data : 05/27/22 18:56 05/27/22 18:56 A&P Assessment and plan (1) Chest pain: Patient with medical comorbidities including lung cancer, COPD, CAD presenting with chest pain. EKG without acute ST-T wave changes. Troponin with mild elevation, delta of 10 at 2 hours and 5 at 6 hours. Chest pain may be factory representative of underlying angina. Currently undergoing stress test Echocardiogram pending aspirin 81, atorvastatin 40 mg p.o. daily. Review of outpatient notes reflect that patient is also supposed to be on metoprolol 100 mg p.o. daily, however does not appear to be taking this. Currently heart rate. Ranging between 100-1 20. We will start metoprolol 50 mg p.o. twice daily. Attestations Medical Necessity Statement*: Patient requires hospitalization for chest pain Coding Level of Care Code Acute Programmable Logic Controller Assembler for g Fwd Diagnoses Chest pain R07.9
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
--- NOTE | 2022-05-28 22:38 | ECG_ITS ---
[facility] Test Date: 2022-05-28 Pat Name: Darlin Youssef Department: Room: 275 Gender: Male Blending Coordinator: : 1970 Requested By: Aruna Vallejo Order Number: [id number] Indira MD: Glen Hernandez M.D. Measurements Intervals [place] Rate: 90 P: HI: QRS: 267 QRSD: 104 T: 80 QT: 356 QTc: 437 Interpretive Statements ATRIAL FIBRILLATION RIGHT AXIS DEVIATION [QRS AXIS > 100] LOW QRS VOLTAGE IN PRECORDIAL LEADS [QRS DEFLECTION < 1.0 mV IN CHEST LEADS] INCOMPLETE RIGHT BUNDLE BRANCH BLOCK [90+ ms QRS DURATION, TERMINAL R IN V1/V2, 40+ ms S IN I/aVL/V4/V5/V6] POSSIBLE ANTERIOR MYOCARDIAL INFARCTION , OF INDETERMINATE AGE [30 ms Q WAVE IN V3/V4, OR R < 0.2 mV IN V4] Compared to ECG 05/28/2022 00:48:29 Right-axis deviation now present Indeterminate axis no longer present Myocardial infarct finding still present Electronically Signed On 05-29-2022 21:58:29 CDT by Glen Hernandez M.D. [email or web address]
[2022-05-28] MEDS: morphine 4 mg/mL SDV 1 mL IVP (22:48)
[2022-05-28] MEDS: atorvastatin 40 mg Tablet PO (22:48)
[2022-05-28] MEDS: metoprolol tartrate 25 mg Tablet PO (22:55)
[2022-05-29] VITALS (65 sets, daily range): BP systolic 91–144; BP diastolic 60–110; PULSE 86–153; RESP 8–26; TEMP 36.3–37; O2SAT 78–98; BMI 30.8
[2022-05-29] MEDS: ipratropium-albuterol 3 mL Neb INHALATION ×3 (01:25→20:41)
[2022-05-29 05:40] LABS: Basophils # 0.1 10^3/uL (0.0-0.1); Basophils % 1.8 %; Eosinophils # 0.2 10^3/uL (0.0-0.8); Eosinophils % 4.4 %; Hematocrit 46.8 % (42.0-52.0); Hemoglobin 15.3 g/dL (11.7-16.6); Lymphocytes % 19.2 %; Mean Corpuscular HGB Conc 32.7 g/dL (30.0-36.0); Mean Corpuscular Hemoglobin 32.3 pg (28.0-34.0); Mean Corpuscular Volume 98.7 fl (80-94); Mean Platelet Volume 8.9 fL (7.4-10.4); Monocytes # 0.4 10^3/uL (0.2-0.9); Monocytes % 7.4 %; Neutrophils # 3.34 10^3/uL (1.8-7.7); Nucleated Red Blood Cells % 0 %; Platelet Count 229 10^3/cmm (130-400); Red Blood Count 4.74 10^6/uL (4.1-5.3); Red Cell Distribution Width 12.4 % (12.1-15.1)
[2022-05-29] MEDS: diphenhydrAMINE 50 mg Capsule PO (05:59)
[2022-05-29] MEDS: acetaminophen 325 mg Tablet 650 MG PO (05:59)
[2022-05-29] MEDS: sodium chloride 0.9% 1,000 ML 50 ML IV (06:00)
--- NOTE | 2022-05-29 06:02 | XACV_ITS ---
Exam Room: [facility] Ht: 188 cm Wt: 109 kg BSA: 2.41 m2 Gender: Male : 1970 Any Known Allergies: Other Exam Priority: Routine Indication(s): - Abnormal nuclear perfusion test Procedure(s): Procedure Description: Diagnostic procedure Procedure Description: PCI procedure Procedure Description: Left Heart Catheterization Procedure Description: Left ventriculography Procedure Description: Drug Eluting Coronary Stent Procedure Description: PTCA Procedure Description: Miscellaneous Procedure Description: ACT Procedure Description: Coronary Angiography Diagnostic Cath Status: Elective Diagnostic Findings * Short left main with no disease. * Diffusely diseased and calcified left anterior descending artery. Chronic total occlusion of mid LAD. Distal segment of mid LAD and distal LAD filled by bridging and left and left collaterals. * Patent mid circumflex stent. Mid circumflex distal to previous stent: obstructive 70% stenosis, BROOK: 3 flow. * Patient Right Coronary Artery stent. Mid RCA: obstructive 70% stenosis, BROOK: 3 flow. Distal RCA diffusely diseased and calcified. * Coronary angiography shows right dominance. PCI Status: Urgent PCI Indication: Other Interventional Findings * Procedure detail: Diagnostic cardiac catheterization performed by Dr. Mckeon who is the primary regional loss prevention manager. Based on patient's stress test findings and prior infarction of LAD with unsuccessful revascularization, she recommended PCI of LCx and RCA. We engaged left and artery with XB 3.5 guide catheter. IV heparin was administered to maintain ACT above 250 S. 0.014 run-through guidewire was used to cross mid to distal circumflex artery stenosis was put in distal vessel. We predilated the stenosis with 2.5 x 12 mm semicompliant balloon. This was followed by placement of 2.75 x 18 mm resolute Steffi drug-eluting stent. At this time final angiogram was performed that showed excellent stent expansion, no residual stenosis and BROOK-3 flow. Guidewire and guide catheters were removed. We then turned our attention to mid RCA stenosis. Distal RCA has diffuse disease and decision was made to medically treated. We predilated the stenosis with 2.5 x 12 mm noncompliant balloon. This was followed by placement of 3.5 x 15 mm resolute Steffi drug-eluting stent. Postdilated with a RCA stent with 3.75 x 8 mm NC balloon. At this time final angiogram showed excellent stent expansion and BROOK-3 flow. Guidewire and guide catheter were removed. Patient left the Equipment Maintenance Tech in a stable condition.. * Mid Right Coronary Artery: 70% stenosis treated with a AB TREK 2.50X12 RX BALLOON, MDT R STEFFI 3.5X15 MAREN, and MDT NC EUPHORA RX [id number] BALLOON. 0% residual stenosis, BROOK: 3 flow. * Mid Circumflex: 70% stenosis treated with a AB TREK 2.50X12 RX BALLOON, and MDT R STEFFI 2.75X18 MAREN. 0% residual stenosis, BROOK: 3 flow. Conclusions 1. Severe 2. mid to distal left circumflex stenosis status post PCI with 1 3. . 4. Severe mid RCA stenosis status post revascularization with MAREN x1.. 5. Mid Right Coronary Artery was treated with a Balloon, Drug Eluting Stent, and Balloon. 6. Mid Circumflex was treated with a Balloon, and Drug Eluting Stent. Recommendations * Return to inpatient for close monitoring and routine post cath care. * Continue aspirin and Plavix 75mg p.o. daily for at least one year. * Aggressive risk factor modification. * Outpatient cardiology follow up in 4 weeks. Interventional RX Recommendation: PCI w/o planned CABG Diagnostic RX Recommendation: PCI w/o planned CABG Anticoagulation: Heparin Pressures Phase:Rest AO : / ( -40 ) @ 8:25:00 AM 89 / 78 ( 83 ) @ 8:37:00 AM 116 / 88 ( 100 ) @ 8:56:00 AM 109 / 74 ( 87 ) @ 8:56:00 AM 89 / 80 ( 85 ) @ 9:37:00 AM LV : 115 / 3 / 9 @ 8:55:00 AM 108 / -2 / 9 @ 8:56:00 AM Hemodynamic Findings LVEDP is 9 mmHg. Valves Phase:DefaultPhase AV : 0.0 @ 8:59:10 AM Clinical Evaluation EBL: 5mL-10mL Procedural Details Procedure Consent Obtained. Admit Source: In Patient. Current Diagnosis : Chest Pain. Pre-Procedure Time Out. Identified patient by full name and date of as verbalized by the patient/guarantor. Does the consent match the physician's order: Yes. Accurate & Complete Informed Consent: Yes. Inpatient/Outpatient History & Physical on Chart: Yes. If H&P is completed, is and addenduem needed: No; If yes, is the addendum complete: N/A. Visualize and Verify Site with Patient/Guarantor: N/A. Relevant Radiology Images available: Yes. The risks, benefits, and alternatives of sedation and/or procedure were discussed by physician. The patient agrees to continue. Procedure started. [facility] Clinical Fraility Score: 3: Managing Well. Equipment Maintenance Tech Indications: Worsening Angina. Chest Pain Symptom Assessment: Atypical Angina. Cardiovascular Instability: No. Correct patient, site and procedure confirmed by cath team. Current diagnosis: Chest Pain, EF DROP, ABNORMAL STRESS TEST. PERRLA. Strong, equal hand aquatics director bilaterally. Lungs clear x 5 lobes. IV Site on Arrival: 18 gauge in the left anticubital. IV Fluids: 0.9% NaCl at KVO. 0 mL infused prior to electrical laboratory technician. Pre Procedural Pulses: bilateral dorsalis pedis was 2+. Pre Procedural Pulses: bilateral posterior tibial was 2+. Pre Procedural Pulses: bilateral radial was 3+. Oxygen started at 3liters/min via nasal canula. right groin was prepped with chloroprep then draped in the usual sterile fashion. right radial was prepped with chloroprep then draped in the usual sterile fashion. Physician notified. Baseline sample Acquired. HR: 94 BPM. Physician arrived. MD to updated family post cath per Patient request. Physician scrubbed in. Immediate Pre-Procedure Time Out. Correct Patient: Yes; Correct Procedure: Yes; Correct Site: Yes; Correct Patient Position: Yes; Correct Supplies: Yes; Dried Flammable Prep: Yes; Blood Products Available: N/A;. Equipment: 5F - Femoral. Heparinized Saline (2 units/mL), 1000 mL bag. Cardiac Cath Pack. [employer] Toxicology Manifold Kit Model BT 2000. Equipment: 5F - Radial. Equipment: 6F - Femoral. Equipment: 6F - Radial. Lidocaine 1% infiltrated to the right radial. Arterial access obtained. A 5 [place] TIG catheter in over wire. Unable to cannulate the rca or LCS. Catheter removed over the exchange wire. A CRD 5F JL4 Diagnostic Catheter was advanced over the wire and used for Left coronary angiography. Multiple views taken of left coronary artery. Catheter removed over the exchange wire. A CRD 5F JR4 Diagnostic Catheter was advanced over the wire and used for Right coronary angiography. EDP Sample taken: LV 115/3,9; HR: 100 BPM; SpO2: 97%. Pullback taken: LV 108/-3,9; AO 116/88(100); Mean: , Peak to Peak: 0mmHg, SEP: ; HR: 102 BPM; SpO2: 97%. Multiple views taken of right coronary artery. Catheter removed over the exchange wire. Physician review of films. Dr Infante here to discuss/review films with Dr Mckeon. Sheath to KVO. Starting Intervention. Dr Mckeon scrubbed out. Dr Infante Scrubbed in. Inventory is CRD 6 FR XB 3.5 GUIDE. 6 [place] XB 3.5 guide catheter was inserted over the wire. Guide seated in the LCS. Runthrough guidewire was advanced through the guide catheter to lesion in the mid Circ. Guidewire advanced across lesion. Family updated by Dr Mckeno. Inflation number : 1 A AB TREK 2.50X12 RX BALLOON was prepped and advanced across the Mid CX , then inflated to 8 AMADOR for 0:11 seconds. Inflation number: 2 The AB TREK 2.50X12 RX BALLOON was reinflated across the Mid CX, to 8 AMADOR for 0:13 seconds. Balloon out over the wire. Results checked. Inflation Number : 3 A MDT R STEFFI 2.75X18 MAREN -Lot Number# [id number] was prepped and advanced across the Mid CX. The stent was deployed at 12 AMADOR for 0:24 seconds. EXP 11/08/2024. Stent balloon out over the wire. Results checked. Wire out. Guide catheter removed over the wire. ACT drawn. Results 236 seconds. Therapeutic limits - pre-heparin administration 90-150 seconds and monitoring heparin during a vascular procedure >250 seconds. Inventory is CRD 6FR JR 4 GUIDE 100cm. 6 [place] JR 4 guide catheter was inserted over the wire. Guide seated in the RCA. Runthrough guidewire was advanced through the guide catheter to lesion in the mid RCA. Guidewire advanced across lesion. Inflation number: 1 The AB TREK 2.50X12 RX BALLOON was reinflated across the Mid RCA, to 12 AMADOR for 0:19 seconds. Balloon out over the wire. Inflation Number : 2 A MDT R STEFFI 3.5X15 MAREN -Lot Number# [id number] was prepped and advanced across the Mid RCA. The stent was deployed at 12 AMADOR for 0:21 seconds. EXP 09/20/2024. Stent balloon out over the wire. Results checked. Results checked. ACT drawn. Results 234 seconds. Therapeutic limits - pre-heparin administration 90-150 seconds and monitoring heparin during a vascular procedure >250 seconds. Inflation number : 3 A MDT NC EUPHORA RX [id number] BALLOON was prepped and advanced across the Mid RCA , then inflated to 12 AMADOR for 0:17 seconds. Balloon out. Results checked. Wire out. Physician review of films. Physician scrubbed out. A TR Band was successful obtaining hemostatsis at the Right Radial artery insertion site. TR band placed. Hemostasis obtained. Post Procedure: Pulses reassessed and unchanged. PERRLA. Strong, equal hand aquatics director bilaterally. No VTE prophylaxis required. Medication waste Lido 3ml Nitro 49.4 mg Heparin 2000 units Versed 1 mg Fentanyl 75 mcg. Contrast type used: Omnipaque 300 mgI/mL, 500 mL bottle. [id number]. Total IV fluids: 117 mL. Fluoro: 21:09. Post-op diagnosis: SEVERE MID RCA AND MID CIRCUMFLEX STENOSIS S/P STENTING; SUBTOTAL OCCLUSION OF THE PROXIMAL TO MID LAD. Complications: NONE. Estimated blood loss: 5mL-10mL. Responsiveness - Normal response to verbal stimuli; alert and oriented, PERRLA. Airway - Unaffected, no intervention required; spontaneous ventilation. Circulation: W/N/L, pulses unchanged. Nausea/Vomiting: No. Procedure completed. Patient transferred by bed to [facility]. Vital chart was stopped. Access Site Site: Right Radial artery Sheath Size: 6 Fr Hemostasis Method: TR Band Hemostasis Success: Successful Procedure Medications Start: 7:15 AM Stop: 7:15 AM Medication: Versed Amount: 1 mg Route: I.V. Start: 7:15 AM Stop: 7:15 AM Medication: Fentanyl Amount: 50 mcg Route: I.V. Start: 7:27 AM Stop: 7:27 AM Medication: Versed Amount: 1 mg Route: I.V. Start: 7:27 AM Stop: 7:27 AM Medication: Fentanyl Amount: 50 mcg Route: I.V. Start: 7:31 AM Stop: 7:31 AM Medication: Nitrogylcerin Amount: 200 mcg Route: I.A. Start: 7:34 AM Stop: 7:34 AM Medication: Heparin Amount: 5000 units Route: I.V. Start: 7:46 AM Stop: 7:46 AM Medication: Versed Amount: 1 mg Route: I.V. Start: 8:14 AM Stop: 8:14 AM Medication: Versed Amount: 1 mg Route: I.V. Start: 8:16 AM Stop: 8:16 AM Medication: Heparin Amount: 5000 units Route: I.V. Start: 8:23 AM Stop: 8:23 AM Medication: Heparin Amount: 1000 units Route: I.V. Start: 8:25 AM Stop: 8:25 AM Medication: Nitrogylcerin Amount: 200 mcg Route: I.C. Start: 8:31 AM Stop: 8:31 AM Medication: Versed 1 mg and Fentanyl 25 mcg Amount: 1 Route: I.V. Start: 8:31 AM Stop: 8:31 AM Medication: Heparin Amount: 2000 units Route: I.V. Start: 8:38 AM Stop: 8:38 AM Medication: Nitrogylcerin Amount: 200 mcg Route: I.C. Start: 8:41 AM Stop: 8:41 AM Medication: Heparin Amount: 1000 units Route: I.V. Start: 8:51 AM Stop: 8:51 AM Medication: Aggrastat 12.5 mg/250 mL Amount: 55 ml Route: I.V. bolus Start: 8:51 AM Stop: 8:51 AM Medication: Aggrastat 12.5 mg/250 mL Amount: 19.8 ml/hr Route: I.V. drip Start: 8:53 AM Stop: 8:53 AM Medication: Plavix Amount: 600 mg Route: P.O. I, the attending physician, have reviewed and verified all procedure medications. Yes, all medications given per verbal order History/Risk Factors Hypertension: Yes Dyslipidemia: Yes Peripheral Arterial Disease (PAD): No Myocardial Infarction (HI): No Obesity: Yes Renal Disease: No Tobacco Use: Current/Recent(w/in 1 year) Prior Interventions PCI: No CABG: No Valve Surgery: No Report Signatures Interventional Workflow Finalized by Marcus Infante MD on 05/30/2022 08:32 PM Diagnostic Workflow Finalized by Namita Mckeon MD on 05/30/2022 07:53 PM
[2022-05-29 06:33] LABS: Anion Gap 10.5 (5-19); Blood Urea Nitrogen 12 mg/dL (6-20); Calcium 9.5 mg/dL (8.5-10.5); Carbon Dioxide 37 mmol/L (22-29); Chloride 97 mmol/L (98-107); Glomerular Filtration Rate 101.1 mL/min (90-130); Glucose 110 mg/dL (65-115); Magnesium 1.9 mg/dL (1.7-2.3); Osmolality Calculated 290 mOsm/kg (285-295); Potassium 4.5 mmol/L (3.5-5.1); Sodium 140 mmol/L (136-145)
--- NOTE | 2022-05-29 07:14 | W.PM.OPSUD ---
Surgery/Procedure H&P Update DATE OF PROCEDURE: May 29, 2022 DATE H&P PERFORMED: 05/28/22 H&P UPDATE INFORMATION: I have reviewed H&P completed within last 30 days, I have examined patient prior to procedure and No changes to prior documentation PREOP DIAGNOSIS: Chest pain, Mildly abnormal stress test, CHF PRIMARY INDICATION FOR PROCEDURE: Chest pain, Mildly abnormal stress test, CHF PLANNED PROCEDURE: Operation Date: 05/29/22 07:00 Proposed Procedures p Cardiac Catheterization(Left) - Namita Mckeon MD PATIENT REASSESSED PRIOR TO SEDATION, WITH NO CHANGE NOTED: Yes PHYSICAL EXAM: alert, oriented x 3, clear to auscultation bilaterally and regular rate & rhythm AIRWAY EVAL/ANESTHESIA PLAN: normal airway, ASA III, Monitored Anesthesia, Local Anesthesia, Risks, benefits & alternatives of sedation and/or procedure discussed and Patient agrees to continue as planned
--- NOTE | 2022-05-29 07:58 | PC.NURSE ---
pt off floor for angiogram
--- NOTE | 2022-05-29 09:08 | PM.PN ---
Subjective Subjective: Patient underwent LHC this morning and underwent MAREN to mid LCx and mid RCA. Medications: Reviewed: Yes Vitals/I&O/Wt Last Vital Signs Temp 97.4 F L 05/29/22 04:00 Pulse 103 H 05/29/22 06:30 Resp 20 H 05/29/22 04:00 BP 119/80 05/29/22 04:00 Pulse Ox 94 05/29/22 04:00 O2 Del Method 05/29/22 01:25 O2 Flow Rate 3 05/28/22 20:27 05/28/22 05/29/22 05/29/22 22:59 06:59 14:59 Intake Total 1510 / 2290 Balance 1510 / 2290 Weight last 48 hrs Weight 240 lb 4.8 oz Weight 271 lb Physical Exam Narrative: GENERAL: obese man sitting in bed in no acute distress HEENT: Extraocular movement intact. No pallor or icterus. NECK: central trachea, No JVD, No carotid bruit. CARDIOVASCULAR SYSTEM: S1-S2 irregular. Tachycardia+. No murmur rubs or gallops. RESPIRATORY SYSTEM: Chest clear to auscultation. No wheezes rhonchi or rubs heard. No use of accessory muscles. ABDOMEN: Soft, nontender and nondistended. Normal bowel sounds present. EXTREMITIES: No cyanosis or edema. No signs of chronic venous insufficiency. VETERANS SERVICES SPECIALIST: Patient is alert oriented ?3. No focal neurological deficits. SKIN: Normal turgor and temperature. PSYCH: Normal insight and judgment. Data : 05/29/22 05:23 05/29/22 05:23 A&P Assessment and plan (1) Chest pain: Somewhat typical chest pain, mildly abnormal stress test with some reversibility in septal wall on supine stress images and decrease in LV function from 60% to 45-50% on recent echo. -s/p MAREN to mid LCx and mid RCA. -He was loaded with plavix -continue ASA, plavix untill hospital discharge and then continue on plavix and Xarelto. (2) CAD (coronary artery disease): Qualifiers: Coronary Disease-Associated Artery/Lesion type: [place] artery [place] vs. transplanted heart: [place] heart Associated angina: without angina Qualified Code(s): I25.10 - Atherosclerotic heart disease of [place] coronary artery without angina pectoris (3) Atrial fibrillation: May resume plavix this evening and Xarelto on discharge. -metoprolol dose increased to 75 mg BID (4) Tobacco abuse: Chronic active smoker Plan CHF: Echo showed drop in LV function estimated at 45% Obesity DANIELITO Chronic active smoker Adenocarcinoma of right lung Dyslipidemia Obesity Attestations Medical Necessity Statement*: needs hospital stay post stent placement. Coding Level of Care Code Acute Advertising Agency Manager for g Fwd Diagnoses Chest pain R07.9 CAD (coronary artery disease) I25.10 Coronary Disease-Associated Artery/Lesion type: [place] artery [place] vs. transplanted heart: [place] heart Associated angina: without angina Atrial fibrillation I48.91 Tobacco abuse Z72.0
[2022-05-29] MEDS: nicotine 14 mg Patch 1 PATCH TRANSDERMA (09:33)
[2022-05-29] MEDS: pantoprazole DR 40 mg Tablet PO (09:33)
[2022-05-29] MEDS: aspirin 81 mg EC Tablet PO (09:33)
--- NOTE | 2022-05-29 10:00 | PC.NURSE ---
Patient arrived back from laboratory mechanic helper with right radial TR band and aggrostat gtt. Gtt to run for 4 hours then d/c. Patient is drowsy and requires reinforcement regarding all education topics. Patient has been educated regarding activity restrictions and oxygen safety. Patient refuses to be compliant under both topics.
--- NOTE | 2022-05-29 13:01 | P.PN_ITS ---
Subjective Subjective: Patient seen after his cardiac cath, he had 2 stents placed, he is alert oriented, denies any chest pain, no shortness of breath Vitals/I&O/Wt Last Vital Signs Temp 97.4 F L 05/29/22 04:00 Pulse 86 05/29/22 12:15 Resp 21 H 05/29/22 12:15 BP 113/72 05/29/22 12:15 Pulse Ox 96 05/29/22 11:45 O2 Del Method 05/29/22 09:00 O2 Flow Rate 3 05/28/22 20:27 05/28/22 05/29/22 05/29/22 22:59 06:59 14:59 Intake Total 1510 / 2290 Output Total 350 / 350 Balance 1510 / 2290 -350 / -350 Weight last 48 hrs Weight 108.998 kg Weight 122.924 kg Physical Exam Const: COMMON NORMALS: no acute distress and patient oriented x3 Resp: COMMON NORMALS: normal respiratory effort, No retractions, No use of accessory muscles and clear to auscultation bilaterally AUSCULTATION: clear to auscultation bilaterally Cardio: COMMON NORMALS: regular rate, regular rhythm, S1 normal heart sound present and S2 normal heart sound present RATE: regular rate RHYTHM: re gular rhythm HEART SOUNDS: S1 normal heart sound present and S2 normal heart sound present GI: COMMON NORMALS: Normal to inspection, nondistended, normoactive bowel sounds present and non-tender Extremity: COMMON NORMALS: no pedal edema Neuro: COMMON NORMALS: patient oriented x3 Psych: COMMON NORMALS: mental status grossly normal Data : 05/29/22 05:23 05/29/22 05:23 A&P Assessment and plan (1) Chest pain: (2) CAD (coronary artery disease): Qualifiers: Coronary Disease-Associated Artery/Lesion type: [place] artery [place] vs. transplanted heart: [place] heart Associated angina: without angina Qualified Code(s): I25.10 - Atherosclerotic heart disease of [place] coronary artery without angina pectoris (3) Atrial fibrillation: (4) Tobacco abuse: Chronic active smoker Plan Chest pain, CAD, status post stent placement x2, continue aspirin, statin, Plavix, metoprolol CHF: Echo showed drop in LV function estimated at 45% Obesity DANIELITO Chronic active smoker Adenocarcinoma of right lung Dyslipidemia Obesity Attestations Medical Necessity Statement*: Patient requires hospitalization for CAD, status post stent placement Coding Level of Care Code Acute Bicycle Taxi Driver for Chg Fwd Diagnoses Chest pain R07.9 CAD (coronary artery disease) I25.10 Coronary Disease-Associated Artery/Lesion type: [place] artery [place] vs. transplanted heart: [place] heart Associated angina: without angina Atrial fibrillation I48.91 Tobacco abuse Z72.0
--- NOTE | 2022-05-29 15:15 | PC.NURSE ---
TR band removed per protocol. No hematoma or bleeding present. Patient has been educated regarding activity restrictions. Patient requires frequent reinforcement.
[2022-05-29] MEDS: metoprolol tartrate 50 mg Tablet 75 MG PO (17:22)
--- NOTE | 2022-05-29 17:23 | PC.NURSE ---
Physician approved: Metoprolol 75mg 2100 dose to be given NOW for rate control
--- NOTE | 2022-05-29 18:13 | PC.NURSE ---
Patient refuses to let nurse place another IV. Previous IV infiltrated
--- NOTE | 2022-05-29 19:14 | PC.NURSE ---
Right wrist site dressing is dry and intact, no hematoma present. Raidal pulse is palpable.
[2022-05-29] MEDS: atorvastatin 40 mg Tablet PO (21:10)
[2022-05-29] MEDS: enoxaparin 120 mg/0.8 mL Syringe 110 MG SUBCUT (21:10)
--- NOTE | 2022-05-29 21:13 | PC.NURSE ---
Spoke with regarding patient complaints of nausea, has no IV acess and only has IV zofran ordered. said ok to change order to PO Zofran.
--- NOTE | 2022-05-29 22:52 | PC.NURSE ---
Spoke with regarding patient with elevated HR, afib. Rate running 120-140s, patient asymptomatic. No current IV access. BP 144/91. said no new orders as patient HR is not sustained over 130s.
[2022-05-29] MEDS: ondansetron 4 MG Tablet PO (23:07)
[2022-05-30] VITALS (23 sets, daily range): BP systolic 92–144; BP diastolic 71–97; PULSE 98–134; RESP 20–33; TEMP 37; O2SAT 83–92
[2022-05-30 02:14] LABS: Basophils # 0.1 10^3/uL (0.0-0.1); Basophils % 1.9 %; Eosinophils # 0.2 10^3/uL (0.0-0.8); Hemoglobin 15.9 g/dL (11.7-16.6); Lymphocytes # 0.9 10^3/uL (0.8-4.8); Lymphocytes % 15.5 %; Mean Corpuscular HGB Conc 33.1 g/dL (30.0-36.0); Mean Corpuscular Hemoglobin 32.2 pg (28.0-34.0); Mean Corpuscular Volume 97.2 fl (80-94); Mean Platelet Volume 8.8 fL (7.4-10.4); Monocytes # 0.5 10^3/uL (0.2-0.9); Monocytes % 8.5 %; Neutrophils # 4.05 10^3/uL (1.8-7.7); Neutrophils % 69.9 %; Nucleated Red Blood Cells % 0 %; Platelet Count 244 10^3/cmm (130-400); Red Blood Count 4.94 10^6/uL (4.1-5.3); Red Cell Distribution Width 12.4 % (12.1-15.1); White Blood Count 5.8 10^3/uL (4.0-10.0)
[2022-05-30 02:34] LABS: Anion Gap 13.7 (5-19); Blood Urea Nitrogen 12 mg/dL (6-20); Calcium 9.5 mg/dL (8.5-10.5); Carbon Dioxide 33 mmol/L (22-29); Chloride 97 mmol/L (98-107); Glomerular Filtration Rate 101.1 mL/min (90-130); Glucose 95 mg/dL (65-115); Osmolality Calculated 288 mOsm/kg (285-295); Potassium 4.7 mmol/L (3.5-5.1); Sodium 139 mmol/L (136-145)
[2022-05-30] MEDS: HYDROcodone-acetaminophen 5-325 mg Tablet 1 TAB PO (03:37)
--- NOTE | 2022-05-30 04:36 | PC.NURSE ---
Spoke with regarding patients HR still elevated, running 110s-140s. Requested to give the patients am dose of metoprolol early, said ok to give am dose now. also said it was ok to give his nicotine patch early per patient request.
[2022-05-30] MEDS: nicotine 14 mg Patch 1 PATCH TRANSDERMA (04:41)
[2022-05-30] MEDS: metoprolol tartrate 50 mg Tablet 75 MG PO ×2 (04:43→08:00)
[2022-05-30] MEDS: ondansetron 4 MG Tablet PO (05:56)
[2022-05-30] MEDS: aspirin 81 mg EC Tablet PO (08:00)
[2022-05-30] MEDS: clopidogrel 75 mg Tablet PO (08:00)
[2022-05-30] MEDS: pantoprazole DR 40 mg Tablet PO (08:01)
[2022-05-30] MEDS: ipratropium-albuterol 3 mL Neb INHALATION (08:28)
--- NOTE | 2022-05-30 09:46 | PM.DCS ---
Discharge Providers Date of Admission: 05/28/22 00:09 Date of Discharge: May 30, 2022 Attending Provider at Admission: Aruna Vallejo MD Attending Provider at Discharge: Thuan Kovacs MD Diagnoses at Discharge Discharge Diagnosis (1) Chest pain: Status: Acute (2) CAD (coronary artery disease): Status: Acute Qualifiers: Coronary Disease-Associated Artery/Lesion type: [place] artery [place] vs. transplanted heart: [place] heart Associated angina: without angina Qualified Code(s): I25.10 - Atherosclerotic heart disease of [place] coronary artery without angina pectoris (3) Atrial fibrillation: Status: Acute (4) Tobacco abuse: Status: Acute Reason for Visit Reason for Visit: Chest Pain Hospital Course Hospital Course This is a 52-year-old male with a history of lung cancer, COPD, CAD, history of stent placement in 2017, who presents [facility] for chest pain, patient was admitted to [facility] for elevated troponins and chest pain, coronary angiogram showed drug-eluting stent to mid left circumflex and mid RCA,. Tolerated procedure well, no recurrent chest pain, EF showed ejection fraction 45%. Patient will be discharged on Plavix, he is on Xarelto which he takes for atrial fibrillation, continue to monitor for chest pain if so come back to the emergency room. I have had a detailed discussion with patient, he should not stop Plavix unless instructed by his government services professional. As he is going to be placed on Plavix and Xarelto, if he were to develop bloody or black stools or lightheadedness go immediately to the emergency room. Follow-up with cardiology in 1 week. Follow-up with primary care in 1 week. Advised to quit smoking. Physical Exam Const: COMMON NORMALS: no acute distress and patient oriented x3 Resp: COMMON NORMALS: normal respiratory effort, No retractions, No use of accessory muscles and clear to auscultation bilaterally AUSCULTATION: clear to auscultation bilaterally Cardio: COMMON NORMALS: regular rate, regular rhythm, S1 normal heart sound present and S2 normal heart sound present RATE: regular rate RHYTHM: regular rhythm HEART SOUNDS: S1 normal heart sound present and S2 normal heart sound present GI: COMMON NORMALS: Normal to inspection, nondistended, normoactive bowel sounds present and non-tender Extremity: COMMON NORMALS: no pedal edema Neuro: COMMON NORMALS: patient oriented x3 Psych: COMMON NORMALS: mental status grossly normal Discharge Data Studies Completed and Pending Completed Studies During Hospitalization Category Date Time Status Cardiac Stress Test MIBI [Sestamibi Stress Test Request Exams 05/28/22 00:49 Completed ] Routine XR chest 1V portable [id number] Stat Exams 05/27/22 18:32 Completed NM belen perf SPECT r/s* [id number] Routine Nuc Med 05/28/22 00:51 [place] [id number] Stat Ultrasound 05/28/22 08:11 Completed Pending at discharge Category Date Time Status LOCATE TECHNICIAN request for service Routine Exams 05/29/22 06:02 Taken Basic Metabolic Panel AM LABS Lab 05/31/22 04:00 Ordered Complete Blood Count w/Auto AM LABS Lab 05/31/22 04:00 Ordered Magnesium AM LABS Lab 05/31/22 04:00 Ordered CV. echo wo/w contrast [id number] Routine Ultrasound 05/28/22 07:01 Taken Radiology Impressions Chest X-Ray 05/27/22 18:32 IMPRESSION: 1. Stable COPD . 2. Stable borderline to mild cardiomegaly. 3. Stable left Mediport catheter. Laboratory Results WBC 5.8 10^3/uL (4.0-10.0) 05/30/22 02:07 RBC 4.94 10^6/uL (4.1-5.3) 05/30/22 02:07 Hgb 15.9 g/dL (11.7-16.6) 05/30/22 02:07 Hct 48.0 % (42.0-52.0) 05/30/22 02:07 MCV 97.2 fl (80-94) H 05/30/22 02:07 MCH 32.2 pg (28.0-34.0) 05/30/22 02:07 MCHC 33.1 g/dL (30.0-36.0) 05/30/22 02:07 RDW 12.4 % (12.1-15.1) 05/30/22 02:07 Plt Count 244 10^3/cmm (130-400) 05/30/22 02:07 MPV 8.8 fL (7.4-10.4) 05/30/22 02:07 Neut % (Auto) 69.9 % 05/30/22 02:07 Lymph % (Auto) 15.5 % 05/30/22 02:07 Dolores % (Auto) 8.5 % 05/30/22 02:07 Eos % (Auto) 4.0 % 05/30/22 02:07 Baso % (Auto) 1.9 % 05/30/22 02:07 Neut # (Auto) 4.05 10^3/uL (1.8-7.7) 05/30/22 02:07 Lymph # (Auto) 0.9 10^3/uL (0.8-4.8) 05/30/22 02:07 Dolores # (Auto) 0.5 10^3/uL (0.2-0.9) 05/30/22 02:07 Eos # (Auto) 0.2 10^3/uL (0.0-0.8) 05/30/22 02:07 Baso # (Auto) 0.1 10^3/uL (0.0-0.1) 05/30/22 02:07 Nucleated RBC % (auto) 0 % 05/30/22 02:07 Nucleated RBCs # 0.0 /100WBC 05/30/22 02:07 D-Dimer 0.29 ug/mIFEU (0-0.59) 05/28/22 10:10 Sodium 139 mmol/L (136-145) 05/30/22 02:07 Potassium 4.7 mmol/L (3.5-5.1) 05/30/22 02:07 Chloride 97 mmol/L (98-107) L 05/30/22 02:07 Carbon Dioxide 33 mmol/L (22-29) H 05/30/22 02:07 Anion Gap 13.7 (5-19) 05/30/22 02:07 BUN 12 mg/dL (6-20) 05/30/22 02:07 Creatinine 0.8 mg/dL (0.7-1.2) 05/30/22 02:07 GFR Calculation 101.1 mL/min (90-130) 05/30/22 02:07 Glucose 95 mg/dL (65-115) 05/30/22 02:07 Calculated Osmolality 288 mOsm/kg (285-295) 05/30/22 02:07 Calcium 9.5 mg/dL (8.5-10.5) 05/30/22 02:07 Magnesium 2.0 mg/dL (1.7-2.3) 05/30/22 02:07 Total Bilirubin 0.4 mg/dL (0.15-1.2) 05/27/22 18:56 AST 11 U/L (0-40) 05/27/22 18:56 ALT 11 U/L (0-41) 05/27/22 18:56 Alkaline Phosphatase 101 U/L (40-130) 05/27/22 18:56 Troponin T Baseline 31 ng/L (0-15) H 05/27/22 18:56 Troponin T 120 Minute 41.02 ng/L (0-15) H 05/27/22 20:36 Delta Troponin T 10.02 ABS# (0-10) H* 05/27/22 20:36 Troponin T Hi Sens 6Hr 36.87 ng/L (0-15) H 05/28/22 01:51 Troponin T Hi Sens 6Hr Delta 5.87 ng/L (0-12) 05/28/22 01:51 Total Protein 7.2 g/dL (6.6-8.7) 05/27/22 18:56 Albumin 4.1 g/dL (3.5-5.2) 05/27/22 18:56 Globulin 3.1 g/dL (1.3-4.6) 05/27/22 18:56 SARS-CoV-2 Ag (Rapid) negative (Negative) 05/27/22 19:41 Vitals Last Vital Signs Temp 98.6 F 05/30/22 00:00 Pulse 100 05/30/22 08:28 Resp 20 H 05/30/22 08:28 BP 127/72 05/30/22 07:59 Pulse Ox 91 05/30/22 08:28 O2 Del Method 05/30/22 08:28 O2 Flow Rate 3 05/29/22 20:41 Discharge Plan Discharge Patient Disposition: Home Condition: Stable Prescriptions: New nicotine 14 mg/24 hr Patch 24 Hour 1 patch transdermal DAILY 28 Days Qty: 28 0RF metoprolol tartrate 50 mg Tablet 75 mg PO BID@0900,2100 30 Days Qty: 90 0RF clopidogrel 75 mg Tablet 75 mg PO DAILY 30 Days Qty: 30 0RF Continued Primatene Mist 0.125 mg/actuation HFA aerosol inhaler 1 puff inhalation Q6H PRN (Reason: Shortness Of Breath) Rx Instructions: may repeat once after 1 minute atorvastatin 40 mg tablet 40 mg PO DAILY@2200 Qty: 90 3RF ipratropium-albuterol 0.5 mg-3 mg(2.5 mg base)/3 mL solution for nebulization 3 ml inhalation Q6H PRN (Reason: wheezing) Qty: 90 3RF Trelegy Ellipta 100-62.5-25 mcg blister with device 1 inh inhalation DAILY Qty: 60 3RF albuterol sulfate 90 mcg/actuation HFA aerosol inhaler 2 puff inhalation Q4H PRN (Reason: shortness of breath or wheezing) Qty: 8.5 5RF Xarelto 20 mg tablet 20 mg PO BEDTIME Qty: 90 2RF hydrocodone-acetaminophen 5-325 mg tablet 1 tab PO Q8H PRN (Reason: pain) Qty: 7 0RF nitroglycerin 0.4 mg tablet, sublingual 0.4 mg sublingual Q5M PRN (Reason: chest pain) 30 Days Qty: 30 2RF Rx Instructions: do not exceed 3 doses per episode Discontinued aspirin [Adult Aspirin Regimen] 81 mg tablet,delayed release (DR/EC) 81 mg PO DAILY Qty: 30 6RF verapamil 240 mg capsule,ext rel. pellets 24 hr 240 mg PO BEDTIME Qty: 90 1RF Aleve 220 mg Tablet 440 mg PO BID PRN (Reason: Pain) ibuprofen 200 mg Tablet 600 mg PO Q6H PRN (Reason: Pain) Discharge Orders: Discharge Order (Routine); Ordered 05/30/22 Ordered By: Thuan Kovacs Referrals: Edita Rasheed FNP [Nurse Practitioner] - 4-7 days Discharge Diet: Cardiac Discharge Activity: Resume usual activity Patient Instructions: Opioid Safety Activity Restrictions/Additional Instructions: - Please continue to take Plavix 75 mg once daily -Do not stop taking Plavix -If you develop bloody or black stools or feel lightheaded please go to the emergency room -Take nitroglycerin as needed for chest pain -Please stop smoking -Please follow-up with cardiology in 1 week -Please follow-up with primary care provider in 1 week Discharge Attestations Time Spent in Discharge Care*: less than 30 min Quality Metrics Clinical Quality Measures [ Acute Myocardial Infaction { Clinical Trial Participant: No; Contraindication to aspirin: None; Aspirin prescribed; Contraindication to statin: None; Statin prescribed; Contraindication to PCI: None; PCI performed;}. No reported AMI, CVA or VTE this stay] Coding Level of Care Code Acute [facility] FW DC note Diagnoses Chest pain R07.9 CAD (coronary artery disease) I25.10 Coronary Disease-Associated Artery/Lesion type: [place] artery [place] vs. transplanted heart: [place] heart Associated angina: without angina Atrial fibrillation I48.91 Tobacco abuse Z72.0
[2022-05-30] MEDS: rivaroxaban 10 mg Tablet 20 MG PO (10:01)
--- NOTE | 2022-05-30 10:53 | P.PN_ITS ---
Subjective Subjective: Doing well. Eager to go home. Medications: Reviewed: Yes Vitals/I&O/Wt Last Vital Signs Temp 98.6 F 05/30/22 00:00 Pulse 100 05/30/22 08:28 Resp 20 H 05/30/22 08:28 BP 127/72 05/30/22 07:59 Pulse Ox 91 05/30/22 08:28 O2 Del Method 05/30/22 08:28 O2 Flow Rate 3 05/29/22 20:41 05/29/22 05/30/22 05/30/22 22:59 06:59 14:59 Intake Total 1350 / 1586 720 / 2306 600 / 600 Output Total 800 / 1400 200 / 1600 Balance 550 / 186 520 / 706 600 / 600 Weight last 48 hrs Weight 240 lb Physical Exam Narrative: GENERAL: obese man sitting in bed in no acute distress HEENT: Extraocular movement intact. No pallor or icterus. NECK: central trachea, No JVD, No carotid bruit. CARDIOVASCULAR SYSTEM: S1-S2 irregular. Tachycardia+. No murmur rubs or gallops. RESPIRATORY SYSTEM: Chest clear to auscultation. No wheezes rhonchi or rubs heard. No use of accessory muscles. ABDOMEN: Soft, nontender and nondistended. Normal bowel sounds present. EXTREMITIES: No cyanosis or edema. No signs of chronic venous insufficiency. WOMENS HEALTH NURSE PRACTITIONER: Patient is alert oriented ?3. No focal neurological deficits. SKIN: Normal turgor and temperature. PSYCH: Normal insight and judgment. Const: COMMON NORMALS: alert Resp: COMMON NORMALS: clear to auscultation bilaterally AUSCULTATION: clear to auscultation bilaterally Neuro: SENSORIUM/ORIENTATION: Yes alert Data : 05/30/22 02:07 05/30/22 02:07 Other data: CT chest/abdomen and pelvis (04/2022) FINDINGS: Lungs: Centrilobular emphysema is present. Interval resolution of small right pleural effusion. Interval improvement of streaky atelectasis in the right middle and lower lobes. There is new nodular opacities with surrounding ground-glass in the left lower lobe, the largest measuring 2.2 cm. Slightly increased faint patchy ground-glass opacities in the left upper lobe. There is a nonspecific pleural base nodular opacity in the lingula, which may represent atelectasis or nodule. Pleural spaces: No pleural effusion or pneumothorax. Heart: Mildly enlarged heart. Coronary atherosclerotic calcifications seen. No pericardial effusion. Lymph nodes: Unremarkable. No enlarged lymph nodes. Vasculature: Unremarkable. No aortic aneurysm.? Bones/joints: Degenerative changes of the spine seen. No acute fracture. Soft tissues: Unremarkable. IMPRESSION: 1. Interval progression of metastatic disease, manifested by new left lower lobe pulmonary nodules, interval increase in size of retroperitoneal lymphadenopathy, and mesenteric lymphadenopathy/implants. 2. Mild wall thickening of the 2/3 portion of the duodenum in association with small amount of fluid extending along the right anterior pararenal space into the pelvis. These findings may be secondary to adjacent retroperitoneal lymphadenopathy, duodenitis, or less likely malignant involvement of the duodenum. 3. Trace perihepatic ascites. A&P Assessment and plan (1) Chest pain: Somewhat typical chest pain, mildly abnormal stress test with some reversibility in septal wall on supine stress images and decrease in LV function from 60% to 45-50% on recent echo. -s/p MAREN to mid LCx and mid RCA. -He was loaded with plavix -continue ASA, plavix untill hospital discharge and then continue on plavix and Xarelto. (2) CAD (coronary artery disease): Qualifiers: Coronary Disease-Associated Artery/Lesion type: [place] artery [place] vs. transplanted heart: [place] heart Associated angina: without angina Qualified Code(s): I25.10 - Atherosclerotic heart disease of [place] coronary artery without angina pectoris (3) Atrial fibrillation: May resume Xarelto on discharge. -metoprolol dose increased to 75 mg BID (4) Tobacco abuse: Chronic active smoker, not motivated to quit. Plan CHF: Echo showed drop in LV function estimated at 45% Obesity DANIELITO Adenocarcinoma of right lung: see findings of recent CT chest/abdomen and pelvis above; advised to f/u with Dr. Jo Dyslipidemia Obesity Attestations Medical Necessity Statement*: stable to be discharged Time Spent in Patient Care: Greater than 35 minutes Coding Level of Care Code Acute Emt I/99 for Chg Fwd Diagnoses Chest pain R07.9 CAD (coronary artery disease) I25.10 Coronary Disease-Associated Artery/Lesion type: [place] artery [place] vs. transplanted heart: [place] heart Associated angina: without angina Atrial fibrillation I48.91 Tobacco abuse Z72.0
--- NOTE | 2022-05-30 10:54 | PC.NURSE ---
PT OFFERRED MEDS TO BED HE PREFERS TO PICKED IT UP AT [facility].
== END 2022-05-30 12:25 | disposition home or self-care (01) ==
LOC: ER 22:51 → MEDSURG 23:14
PROVIDERS: Emergency Medicine; Internal Medicine; Internal Medicine Cardiovascular Disease; Admitting Provider Student in an Organized Health Care Education/Training Program; Emergency Provider Emergency Medicine; Visit Provider Family Medicine
DX: R07.9 Chest pain, unspecified (principal); I25.10 Atherosclerotic heart disease of native coronary artery without angina pectoris; I48.91 Unspecified atrial fibrillation; F17.210 Nicotine dependence, cigarettes, uncomplicated; Z85.118 Personal history of other malignant neoplasm of bronchus and lung; J44.9 Chronic obstructive pulmonary disease, unspecified; Z95.5 Presence of coronary angioplasty implant and graft; E66.9 Obesity, unspecified; Z68.30 Body mass index [BMI] 30.0-30.9, adult; E78.5 Hyperlipidemia, unspecified; G47.33 Obstructive sleep apnea (adult) (pediatric); I50.9 Heart failure, unspecified; Z91.199 Patient's noncompliance with other medical treatment and regimen due to unspecified reason; Z79.82 Long term (current) use of aspirin
CPT/HCPCS: 36415; 71045; 78452; 80048; 80053; 83735; 84484; 85025; 85347; 85378; 87426; 93005; 93017; 93458; 93970; 94640; 96372; 96374; 96375; 96376; 99152; 99153; 99285; A9500; C1725; C1769; C1874; C1887; C1894; C8929; C9600; C9601; G0378; J1644; J1650; J2250; J2270; J2405; J2785; J3010; J3490; J7030; Q0162; Q0163; Q9956; Q9967

== ENCOUNTER 2022-06-02 00:21 | Emergency (ER) | payer MEDICARE, MEDICAID, SELFPAY ==
[2022-06-02 00:24] VITALS: BP 123/80; PULSE 63; RESP 18; TEMP 36.4; O2SAT 97; BMI 21.8
--- NOTE | 2022-06-02 00:52 | CTR_ITS ---
PROCEDURE INFORMATION: Exam: CT Abdomen And Pelvis With Contrast Exam date and time: 06/02/2022 1:48 AM Age: 52 years old Clinical indication: Nausea and vomiting; Abdominal pain; Generalized; Prior surgery; Surgery type: Gb; Patient HX: C/O abd pain with n/v. History of lung cancer. ; Additional info: Abd pain, vomiting TECHNIQUE: Imaging protocol: Computed tomography of the abdomen and pelvis with contrast. Radiation optimization: All CT scans at this facility use at least one of these dose optimization techniques: automated exposure control; mA and/or kV adjustment per patient size (includes targeted exams where dose is matched to clinical indication); or iterative reconstruction. Contrast material: OMNI 350; Contrast volume: 100 ml; Contrast route: INTRAVENOUS (IV); COMPARISON: CT abdomen pelvis w con* [id number] 05/16/2022 12:28 AM RADIATION DOSE METRICS: Total DLP (mGy-cm): 1100.73 FINDINGS: Lungs: The visualized portions of the lung bases show no consolidation or atelectasis.. Unchanged coronary arterial atherosclerotic vascular calcifications are seen. Liver: Mildly heterogeneous enhancement of the liver is seen with poor contrast filling of the hepatic veins. Unchanged left hepatic lobe low attenuation 1.6 x 1.2 cm lesion is seen. Gallbladder and bile ducts: Status post prior cholecystectomy. No biliary ductal dilatation. Pancreas: Normal contour and enhancement. No ductal dilation. Spleen: Normal enhancement. No splenomegaly. Adrenal glands: Normal contour. No mass. Kidneys and ureters: Normal enhancement. No mass. No hydronephrosis. Stomach and bowel: The non-contrast opacified stomach is not well distended with relative gastric fold prominence. Assessment is limited. The noncontrast opacified small bowel loops appear unremarkable. The noncontrast opacified loops of colon show poor distension of the distal colon. Some sigmoid colonic diverticula are seen, without CT evidence of diverticulitis. The lack of orally administered contrast material limits assessment. Appendix: No appendix is specifically identified. There is no evidence of fluid collections or inflammatory stranding in the right lower quadrant. Intraperitoneal space: Unchanged minimal central mesentery fat stranding is seen. No free air. No significant fluid collection. Some benign phleboliths seen in the pelvis. Vasculature: No abdominal aortic aneurysm. Inferior vena cava and portal vein appear unremarkable. Lymph nodes: Unchanged gastrohepatic ligament region lobulated 5.9 x 5.3 x 6.6 cm lymph node mass is seen with central low attenuation. Enlarged periportal 2.6 x 2.4 cm lymph node is seen. Unchanged aortocaval and left para-aortic enlarged lymph nodes are seen, the largest measuring 1.4 x 1.2 cm. Unchanged mesenteric enlarged lymph nodes are seen, the largest measuring 3.5 x 2.6 cm. Multiple subcentimeter mid mesentery lymph nodes are also seen. This may be related to metastatic disease. Other etiologies such as lymphoma leukemia cannot be excluded. Recommend correlation with clinical history. Urinary bladder: The bladder is not well distended with relative wall prominence. Assessment is limited. Reproductive: Unremarkable as visualized. Bones/joints: No acute osseous abnormality seen. Soft tissues: Minimal subcutaneous scarring is seen in the periumbilical region. Unchanged small to medium-sized right umbilical hernia is seen, containing peritoneal fat. CT/CT abdomen pelvis w con* [id number] IMPRESSION: 1. Unchanged abdominal lymphadenopathy, which may be related to metastatic disease. Recommend correlation with clinical history. 2. No new acute abdominal or pelvic abnormality seen. Chronic changes, as noted above.
[2022-06-02 01:34] VITALS: BP 121/80; PULSE 82; RESP 20; O2SAT 94
[2022-06-02 01:44] LABS: Basophils # 0.1 10^3/uL (0.0-0.1); Basophils % 1.6 %; Eosinophils # 0.2 10^3/uL (0.0-0.8); Eosinophils % 3.7 %; Hematocrit 46.7 % (42.0-52.0); Hemoglobin 15.9 g/dL (11.7-16.6); Lymphocytes # 1.3 10^3/uL (0.8-4.8); Lymphocytes % 20.3 %; Mean Corpuscular Hemoglobin 32.3 pg (28.0-34.0); Mean Corpuscular Volume 94.9 fl (80-94); Mean Platelet Volume 9.3 fL (7.4-10.4); Monocytes # 0.5 10^3/uL (0.2-0.9); Monocytes % 7.5 %; Neutrophils % 66.7 %; Nucleated Red Blood Cells % 0 %; Platelet Count 276 10^3/cmm (130-400); Red Blood Count 4.92 10^6/uL (4.1-5.3); Red Cell Distribution Width 12.1 % (12.1-15.1); White Blood Count 6.2 10^3/uL (4.0-10.0)
[2022-06-02] MEDS: sodium chloride 0.9% 1,000 ML 999 ML IV (01:45)
[2022-06-02] MEDS: iohexol 350 mg/mL 100 mL Btl IV (01:58)
[2022-06-02 02:01] LABS: Lactate (Lactic Acid level) 1.5 mmol/L (0.5-2.2)
--- NOTE | 2022-06-02 02:03 | ED_ITS ---
HPI - Abdominal Pain General: Chief Complaint: Abdominal Pain Stated Complaint: N/V, abd pain, back pain Time Seen by Provider: 06/02/22 00:35 Source: patient and family History of Present Illness: 52 year old gentleman with the complicated history of lung disease, coronary disease status post intervention, and a history of lung cancer. He evidently has some heart failure with an EF of 45%. new paragraph he presents tonight with abdominal pain. Abdominal pain is somewhat diffuse in nature. He has vomited a couple of times, which he usually does not do with his belly pain. He has diarrhea on and off. No blood in the stool. No fever. He states this has been going on a couple of months. It was worse Tonight, so he came in for evaluation. MD elicited complaint: abdominal pain Pertinent past history: myocardial infarction and other Onset (ago): month(s) Pain Consistency: intermittent Location: Diffuse Severity: moderate Quality: aching Radiation: none Migration to: no migration Exacerbating factors: nothing Relieving factors: nothing Associated Symptoms: Reports change in stool character, diarrhea, loose stools and vomiting; Denies fever(s), hematochezia and hematemesis Review of Systems Const: Denies: fever(s) Eyes: Denies: change in vision Card: Denies: chest pain or palpitations Resp: Denies: dyspnea, productive cough, non-productive cough or wheezing GI: Reports: vomiting, diarrhea and change in stool character; Denies: hematemesis or hematochezia Skin/Breast: Denies: rash Neuro: Denies: headache(s), weakness in extremities, dizziness or confusion PFS ED PFSH: Medical History Atrial fibrillation CAD (coronary artery disease) Chronic anxiety COPD (chronic obstructive pulmonary disease) Dyslipidemia Macular degeneration Non-small cell lung cancer Obstructive sleep apnea Surgical History History of bronchoscopy 12/29/2020 - Bronchoscopy/EBUS History of cholecystectomy History of coronary angioplasty with insertion of stent 08/2016 Port-A-Cath in place (02/14/21) Family History Other CAD (coronary artery disease) Cancer Diabetes Lung disease Stroke Denies family history of Bleeding disorder Social History Smoking and tobacco status: current every day smoker (1.5 ppd, smoked x 45 years) cigarettes Packs smoked per day: 1.5 Years cigarettes smoked: 48 Quit status (tobacco): considering quitting Second hand smoke exposure: Yes Smoking risk assessment/counseling performed?: Yes Alcohol intake: current Alcohol intake frequency: holidays/special occasions only Lives independently: Yes Household members: significant other and children Marital status: Life Partner service: No Current occupational status: disabled Pets and animals: Yes History of recent travel: No Current gender identity: Male Physical Exam Const: GENERAL APPEARANCE: cooperative and ill appearing (mildly); not frail appearing NUTRITIONAL APPEARANCE: obese ORIENTATION/CONSCIOUSNESS: Yes awake, Yes oriented to person, Yes oriented to place and Yes oriented to time HENMT: COMMON NORMALS: normocephalic, atraumatic and Normal external nose present HEAD & SCALP: normocephalic and atraumatic FACE & SINUS: normal facial exam and face symmetric NOSE: Normal external nose present Eye: COMMON NORMALS: Equal, round and reactive pupils present, EOMs intact bilaterally and no scleral icterus PUPIL: Yes Equal, round and reactive pupils present Neck/C-Spine: GENERAL: Yes trachea midline Chest: CHEST: Yes Symmetrical chest wall rise Resp: COMMON NORMALS: normal respiratory effort, No retractions, No use of accessory muscles and clear to auscultation bilaterally AUSCULTATION: clear to auscultation bilaterally Cardio: COMMON NORMALS: regular rate and regular rhythm RATE: regular rate RHYTHM: regular rhythm GI: COMMON NORMALS: Normal to inspection, nondistended, normoactive bowel sounds present PALPATION: Yes Tenderness to palpation present (GI) (diffuse) Extremity: GENERAL: Yes edema Neuro: NIKOS COMA SCALE: document GCS findings Nikos coma scale eye opening: Spontaneous [place] coma scale verbal response: Orientated [place] coma scale motor response: Obey commands Nikos coma scale total score: 15 SENSORIUM/ORIENTATION: Yes oriented to person, Yes oriented to place and Yes oriented to time SPEECH: speech normal SENSORY EXAM: Yes extremities ( intact) Psych: COMMON NORMALS: speech normal SPEECH: Yes normal speech Skin: COMMON NORMALS: no rashes or lesions noted GENERAL SKIN EXAM: no rashes or lesions noted Course Vital Signs: Vital signs: Vital Signs Temperature 97.5 F L 06/02/22 00:24 Pulse Rate 69 06/02/22 04:02 Respiratory Rate 18 06/02/22 04:02 Blood Pressure 101/76 06/02/22 04:02 Pulse Oximetry 97 06/02/22 04:02 Oxygen Delivery Me thod 06/02/22 01:34 MDM - Abdominal Pain Medical Decision Making This patient has quite a complicated history. However, tonight his main complaint is belly pain. He is afebrile. Symptoms are controlled after pain medication and anti emetic. His CBC is normal period his BMP is not remarkable. His liver enzymes are not remarkable. His C reactive protein is only five. Urinanalysis is not remarkable. Lipase is 18. Abdominal CT shows some reactive lymph nodes, which could be mesenteric adenitis versus sequelae of metastatic disease. He was counseled on his lab results, and need to follow up. Case management will make him an appointment with a primary care provider, as he does not seem to have one. He will let his registered respiratory technician know about the lymph nodes in his belly given his history of lung cancer to see if any further intervention is needed. Otherwise, he'll be allowed to discharge home. Lab Data : 06/02/22 01:36 06/02/22 01:36 Labs/Radiology: Radiology Impressions Abdomen/Pelvis CT 06/02/22 00:52 IMPRESSION: 1. Unchanged abdominal lymphadenopathy, which may be related to metastatic disease. Recommend correlation with clinical history. 2. No new acute abdominal or pelvic abnormality seen. Chronic changes, as noted above. Laboratory Results WBC 6.2 10^3/uL (4.0-10.0) 06/02/22 01:36 RBC 4.92 10^6/uL (4.1-5.3) 06/02/22 01:36 Hgb 15.9 g/dL (11.7-16.6) 06/02/22 01:36 Hct 46.7 % (42.0-52.0) 06/02/22 01:36 MCV 94.9 fl (80-94) H 06/02/22 01:36 MCH 32.3 pg (28.0-34.0) 06/02/22 01:36 MCHC 34.0 g/dL (30.0-36.0) 06/02/22 01:36 RDW 12.1 % (12.1-15.1) 06/02/22 01:36 Plt Count 276 10^3/cmm (130-400) 06/02/22 01:36 MPV 9.3 fL (7.4-10.4) 06/02/22 01:36 Neut % (Auto) 66.7 % 06/02/22 01:36 Lymph % (Auto) 20.3 % 06/02/22 01:36 [place] % (Auto) 7.5 % 06/02/22 01:36 Eos % (Auto) 3.7 % 06/02/22 01:36 Baso % (Auto) 1.6 % 06/02/22 01:36 Neut # (Auto) 4.10 10^3/uL (1.8-7.7) 06/02/22 01:36 Lymph # (Auto) 1.3 10^3/uL (0.8-4.8) 06/02/22 01:36 [place] # (Auto) 0.5 10^3/uL (0.2-0.9) 06/02/22 01:36 Eos # (Auto) 0.2 10^3/uL (0.0-0.8) 06/02/22 01:36 Baso # (Auto) 0.1 10^3/uL (0.0-0.1) 06/02/22 01:36 Nucleated RBC % (auto) 0 % 06/02/22 01:36 Nucleated RBCs # 0.0 /100WBC 06/02/22 01:36 Sodium 138 mmol/L (136-145) 06/02/22 01:36 Potassium 3.7 mmol/L (3.5-5.1) 06/02/22 01:36 Chloride 97 mmol/L (98-107) L 06/02/22 01:36 Carbon Dioxide 32 mmol/L (22-29) H 06/02/22 01:36 Anion Gap 12.7 (5-19) 06/02/22 01:36 BUN 10 mg/dL (6-20) 06/02/22 01:36 Creatinine 0.9 mg/dL (0.7-1.2) 06/02/22 01:36 GFR Calculation 88.3 mL/min (90-130) L 06/02/22 01:36 Glucose 142 mg/dL (65-115) H 06/02/22 01:36 Calculated Osmolality 287 mOsm/kg (285-295) 06/02/22 01:36 Lactate 1.5 mmol/L (0.5-2.2) 06/02/22 01:36 Calcium 9.5 mg/dL (8.5-10.5) 06/02/22 01:36 Total Bilirubin 0.4 mg/dL (0.15-1.2) 06/02/22 01:36 AST 10 U/L (0-40) 06/02/22 01:36 ALT 13 U/L (0-41) 06/02/22 01:36 Alkaline Phosphatase 86 U/L (40-130) 06/02/22 01:36 C-Reactive Protein 5.0 mg/L (0.0-4.9) H 06/02/22 01:36 Total Protein 6.9 g/dL (6.6-8.7) 06/02/22 01:36 Albumin 3.9 g/dL (3.5-5.2) 06/02/22 01:36 Globulin 3.0 g/dL (1.3-4.6) 06/02/22 01:36 Lipase 18 U/L (13-60) 06/02/22 01:36 Procalcitonin 0.99 ng/mL (0-0.5) H 06/02/22 01:36 Urine Color Yellow (Yellow) 06/02/22 01:36 Urine Appearance Clear (CLEAR) 06/02/22 01:36 Urine pH 5 (5-7) 06/02/22 01:36 Ur Specific [place] 1.020 (1.005-1.030) 06/02/22 01:36 Urine Protein Trace (Negative) 06/02/22 01:36 Urine Glucose (UA) Norm (Normal) 06/02/22 01:36 Urine Ketones 1+ (Negative) H 06/02/22 01:36 Urine Blood Neg (Negative) 06/02/22 01:36 Urine Nitrate Negative (Negative) 06/02/22 01:36 Urine Bilirubin 1+ (Negative) H 06/02/22 01:36 Urine Urobilinogen 4 mg/dL (Negative) H 06/02/22 01:36 Ur Leukocyte Esterase Negative (Negative) 06/02/22 01:36 Urine RBC 0-4 /hpf (0-2) H 06/02/22 01:36 Urine WBC 0-4 /hpf (0-5) H 06/02/22 01:36 Ur Squamous Epith Cells 0-4 /hpf (0-5) H 06/02/22 01:36 Amorphous Sediment Not Reportable 06/02/22 01:36 Urine Bacteria Trace /hpf (NONE) 06/02/22 01:36 Urine Mucus 1+ /hpf 06/02/22 01:36 Discharge Plan Discharge Patient Disposition: Home Clinical Impression: Abdominal pain, Mesenteric lymphadenopathy Condition: Stable Prescriptions: New ondansetron 4 mg film 4 mg PO DAILY PRN (Reason: nausea and vomiting) Qty: 10 0RF Continued hydrocodone-acetaminophen 5-325 mg tablet 1 tab PO Q8H PRN (Reason: pain) Qty: 7 0RF No Action Primatene Mist 0.125 mg/actuation HFA aerosol inhaler 1 puff inhalation Q6H PRN (Reason: Shortness Of Breath) Rx Instructions: may repeat once after 1 minute atorvastatin 40 mg tablet 40 mg PO DAILY@2200 Qty: 90 3RF ipratropium-albuterol 0.5 mg-3 mg(2.5 mg base)/3 mL solution for nebulization 3 ml inhalation Q6H PRN (Reason: wheezing) Qty: 90 3RF Trelegy Ellipta 100-62.5-25 mcg blister with device 1 inh inhalation DAILY Qty: 60 3RF albuterol sulfate 90 mcg/actuation HFA aerosol inhaler 2 puff inhalation Q4H PRN (Reason: shortness of breath or wheezing) Qty: 8.5 5RF Xarelto 20 mg tablet 20 mg PO BEDTIME Qty: 90 2RF nicotine 14 mg/24 hr Patch 24 Hour 1 patch transdermal DAILY 28 Days Qty: 28 0RF clopidogrel 75 mg Tablet 75 mg PO DAILY 30 Days Qty: 30 0RF metoprolol tartrate 50 mg Tablet 75 mg PO BID@0900,2100 30 Days Qty: 90 0RF nitroglycerin 0.4 mg tablet, sublingual 0.4 mg sublingual Q5M PRN (Reason: chest pain) 30 Days Qty: 30 2RF Rx Instructions: do not exceed 3 doses per episode Discharge Orders: Discharge ED (Routine); Ordered 06/02/22 Ordered By: Ethan Stevens Patient Instructions: Abdominal Pain (ED), Mesenteric Adenitis (ED), Opioid Safety, Pain Management Activity Restrictions/Additional Instructions: Return for fever greater than 100, worsening pain despite treatment, vomiting liquids or medications, other concerning symptoms. See your doctor next week, as further outpatient testing may be needed. Coding Level of Care Code ED Truck Hopper for Ronit Hendricks
[2022-06-02 02:08] LABS: Alanine Aminotransferase 13 U/L (0-41); Albumin Level 3.9 g/dL (3.5-5.2); Alkaline Phosphatase 86 U/L (40-130); Anion Gap 12.7 (5-19); Aspartate Amino Transferase 10 U/L (0-40); Blood Urea Nitrogen 10 mg/dL (6-20); Calcium 9.5 mg/dL (8.5-10.5); Carbon Dioxide 32 mmol/L (22-29); Chloride 97 mmol/L (98-107); Glomerular Filtration Rate 88.3 mL/min (90-130); Glucose 142 mg/dL (65-115); Lipase 18 U/L (13-60); Osmolality Calculated 287 mOsm/kg (285-295); Potassium 3.7 mmol/L (3.5-5.1); Sodium 138 mmol/L (136-145); Total Bilirubin 0.4 mg/dL (0.15-1.2); Total Protein 6.9 g/dL (6.6-8.7)
[2022-06-02 02:11] LABS: Add Urine Microscopic? YES; Bilirubin Urine 1+ (Negative); Blood Urine Neg (Negative); Glucose Urine UA Norm (Normal); Ketones Urine 1+ (Negative); Leukocyte Esterase Urine Negative (Negative); Nitrate Urine Negative (Negative); Protein Urine Trace (Negative); Urine Appearance Clear (CLEAR); Urine Color Yellow (Yellow); Urobilinogen Urine 4 mg/dL (Negative); pH Urine 5 (5-7)
[2022-06-02 02:12] LABS: Add Urine Culture? No; Bacteria Urine TRACE /hpf; Mucus Urine 1+ /hpf; RBC Urine 0-4 /hpf (0-2); Squamous Epithelial Cell Urine 0-4 /hpf (0-5); WBC Urine 0-4 /hpf (0-5)
[2022-06-02 02:15] LABS: Procalcitonin 0.99 ng/mL (0-0.5)
[2022-06-02] MEDS: ondansetron 2 mg/ML SDV 2 mL 4 MG IVP (02:19)
[2022-06-02 02:20] VITALS: RESP 18
[2022-06-02] MEDS: HYDROmorphone 1 mg/mL INJ 1 mL IVP (02:20)
[2022-06-02 02:21] VITALS: BP 157/111; PULSE 91; RESP 18; O2SAT 94
[2022-06-02 03:00] VITALS: BP 105/77; PULSE 77; RESP 18; O2SAT 97
[2022-06-02] MEDS: nicotine 21 mg Patch 1 PATCH TRANSDERMA (03:25)
[2022-06-02 04:02] VITALS: BP 101/76; PULSE 69; RESP 18; O2SAT 97
== END 2022-06-02 04:03 | disposition home or self-care (01) ==
PROVIDERS: Emergency Provider Emergency Medicine
DX: R10.9 Unspecified abdominal pain (principal); R59.0 Localized enlarged lymph nodes
CPT/HCPCS: 74177; 80053; 81001; 83605; 83690; 84145; 85025; 86140; 96361; 96374; 96375; 99285; J1170; J2405; J7030; Q9967

== ENCOUNTER 2022-06-04 08:29 | Emergency (ER) | payer MEDICARE, MEDICAID, SELFPAY ==
[2022-06-04 08:34] VITALS: BP 116/69; PULSE 85; RESP 20; TEMP 36.9; O2SAT 93; BMI 21.8
[2022-06-04 09:42] VITALS: BP 127/68; PULSE 77; RESP 18; O2SAT 94
[2022-06-04 09:43] LABS: Basophils # 0.1 10^3/uL (0.0-0.1); Basophils % 1.7 %; Eosinophils # 0.2 10^3/uL (0.0-0.8); Eosinophils % 2.5 %; Hematocrit 48.3 % (42.0-52.0); Hemoglobin 16.5 g/dL (11.7-16.6); Lymphocytes # 1.3 10^3/uL (0.8-4.8); Lymphocytes % 20.8 %; Mean Corpuscular HGB Conc 34.2 g/dL (30.0-36.0); Mean Corpuscular Hemoglobin 32.5 pg (28.0-34.0); Mean Corpuscular Volume 95.3 fl (80-94); Mean Platelet Volume 9.2 fL (7.4-10.4); Monocytes # 0.4 10^3/uL (0.2-0.9); Neutrophils # 4.33 10^3/uL (1.8-7.7); Neutrophils % 68.7 %; Nucleated Red Blood Cells % 0 %; Platelet Count 288 10^3/cmm (130-400); Red Blood Count 5.07 10^6/uL (4.1-5.3); Red Cell Distribution Width 12.3 % (12.1-15.1); White Blood Count 6.3 10^3/uL (4.0-10.0)
--- NOTE | 2022-06-04 09:47 | ED_ITS ---
HPI - Abdominal Pain General: Chief Complaint: Abdominal Pain Stated Complaint: Abd pain Time Seen by Provider: 06/04/22 08:34 Source: patient Mode of arrival: ambulatory History of Present Illness: 52-year-old male presents emergency room clinic chronic abdominal pain suddenly on for the last 2 months. He was recently seen in the emergency room on [address] abdomen which showed chronic abdominal lymphadenopathy that was concerning for metastasis. Patient has a known history of adeno CA of the right lung for which she has seen Dr. Jo. In addition to that is a history of COPD and coronary artery disease and re cently had a NSTEMI earlier this month he was found to have elevated troponin after presenting to the emergency room stress test was done and angiogram was done he had 2 stents placed he had a STEMI approximately 3 years ago as well.According to oncology notes it appears he has completed a course chemo and radiation.. He is supposed to be onoxygen continuously but has not arrived in the emergency room with oxygen on. According to notes from oncology office he was to have restaging CTs done which do not appear to be of completed yet. MD elicited complaint: abdominal pain Pertinent past history: other (Lung CA stage IIIb) Onset (ago): month(s) Pain Consistency: constant Location: Diffuse (Abdomen) Quality: cramping and aching Migration to: other (Groin) Exacerbating factors: eating Relieving factors: nothing Associated Symptoms: Reports dyspepsia, nausea and poor appetite; Denies anorexia, belching, bloating, change in bowel habits, change in stool character, chills, coffee ground emesis, constipation, GI cramping, diarrhea, dysuria, excessive flatus, fever(s), heartburn, hematochezia, hematuria, hemat emesis, fecal incontinence, loose stools, melena, syncope and vomiting Review of Systems Const: Denies: fever(s) or chills ENMT: Denies: throat pain, ear or mastoid pain, nasal discharge or nasal c ongestion Card: Denies: syncope Resp: Denies: dyspnea, productive cough or non-productive cough GI: Reports: nausea; Denies: vomiting, hematemesis, coffee ground emesis, heartburn, diarrhea, constipation, bloating, GI cramping, belching, excessive flatus, fecal incontinence, change in bowel habits, change in stool character, hematochezia or melena : Denies: dysuria or hematuria Skin/Breast: Denies: rash or pruritus PFSH ED PFSH: Medical History Atrial fibrillation CAD (coronary artery disease) Chronic anxiety COPD (chronic obstructive pulmonary disease) Dyslipidemia Macular degeneration Non-small cell lung cancer Obstructive sleep apnea Surgical History History of bronchoscopy 12/29/2020 - Bronchoscopy/EBUS History of cholecystectomy History of coronary angioplasty with insertion of stent 08/2016 Port-A-Cath in place (02/14/21) Family History Other CAD (coronary artery disease) Cancer Diabetes Lung disease Stroke Denies family history of Bleeding disorder Social History Smoking and tobacco status: current every day smoker (1.5 ppd, smoked x 45 years) cigarettes Packs smoked per day: 1.5 Years cigarettes smoked: 48 Quit status (tobacco): considering quitting Second hand smoke exposure: Yes Smoking risk assessment/counseling performed?: Yes Alcohol intake: current Alcohol intake frequency: holidays/special occasions only Lives independently: Yes Household members: significant other and children Marital status: Life Partner service: No Current occupational status: disabled Pets and animals: Yes History of recent travel: No Current gender identity: Male Physical Exam Const: GENERAL APPEARANCE: cooperative and comfortable ORIENTATION/CO NSCIOUSNESS: Yes awake, Yes oriented to person, Yes oriented to place and Yes oriented to time HENMT: COMMON NORMALS: normocephalic, atraumatic and hearing grossly normal bilaterally HEAD & SCALP: normocephalic and atraumatic Resp: COMMON NORMALS: normal respiratory effort, No retractions, No use of accessory muscles and clear to auscultation bilaterally AUSCULTATION: clear to auscultation bilaterally Cardio: COMMON NORMALS: regular rate, regular rhythm and No murmurs present (Cardio) RATE: regular rate RHYTHM: regular rhythm GI: COMMON NORMALS: Soft to palpation and No hepatosplenomegaly present AUSCULTATION: Yes normoactive bowel sounds PALPATION: Yes Soft to palpation, No Tenderness to palpation present (GI), No Guarding due to palpation present (GI) and Yes No hepatosplenomegaly present Extremity: COMMON NORMALS: normal to inspection, capillary refill normal, no clubbing, cyanosis or edema, no calf tenderness and no pedal edema Neuro: SENSORIUM/ORIENTATION: Yes oriented to person, Yes oriented to place and Yes oriented to time Skin: COMMON NORMALS: no rashes or lesions noted GENERAL SKIN EXAM: no harpreet hes or lesions noted Course Vital Signs: Vital signs: Vital Signs Temperature 98.5 F 06/04/22 08:34 Pulse Rate 76 06/04/22 10:30 Respiratory Rate 18 06/04/22 10:30 Blood Pressure 120/86 06/04/22 10:30 Pulse Oximetry 96 06/04/22 10:30 Oxygen Delivery Me thod 06/04/22 09:42 MDM - Abdominal Pain Medical Decision Making Most of abdominal discomfort is lymphadenopathy. Labs otherwise unremarkable I did not repeat the CT as he has does not have an acute abdomen on exam and it was just done 2 days ago. Reviewed the findings and laboratories with the patient. Also discussed with Dr. Jo. He had difficulty making contact with the patient and I have a plan to restage the patient so they can present him with other treatment options but they have not been able to get the patient to follow through her area and contact him at times. Stressed to the patient the importance of following with Dr. Jo's office to address this problem. Started him on a PPI and advised him to soon as he leaves the ER he should cont act Dr. Jo's office either call over there or walk over there and talk to someone directly. Patient expressed understanding. Medical Records I reviewed the patient's medical records. Lab Data I reviewed the patient's lab results. : 06/04/22 09:35 06/04/22 09:35 Labs/Radiology: Laboratory Results WBC 6.3 10^3/uL (4.0-10.0) 06/04/22 09:35 RBC 5.07 10^6/uL (4.1-5.3) 06/04/22 09:35 Hgb 16.5 g/dL (11.7-16.6) 06/04/22 09:35 Hct 48.3 % (42.0-52.0) 06/04/22 09:35 MCV 95.3 fl (80-94) H 06/04/22 09:35 MCH 32.5 pg (28.0-34.0) 06/04/22 09:35 MCHC 34.2 g/dL (30.0-36.0) 06/04/22 09:35 RDW 12.3 % (12.1-15.1) 06/04/22 09:35 Plt Count 288 10^3/cmm (130-400) 06/04/22 09:35 MPV 9.2 fL (7.4-10.4) 06/04/22 09:35 Neut % (Auto) 68.7 % 06/04/22 09:35 Lymph % (Auto) 20.8 % 06/04/22 09:35 [place] % (Auto) 6.0 % 06/04/22 09:35 Eos % (Auto) 2.5 % 06/04/22 09:35 Baso % (Auto) 1.7 % 06/04/22 09:35 Neut # (Auto) 4.33 10^3/uL (1.8-7.7) 06/04/22 09:35 Lymph # (Auto) 1.3 10^3/uL (0.8-4.8) 06/04/22 09:35 [place] # (Auto) 0.4 10^3/uL (0.2-0.9) 06/04/22 09:35 Eos # (Auto) 0.2 10^3/uL (0.0-0.8) 06/04/22 09:35 Baso # (Auto) 0.1 10^3/uL (0.0-0.1) 06/04/22 09:35 Nucleated RBC % (auto) 0 % 06/04/22 09:35 Nucleated RBCs # 0.0 /100WBC 06/04/22 09:35 Sodium 135 mmol/L (136-145) L 06/04/22 09:35 Potassium 4.2 mmol/L (3.5-5.1) 06/04/22 09:35 Chloride 95 mmol/L (98-107) L 06/04/22 09:35 Carbon Dioxide 30 mmol/L (22-29) H 06/04/22 09:35 Anion Gap 14.2 (5-19) 06/04/22 09:35 BUN 13 mg/dL (6-20) 06/04/22 09:35 Creatinine 0.9 mg/dL (0.7-1.2) 06/04/22 09:35 GFR Calculation 88.3 mL/min (90-130) L 06/04/22 09:35 Glucose 143 mg/dL (65-115) H 06/04/22 09:35 Calculated Osmolality 283 mOsm/kg (285-295) L 06/04/22 09:35 Calcium 9.5 mg/dL (8.5-10.5) 06/04/22 09:35 Total Bilirubin 0.4 mg/dL (0.15-1.2) 06/04/22 09:35 AST 11 U/L (0-40) 06/04/22 09:35 ALT 15 U/L (0-41) 06/04/22 09:35 Alkaline Phosphatase 90 U/L (40-130) 06/04/22 09:35 Total Protein 7.0 g/dL (6.6-8.7) 06/04/22 09:35 Albumin 4.0 g/dL (3.5-5.2) 06/04/22 09:35 Globulin 3.0 g/dL (1.3-4.6) 06/04/22 09:35 Lipase 21 U/L (13-60) 06/04/22 09:35 Urine Color Yellow (Yellow) 06/04/22 10:26 Urine Appearance Clear (CLEAR) 06/04/22 10:26 Urine pH 5 (5-7) 06/04/22 10: Ur Specific [place] 1.020 (1.005-1.030) 06/04/22 10: Urine Protein Trace (Negative) 06/04/22 10:26 Urine Glucose (UA) Norm (Normal) 06/04/22 10:26 Urine Ketones 1+ (Negative) H 06/04/22 10: Urine Blood Neg (Negative) 06/04/22 10: Urine Nitrate Negative (Negative) 06/04/22 10: Urine Bilirubin Neg (Negative) 06/04/22 10: Urine Urobilinogen Norm mg/dL (Negative) 06/04/22 10: Ur Leukocyte Esterase Negative (Negative) 06/04/22 10: Urine RBC 0-4 /hpf (0-2) H 06/04/22 10:26 Urine WBC 0-4 /hpf (0-5) H 06/04/22 10:26 Ur Squamous Epith Cells 0-4 /hpf (0-5) H 06/04/22 10:26 Amorphous Sediment Not Reportable 06/04/22 10:26 Urine Bacteria 1+ /hpf (NONE) H 06/04/22 10:26 Urine Mucus 1+ /hpf 06/04/22 10:26 Discharge Plan Discharge Patient Disposition: Home Clinical Impression: Mesenteric lymphadenopathy, COPD (chronic obstructive pulmonary disease), Primary adenocarcinoma of lower lobe of right lung Condition: Stable Prescriptions: New pantoprazole 40 mg tablet,delayed release (DR/EC) 40 mg PO DAILY Qty: 30 0RF No Action Primatene Mist 0.125 mg/actuation HFA aerosol inhaler 1 puff inhalation Q6H PRN (Reason: Shortness Of Breath) Rx Instructions: may repeat once after 1 minute atorvastatin 40 mg tablet 40 mg PO DAILY@2200 Qty: 90 3RF ipratropium-albuterol 0.5 mg-3 mg(2.5 mg base)/3 mL solution for nebulization 3 ml inhalation Q6H PRN (Reason: wheezing) Qty: 90 3RF Trelegy Ellipta 100-62.5-25 mcg blister with device 1 inh inhalation DAILY Qty: 60 3RF albuterol sulfate 90 mcg/actuation HFA aerosol inhaler 2 puff inhalation Q4H PRN (Reason: shortness of breath or wheezing) Qty: 8.5 5RF Xarelto 20 mg tablet 20 mg PO BEDTIME Qty: 90 2RF ondansetron 4 mg film 4 mg PO DAILY PRN (Reason: nausea and vomiting) Qty: 10 0RF hydrocodone-acetaminophen 5-325 mg tablet 1 tab PO Q8H PRN (Reason: pain) Qty: 7 0RF nicotine 14 mg/24 hr Patch 24 Hour 1 patch transdermal DAILY 28 Days Qty: 28 0RF clopidogrel 75 mg Tablet 75 mg PO DAILY 30 Days Qty: 30 0RF metoprolol tartrate 50 mg Tablet 75 mg PO BID@0900,2100 30 Days Qty: 90 0RF nitroglycerin 0.4 mg tablet, sublingual 0.4 mg sublingual Q5M PRN (Reason: chest pain) 30 Days Qty: 30 2RF Rx Instructions: do not exceed 3 doses per episode Discharge Orders: Discharge ED (Routine); Ordered 06/04/22 Ordered By: Andrew Sanches Patient Instructions: Opioid Safety, Pain Management Activity Restrictions/Additional Instructions: You are seen today for chronic abdominal pain. The pain is thought to be related to the lymphadenopathy seen on the CT done of your abdomen 2 days ago. Lymphadenopathy is likely extension of your cancer. It is critical that you contact Dr. Jo's office for further evaluation and testing as well as consideration of treatment options. Recommend that as soon as you leave the ER you either go to his office or contact his office by phone to make arrangements. Coding Level of Care Code ED Stunt Person for Chg Fwd Exam Detailed
[2022-06-04 09:58] LABS: Alanine Aminotransferase 15 U/L (0-41); Alkaline Phosphatase 90 U/L (40-130); Blood Urea Nitrogen 13 mg/dL (6-20); Calcium 9.5 mg/dL (8.5-10.5); Carbon Dioxide 30 mmol/L (22-29); Chloride 95 mmol/L (98-107); Glomerular Filtration Rate 88.3 mL/min (90-130); Glucose 143 mg/dL (65-115); Lipase 21 U/L (13-60); Osmolality Calculated 283 mOsm/kg (285-295); Sodium 135 mmol/L (136-145); Total Bilirubin 0.4 mg/dL (0.15-1.2)
[2022-06-04 10:02] LABS: Anion Gap 14.2 (5-19); Aspartate Amino Transferase 11 U/L (0-40); Potassium 4.2 mmol/L (3.5-5.1)
[2022-06-04 10:30] VITALS: BP 120/86; PULSE 76; RESP 18; O2SAT 96
[2022-06-04 11:05] LABS: Glucose Urine UA Norm (Normal); Ketones Urine 1+ (Negative); Protein Urine Trace (Negative); Urine Appearance Clear (CLEAR); Urine Color Yellow (Yellow); pH Urine 5 (5-7)
[2022-06-04 11:06] LABS: Add Urine Microscopic? YES; Bacteria Urine 1+ /hpf; Bilirubin Urine Neg (Negative); Blood Urine Neg (Negative); Leukocyte Esterase Urine Negative (Negative); Nitrate Urine Negative (Negative); RBC Urine 0-4 /hpf (0-2); Squamous Epithelial Cell Urine 0-4 /hpf (0-5); Urobilinogen Urine Norm (Negative); WBC Urine 0-4 /hpf (0-5)
[2022-06-04 11:07] LABS: Add Urine Culture? No; Mucus Urine 1+ /hpf
--- NOTE | 2022-06-06 09:42 | DCPLANNER ---
circulation manager had message to speak with patient about getting a primary care physician. circulation manager called phone number [phone] unable to speak with patient, renal case manager spoke with patients life partner. circulation manager left a message with life partner for patient to call renal case manager back to get established with a primary care physician.
== END 2022-06-04 11:45 | disposition home or self-care (01) ==
PROVIDERS: Emergency Provider Family Medicine
DX: J44.9 Chronic obstructive pulmonary disease, unspecified (principal); R59.1 Generalized enlarged lymph nodes; C34.31 Malignant neoplasm of lower lobe, right bronchus or lung; Z79.02 Long term (current) use of antithrombotics/antiplatelets; F17.210 Nicotine dependence, cigarettes, uncomplicated; I25.10 Atherosclerotic heart disease of native coronary artery without angina pectoris; E78.5 Hyperlipidemia, unspecified; H35.30 Unspecified macular degeneration; Z95.5 Presence of coronary angioplasty implant and graft
CPT/HCPCS: 80053; 81001; 83690; 85025; 99283

== ENCOUNTER → 2022-06-06 10:45 | Outpatient (BNVA) | payer MEDICARE, MEDICAID, SELFPAY | PROVIDERS: Visit Provider Nurse Practitioner Family | DX: I25.10 Atherosclerotic heart disease of native coronary artery without angina pectoris (principal); I48.91 Unspecified atrial fibrillation; F17.210 Nicotine dependence, cigarettes, uncomplicated | CPT/HCPCS: 99214 ==

== ENCOUNTER → 2022-06-18 14:59 | Outpatient (BNVA) | payer MEDICARE, MEDICAID, SELFPAY | PROVIDERS: Visit Provider Internal Medicine Cardiovascular Disease | DX: I25.10 Atherosclerotic heart disease of native coronary artery without angina pectoris (principal); R06.02 Shortness of breath; I48.11 Longstanding persistent atrial fibrillation; Z79.01 Long term (current) use of anticoagulants; F17.210 Nicotine dependence, cigarettes, uncomplicated; Z95.5 Presence of coronary angioplasty implant and graft | CPT/HCPCS: 99214 ==

== ENCOUNTER 2022-06-20 08:50 | Oncology outpatient (recurring) (ONCR) | payer MEDICARE, MEDICAID, SELFPAY | END 2022-07-10 23:59 | disposition home or self-care (01) | PROVIDERS: Visit Provider Internal Medicine Medical Oncology | DX: C34.31 Malignant neoplasm of lower lobe, right bronchus or lung (principal) | CPT/HCPCS: 36591 ==

== ENCOUNTER 2022-06-20 09:40 | Emergency (ER) | payer MEDICARE, MEDICAID, SELFPAY ==
[2022-06-20] VITALS (8 sets, daily range): BP systolic 95–124; BP diastolic 68–96; PULSE 63–100; RESP 18–22; TEMP 36.6; O2SAT 91–96; BMI 33.0
--- NOTE | 2022-06-20 09:58 | W.ED.GENADLT ---
HPI - General Adult General: Chief complaint: General Medical Stated complaint: sent by [facility] pain management Time Seen by Provider: 06/20/22 09:54 History of Present Illness: 52-year-old male who presents with chronic pain from cancer. Patient reports that he is out of his pain medication is here because he was told by the oncology office to come here for some pain management. Patient has missed multiple appointments with pain management and does not have another appointment until after June. He reports he ran out of his pain medication last night. Patient has noted new findings. Associated symptoms: Deny chest pain, dyspnea, headache(s), rash or palpitations Review of Systems Const: Denies: fever(s) or chills Card: Denies: chest pain or palpitations Resp: Denies: dyspnea or productive cough GI: Reports: abdominal pain : Denies: difficulty urinating or dysuria Skin/Breast: Denies: rash or pruritus Neuro: Denies: headache(s) or dizziness PFSH ED PFSH: Medical History Atrial fibrillation CAD (coronary artery disease) Chronic anxiety COPD (chronic obstructive pulmonary disease) Dyslipidemia Macular degeneration Non-small cell lung cancer Obstructive sleep apnea Surgical History History of bronchoscopy 12/29/2020 - Bronchoscopy/EBUS History of cholecystectomy History of coronary angioplasty with insertion of stent 08/2016 Mid left circumflex Port-A-Cath in place (02/14/21) Presence of stent in left circumflex coronary artery 05/29/2022 Distal to previously placed stent S/P right coronary artery (RCA) stent placement 05/29/2022 Mid RCA Family History Other CAD (coronary artery disease) Cancer Diabetes Lung disease Stroke Denies family history of Bleeding disorder Social History Smoking and tobacco status: current every day smoker cigarettes Packs smoked per day: 1.5 Years cigarettes smoked: 48 Quit status (tobacco): considering quitting Second hand smoke exposure: Yes Smoking risk assessment/counseling performed?: Yes Alcohol intake: current Alcohol intake frequency: holidays/special occasions only Lives independently: Yes Household members: significant other and children Marital status: Life Partner service: No Current occupational status: disabled Pets and animals: Yes History of recent travel: No Current gender identity: Male Physical Exam Const: COMMON NORMALS: patient oriented x3 and alert Resp: COMMON NORMALS: normal respiratory effort, No use of accessory muscles and clear to auscultation bilaterally AUSCULTATION: clear to auscultation bilaterally Cardio: COMMON NORMALS: regular rate and regular rhythm RATE: regular rate RHYTHM: regular rhythm GI: COMMON NORMALS: Soft to palpation PALPATION: Yes Soft to palpation and Yes Tenderness to palpation present (GI) (Diffuse) Extremity: COMMON NORMALS: full ROM and capillary refill normal Neuro: COMMON NORMALS: patient oriented x3 and moves all extremities SENSORIUM/ORIENTATION: Yes alert Psych: COMMON NORMALS: speech normal APPEARANCE: Yes grossly normal SPEECH: Yes normal speech Course Vital Signs: Vital signs: Vital Signs Temperature 97.8 F 06/20/22 09:45 Pulse Rate 85 06/20/22 12:32 Respiratory Rate 18 06/20/22 12:32 Blood Pressure 112/68 06/20/22 12:32 Pulse Oximetry 92 06/20/22 12:32 Oxygen Delivery Me thod 06/20/22 12:00 MDM - General Adult Medical Decision Making Patient had significant improvement in his pain with the ketamine infusion. teaching manager was able to make patient appointment to establish primary care provider tomorrow. Patient will be given couple hydrocodone's to help him get through with his chronic pain due to cancer. Patient was stable and discharged home Discharge Plan Discharge Patient Disposition: Home Clinical Impression: Chronic pain due to neoplasm Condition: Stable Prescriptions: New hydrocodone-acetaminophen 5-325 mg tablet 1 tab PO Q8H PRN (Reason: pain) Qty: 10 0RF No Action Primatene Mist 0.125 mg/actuation HFA aerosol inhaler 1 puff inhalation Q6H PRN (Reason: Shortness Of Breath) Rx Instructions: may repeat once after 1 minute atorvastatin 40 mg tablet 40 mg PO DAILY@2200 Qty: 90 3RF ipratropium-albuterol 0.5 mg-3 mg(2.5 mg base)/3 mL solution for nebulization 3 ml inhalation Q6H PRN (Reason: wheezing) Qty: 90 3RF albuterol sulfate 90 mcg/actuation HFA aerosol inhaler 2 puff inhalation Q4H PRN (Reason: shortness of breath or wheezing) Qty: 8.5 5RF clopidogrel 75 mg tablet 75 mg PO DAILY Qty: 90 3RF metoprolol tartrate 50 mg tablet 75 mg PO BID@0900,2100 Qty: 90 1RF Xarelto 20 mg tablet 20 mg PO BEDTIME Qty: 90 2RF Trelegy Ellipta 100-62.5-25 mcg blister with device 1 inh inhalation DAILY Qty: 60 5RF ondansetron 4 mg film 4 mg PO DAILY PRN (Reason: nausea and vomiting) Qty: 10 0RF nicotine 14 mg/24 hr Patch 24 Hour 1 patch transdermal DAILY 28 Days Qty: 28 0RF nitroglycerin 0.4 mg tablet, sublingual 0.4 mg sublingual Q5M PRN (Reason: chest pain) 30 Days Qty: 30 2RF Rx Instructions: do not exceed 3 doses per episode pantoprazole 40 mg tablet,delayed release (DR/EC) 40 mg PO DAILY Qty: 30 0RF Men's Multi-Vitamin Tablet 1 tab PO DAILY verapamil 240 mg capsule,ext rel. pellets 24 hr 240 mg PO DAILY Tylenol Cold-Flu Multi-Act D-N 30-15-500mg(d)/ 2-30-15-500 mg Tablets, Sequential 2 ea PO Q6H PRN (Reason: Congestion) Discharge Orders: Discharge ED (Routine); Ordered 06/20/22 Ordered By: Boogie Mccauley Discharge Diet: Usual diet Discharge Activity: Resume usual activity Patient Instructions: Chronic Pain (ED), Opioid Safety, Pain Management Activity Restrictions/Additional Instructions: These keep the appointment to establish care with a primary care provider Coding Level of Care Code ED Tappet Adjuster for Dennisg Fwd Exam Detailed
--- NOTE | 2022-06-20 10:12 | PC.NURSE ---
pt is a a pt of Dr. Jo and is her requesting pain meds because [facility] is out of town and his pain meds have ran out. pt reports all over pain 01/18
--- NOTE | 2022-06-20 10:56 | DCPLANNER ---
Addendum entered by Edna Davis 07/31/22 15:33: Patient had a follow up appointment scheduled with Dr. Marrero - patient did attend appointment Original Note: management manager was asked to help patient get established with a primary care physician. management manager spoke with patient about getting established with primary care. management manager called [facility], gave clinic patients information. A follow up appointment was scheduled for Tuesday, June 21, 2022 at 10:[address] Marrero. management manager informed patient of the appointment. management manager also informed patients nurse, ER physician.
--- NOTE | 2022-06-20 11:06 | PC.NURSE ---
accessed port 1100
--- NOTE | 2022-06-20 11:08 | PC.NURSE ---
administering ketamine drip through port at 1105, monitoring vitals at bedside. physician aware of soft pressures.
--- NOTE | 2022-06-20 12:32 | PC.NURSE ---
removed port access
== END 2022-06-20 12:33 | disposition home or self-care (01) ==
PROVIDERS: Emergency Provider Student in an Organized Health Care Education/Training Program
DX: G89.3 Neoplasm related pain (acute) (chronic) (principal); Z79.02 Long term (current) use of antithrombotics/antiplatelets; F17.210 Nicotine dependence, cigarettes, uncomplicated; I25.10 Atherosclerotic heart disease of native coronary artery without angina pectoris; J44.9 Chronic obstructive pulmonary disease, unspecified; E78.5 Hyperlipidemia, unspecified; H35.30 Unspecified macular degeneration; C34.90 Malignant neoplasm of unspecified part of unspecified bronchus or lung; Z95.5 Presence of coronary angioplasty implant and graft; C34.31 Malignant neoplasm of lower lobe, right bronchus or lung
CPT/HCPCS: 36591; 96365; 99284; J3490

== ENCOUNTER 2022-07-12 11:14 | Oncology outpatient (recurring) (ONCR) | payer MEDICARE, MEDICAID, SELFPAY | END 2022-08-10 23:59 | disposition home or self-care (01) | PROVIDERS: PCP Family Medicine; Visit Provider Internal Medicine Medical Oncology | DX: C34.31 Malignant neoplasm of lower lobe, right bronchus or lung (principal); C77.8 Secondary and unspecified malignant neoplasm of lymph nodes of multiple regions; Z95.5 Presence of coronary angioplasty implant and graft; G89.3 Neoplasm related pain (acute) (chronic); F17.210 Nicotine dependence, cigarettes, uncomplicated; Z79.891 Long term (current) use of opiate analgesic; Z79.899 Other long term (current) drug therapy; Z92.21 Personal history of antineoplastic chemotherapy; R11.2 Nausea with vomiting, unspecified; Z92.3 Personal history of irradiation | CPT/HCPCS: 99215 ==

== ENCOUNTER 2022-07-31 12:37 | Outpatient (CLI) | payer MEDICARE, MEDICAID, SELFPAY | END 2022-07-31 12:38 | disposition home or self-care (01) | LOC: RT 12:40 | PROVIDERS: PCP Family Medicine; Visit Provider Internal Medicine Pulmonary Disease | DX: R06.00 Dyspnea, unspecified (principal) | CPT/HCPCS: 94060; 94618; 94729; J7613 ==

== ENCOUNTER 2022-08-25 12:58 | Emergency (ER) | payer MEDICARE, MEDICAID, SELFPAY ==
[2022-08-25] VITALS (13 sets, daily range): BP systolic 97–129; BP diastolic 66–100; PULSE 63–101; RESP 16–20; TEMP 36.2; O2SAT 90–96
--- NOTE | 2022-08-25 13:38 | ED_ITS ---
HPI - Abdominal Pain General: Chief Complaint: Abdominal Pain Stated Complaint: abd pain Time Seen by Provider: 08/25/22 13:27 History of Present Illness: 52-year-old male presents with abdominal pain. Patient has a known history of metastatic cancer into his abdomen. Patient reports he is just having worsening abdominal pain today, he feels bad, does report he had a cough, severe nausea. Patient just complains severe beer malaise worse than normal. Reports that the pain has been worse over the last day or 2. Associated Symptoms: Reports nausea; Denies chills, fever(s) and vomiting Review of Systems Const: Reports: body aches, fatigue, malaise and other (Dizziness); Denies: fever(s) or chills Eyes: Denies: change in vision ENMT: Denies: throat pain Card: Denies: chest pain or palpitations Resp: Reports: dyspnea and non-productive cough GI: Reports: abdominal pain and nausea; Denies: vomiting : Denies: flank pain or difficulty urinating Skin/Breast: Denies: rash Neuro: Reports: dizziness; Denies: headache(s) Psych: Denies: anxiety or depression PFSH ED PFSH: Medical History Atrial fibrillation CAD (coronary artery disease) Chronic anxiety COPD (chronic obstructive pulmonary disease) Dyslipidemia Macular degeneration Non-small cell lung cancer Obstructive sleep apnea Surgical History History of bronchoscopy 12/29/2020 - Bronchoscopy/EBUS History of cholecystectomy History of coronary angioplasty with insertion of stent 08/2016 Mid left circumflex Port-A-Cath in place (02/14/21) Presence of stent in left circumflex coronary artery 05/29/2022 Distal to previously placed stent S/P right coronary artery (RCA) stent placement 05/29/2022 Mid RCA Family History Other CAD (coronary artery disease) Cancer Diabetes Lung disease Stroke Denies family history of Bleeding disorder Social History Smoking and tobacco status: current every day smoker cigarettes Packs smoked per day: 1.5 Years cigarettes smoked: 48 [ Other cigarette details: 1.5 PPD, 3PPD x 45yrs] Quit status (tobacco): considering quitting Second hand smoke exposure: Yes Smoking risk assessment/counseling performed?: Yes Alcohol intake: current Alcohol intake frequency: holidays/special occasions only Lives independently: Yes Household members: significant other and children Marital status: Life Partner service: No Current occupational status: disabled Pets and animals: Yes History of recent travel: No Current gender identity: Male Physical Exam Const: COMMON NORMALS: patient oriented x3 GENERAL APPEARANCE: disheveled and ill appearing HENMT: COMMON NORMALS: atraumatic and hearing grossly normal bilaterally HEAD & SCALP: atraumatic Resp: AUSCULTATION: no crackles, no wheezes and diminished lung sounds Cardio: COMMON NORMALS: regular rate and regular rhythm RATE: regular rate RHYTHM: regular rhythm GI: INSPECTION: No abdominal distension PALPATION: Yes Tenderness to palpa tion present (GI) (Mild diffuse) Extremity: COMMON NORMALS: full ROM and capillary refill normal Neuro: COMMON NORMALS: patient oriented x3, no focal motor deficits and no sensory deficits noted Psych: COMMON NORMALS: mental status grossly normal, Normal thought process present and cooperative THOUGHT PROCESS: Normal thought process present Course Vital Signs: Vital signs: Vital Signs Temperature 97.2 F L 08/25/22 13:20 Pulse Rate 78 08/25/22 16:30 Respiratory Rate 18 08/25/22 16:30 Blood Pressure 105/71 08/25/22 16:30 Pulse Oximetry 92 08/25/22 16:30 MDM - Abdominal Pain Medical Decision Making Patient's labs show no significant acute changes. Patient has a negative CT of his chest. He does have increasing size of his metastasis in his abdomen. This is likely the cause of his abdominal pain. Patient has some mild underlying COPD is likely the cause of his mild feeling of shortness of breath. He however remained in the mid upper 90s on room air. Patient requested some muscle relaxant since it seemed to help him with his pain and I will provide him with a Norflex along with refill on his cyclobenzaprine. Patient already has morphine for his abdominal pain and cancer pain. Patient stable and discharged home Lab Data 08/25/22 14:00 08/25/22 14:00 Labs/Radiology: Radiology Impressions Chest/Abdomen/Pelvis CT 08/25/22 14:39 IMPRESSION: 1. Negative CT angiogram of the chest. No evidence of acute pulmonary embolism. 2. Stable right perihilar scarring and adjacent subsegmental atelectasis. No compelling evidence of recurrence tumor. 3. COPD with upper lobe emphysematous changes. IMPRESSION: 1. Two liver metastasis increased in size and number from previous exam. 2. Moderate metastatic abdominal retroperitoneal lymphadenopathy mildly progressed from previous exam. 3. Nonspecific ill-defined mesenteric fat infiltration mid abdomen mildly progressed from previous exam that may be inflammatory or metastatic in nature. 4. Additional chronic findings as above. Laboratory Results WBC 6.8 10^3/uL (4.0-10.0) 08/25/22 14:00 RBC 5.16 10^6/uL (4.1-5.3) 08/25/22 14:00 Hgb 16.2 g/dL (11.7-16.6) 08/25/22 14:00 Hct 47.5 % (42.0-52.0) 08/25/22 14:00 MCV 92.1 fl (80-94) 08/25/22 14:00 MCH 31.4 pg (28.0-34.0) 08/25/22 14:00 MCHC 34.1 g/dL (30.0-36.0) 08/25/22 14:00 RDW 13.7 % (12.1-15.1) 08/25/22 14:00 Plt Count 221 10^3/cmm (130-400) 08/25/22 14:00 MPV 9.3 fL (7.4-10.4) 08/25/22 14:00 Neut % (Auto) 76.6 % 08/25/22 14:00 Lymph % (Auto) 14.8 % 08/25/22 14:00 [place] % (Auto) 6.4 % 08/25/22 14:00 Eos % (Auto) 0.7 % 08/25/22 14:00 Baso % (Auto) 1.2 % 08/25/22 14:00 Neut # (Auto) 5.17 10^3/uL (1.8-7.7) 08/25/22 14:00 Lymph # (Auto) 1.0 10^3/uL (0.8-4.8) 08/25/22 14:00 [place] # (Auto) 0.4 10^3/uL (0.2-0.9) 08/25/22 14:00 Eos # (Auto) 0.1 10^3/uL (0.0-0.8) 08/25/22 14:00 Baso # (Auto) 0.1 10^3/uL (0.0-0.1) 08/25/22 14:00 Nucleated RBC % (auto) 0 % 08/25/22 14:00 Nucleated RBCs # 0.0 /100WBC 08/25/22 14:00 Sodium 133 mmol/L (136-145) L 08/25/22 14:00 Potassium 3.9 mmol/L (3.5-5.1) 08/25/22 14:00 Chloride 93 mmol/L (98-107) L 08/25/22 14:00 Carbon Dioxide 33 mmol/L (22-29) H 08/25/22 14:00 Anion Gap 10.9 (5-19) 08/25/22 14:00 BUN 12 mg/dL (6-20) 08/25/22 14:00 Creatinine 0.9 mg/dL (0.7-1.2) 08/25/22 14:00 GFR Calculation 88.3 mL/min (90-130) L 08/25/22 14:00 Glucose 130 mg/dL (65-115) H 08/25/22 14:00 Calculated Osmolality 278 mOsm/kg (285-295) L 08/25/22 14:00 Calcium 9.8 mg/dL (8.5-10.5) 08/25/22 14:00 Magnesium 1.7 mg/dL (1.7-2.3) 08/25/22 14:00 Total Bilirubin 0.6 mg/dL (0.15-1.2) 08/25/22 14:00 AST 13 U/L (0-40) 08/25/22 14:00 ALT 14 U/L (0-41) 08/25/22 14:00 Alkaline Phosphatase 104 U/L (40-130) 08/25/22 14:00 Total Protein 7.0 g/dL (6.6-8.7) 08/25/22 14:00 Albumin 3.7 g/dL (3.5-5.2) 08/25/22 14:00 Globulin 3.3 g/dL (1.3-4.6) 08/25/22 14:00 Lipase 21 U/L (13-60) 08/25/22 14:00 Discharge Plan Discharge Patient Disposition: Home Clinical Impression: COPD (chronic obstructive pulmonary disease), Primary adenocarcinoma of lower lobe of right lung, Metastatic adenocarcinoma Condition: Stable Prescriptions: New cyclobenzaprine 10 mg tablet 10 mg PO TID PRN (Reason: muscle spasm) Qty: 20 0RF No Action Primatene Mist 0.125 mg/actuation HFA aerosol inhaler 1 puff inhalation Q6H PRN (Reason: Shortness Of Breath) Rx Instructions: may repeat once after 1 minute atorvastatin 40 mg tablet 40 mg PO DAILY@2200 Qty: 90 3RF promethazine 25 mg tablet 25 mg PO TID PRN (Reason: nausea and vomiting) Qty: 60 0RF hydrocodone-acetaminophen 10-300 mg tablet 1 tab PO Q8H PRN (Reason: pain) 30 Days Qty: 90 0RF cyclobenzaprine 10 mg tablet 10 mg PO BID PRN (Reason: muscle spasm) Qty: 14 0RF ondansetron 8 mg tablet,disintegrating 8 mg PO Q4H PRN (Reason: nausea and vomiting) Qty: 60 0RF morphine 30 mg tablet extended release 30 mg PO Q12H 30 Days Qty: 60 0RF morphine 15 mg tablet 15 mg PO Q4H PRN (Reason: pain) 30 Days Qty: 120 0RF lorazepam 1 mg tablet 1 mg PO TID PRN (Reason: severe nausea) 30 Days Qty: 90 0RF ipratropium-albuterol 0.5 mg-3 mg(2.5 mg base)/3 mL solution for nebulization 3 ml inhalation Q6H PRN (Reason: wheezing) Qty: 90 3RF albuterol sulfate 90 mcg/actuation HFA aerosol inhaler 2 puff inhalation Q4H PRN (Reason: shortness of breath or wheezing) Qty: 8.5 5RF clopidogrel 75 mg tablet 75 mg PO DAILY Qty: 90 3RF pantoprazole 40 mg tablet,delayed release (DR/EC) 40 mg PO DAILY Qty: 30 3RF Xarelto 20 mg tablet 20 mg PO BEDTIME Qty: 90 2RF Trelegy Ellipta 100-62.5-25 mcg blister with device 1 inh inhalation DAILY Qty: 60 5RF polyethylene glycol 3350 17 gram/dose powder See Rx Instructions .ROUTE .COMPLEX Qty: 238 2RF Dose Instruction: mix 17g directed AND drink TWICE DAILY Rx Instructions: mix 17g directed AND drink TWICE DAILY verapamil 240 mg capsule,ext rel. pellets 24 hr 240 mg PO DAILY Qty: 90 1RF nitroglycerin 0.4 mg tablet, sublingual 0.4 mg sublingual Q5M PRN (Reason: chest pain) 30 Days Qty: 30 2RF Rx Instructions: do not exceed 3 doses per episode Men's Multi-Vitamin Tablet 1 tab PO DAILY Discharge Orders: Discharge ED (Routine); Ordered 08/25/22 Ordered By: Boogie Mccauley Referrals: Michael Cooley MD [Primary Care Provider] - Discharge Diet: Usual diet Discharge Activity: Resume usual activity Patient Instructions: Opioid Safety, Pain Management, COPD (Chronic Obstructive Pulmonary Disease) (DC), Cancer Pain Activity Restrictions/Additional Instructions: Please follow-up with your primary care provider and your oncologist next week for continuation of your care and recheck of your symptoms Coding Level of Care Code ED Health Service Worker for Dennisg Fwd Exam Comprehensive
[2022-08-25 14:07] LABS: Basophils # 0.1 10^3/uL (0.0-0.1); Basophils % 1.2 %; Eosinophils # 0.1 10^3/uL (0.0-0.8); Eosinophils % 0.7 %; Hematocrit 47.5 % (42.0-52.0); Hemoglobin 16.2 g/dL (11.7-16.6); Lymphocytes % 14.8 %; Mean Corpuscular HGB Conc 34.1 g/dL (30.0-36.0); Mean Corpuscular Hemoglobin 31.4 pg (28.0-34.0); Mean Corpuscular Volume 92.1 fl (80-94); Mean Platelet Volume 9.3 fL (7.4-10.4); Monocytes # 0.4 10^3/uL (0.2-0.9); Monocytes % 6.4 %; Neutrophils # 5.17 10^3/uL (1.8-7.7); Neutrophils % 76.6 %; Nucleated Red Blood Cells % 0 %; Platelet Count 221 10^3/cmm (130-400); Red Blood Count 5.16 10^6/uL (4.1-5.3); Red Cell Distribution Width 13.7 % (12.1-15.1); White Blood Count 6.8 10^3/uL (4.0-10.0)
[2022-08-25] MEDS: ondansetron 2 mg/ML SDV 2 mL 4 MG IVP (14:09)
[2022-08-25] MEDS: sodium chloride 0.9% 1,000 ML 999 ML IV (14:09)
[2022-08-25] MEDS: HYDROmorphone 1 mg/mL INJ 1 mL 0.5 MG IVP (14:09)
[2022-08-25 14:30] LABS: Alanine Aminotransferase 14 U/L (0-41); Albumin Level 3.7 g/dL (3.5-5.2); Alkaline Phosphatase 104 U/L (40-130); Anion Gap 10.9 (5-19); Aspartate Amino Transferase 13 U/L (0-40); Blood Urea Nitrogen 12 mg/dL (6-20); Calcium 9.8 mg/dL (8.5-10.5); Carbon Dioxide 33 mmol/L (22-29); Chloride 93 mmol/L (98-107); Globulin 3.3 g/dL (1.3-4.6); Glomerular Filtration Rate 88.3 mL/min (90-130); Glucose 130 mg/dL (65-115); Lipase 21 U/L (13-60); Magnesium 1.7 mg/dL (1.7-2.3); Osmolality Calculated 278 mOsm/kg (285-295); Potassium 3.9 mmol/L (3.5-5.1); Sodium 133 mmol/L (136-145); Total Bilirubin 0.6 mg/dL (0.15-1.2)
--- NOTE | 2022-08-25 14:39 | CTR_ITS ---
PROCEDURE INFORMATION: Exam: CTA Chest With Contrast Exam date and time: 08/25/2022 3:01 PM Age: 52 years old Clinical indication: Other: Abd pain luq pain; Abdominal pain; Generalized; Shortness of breath; Other: SOB; Additional info: SOB, abd pain, metastatic dz. History of lung cancer lung window TECHNIQUE: Imaging protocol: Computed tomographic angiography of the chest with contrast. 3D rendering (Not supervised by radiologist): MIP and/or 3D reconstructed images were created by the technologist. Radiation optimization: All CT scans at this facility use at least one of these dose optimization techniques: automated exposure control; mA and/or kV adjustment per patient size (includes targeted exams where dose is matched to clinical indication); or iterative reconstruction. Contrast material: OMNI 350; Contrast volume: 100 ml; Contrast route: INTRAVENOUS (IV); COMPARISON: CT angio chest PE protcl [id number] 10/02/2021 8:39 PM RADIATION DOSE METRICS: Total DLP (mGy-cm): 1344.65 FINDINGS: Tubes, catheters and devices: Left-sided central line whose tip terminates within the SVC. Pulmonary arteries: Pulmonary vasculature is adequately opacified without filling defects or other evidence of acute pulmonary embolism. Aorta: Unremarkable. No aortic aneurysm. No aortic dissection. Lungs: Stable right perihilar stellate shaped density likely representing scarring and adjacent bronchiectasis. Accompanying bandlike density more posteriorly unchanged representing subsegmental atelectasis. Stable upper lobe emphysematous changes stable 5 mm left upper lobe indistinct nodule favoring benign etiology. Pleural spaces: Unremarkable. No pneumothorax. No pleural effusion. Heart: Heart is mildly enlarged. Diffuse calcification of coronary arteries. No significant pericardial effusion. Lymph nodes: Unremarkable. No enlarged lymph nodes. Bones/joints: Unremarkable. No acute fracture. Soft tissues: Unremarkable. PROCEDURE INFORMATION: Exam: CT Abdomen And Pelvis With Contrast Exam date and time: 08/25/2022 3:01 PM Age: 52 years old Clinical indication: Other: Abd pain luq pain; Abdominal pain; Generalized; Shortness of breath; Other: SOB; Additional info: SOB, abd pain, metastatic dz TECHNIQUE: Imaging protocol: Computed tomography of the abdomen and pelvis with contrast. Radiation optimization: All CT scans at this facility use at least one of these dose optimization techniques: automated exposure control; mA and/or kV adjustment per patient size (includes targeted exams where dose is matched to clinical indication); or iterative reconstruction. Contrast material: OMNI 350; Contrast volume: 100 ml; Contrast route: INTRAVENOUS (IV); COMPARISON: CT abdomen pelvis w con* [id number] 06/02/2022 1:48 AM RADIATION DOSE METRICS: Total DLP (mGy-cm): 1344.65 FINDINGS: Lungs: Lung bases are clear. Liver: There are 2 liver metastasis increased in size and number from prior study largest of which measuresrrr 3.1 cm compared to (1.5 cm.) Gallbladder and bile ducts: Gallbladder has been removed. Bile ducts are not appreciably dilated. Pancreas: Normal. No ductal dilation. Spleen: Normal. No splenomegaly. Adrenal glands: Normal. No mass. Kidneys and ureters: Tiny nonobstructing renal stones otherwise kidneys are unremarkable. Stomach and bowel: Unremarkable. No obstruction. No mucosal thickening. Appendix: No evidence of appendicitis. Intraperitoneal space: There is ill-defined mesenteric fat stranding within the mid abdomen along the root of the small bowel mesentery mildly progressed that may be metastatic in nature secondary to idiopathic mesenteric panniculitis. Small amount of pelvic ascites developed from previous exam possibly malignant in nature. Vasculature: Scattered atherosclerotic changes of the abdominal aorta and iliac vessels. No aortic aneurysm. Lymph nodes: There is an 8.5 x 5.2 cm necrotic iris mass in the right upper abdomen (measured in ther coronal plane increasedrrr in size prior study (7.0 x 4.6 cm). There is additional upper abdominal and retroperitoneal lymphadenopathy measuring up to 4.5 cm mildly increased from previous exam believe metastatic in nature. Is Urinary bladder: Unremarkable as visualized. Reproductive: Unremarkable as visualized. Bones/joints: No suspicious bone lesions detected. Soft tissues: Unremarkable. CT/CT angio chest w abd pel w con IMPRESSION: 1. Negative CT angiogram of the chest. No evidence of acute pulmonary embolism. 2. Stable right perihilar scarring and adjacent subsegmental atelectasis. No compelling evidence of recurrence tumor. 3. COPD with upper lobe emphysematous changes. IMPRESSION: 1. Two liver metastasis increased in size and number from previous exam. 2. Moderate metastatic abdominal retroperitoneal lymphadenopathy mildly progressed from previous exam. 3. Nonspecific ill-defined mesenteric fat infiltration mid abdomen mildly progressed from previous exam that may be inflammatory or metastatic in nature. 4. Additional chronic findings as above.
--- NOTE | 2022-08-25 14:44 | PC.NURSE ---
PT REQUESTED DIET SPRITE. DR. VALE NOTIFIED. DR VALE VERBALIZED PT COULD HAVE DIET SPRITE. PT GIVEN DIET LEMON ALGAACIQ JET.
[2022-08-25] MEDS: iohexol 350 mg/mL 500 mL Btl (per mL) IV (15:17)
[2022-08-25] MEDS: ipratropium-albuterol 3 mL Neb INHALATION (17:06)
[2022-08-25] MEDS: orphenadrine 30 mg/mL Inj 2 mL 60 MG IVP (17:07)
[2022-08-25] MEDS: dexamethasone 10 mg/mL INJ IVP (17:07)
== END 2022-08-25 17:42 | disposition home or self-care (01) ==
PROVIDERS: Emergency Provider Student in an Organized Health Care Education/Training Program; PCP Family Medicine
DX: J44.9 Chronic obstructive pulmonary disease, unspecified (principal); C34.31 Malignant neoplasm of lower lobe, right bronchus or lung; Z79.02 Long term (current) use of antithrombotics/antiplatelets; I25.10 Atherosclerotic heart disease of native coronary artery without angina pectoris; E78.5 Hyperlipidemia, unspecified; H35.30 Unspecified macular degeneration; F17.210 Nicotine dependence, cigarettes, uncomplicated
CPT/HCPCS: 71275; 74177; 80053; 83690; 83735; 85025; 94640; 96374; 96375; 99285; J1100; J1170; J2360; J2405; J7030; Q9967

== ENCOUNTER 2022-09-02 08:17 | Outpatient (CLI) | payer MEDICARE, MEDICAID, SELFPAY ==
--- NOTE | 2022-09-02 08:45 | MR_ITS ---
WS: [id number] MRI BRAIN WITH AND WITHOUT CONTRAST HISTORY: Lung cancer restaging COMPARISON: 01/23/2021 TECHNIQUE: Multiplanar imaging performed through the brain with MultiHance 20 ml's IV. No acute infarcts are seen. [place]-white matter differentiation is well preserved. There are a few scat tered T2 and FLAIR signal hyperintensities within the white matter. Mild progression since 01/23/2021. No susceptibility artifacts or prior lacunar infarcts. Ventricles and extra-axial spaces are normal. Clivus and pituitary gland are normal. Visualized posterior fossa and brainstem are also normal. Postcontrast images are negative for masses or vascular malformations. Dural venous sinuses are normal. Paranasal sinuses: Well aerated with no significant disease. Mastoid air cells: Normal. Calvarium and scalp: Normal. MR/MR head wo/w con [id number] IMPRESSION: 1. No evidence for metastatic disease to the brain. 2. Mild small vessel ischemic disease with mild progression since 2020.
[2022-09-02] MEDS: gadobenate dimeglumine 20 mL vial IV (09:42)
== END 2022-09-02 08:18 | disposition home or self-care (01) ==
PROVIDERS: PCP Family Medicine; Visit Provider Internal Medicine Medical Oncology
DX: C34.31 Malignant neoplasm of lower lobe, right bronchus or lung (principal)
CPT/HCPCS: 70553; A9577

== ENCOUNTER 2022-09-03 08:39 | Oncology outpatient (recurring) (ONCR) | payer MEDICARE, MEDICAID, SELFPAY ==
[2022-08-20 10:07] LABS: Basophils # 0.1 10^3/uL (0.0-0.1); Basophils % 1.4 %; Eosinophils # 0.1 10^3/uL (0.0-0.8); Eosinophils % 1.2 %; Hematocrit 45.6 % (42.0-52.0); Hemoglobin 15.6 g/dL (11.7-16.6); Lymphocytes # 1.1 10^3/uL (0.8-4.8); Lymphocytes % 15.6 %; Mean Corpuscular HGB Conc 34.2 g/dL (30.0-36.0); Mean Corpuscular Hemoglobin 31.7 pg (28.0-34.0); Mean Corpuscular Volume 92.7 fl (80-94); Mean Platelet Volume 9.3 fL (7.4-10.4); Monocytes # 0.5 10^3/uL (0.2-0.9); Monocytes % 6.9 %; Neutrophils # 5.16 10^3/uL (1.8-7.7); Neutrophils % 74.6 %; Nucleated Red Blood Cells % 0 %; Platelet Count 229 10^3/cmm (130-400); Red Blood Count 4.92 10^6/uL (4.1-5.3); Red Cell Distribution Width 13.6 % (12.1-15.1); White Blood Count 6.9 10^3/uL (4.0-10.0)
[2022-08-20 10:32] LABS: Alanine Aminotransferase 14 U/L (0-41); Albumin Level 3.9 g/dL (3.5-5.2); Alkaline Phosphatase 94 U/L (40-130); Anion Gap 14.9 (5-19); Aspartate Amino Transferase 12 U/L (0-40); Blood Urea Nitrogen 14 mg/dL (6-20); Calcium 9.4 mg/dL (8.5-10.5); Carbon Dioxide 32 mmol/L (22-29); Chloride 95 mmol/L (98-107); Cortisol Random 17.39 ug/dL (2.47-19.5); Globulin 2.8 g/dL (1.3-4.6); Glomerular Filtration Rate 101.1 mL/min (90-130); Glucose 103 mg/dL (65-115); Osmolality Calculated 287 mOsm/kg (285-295); Potassium 3.9 mmol/L (3.5-5.1); Sodium 138 mmol/L (136-145); Thyroid Stimulating Hormone 1.68 uIU/mL (0.27-4.20); Total Bilirubin 0.5 mg/dL (0.15-1.2); Total Protein 6.7 g/dL (6.6-8.7)
== END 2022-09-10 23:59 | disposition home or self-care (01) ==
LOC: ONCMED 08:39
PROVIDERS: PCP Family Medicine; Visit Provider Internal Medicine Medical Oncology
DX: C34.31 Malignant neoplasm of lower lobe, right bronchus or lung (principal); C77.8 Secondary and unspecified malignant neoplasm of lymph nodes of multiple regions; Z91.14 Patient's other noncompliance with medication regimen; Z92.21 Personal history of antineoplastic chemotherapy; Z92.3 Personal history of irradiation; Z95.5 Presence of coronary angioplasty implant and graft
CPT/HCPCS: 36591; 80053; 82533; 84443; 85025; 99214

== ENCOUNTER → 2022-09-25 07:56 | Outpatient (BNVA) | payer MEDICARE, MEDICAID, SELFPAY | PROVIDERS: PCP Family Medicine; Visit Provider Nurse Practitioner | DX: C34.31 Malignant neoplasm of lower lobe, right bronchus or lung (principal) | CPT/HCPCS: 99215 ==

== ENCOUNTER 2022-09-29 18:43 | Observation (INO) | payer MEDICARE, MEDICAID, SELFPAY ==
[2022-09-29 18:47] VITALS: BP 110/56; PULSE 87; RESP 14; TEMP 36.1; O2SAT 93; BMI 25.4
--- NOTE | 2022-09-29 19:49 | CTR_ITS ---
PROCEDURE INFORMATION: Exam: CT Abdomen And Pelvis With Contrast Exam date and time: 09/29/2022 8:19 PM Age: 52 years old Clinical indication: Abdominal pain; Prior surgery; Surgery date: 6+ months; Surgery type: Cholecystectomy, coronary angioplasty with stent, port-a-cath; Additional info: Abd pain, history of lung cancer TECHNIQUE: Imaging protocol: Computed tomography of the abdomen and pelvis with contrast. Radiation optimization: All CT scans at this facility use at least one of these dose optimization techniques: automated exposure control; mA and/or kV adjustment per patient size (includes targeted exams where dose is matched to clinical indication); or iterative reconstruction. Contrast material: OMNI 350; Contrast volume: 100 ml; Contrast route: INTRAVENOUS (IV); Other protocol: This patient has received 6 known CTs and 0 known cardiac nuclear medicine studies in the 12 months prior to the current study. COMPARISON: CT abdomen pelvis w con* [id number] 06/02/2022 1:48 AM RADIATION DOSE METRICS: Total DLP (mGy-cm): 666.43 FINDINGS: Lungs: The lung bases are clear. Liver: . Numerous liver metastasis. In the left lobe a mass is increased, currently measuring 3.8 x 3.3 cm and previously measured 1.6 x 1.3 cm. There are several new right hepatic masses measuring up to 1.6 cm. . Gallbladder and bile ducts: Chronic cholecystectomy but with increased dilatation of the intrahepatic biliary tree most likely due to extrinsic mass effect on the common bile duct. Pancreas: Extrinsic mass effect from adjacent adenopathy. No ductal dilation. Spleen: Normal. No splenomegaly. Adrenal glands: Normal. No mass. Kidneys and ureters: Normal. No hydronephrosis. Stomach and bowel: There is new mild wall thickening throughout the colon suggesting colitis. No megacolon. No pneumatosis or perforation. No luminal distention. Appendix: No evidence of appendicitis. Intraperitoneal space: Persisting right lower quadrant mesenteric mass currently measures 2.9 x 3.7 cm and previously measured 2.8 x 3.9 cm. Near the mesenteric root and a node measures 2.7 x 2.4 cm and previously measured 1.7 x 1.8 cmSmall pelvic ascites has increased. Vasculature: Atherosclerosis. No abdominal aortic aneurysm. Lymph nodes: There is persisting significant upper abdominal malignant adenopathy with the largest nodes lying between the pancreas, liver and retroperitoneum. Single largest node currently measures 5.4 x 3.2 cm and previously measured 5.7 x 3.2 cm. The adenopathy appears to invade the left renal vein and possibly invade the vena cava although the vena cava does not appear obstructed. Persisting and slightly increased mid abdominal retroperitoneal adenopathy with nodes measuring up to 1.7 cm and previously measuring 1.5 cm. Increased right retrocrural node, currently measuring 1.9 cm and previously measuring 1.0 cm. Urinary bladder: Unremarkable as visualized. Reproductive: Unremarkable as visualized. Bones/joints: Unremarkable. No acute fracture. Soft tissues: Unremarkable. CT/CT abdomen pelvis w con* [id number] IMPRESSION: 1. Increased size and number of liver metastasis. 2. Retroperitoneal and mesenteric adenopathy. Although a few nodes have slightly decreased, most nodes are similar to increased in size. 3. Adenopathy is now compressing and may be invading the left renal vein and IVC. 4. Colitis. No megacolon.
--- NOTE | 2022-09-29 19:51 | W.ED.ABDPA2 ---
HPI - Abdominal Pain General: Chief Complaint: Abdominal Pain Stated Complaint: Dizzy\ABD Pain Time Seen by Provider: 09/29/22 19:02 Source: patient Mode of arrival: ambulatory Limitations: no limitations History of Present Illness: 52-year-old male has a history of lung cancer with mets to his abdomen states he had recently started chemo he states the last 2 days he been having increasing abdominal pain states is diffuse pain in nature rates it a 7 out of 10 has had nausea no vomiting denies any fever denies any worsening proving factors. Associated Symptoms: Reports nausea; Denies chills, dysuria and fever(s) Review of Systems Const: Denies: fever(s), chills, body aches or change in appetite Eyes: Denies: blurry vision or eye discomfort ENMT: Denies: throat pain or dental pain Card: Denies: chest pain Resp: Denies: dyspnea GI: Reports: abdominal pain and nausea : Denies: dysuria Musc: Denies: neck pain or back pain Skin/Breast: Denies: rash Neuro: Denies: headache(s) Psych: Denies: depression [place]/Lymph: Denies: easy bruising All/Imm: Denies: urticaria PFSH ED PFSH: Medical History Atrial fibrillation CAD (coronary artery disease) Chronic anxiety COPD (chronic obstructive pulmonary disease) Dyslipidemia Macular degeneration Non-small cell lung cancer Obstructive sleep apnea Surgical History History of bronchoscopy 12/29/2020 - Bronchoscopy/EBUS History of cholecystectomy History of coronary angioplasty with insertion of stent 08/2016 Mid left circumflex Port-A-Cath in place (02/14/21) Presence of stent in left circumflex coronary artery 05/29/2022 Distal to previously placed stent S/P right coronary artery (RCA) stent placement 05/29/2022 Mid RCA Family History Other CAD (coronary artery disease) Cancer Diabetes Lung disease Stroke Denies family history of Bleeding disorder Social History Smoking and tobacco status: current every day smoker cigarettes Packs smoked per day: 1.5 Years cigarettes smoked: 48 [ Other cigarette details: 1.5 PPD, 3PPD x 45yrs] Quit status (tobacco): considering quitting Second hand smoke exposure: Yes Smoking risk assessment/counseling performed?: Yes Alcohol intake: current Alcohol intake frequency: holidays/special occasions only Lives independently: Yes Household members: significant other and children Marital status: Life Partner service: No Current occupational status: disabled Pets and animals: Yes Current gender identity: Male Physical Exam Const: COMMON NORMALS: no acute distress, patient oriented x3 and healthy appearing HENMT: COMMON NORMALS: normocephalic and atraumatic HEAD & SCALP: normocephalic and atraumatic Eye: COMMON NORMALS: Equal, round and reactive pupils present and EOMs intact bilaterally PUPIL: Yes Equal, round and reactive pupils present Neck/C-Spine: COMMON NORMALS: full ROM and supple Chest: COMMONS NORMALS: normal inspection of the chest and normal palpation of entire chest wall Resp: COMMON NORMALS: normal respiratory effort, No retractions, No use of accessory muscles and clear to auscultation bilaterally AUSCULTATION: clear to auscultation bilaterally Cardio: COMMON NORMALS: No murmurs present (Cardio) RATE: tachycardic RHYTHM: abnormal rhythm irregularly irregular GI: COMMON NORMALS: Normal to inspection, nondistended, normoactive bowel sounds present, Soft to palpation, non-tender and no masses PALPATION: Yes Soft to palpation Extremity: COMMON NORMALS: normal to inspection and full ROM Neuro: COMMON NORMALS: patient oriented x3, moves all extremities and no focal motor deficits Psych: COMMON NORMALS: mental status grossly normal, Normal thought process present and cooperative THOUGHT PROCESS: Normal thought process present Skin: COMMON NORMALS: no rashes or lesions noted and no wounds GENERAL SKIN EXAM: no rashes or lesions noted Course Vital Signs: Vital signs: Vital Signs Temperature 97.0 F L 09/29/22 18:47 Pulse Rate 87 09/29/22 18:47 Respiratory Rate 14 09/29/22 18:47 Blood Pressure 110/56 09/29/22 18:47 Pulse Oximetry 93 09/29/22 18:47 Oxygen Delivery Me thod 09/29/22 18:47 MDM - Abdominal Pain Medical Decision Making Patient presents here with abdominal pain his CT does show his worsening adenopathy along with metastases that could be causing his pain also colitis we will start him on Cipro Flagyl he he is in A-fib with RVR his heart rate here has been in the 140s did give him a Cardizem bolus with minimal improvement start him on a Cardizem drip and will admit to cardiac stepdown Lab Data 09/29/22 20:13 09/29/22 20:13 Labs/Radiology: Radiology Impressions Abdomen/Pelvis CT 09/29/22 19:49 IMPRESSION: 1. Increased size and number of liver metastasis. 2. Retroperitoneal and mesenteric adenopathy. Although a few nodes have slightly decreased, most nodes are similar to increased in size. 3. Adenopathy is now compressing and may be invading the left renal vein and IVC. 4. Colitis. No megacolon. Laboratory Results WBC 5.9 10^3/uL (4.0-10.0) 09/29/22 20:13 RBC 4.46 10^6/uL (4.1-5.3) 09/29/22 20:13 Hgb 14.5 g/dL (11.7-16.6) 09/29/22 20:13 Hct 42.7 % (42.0-52.0) 09/29/22 20:13 MCV 95.7 fl (80-94) H 09/29/22 20:13 MCH 32.5 pg (28.0-34.0) 09/29/22 20:13 MCHC 34.0 g/dL (30.0-36.0) 09/29/22 20:13 RDW 14.6 % (12.1-15.1) 09/29/22 20:13 Plt Count 240 10^3/cmm (130-400) 09/29/22 20:13 MPV 9.2 fL (7.4-10.4) 09/29/22 20:13 Neut % (Auto) 85.9 % 09/29/22 20:13 Lymph % (Auto) 10.4 % 09/29/22 20:13 [place] % (Auto) 1.0 % 09/29/22 20:13 Eos % (Auto) 1.5 % 09/29/22 20:13 Baso % (Auto) 1.0 % 09/29/22 20:13 Neut # (Auto) 5.02 10^3/uL (1.8-7.7) 09/29/22 20:13 Lymph # (Auto) 0.6 10^3/uL (0.8-4.8) L 09/29/22 20:13 [place] # (Auto) 0.1 10^3/uL (0.2-0.9) L 09/29/22 20:13 Eos # (Auto) 0.1 10^3/uL (0.0-0.8) 09/29/22 20:13 Baso # (Auto) 0.1 10^3/uL (0.0-0.1) 09/29/22 20:13 Nucleated RBC % (auto) 0 % 09/29/22 20:13 Nucleated RBCs # 0.0 /100WBC 09/29/22 20:13 Sodium 137 mmol/L (136-145) 09/29/22 20:13 Potassium 3.7 mmol/L (3.5-5.1) 09/29/22 20:13 Chloride 92 mmol/L (98-107) L 09/29/22 20:13 Carbon Dioxide 35 mmol/L (22-29) H 09/29/22 20:13 Anion Gap 13.7 (5-19) 09/29/22 20:13 BUN 14 mg/dL (6-20) 09/29/22 20:13 Creatinine 0.7 mg/dL (0.7-1.2) 09/29/22 20:13 GFR Calculation 118.0 mL/min (90-130) 09/29/22 20:13 Glucose 101 mg/dL (65-115) 09/29/22 20:13 Calculated Osmolality 285 mOsm/kg (285-295) 09/29/22 20:13 Calcium 9.2 mg/dL (8.5-10.5) 09/29/22 20:13 Total Bilirubin 0.8 mg/dL (0.15-1.2) 09/29/22 20:13 AST 19 U/L (0-40) 09/29/22 20:13 ALT 30 U/L (0-41) 09/29/22 20:13 Alkaline Phosphatase 123 U/L (40-130) 09/29/22 20:13 Troponin T Baseline 39 ng/L (0-15) H 09/29/22 20:13 Total Protein 6.3 g/dL (6.6-8.7) L 09/29/22 20:13 Albumin 3.8 g/dL (3.5-5.2) 09/29/22 20:13 Globulin 2.5 g/dL (1.3-4.6) 09/29/22 20:13 Lipase 25 U/L (13-60) 09/29/22 20:13 EKG Data EKG 1: I personally reviewed and interpreted this EKG as follows: EKG interpretation date: 09/29/22 EKG interpretation time: 21:18 Interpretation: afib with rvr hr [address] or t wave abnormalities qrs 84 qtc 243 Critical Care Time Critical Care Time: Critical Care Time: Yes Total Critical Care Time: 45 Attestation: The high probability of a clinically significant, sudden or life threatening deterioration of the patient's cv system(s) required my full and direct attention, intervention and personal management. The critical care time is as shown. This time is in addition to time spent performing any reported procedures but includes the following: [x] Data and vital sign review and interpretation [x] Patient assessment, examination and intervention [x] Documentation [x] Medication orders and management Discharge Plan Discharge Patient Disposition: Admitted As Inpatient Clinical Impression: Cancer of right lung, Atrial fibrillation, Abdominal pain Condition: Stable Prescriptions: No Action Primatene Mist 0.125 mg/actuation HFA aerosol inhaler 1 puff inhalation Q6H PRN (Reason: Shortness Of Breath) Rx Instructions: may repeat once after 1 minute atorvastatin 40 mg tablet 40 mg PO DAILY@2200 Qty: 90 3RF promethazine 25 mg tablet 25 mg PO TID PRN (Reason: nausea and vomiting) Qty: 60 0RF morphine 30 mg tablet extended release 30 mg PO Q12H 30 Days Qty: 60 0RF cyclobenzaprine 10 mg tablet 10 mg PO TID PRN (Reason: muscle spasm) Qty: 60 1RF prochlorperazine maleate [Compazine] 10 mg tablet 10 mg PO Q4H PRN (Reason: Mild Nausea) Qty: 30 3RF ipratropium-albuterol 0.5 mg-3 mg(2.5 mg base)/3 mL solution for nebulization 3 ml inhalation Q6H PRN (Reason: wheezing) Qty: 90 3RF clopidogrel 75 mg tablet 75 mg PO DAILY Qty: 90 3RF pantoprazole 40 mg tablet,delayed release (DR/EC) 40 mg PO DAILY Qty: 30 3RF Xarelto 20 mg tablet 20 mg PO BEDTIME Qty: 90 2RF Trelegy Ellipta 100-62.5-25 mcg blister with device 1 inh inhalation DAILY Qty: 60 5RF polyethylene glycol 3350 17 gram/dose powder See Rx Instructions .ROUTE .COMPLEX Qty: 238 2RF Dose Instruction: mix 17g directed AND drink TWICE DAILY Rx Instructions: mix 17g directed AND drink TWICE DAILY verapamil 240 mg capsule,ext rel. pellets 24 hr 240 mg PO DAILY Qty: 90 1RF albuterol sulfate 90 mcg/actuation HFA aerosol inhaler 2 puff inhalation Q4H PRN (Reason: shortness of breath or wheezing) Qty: 8.5 5RF folic acid 1 mg tablet 1 mg PO DAILY Qty: 30 5RF ondansetron 8 mg tablet,disintegrating See Rx Instructions .ROUTE .COMPLEX Qty: 60 0RF Dose Instruction: TAKE ONE TABLET BY MOUTH EVERY 4 HOURS NEEDED FOR FOR NAUSEA AND VOMITING Rx Instructions: TAKE ONE TABLET BY MOUTH EVERY 4 HOURS NEEDED FOR FOR NAUSEA AND VOMITING lorazepam 1 mg tablet 1 mg PO TID PRN (Reason: severe nausea) 30 Days Qty: 90 0RF morphine 15 mg tablet 15 mg PO Q4H PRN (Reason: pain) 30 Days Qty: 120 0RF nitroglycerin 0.4 mg tablet, sublingual 0.4 mg sublingual Q5M PRN (Reason: chest pain) 30 Days Qty: 30 2RF Rx Instructions: do not exceed 3 doses per episode Men's Multi-Vitamin Tablet 1 tab PO DAILY Referrals: Michael Cooley MD [Primary Care Provider] - Coding Level of Care Code ED Continuous Miner Operator Helper for Ronit Hendricks
[2022-09-29] MEDS: iohexol 350 mg/mL 500 mL Btl (per mL) IV (20:00)
[2022-09-29] MEDS: ondansetron 2 mg/ML SDV 2 mL 4 MG IVP (20:13)
[2022-09-29] MEDS: nicotine 21 mg Patch 1 PATCH TRANSDERMA (20:13)
[2022-09-29] MEDS: morphine 4 mg/mL SDV 1 mL IVP (20:13)
[2022-09-29] MEDS: sodium chloride 0.9% 1,000 ML 999 ML IV ×2 (20:14→21:30)
[2022-09-29 20:17] LABS: Basophils # 0.1 10^3/uL (0.0-0.1); Eosinophils # 0.1 10^3/uL (0.0-0.8); Eosinophils % 1.5 %; Hematocrit 42.7 % (42.0-52.0); Hemoglobin 14.5 g/dL (11.7-16.6); Lymphocytes # 0.6 10^3/uL (0.8-4.8); Lymphocytes % 10.4 %; Mean Corpuscular Hemoglobin 32.5 pg (28.0-34.0); Mean Corpuscular Volume 95.7 fl (80-94); Mean Platelet Volume 9.2 fL (7.4-10.4); Monocytes # 0.1 10^3/uL (0.2-0.9); Neutrophils # 5.02 10^3/uL (1.8-7.7); Neutrophils % 85.9 %; Nucleated Red Blood Cells % 0 %; Platelet Count 240 10^3/cmm (130-400); Red Blood Count 4.46 10^6/uL (4.1-5.3); Red Cell Distribution Width 14.6 % (12.1-15.1); White Blood Count 5.9 10^3/uL (4.0-10.0)
[2022-09-29 20:34] LABS: Alanine Aminotransferase 30 U/L (0-41); Albumin Level 3.8 g/dL (3.5-5.2); Alkaline Phosphatase 123 U/L (40-130); Anion Gap 13.7 (5-19); Aspartate Amino Transferase 19 U/L (0-40); Blood Urea Nitrogen 14 mg/dL (6-20); Calcium 9.2 mg/dL (8.5-10.5); Carbon Dioxide 35 mmol/L (22-29); Chloride 92 mmol/L (98-107); Globulin 2.5 g/dL (1.3-4.6); Glucose 101 mg/dL (65-115); Lipase 25 U/L (13-60); Osmolality Calculated 285 mOsm/kg (285-295); Potassium 3.7 mmol/L (3.5-5.1); Sodium 137 mmol/L (136-145); Total Bilirubin 0.8 mg/dL (0.15-1.2); Total Protein 6.3 g/dL (6.6-8.7)
[2022-09-29 21:00] VITALS: BP 102/70; PULSE 120; RESP 20; O2SAT 91
[2022-09-29] MEDS: HYDROmorphone 1 mg/mL INJ 1 mL IVP (21:07)
--- NOTE | 2022-09-29 21:12 | ECG_ITS ---
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 Measurements Intervals Hematite Rate: 145 P: 0 MS: 0 QRS: 161 QRSD: 84 T: 0 QT: 160 QTc: 248 Interpretive Statements ATRIAL FIBRILLATION WITH RAPID VENTRICULAR RESPONSE INDETERMINATE AXIS LOW QRS VOLTAGE IN PRECORDIAL LEADS [QRS DEFLECTION < 1.0 mV IN CHEST LEADS] ANTEROSEPTAL MYOCARDIAL INFARCTION , PROBABLY OLD [40+ ms Q WAVE IN V1-V4] Compared to ECG 05/28/2022 22:43:45 Indeterminate axis now present Right-axis deviation no longer present Incomplete right bundle-branch block no longer present Myocardial infarct finding still present Electronically Signed On 09-29-2022 22:09:37 ACCOUNT EXECUTIVE by Glen Hernandez M.D. [id number]
[2022-09-29] MEDS: dilTIAZem 5 mg/mL SDV 5 mL 10 MG IVP (21:32)
[2022-09-29 21:42] LABS: Troponin(5th) Baseline 39 ng/L (0-15)
[2022-09-29] MEDS: dilTIAZem 100 MG in sodium chloride 0.9% (add-van) 100 ML 10 MG IV (22:12)
[2022-09-29] MEDS: ciprofloxacin 400 MG/200 ML PREMIX 200 MG IV (22:20)
[2022-09-29 22:30] VITALS: BP 127/74; PULSE 110; RESP 17; O2SAT 95
[2022-09-29 22:40] LABS: NT Pro B Type Natriuretic Pept 2718 pg/mL (0-125)
--- NOTE | 2022-09-29 22:40 | PM.HP ---
Providers/Chief Complaint Admitting Physician: Amilcar Thomas MD Primary Care Provider: Michael Cooley MD Chief Complaint: Dizzy\ABD Pain History of Present Illness Darlin Youssef is a 52 year old male with past medical history of lung cancer with metastasis to abdominal and liver, atrial fibrillation on chronic anticoagulation with Xarelto, COPD, CAD, chronic congestive heart failure with EF 40 to 45% with mild RV dysfunction presented to the ER today because of abdominal pain and multiple bowel movements but not diarrhea for last 2 days. Patient states he started on new chemotherapy recently in the last 1 week and since then he has been having more abdominal pain. He is not able to maintain oral hydration because of decreased appetite but denies any nausea or vomiting. States he supposed to take verapamil and Xarelto for his atrial fibrillation but some of his medications he has not been able to take for last few days as he ran out. He has not taken any medications today. In the ER he was found to be in atrial fibrillation with rapid ventricular response started on Cardizem drip and given 2 L of IV fluid bolus. On examination patient lying comfortably in bed on room air at Cardizem of 10 getting second liter of IV fluids with heart rate running between 106-120. Review of Systems General: Reports: 10 or more systems reviewed and unremarkable except in HPI and below Const: Denies: fever(s), chills, body aches, change in appetite, change in weight, malaise, night sweats, diaphoresis, change in sleep pattern, daytime sleepiness or snoring Eyes: Denies: change in vision, blurry vision, photophobia, eye discomfort or eye discharge ENMT: Denies: throat pain, enlarged tonsils, hoarseness, mouth pain, oral sores, dry mouth, tinnitus, nasal congestion or post nasal drip Card: Denies: chest pain, palpitations, irregular heart rhythm, edema, swelling of feet/ankles, lightheadedness, syncope, pre-syncope, dyspnea on exertion, orthopnea, leg pain with exertion or acrocyanosis Resp: Denies: dyspnea, productive cough, non-productive cough, wheezing, stridor, pain on inspiration, change in phlegm color, hemoptysis or chest congestion GI: Denies: abdominal pain, nausea, vomiting, hematemesis, coffee ground emesis, dysphagia, heartburn, diarrhea, constipation, bloating, GI cramping, change in bowel habits, pain on defecation, hematochezia or melena : Denies: flank pain, difficulty urinating, dysuria, urinary frequency, urinary urgency, urinary hesitancy, urinary dribbling, difficulty starting urination, change in urine stream, nocturia or hematuria Musc: Denies: neck pain, back pain, extremity pain, joint pain, joint swelling, joint redness, joint stiffness or limited range of motion Neuro: Denies: headache(s), numbness in extremities, weakness in extremities, sensory changes, lack of coordination, difficulty walking, frequent falls, dizziness, vertigo, confusion, Slurred speech present, difficulty communicating thoughts or seizure-like activity Psych: Denies: anxiety, depression, mood swings, panic attacks, hopelessness or irritability Endo: Denies: polyuria, polydipsia, tired all the time, cold intolerance, excessive sweating, flushing or heat intolerance Edouard/Lymph: Denies: easy bruising or easy bleeding All/Imm: Denies: tongue swelling, facial swelling or acute wheezing Medications/Allergies Home Medications Medication Instructions Recorded Confirmed Last Taken Type atorvastatin 40 mg tablet 40 mg PO DAILY@2200 #90 tabs 12/26/21 09/25/22 06/19/22 Rx epinephrine 0.125 mg/actuation 1 puff inhalation Q6H PRN 12/26/21 09/25/22 05/27/22 History aerosol inhaler (Primatene Mist) Shortness Of Breath ipratropium 0.5 mg-albuterol 3 mg 3 ml inhalation Q6H PRN wheezing 12/27/21 09/25/22 Unknown Rx (2.5 mg base)/3 mL nebulization #90 mL soln rivaroxaban 20 mg tablet (Xarelto) 20 mg PO BEDTIME #90 tabs 02/04/22 09/25/22 06/19/22 Rx nitroglycerin 0.4 mg sublingual 0.4 mg sublingual Q5M PRN chest 05/30/22 09/25/22 05/27/22 Rx tablet pain 30 days #30 tabs clopidogrel 75 mg tablet 75 mg PO DAILY #90 tabs 06/06/22 09/25/22 06/19/22 Rx Trelegy Ellipta 100 mcg-62.5 1 inh inhalation DAILY #60 ea 06/11/22 09/25/22 06/19/22 Rx mcg-25 mcg powder for inhalation (venepssanhb-pxzzshdtu-rnlexpzr) multivitamin 1 tab PO DAILY 06/20/22 09/25/22 06/19/22 History promethazine 25 mg tablet 25 mg PO TID PRN nausea and 06/21/22 09/25/22 Unknown Rx vomiting #60 tabs polyethylene glycol 3350 17 See Rx Instructions .Route 06/25/22 09/25/22 Unknown Rx gram/dose oral powder .COMPLEX #238 grams morphine 30 mg tablet,extended 30 mg PO Q12H 30 days #60 tabs 07/12/22 09/25/22 Unknown Rx release verapamil 240 mg 24 hr 240 mg PO DAILY #90 caps 08/01/22 09/25/22 Unknown Rx capsule,extended release pantoprazole 40 mg tablet,delayed 40 mg PO DAILY #30 tabs 08/20/22 09/25/22 Unknown Rx release albuterol sulfate 90 mcg/actuation 2 puff inhalation Q4H PRN 09/16/22 09/25/22 Unknown Rx aerosol inhaler shortness of breath or wheezing #8.5 grams folic acid 1 mg tablet 1 mg PO DAILY #30 tabs 09/17/22 09/25/22 Unknown Rx lorazepam 1 mg tablet 1 mg PO TID PRN severe nausea 30 09/18/22 09/25/22 Unknown Rx days #90 tabs morphine 15 mg immediate release 15 mg PO Q4H PRN pain 30 days #120 09/18/22 09/25/22 Unknown Rx tablet tabs ondansetron 8 mg disintegrating See Rx Instructions .Route 09/18/22 09/25/22 Unknown Rx tablet .COMPLEX #60 ea cyclobenzaprine 10 mg tablet 10 mg PO TID PRN muscle spasm #60 09/25/22 09/25/22 Unknown Rx tabs prochlorperazine maleate 10 mg 10 mg PO Q4H PRN Mild Nausea #30 09/25/22 09/25/22 Unknown Rx tablet (Compazine) tabs Allergies Allergy/AdvReac Type Severity Reaction Status Date / Time influenza virus vaccine Allergy Severe ALGY-Hives Verified 09/25/22 09:25 tval,purif- wool Allergy Unknown Verified 09/25/22 09:25 talcum powder Allergy Unknown Uncoded 09/25/22 09:25 PFSH Acute PFSH: Medical History (Updated 09/29/22 @ 22:43 by Amilcar Thomas MD) Atrial fibrillation CAD (coronary artery disease) Chronic anxiety Congestive heart failure Echocardiogram from 05/2022 showed EF of 45%, global LV hypokinesia with mildly dilated RV and low RV systolic functions COPD (chronic obstructive pulmonary disease) Dyslipidemia Macular degeneration Metastatic neoplastic disease Non-small cell lung cancer Obstructive sleep apnea Surgical History History of bronchoscopy 12/29/2020 - Bronchoscopy/EBUS History of cholecystectomy History of coronary angioplasty with insertion of stent 08/2016 Mid left circumflex Port-A-Cath in place (02/14/21) Presence of stent in left circumflex coronary artery 05/29/2022 Distal to previously placed stent S/P right coronary artery (RCA) stent placement 05/29/2022 Mid RCA Family History Other CAD (coronary artery disease) Cancer Diabetes Lung disease Stroke Denies family history of Bleeding disorder Social History Smoking and tobacco status: current every day smoker cigarettes Packs smoked per day: 1.5 Years cigarettes smoked: 48 [ Other cigarette details: 1.5 PPD, 3PPD x 45yrs] Quit status (tobacco): considering quitting Second hand smoke exposure: Yes Smoking risk assessment/counseling performed?: Yes Alcohol intake: current Alcohol intake frequency: holidays/special occasions only Lives independently: Yes Household members: significant other and children Marital status: Life Partner service: No Current occupational status: disabled Pets and animals: Yes Current gender identity: Male Vitals/I&O/Wt Last Vital Signs Temp 97.0 F L 09/29/22 18:47 Pulse 87 09/29/22 18:47 Resp 14 09/29/22 18:47 BP 110/56 09/29/22 18:47 Pulse Ox 93 09/29/22 18:47 O2 Del Method 09/29/22 18:47 09/29/22 09/29/22 09/29/22 06:59 14:59 22:59 Intake Total 1010 / 1010 Balance 1010 / 1010 Weight last 48 hrs Weight 89.811 kg Physical Exam Narrative: General: No acute distress, AO x3, dehydrated, chronically sick appearing HEENT: PERRLA, pupils bilaterally equal and reactive Chest: Bilateral bronchial breath sounds with occasional rhonchi over lung guerrero CVS: S1-S2 irregularly irregular, tachycardia, no gallops, no rubs Abdomen: Soft, nontender, no organomegaly, bowel sounds present Neuro: No focal deficits, no facial deformity, AO x3, power 5/5 in all limbs Data 09/29/22 20:13 09/29/22 20:13 A&P Assessment and plan (1) Atrial fibrillation with RVR: Chronically takes verapamil 240 mg oral daily along with chronic anticoagulation with Xarelto 20 mg oral daily. Patient has not been taking the medication recently as he ran out. TSH checked within last 1 week within normal limits. Restart home dose of verapamil at 240 mg oral daily. Started on Cardizem drip in the ER. We will continue and wean with target heart rate less than 100. Check proBNP. Continue home dose of chronic Xarelto. (2) Congestive heart failure: Currently well compensated to mild dehydration. Gentle IV hydration with normal saline at 75 cc/h for 1 L. Monitor for fluid overload. Qualifiers: Heart failure type: biventricular Qualified Code(s): I50.82 - Biventricular heart failure (3) Abdominal pain: Most likely in setting of extensive metastasis. Recent chemotherapy. CT abdomen pelvis consistent with mild colitis. Check stool studies, lactate. For now start on IV ciprofloxacin and Flagyl. Fluid as above. (4) Chronic anticoagulation: (5) Primary adenocarcinoma of lower lobe of right lung: (6) Metastatic neoplastic disease: (7) COPD (chronic obstructive pulmonary disease): No exacerbation. He is supposed to be on trilogy at home. Ipratropium, Xopenex every 6 hours, budesonide twice daily. Oxygen supplementation keeping saturation over 88%. (8) CAD (coronary artery disease): No acute chest pain. Troponin cycle appreciated. Continue on home dose of statin, Plavix. Appreciate last echocardiogram and Lexiscan stress test from 06/01. Check lipid panel. Qualifiers: Associated angina: without angina Coronary Disease-Associated Artery/Lesion type: [place] artery [place] vs. transplanted heart: [place] heart Qualified Code(s): I25.10 - Atherosclerotic heart disease of [place] coronary artery without angina pectoris Plan Continue chronic pain medications including morphine 15 mg every 4 hourly as needed, morphine extended release 30 mg every 12 hours. CODE STATUS: Discussed in detail with patient. Full code. Regular diet Protonix for PUD prophylaxis Xarelto will suffice as DVT prophylaxis Attestations Medical Necessity Statement*: Admission for more than 2 midnights for management of atrial fibrillation with rapid ventricular response, dehydration, colitis in setting of lung carcinoma with metastasis with recent use of chemotherapy and High Time for a total of 60 minutes, includes reviewing past or interval history, examining/interviewing patient, placing orders, counseling patient/family/other support, updating patient/family/other support, discussing plan of care with staff, communicating with other healthcare providers, documenting encounter and coordinating care Diagnoses Atrial fibrillation with RVR I48.91 Congestive heart failure I50.82 Heart failure type: biventricular Abdominal pain R10.9 Chronic anticoagulation Z79.01 Primary adenocarcinoma of lower lobe of right lung C34.31 Metastatic neoplastic disease C79.9 COPD (chronic obstructive pulmonary disease) J44.9 CAD (coronary artery disease) I25.10 Associated angina: without angina Coronary Disease-Associated Artery/Lesion type: [place] artery [place] vs. transplanted heart: [place] heart
[2022-09-29 23:01] LABS: Troponin 5 2HR 32.32 ng/L (0-15)
[2022-09-29 23:11] LABS: Troponin 5 2HR Delta -6.68 ABS# (0-10)
[2022-09-29 23:16] VITALS: PULSE 129; RESP 21
--- NOTE | 2022-09-29 23:20 | ECG_ITS ---
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 Measurements Intervals [place] Rate: 111 P: 0 ME: 0 QRS: -73 QRSD: 110 T: 84 QT: 352 QTc: 480 Interpretive Statements ATRIAL FIBRILLATION WITH RAPID VENTRICULAR RESPONSE INDETERMINATE AXIS LOW QRS VOLTAGE IN PRECORDIAL LEADS [QRS DEFLECTION < 1.0 mV IN CHEST LEADS] ANTEROSEPTAL MYOCARDIAL INFARCTION , PROBABLY OLD [40+ ms Q WAVE IN V1-V4] WARNING: DATA QUALITY MAY AFFECT INTERPRETATION Compared to ECG 09/29/2022 21:18:04 No significant changes Electronically Signed On 09-30-2022 19:15:49 SHEAR HELPER by Glen Hernandez M.D. [id number]
[2022-09-29 23:30] VITALS: BP 109/70; PULSE 113; RESP 20; O2SAT 91
[2022-09-29 23:48] LABS: Iron 231 ug/dL (59-158)
[2022-09-30] VITALS (63 sets, daily range): BP systolic 75–132; BP diastolic 58–86; PULSE 68–134; RESP 4–26; TEMP 36.6–37.2; O2SAT 73–100
[2022-09-30 00:01] LABS: Procalcitonin 1.57 ng/mL (0-0.5); Vitamin B12 449 pg/mL (232-1245)
[2022-09-30 00:05] LABS: Folate Level 8.2 ng/mL (4.5-32.2)
[2022-09-30] MEDS: sodium chloride 0.9% 1,000 ML 75 ML IV ×2 (00:06→13:14)
[2022-09-30] MEDS: morphine ER (12 HR) 30 mg tablet PO ×3 (00:07→23:20)
[2022-09-30] MEDS: atorvastatin 40 mg Tablet PO (00:07)
[2022-09-30] MEDS: metroNIDAZOLE IV 500 MG/100 ML PREMIX 100 MG IV (00:10)
[2022-09-30 00:17] LABS: Add Urine Microscopic? YES; Bilirubin Urine Neg (Negative); Blood Urine Neg (Negative); Glucose Urine UA Norm (Normal); Ketones Urine Negative (Negative); Leukocyte Esterase Urine Negative (Negative); Nitrate Urine Negative (Negative); Protein Urine Trace (Negative); Specific Gravity, Urine 1.005 (1.005-1.030); Urine Appearance Clear (CLEAR); Urine Color Yellow (Yellow); Urobilinogen Urine 1 mg/dL (Negative); pH Urine 5 (5-7)
[2022-09-30 00:18] LABS: Add Urine Culture? No; Hyaline Casts Urine 0-4 /lpf; Mucus Urine 1+ /hpf; RBC Urine 0-4 /hpf (0-2); Squamous Epithelial Cell Urine 0-4 /hpf (0-5); WBC Urine 0-4 /hpf (0-5)
[2022-09-30] MEDS: calcium carbonate 500 mg Chew Tablet 1000 MG PO ×4 (00:32→23:25)
[2022-09-30] MEDS: levalbuterol 0.63 mg/3 mL Neb INHALATION ×4 (01:17→20:47)
[2022-09-30] MEDS: ipratropium 0.5 mg/2.5 mL Neb INHALATION ×3 (01:17→20:47)
--- NOTE | 2022-09-30 03:20 | ECG_ITS ---
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 Measurements Intervals [place] Rate: 104 P: 0 WI: 0 QRS: -80 QRSD: 102 T: 70 QT: 366 QTc: 483 Interpretive Statements ATRIAL FIBRILLATION WITH RAPID VENTRICULAR RESPONSE LEFT AXIS DEVIATION [QRS AXIS < -30] LOW QRS VOLTAGE IN PRECORDIAL LEADS [QRS DEFLECTION < 1.0 mV IN CHEST LEADS] ANTEROSEPTAL MYOCARDIAL INFARCTION , PROBABLY OLD [40+ ms Q WAVE IN V1-V4] Compared to ECG 09/30/2022 01:18:29 Left-axis deviation now present Indeterminate axis no longer present Myocardial infarct finding still present Electronically Signed On 09-30-2022 19:16:26 POULTRY OFFAL WORKER by Glen Hernandez M.D. [id number]
[2022-09-30 06:08] LABS: Basophils # 0.1 10^3/uL (0.0-0.1); Basophils % 1.1 %; Eosinophils # 0.1 10^3/uL (0.0-0.8); Eosinophils % 1.3 %; Hematocrit 35.8 % (42.0-52.0); Hemoglobin 12.1 g/dL (11.7-16.6); Lymphocytes # 0.5 10^3/uL (0.8-4.8); Lymphocytes % 10.8 %; Mean Corpuscular HGB Conc 33.8 g/dL (30.0-36.0); Mean Corpuscular Volume 97.5 fl (80-94); Mean Platelet Volume 9.3 fL (7.4-10.4); Monocytes # 0.1 10^3/uL (0.2-0.9); Monocytes % 1.1 %; Neutrophils # 3.85 10^3/uL (1.8-7.7); Neutrophils % 85.3 %; Nucleated Red Blood Cells % 0 %; Platelet Count 185 10^3/cmm (130-400); Red Blood Count 3.67 10^6/uL (4.1-5.3); Red Cell Distribution Width 14.6 % (12.1-15.1); White Blood Count 4.5 10^3/uL (4.0-10.0)
[2022-09-30] MEDS: metroNIDAZOLE IV 500 MG/100 ML PREMIX IV (06:24)
[2022-09-30] MEDS: dilTIAZem 100 MG in sodium chloride 0.9% (add-van) 100 ML 7.5 MG IV (06:29)
[2022-09-30 06:40] LABS: Chol HDL Ratio 3.34 mg/dL (1.0-5.00); Cholesterol 107 mg/dL (0-200); HDL Cholesterol 32 mg/dL (60-100); LDL Cholesterol Calculated 56 mg/dL (50-129); Triglycerides 97 mg/dL (0-150); VLDL Cholestrol Calculation 19 mg/dL (0-30)
[2022-09-30 06:43] LABS: Alanine Aminotransferase 30 U/L (0-41); Albumin Level 3.1 g/dL (3.5-5.2); Alkaline Phosphatase 104 U/L (40-130); Anion Gap 13.2 (5-19); Aspartate Amino Transferase 28 U/L (0-40); Blood Urea Nitrogen 10 mg/dL (6-20); Calcium 8.1 mg/dL (8.5-10.5); Carbon Dioxide 29 mmol/L (22-29); Chloride 99 mmol/L (98-107); Glomerular Filtration Rate 173.9 mL/min (90-130); Glucose 98 mg/dL (65-115); Osmolality Calculated 285 mOsm/kg (285-295); Potassium 3.2 mmol/L (3.5-5.1); Sodium 138 mmol/L (136-145); Total Bilirubin 0.7 mg/dL (0.15-1.2); Troponin 5 6HR 29.98 ng/L (0-15)
[2022-09-30 06:46] LABS: Troponin 5 6HR Delta -9.02 ng/L (0-12)
[2022-09-30 07:55] LABS: Slide Review Slide Review Perform
[2022-09-30 07:59] LABS: Estmated Average Glucose 131; Hemoglobin A1C 6.2 % (4.0-6.0)
[2022-09-30 08:14] LABS: Globulin 1.8 g/dL (1.3-4.6)
[2022-09-30 08:15] LABS: Total Protein 4.9 g/dL (6.6-8.7)
[2022-09-30] MEDS: verapamil ER 240 mg Tablet PO (08:15)
[2022-09-30] MEDS: clopidogrel 75 mg Tablet PO (08:15)
[2022-09-30] MEDS: ferrous gluconate 324 mg Tablet PO ×2 (08:15→17:18)
[2022-09-30] MEDS: pantoprazole DR 40 mg Tablet PO (08:15)
[2022-09-30] MEDS: folic acid 1 mg Tablet PO (08:15)
[2022-09-30 09:43] LABS: Percent Saturation 93.1 % (20-50); Total Iron Binding Capacity 248 mcg/dl; Unsaturated Iron Binding < 17 ug/dL (112-347)
--- NOTE | 2022-09-30 09:50 | PC.CHAP ---
Pastoral Care Encounter/Spiritual Assessment Type of Contact [] Declined meat supervisor visit [] Patient/Family/Request visit [] Outpatient visit [] Follow-up visit [] Physician referral [] Code/Alert [x] Routine visit [] Staff referral [] Actively dying [] Patient sleeping [] Family support [] [] Out of room [] Palliative care [] [] Receiving care in room [] Pre-surgical visit [] Trauma [] Long length of stay [] ICU visit [] Other: Relational/Emotional Strength [x] Patient feels connected with others/family/visitors/staff [] Distress [] Loneliness/isolation [] Abandonment Spirituality of Patient [x] Person of Gladys [x] Attends Amish of their Gladys [x] Believes in Prayer [] Reads Bible or Spiritism materials [] There are Spiritual issues to be addressed Machine Stone Polisher Interventions [x] Prayer [x] Active listening [] Non-anxious presence [x] Spiritual/emotional support [] Crisis/trauma care [] Spiritual counseling [] Bereavement support [] Provided bereavement packet [] Provided Bible/devotional materials [] Provided toy/stuffed animal, coloring book to patient or family member [] Provided Communion [] Anointing/[place] [] Salvation [x] Completed spiritual assessment [] Other: Impact on Illness or Injury [] Angry [] Fearful [] Anxious [] Often cries [] Exhaustion [] Unable to work [] Unable to attend quaker [] Unable to walk/stand [] Unable to read [] Unable to drive [] Unable to eat/drink [] Unable to sleep [] Unable to be with family [] Patient intubated [] Other: Summary Time spent with patient 10 min
[2022-09-30] MEDS: ciprofloxacin 200 MG/100 ML PREMIX 100 MG IV (10:27)
--- NOTE | 2022-09-30 10:49 | P.PN_ITS ---
Subjective Subjective: This morning patient seen and examined CT scan reviewed showing multiple lymphadenopathies, adenopathy with compression on left renal vein and IVC Spoke with Dr. Jo who recommended hospice care Patient has not been attending his appointments Dr. Jo Patient is willing to start hospice care would like to speak with the case management redevelopment manager updated Potassium 3.2 Creatinine 0.5 Patient is smoking more than 2 packs/day No active chest pain Troponin negative delta Procalcitonin 1.5 No signs of UTI Vitals/I&O/Wt Last Vital Signs Temp 99 F 09/30/22 04:00 Pulse 119 H 09/30/22 10:10 Resp 16 09/30/22 10:10 BP 102/68 09/30/22 07:38 Pulse Ox 96 09/30/22 10:10 O2 Del Method 09/30/22 10:10 O2 Flow Rate 2.5 09/30/22 04:00 09/29/22 09/30/22 09/30/22 22:59 06:59 14:59 Intake Total 2009 697.834 / 2707.834 360 / 360 Output Total 600 / 600 450 / 450 Balance 2009 97.834 / 2107.834 -90 / -90 Weight last 48 hrs Weight 89.811 kg Physical Exam Narrative: Patient is disheveled Unkept appearance Awake and alert No audible stridor or wheezing Abdomen is nontender Awake and alert Nonfocal neuro exam Data 09/30/22 05:49 09/30/22 05:49 Micro: Microbiology 09/29/22 22:30 Blood Culture - Preliminary Blood SPECIMEN COLLECTED 09/29/22 22:30 Blood Culture - Preliminary Blood SPECIMEN COLLECTED A&P Assessment and plan (1) Lung cancer: (2) Primary adenocarcinoma of lower lobe of right lung: (3) Fatigue: (4) Back muscle spasm: (5) Atrial fibrillation with RVR: (6) Metastatic neoplastic disease: (7) Congestive heart failure: Qualifiers: Heart failure type: biventricular Qualified Code(s): I50.82 - Biventri cular heart failure (8) Tobacco abuse: (9) Sleep apnea syndrome: Qualifiers: Sleep apnea type: unspecified type Qualified Code(s): G47.30 - Sleep apnea, unspecified (10) Atrial fibrillation: Plan Abdominal pain related to significant lymphadenopathy with compression of the left renal vein and IVC Patient has not been attending his oncology appointments, Dr. Jo recommended hospice Antibiotics contact with him today Patient is agreeable to consider hospice care, I have updated my onsite case manager for palliative consultation We will update his today as well A-fib RVR, titrate off Cardizem patient was taking verapamil and Xarelto which he ran out of few days ago We will give him a dose of amiodarone, start p.o. Cardizem with holding p arameters Low blood pressure related to Cardizem: Given small bolus of normal saline He is at high risk of renal vein thrombosis he should continue anticoagulating agent Active smoker, Will give him nicotine patch, he smokes 2 packs/day DNR/DNI We will update the family Palliative care consult Solution: Plan to discharge him home once A-fib RVR improved Attestations Medical Necessity Statement*: Discharge tomorrow and Moderate Time for a total of 40 minutes, includes reviewing past or interval history, examining/interviewing patient, placing orders, counseling patient/family/other support, updating patient/family/other support, discussing plan of care with staff, communicating with other healthcare providers, documenting encounter and coordinating care Diagnoses Lung cancer C34.90 Primary adenocarcinoma of lower lobe of right lung C34.31 Fatigue R53.83 Back muscle spasm M62.830 Atrial fibrillation with RVR I48.91 Metastatic neoplastic disease C79.9 Congestive heart failure I50.82 Heart failure type: biventricular Tobacco abuse Z72.0 Sleep apnea syndrome G47.30 Sleep apnea type: unspecified type Atrial fibrillation I48.91
[2022-09-30] MEDS: dilTIAZem 30 mg Tablet PO ×3 (11:12→23:20)
[2022-09-30] MEDS: amiodarone 200 mg Tablet 400 MG PO (11:12)
[2022-09-30] MEDS: potassium chloride ER 20 mEq Tablet 40 MEQ PO (11:12)
[2022-09-30] MEDS: sodium chloride 0.9% 250 ML IV (11:13)
[2022-09-30] MEDS: nicotine 21 mg Patch 1 PATCH TRANSDERMA (18:38)
[2022-09-30] MEDS: morphine IR 15 mg Tablet PO (18:43)
[2022-09-30] MEDS: rivaroxaban 10 mg Tablet 20 MG PO (20:16)
[2022-09-30] MEDS: budesonide 0.5 mg/2 mL Neb INHALATION (20:46)
[2022-09-30] MEDS: dilTIAZem 100 MG in sodium chloride 0.9% (add-van) 100 ML IV (23:28)
[2022-10-01] VITALS (22 sets, daily range): BP systolic 101–130; BP diastolic 69–90; PULSE 73–104; RESP 16–25; TEMP 36.6; O2SAT 77–99
[2022-10-01] MEDS: morphine IR 15 mg Tablet PO ×2 (03:36→08:51)
[2022-10-01] MEDS: sodium chloride 0.9% 1,000 ML 75 ML IV (03:38)
[2022-10-01] MEDS: dilTIAZem 30 mg Tablet PO (06:05)
--- NOTE | 2022-10-01 06:13 | P.DS_ITS ---
Discharge Providers Date of Admission: 09/29/22 23:22 Date of Discharge: October 01, 2022 Attending Provider at Admission: Amilcar Thomas MD Attending Provider at Discharge: Yodit Martin MD Primary Care Provider: Michael Cooley MD Diagnoses at Discharge Discharge Diagnosis (1) Lung cancer: Status: Acute (2) Primary adenocarcinoma of lower lobe of right lung: Status: Acute (3) Fatigue: Status: Acute (4) Back muscle spasm: Status: Acute (5) Atrial fibrillation with RVR: Status: Acute (6) Metastatic neoplastic disease: Status: Acute (7) Congestive heart failure: Status: Acute Qualifiers: Heart failure type: biventricular Qualified Code(s): I50.82 - Biventricular heart failure Permanent problem details: Echocardiogram from 05/2022 showed EF of 45%, global LV hypokinesia with mildly dilated RV and low RV systolic functions (8) Tobacco abuse: Status: Acute (9) Sleep apnea syndrome: Status: Acute Qualifiers: Sleep apnea type: unspecified type Qualified Code(s): G47.30 - Sleep apnea, unspecified (10) Atrial fibrillation: Status: Acute Reason for Visit Reason for Visit: Dizzy\ABD Pain Hospital Course Hospital Course 52-year-old male with history of lung cancer with mets to abdomen and liver presents to the hospital for worsening abdominal pain and palpitations. He has chronic history of A-fib takes Xarelto and verapamil. He ran out of his medications few days before his arrival in the ER. In the hospital he was treated for A-fib with Cardizem drip which was gradually transitioned to p.o. AV iris blocking agent regimen. Xarelto was resumed. Multiple family meetings we re conducted, patient and his both agreed with initiation of hospice care. Patient does take muscle relaxants and opioids. As per the that dose is very high he gets obtunded however patient is stating that he has not slept well because of his pain for last 7 days and that is taking a toll on his life. clinical outcomes manager updated, arranging hospice at home. Will readjust opioids and muscle r elaxant at the time of discharge, he will continue his AV iris blocking agent along Xarelto. Patient was counseled that he has at risk of IVC compression syndrome and left renal vein thrombosis. Patient is stating that he is still smoking 2 packs/day Physical Exam Narrative: Disheveled appearance Unkept appearance S1, S2 radial Abdomen soft Lower extremity trace edema Pleasant and cooperative Nonfocal neuro exam Discharge Data Studies Completed and Pending Completed Studies During Hospitalization Category Date Time Status CT abdomen pelvis w con* [id number] Stat Cat Scan 09/29/22 19:49 Completed Pending at discharge Category Date Time Status Blood Culture Stat Lab 09/29/22 22:30 Results Clostridioides Difficile PCR Routine Lab 09/29/22 23:22 Ordered Enteric Bacterial Panel by PCR Routine Lab 09/29/22 23:22 Ordered Enteric Parasite Panel by PCR Routine Lab 09/29/22 23:22 Ordered Immunochemical Fecal OCB Routine Lab 09/29/22 23:22 Ordered Lactoferrin Routine Lab 09/29/22 23:22 Ordered Radiology Impressions Abdomen/Pelvis CT 09/29/22 19:49 IMPRESSION: 1. Increased size and number of liver metastasis. 2. Retroperitoneal and mesenteric adenopathy. Although a few nodes have slightly decreased, most nodes are similar to increased in size. 3. Adenopathy is now compressing and may be invading the left renal vein and IVC. 4. Colitis. No megacolon. Laboratory Results WBC 4.5 10^3/uL (4.0-10.0) 09/30/22 05:49 RBC 3.67 10^6/uL (4.1-5.3) L 09/30/22 05:49 Hgb 12.1 g/dL (11.7-16.6) 09/30/22 05:49 Hct 35.8 % (42.0-52.0) L 09/30/22 05:49 MCV 97.5 fl (80-94) H 09/30/22 05:49 MCH 33.0 pg (28.0-34.0) 09/30/22 05:49 MCHC 33.8 g/dL (30.0-36.0) 09/30/22 05:49 RDW 14.6 % (12.1-15.1) 09/30/22 05:49 Plt Count 185 10^3/cmm (130-400) 09/30/22 05:49 MPV 9.3 fL (7.4-10.4) 09/30/22 05:49 Neut % (Auto) 85.3 % 09/30/22 05:49 Lymph % (Auto) 10.8 % 09/30/22 05:49 [place] % (Auto) 1.1 % 09/30/22 05:49 Eos % (Auto) 1.3 % 09/30/22 05:49 Baso % (Auto) 1.1 % 09/30/22 05:49 Neut # (Auto) 3.85 10^3/uL (1.8-7.7) 09/30/22 05:49 Lymph # (Auto) 0.5 10^3/uL (0.8-4.8) L 09/30/22 05:49 [place] # (Auto) 0.1 10^3/uL (0.2-0.9) L 09/30/22 05:49 Eos # (Auto) 0.1 10^3/uL (0.0-0.8) 09/30/22 05:49 Baso # (Auto) 0.1 10^3/uL (0.0-0.1) 09/30/22 05:49 Nucleated RBC % (auto) 0 % 09/30/22 05:49 Nucleated RBCs # 0.0 /100WBC 09/30/22 05:49 Sodium 138 mmol/L (136-145) 09/30/22 05:49 Potassium 3.2 mmol/L (3.5-5.1) L 09/30/22 05:49 Chloride 99 mmol/L (98-107) 09/30/22 05:49 Carbon Dioxide 29 mmol/L (22-29) 09/30/22 05:49 Anion Gap 13.2 (5-19) 09/30/22 05:49 BUN 10 mg/dL (6-20) 09/30/22 05:49 Creatinine 0.5 mg/dL (0.7-1.2) L 09/30/22 05:49 GFR Calculation 173.9 mL/min (90-130) H 09/30/22 05:49 Glucose 98 mg/dL (65-115) 09/30/22 05:49 Estimat Average Glucose 131 09/30/22 05:49 Hemoglobin A1c 6.2 % (4.0-6.0) H 09/30/22 05:49 Calculated Osmolality 285 mOsm/kg (285-295) 09/30/22 05:49 Calcium 8.1 mg/dL (8.5-10.5) L 09/30/22 05:49 Iron 231 ug/dL (59-158) H 09/29/22 20:13 TIBC 248 mcg/dl 09/29/22 20:13 % Saturation 93.1 % (20-50) H 09/29/22 20:13 Unsat Iron Binding < 17 ug/dL (112-347) L 09/29/22 20:13 Total Bilirubin 0.7 mg/dL (0.15-1.2) 09/30/22 05:49 AST 28 U/L (0-40) 09/30/22 05:49 ALT 30 U/L (0-41) 09/30/22 05:49 Alkaline Phosphatase 104 U/L (40-130) 09/30/22 05:49 Troponin T Baseline 39 ng/L (0-15) H 09/29/22 20:13 Troponin T 120 Minute 32.32 ng/L (0-15) H 09/29/22 22:30 Delta Troponin T -6.68 ABS# (0-10) L 09/29/22 22:30 Troponin T Hi Sens 6Hr 29.98 ng/L (0-15) H 09/30/22 05:49 Troponin T Hi Sens 6Hr Delta -9.02 ng/L (0-12) L 09/30/22 05:49 NT-Pro-B Natriuret Pep 2718 pg/mL (0-125) H 09/29/22 20:13 Total Protein 4.9 g/dL (6.6-8.7) L D 09/30/22 05:49 Albumin 3.1 g/dL (3.5-5.2) L 09/30/22 05:49 Globulin 1.8 g/dL (1.3-4.6) 09/30/22 05:49 Triglycerides 97 mg/dL (0-150) 09/30/22 05:49 Cholesterol 107 mg/dL (0-200) 09/30/22 05:49 LDL Cholesterol, Calc 56 mg/dL (50-129) 09/30/22 05:49 Total VLDL Cholesterol 19 mg/dL (0-30) 09/30/22 05:49 HDL Cholesterol 32 mg/dL (60-100) L 09/30/22 05:49 Cholesterol/HDL Ratio 3.34 mg/dL (1.0-5.00) 09/30/22 05:49 Lipase 25 U/L (13-60) 09/29/22 20:13 Vitamin B12 449 pg/mL (232-1245) 09/29/22 20:13 Folate 8.2 ng/mL (4.5-32.2) 09/29/22 20:13 Procalcitonin 1.57 ng/mL (0-0.5) H 09/29/22 20:13 Urine Color Yellow (Yellow) 09/29/22 20:34 Urine Appearance Clear (CLEAR) 09/29/22 20:34 Urine pH 5 (5-7) 09/29/22 20:34 Ur Specific [place] 1.005 (1.005-1.030) 09/29/22 20:34 Urine Protein Trace (Negative) 09/29/22 20:34 Urine Glucose (UA) Norm (Normal) 09/29/22 20:34 Urine Ketones Negative (Negative) 09/29/22 20:34 Urine Blood Neg (Negative) 09/29/22 20:34 Urine Nitrate Negative (Negative) 09/29/22 20:34 Urine Bilirubin Neg (Negative) 09/29/22 20:34 Urine Urobilinogen 1 mg/dL (Negative) H 09/29/22 20:34 Ur Leukocyte Esterase Negative (Negative) 09/29/22 20:34 Urine RBC 0-4 /hpf (0-2) H 09/29/22 20:34 Urine WBC 0-4 /hpf (0-5) H 09/29/22 20:34 Ur Squamous Epith Cells 0-4 /hpf (0-5) H 09/29/22 20:34 Amorphous Sediment Not Reportable 09/29/22 20:34 Urine Bacteria None /hpf (NONE) 09/29/22 20:34 Hyaline Casts 0-4 /lpf H 09/29/22 20:34 Urine Mucus 1+ /hpf 09/29/22 20:34 Vitals Last Vital Signs Temp 97.8 F 10/01/22 04:00 Pulse 77 10/01/22 04:00 Resp 19 H 10/01/22 04:00 BP 112/73 10/01/22 03:30 Pulse Ox 94 10/01/22 04:00 O2 Del Method 10/01/22 02:12 O2 Flow Rate 2.5 09/30/22 04:00 Discharge Plan Discharge Patient Disposition: Hospice - Home Condition: Stable Prescriptions: New morphine 30 mg tablet extended release 30 mg PO Q12H Qty: 20 0RF metoprolol tartrate 25 mg tablet 12.5 mg PO BID PRN (Reason: IF PULSE >100 after cardizem dose) Qty: 60 1RF Cardizem LA 120 mg tablet extended release 24 hr 120 mg PO DAILY Qty: 60 3RF Continued promethazine 25 mg tablet 25 mg PO TID PRN (Reason: nausea and vomiting) Qty: 60 0RF morphine 30 mg tablet extended release 30 mg PO Q12H 30 Days Qty: 60 0RF prochlorperazine maleate [Compazine] 10 mg tablet 10 mg PO Q4H PRN (Reason: Mild Nausea) Qty: 30 3RF ipratropium-albuterol 0.5 mg-3 mg(2.5 mg base)/3 mL solution for nebulization 3 ml inhalation Q6H PRN (Reason: wheezing) Qty: 90 3RF clopidogrel 75 mg tablet 75 mg PO DAILY Qty: 90 3RF pantoprazole 40 mg tablet,delayed release (DR/EC) 40 mg PO DAILY Qty: 30 3RF Xarelto 20 mg tablet 20 mg PO BEDTIME Qty: 90 2RF Trelegy Ellipta 100-62.5-25 mcg blister with device 1 inh inhalation DAILY Qty: 60 5RF albuterol sulfate 90 mcg/actuation HFA aerosol inhaler 2 puff inhalation Q4H PRN (Reason: shortness of breath or wheezing) Qty: 8.5 5RF folic acid 1 mg tablet 1 mg PO DAILY Qty: 30 5RF lorazepam 1 mg tablet 1 mg PO TID PRN (Reason: severe nausea) 30 Days Qty: 90 0RF morphine 15 mg tablet 15 mg PO Q4H PRN (Reason: pain) 30 Days Qty: 120 0RF nitroglycerin 0.4 mg tablet, sublingual 0.4 mg sublingual Q5M PRN (Reason: chest pain) 30 Days Qty: 30 2RF Rx Instructions: do not exceed 3 doses per episode multivitamin [Men's Multi-Vitamin] Tablet 1 tab PO DAILY cyclobenzaprine 10 mg tablet 10 mg PO 2XD PRN (Reason: muscle spasm) ondansetron 8 mg tablet,disintegrating 8 mg PO Q6H PRN (Reason: Nausea) Discontinued atorvastatin 40 mg tablet 40 mg PO DAILY@2200 Qty: 90 3RF verapamil 240 mg capsule,ext rel. pellets 24 hr 240 mg PO DAILY Qty: 90 1RF Discharge Orders: Discharge Order (Routine); Ordered 10/01/22 Ordered By: Yodit Martin Referrals: Michael Cooley MD [Primary Care Provider] - Discharge Attestations Time Spent in Discharge Care*: less than 30 min Quality Metrics Clinical Quality Measures [ No reported AMI, CVA or VTE this stay] Coding Level of Care Code Acute Code for Chg Fwd Diagnoses Lung cancer C34.90 Primary adenocarcinoma of lower lobe of right lung C34.31 Fatigue R53.83 Back muscle spasm M62.830 Atrial fibrillation with RVR I48.91 Metastatic neoplastic disease C79.9 Congestive heart failure I50.82 Heart failure type: biventricular Tobacco abuse Z72.0 Sleep apnea syndrome G47.30 Sleep apnea type: unspecified type Atrial fibrillation I48.91
[2022-10-01] MEDS: folic acid 1 mg Tablet PO (08:39)
[2022-10-01] MEDS: ferrous gluconate 324 mg Tablet PO (08:39)
[2022-10-01] MEDS: pantoprazole DR 40 mg Tablet PO (08:39)
[2022-10-01] MEDS: nicotine 21 mg Patch 1 PATCH TRANSDERMA (08:39)
--- NOTE | 2022-10-01 12:03 | PC.NURSE ---
Pt discharged home. IVs removed no redness swelling or bleeding noted. Pt discharge instructions given along with prescriptions and follow up appointments. Pt had no c/o pain or discomfort at the time of discharge.
== END 2022-10-01 12:01 | disposition home or self-care (01) ==
LOC: ER 22:05 → CSU 09-30 00:09
PROVIDERS: Admitting Provider Student in an Organized Health Care Education/Training Program; Emergency Provider Emergency Medicine; PCP Family Medicine; Visit Provider Internal Medicine
DX: C34.31 Malignant neoplasm of lower lobe, right bronchus or lung (principal); C79.89 Secondary malignant neoplasm of other specified sites; R53.83 Other fatigue; M62.830 Muscle spasm of back; I50.82 Biventricular heart failure; G47.30 Sleep apnea, unspecified; I48.20 Chronic atrial fibrillation, unspecified; Z79.01 Long term (current) use of anticoagulants; Z66 Do not resuscitate; I25.10 Atherosclerotic heart disease of native coronary artery without angina pectoris; F41.9 Anxiety disorder, unspecified; E78.5 Hyperlipidemia, unspecified; G47.33 Obstructive sleep apnea (adult) (pediatric); F17.210 Nicotine dependence, cigarettes, uncomplicated
CPT/HCPCS: 36415; 74177; 80053; 80061; 81001; 81003; 82607; 82746; 83036; 83540; 83550; 83690; 83880; 84145; 84484; 85025; 87040; 93005; 94640; 96365; 96367; 96375; 99285; G0378; J0744; J1170; J2270; J2405; J2920; J3490; J7030; J7050; J7614; J7626; J7644; Q9967

== ENCOUNTER 2022-10-02 08:00 | Oncology outpatient (recurring) (ONCR) | payer MEDICARE, MEDICAID, SELFPAY ==
[2022-09-19] MEDS: cyanocobalamin 1,000 mcg/mL SDV 1000 MCG IM (08:49)
[2022-09-25 08:39] LABS: Basophils # 0.1 10^3/uL (0.0-0.1); Eosinophils # 0.1 10^3/uL (0.0-0.8); Eosinophils % 1.6 %; Hematocrit 40.7 % (42.0-52.0); Hemoglobin 14.3 g/dL (11.7-16.6); Lymphocytes % 14.5 %; Mean Corpuscular HGB Conc 35.1 g/dL (30.0-36.0); Mean Corpuscular Hemoglobin 33.2 pg (28.0-34.0); Mean Corpuscular Volume 94.4 fl (80-94); Mean Platelet Volume 9.1 fL (7.4-10.4); Monocytes # 0.4 10^3/uL (0.2-0.9); Monocytes % 5.8 %; Neutrophils # 5.41 10^3/uL (1.8-7.7); Neutrophils % 76.8 %; Nucleated Red Blood Cells % 0 %; Platelet Count 252 10^3/cmm (130-400); Red Blood Count 4.31 10^6/uL (4.1-5.3); Red Cell Distribution Width 14.7 % (12.1-15.1)
[2022-09-25 09:44] LABS: Alanine Aminotransferase 10 U/L (0-41); Albumin Level 3.5 g/dL (3.5-5.2); Alkaline Phosphatase 109 U/L (40-130); Aspartate Amino Transferase 11 U/L (0-40); Blood Urea Nitrogen 10 mg/dL (6-20); Calcium 9.1 mg/dL (8.5-10.5); Carbon Dioxide 34 mmol/L (22-29); Chloride 93 mmol/L (98-107); Globulin 2.5 g/dL (1.3-4.6); Glomerular Filtration Rate 88.3 mL/min (90-130); Glucose 106 mg/dL (65-115); Immunoglobulin IGG 676 mg/dL (700-1600); Osmolality Calculated 283 mOsm/kg (285-295); Sodium 137 mmol/L (136-145); Total Bilirubin 0.6 mg/dL (0.15-1.2)
[2022-09-25 09:47] LABS: Anion Gap 13.5 (5-19); Potassium 3.5 mmol/L (3.5-5.1)
[2022-09-25 09:56] LABS: Hepatitis A Antibody IgM Non-Reactive (Nonreactive); Hepatitis B Core AB, Total Non-Reactive (Nonreactive); Hepatitis B Surface AB 3.5 (11.5-1000); Hepatitis B Surface Antigen Non-Reactive (Nonreactive); Hepatitis C Virus Antibody Non-Reactive (Nonreactive)
[2022-09-25] MEDS: sodium chloride 0.9% 250 ML 75 ML IV (11:40)
[2022-09-25] MEDS: diphenhydrAMINE 50 mg/mL SDV 1mL 25 MG IVP (11:41)
[2022-09-25] MEDS: famotidine 20 mg/2 mL INJ IVP (11:41)
[2022-09-25] MEDS: OLANZapine 5 mg TABLET PO (11:42)
[2022-09-25] MEDS: palonosetron 0.25 mg/5 mL SDV IVP (11:42)
[2022-09-25] MEDS: fosaprepitant 150 MG in sodium chloride 0.9% 150 ML 300 MG IV (12:10)
[2022-09-25] MEDS: pembrolizumab 200 MG in sodium chloride 0.9% 250 ML 516 MG IV (12:46)
[2022-09-25 16:00] VITALS: BP 97/64; PULSE 60; RESP 16; TEMP 36.6; O2SAT 98
== END 2022-10-08 23:59 | disposition home or self-care (01) ==
PROVIDERS: PCP Family Medicine; Visit Provider Internal Medicine Medical Oncology
DX: C34.31 Malignant neoplasm of lower lobe, right bronchus or lung (principal)
CPT/HCPCS: 80053; 82784; 84443; 85025; 86705; 86706; 86709; 86803; 87340; 96401; 99214; J1100; J1200; J1453; J2469; J3420; J3490; J7040; J7050; J9045; J9271; J9305

== ENCOUNTER 2022-11-06 13:21 | Inpatient (IN) | payer MEDICARE, MEDICAID, SELFPAY ==
[2022-11-06] VITALS (13 sets, daily range): BP systolic 96–161; BP diastolic 45–94; PULSE 68–127; RESP 16–23; TEMP 36.3–36.6; O2SAT 95–99; BMI 21.8
[2022-11-06] MEDS: ondansetron 2 mg/ML SDV 2 mL 4 MG IVP ×2 (16:24→17:13)
--- NOTE | 2022-11-06 16:26 | W.ED.ABDPA2 ---
HPI - Abdominal Pain General: Chief Complaint: Abdominal Pain Stated Complaint: abd pain Time Seen by Provider: 11/06/22 16:08 Source: patient Mode of arrival: ambulatory History of Present Illness: 52-year-old male with a history of lung cancer with dissemination into the abdomen with chronic abdominal pain. At time of diagnosis he was stage IIIb stage IV at this time. According to the notes from his primary care doctor did try to get him set up for hospice. When I talked to the patient he states he refused to sign up for hospice because he wanted to continue to take chemo and he could not find a hospice service that would let him keep taking chemo. Is coming in today with recurrent abdominal pain. He has been taking morphine at home that Dr. Johnson has been prescribing. MD elicited complaint: abdominal pain Onset (ago): month(s) Pain Consistency: intermittent Location: Diffuse Severity: mild Quality: cramping Radiation: none Exacerbating factors: nothing Relieving factors: nothing Associated Symptoms: Reports bloating, GI cramping, dyspepsia, nausea and poor appetite; Denies anorexia, belching, change in bowel habits, change in stool character, chills, coffee ground emesis, constipation, diarrhea, dysuria, excessive flatus, fever(s), heartburn, hematochezia, hematuria, hematemesis, fecal incontinence, loose stools, melena, syncope and vomiting Review of Systems Const: Reports: fatigue and malaise; Denies: fever(s) or chills ENMT: Denies: throat pain, ear or mastoid pain, nasal discharge or nasal congestion Card: Denies: chest pain, palpitations, irregular heart rhythm or syncope Resp: Reports: dyspnea; Denies: productive cough or non-productive cough GI: Reports: abdominal pain, nausea, early satiety, bloating and GI cramping; Denies: vomiting, hematemesis, coffee ground emesis, heartburn, diarrhea, constipation, belching, excessive flatus, fecal incontinence, change in bowel habits, change in stool character, hematochezia or melena : Denies: dysuria, urinary frequency, urinary urgency or hematuria Skin/Breast: Denies: rash or pruritus PFSH ED PFSH: Medical History (Updated 11/07/22 @ 06:38 by Andrew Sanches DO) Abdominal pain Atrial fibrillation Atrial fibrillation with RVR Back muscle spasm CAD (coronary artery disease) Cancer of right lung Chronic anticoagulation Chronic anxiety Congestive heart failure Echocardiogram from 05/2022 showed EF of 45%, global LV hypokinesia with mildly dilated RV and low RV systolic functions COPD (chronic obstructive pulmonary disease) Dyslipidemia Fatigue Lung cancer Macular degeneration Metastatic neoplastic disease Non-small cell lung cancer Obstructive sleep apnea Primary adenocarcinoma of lower lobe of right lung Sleep apnea syndrome Tobacco abuse Surgical History History of bronchoscopy 12/29/2020 - Bronchoscopy/EBUS History of cholecystectomy History of coronary angioplasty with insertion of stent 08/2016 Mid left circumflex Port-A-Cath in place (02/14/21) Presence of stent in left circumflex coronary artery 05/29/2022 Distal to previously placed stent S/P right coronary artery (RCA) stent placement 05/29/2022 Mid RCA Family History Other CAD (coronary artery disease) Cancer Diabetes Lung disease Stroke Denies family history of Bleeding disorder Social History Smoking and tobacco status: current every day smoker cigarettes Packs smoked per day: 1.5 Years cigarettes smoked: 48 [ Other cigarette details: 1.5 PPD, 3PPD x 45yrs] Quit status (tobacco): considering quitting Second hand smoke exposure: Yes Smoking risk assessment/counseling performed?: Yes Alcohol intake: current Alcohol intake frequency: holidays/special occasions only Lives independently: Yes Household members: significant other and children Marital status: Life Partner service: No Current occupational status: disabled Pets and animals: Yes Current gender identity: Male Physical Exam Const: GENERAL APPEARANCE: cooperative and comfortable ORIENTATION/CONSCIOUSNESS: Yes awake, Yes oriented to person, Yes oriented to place and Yes oriented to time HENMT: COMMON NORMALS: normocephalic, atraumatic and hearing grossly normal bilaterally HEAD & SCALP: normocephalic and atraumatic Resp: COMMON NORMALS: normal respiratory effort, No retractions, No use of accessory muscles and clear to auscultation bilaterally AUSCULTATION: clear to auscultation bilaterally Cardio: COMMON NORMALS: regular rate, regular rhythm and No murmurs present (Cardio) RATE: regular rate RHYTHM: regular rhythm GI: COMMON NORMALS: No hepatosplenomegaly present AUSCULTATION: Yes normoactive bowel sounds PALPATION: Yes Tenderness to palpation present (GI) (Diffuse abdominal tenderness), No Guarding due to palpation present (GI) and Yes No hepatosplenomegaly present Extremity: COMMON NORMALS: normal to inspection, capillary refill normal, no clubbing, cyanosis or edema, no calf tenderness and no pedal edema Neuro: SENSORIUM/ORIENTATION: Yes oriented to person, Yes oriented to place and Yes oriented to time Skin: COMMON NORMALS: no rashes or lesions noted GENERAL SKIN EXAM: no rashes or lesions noted Course Vital Signs: Vital signs: Vital Signs Temperature 98.2 F 11/07/22 04:00 Pulse Rate 124 H 11/07/22 06:00 Respiratory Rate 23 H 11/07/22 05:31 Blood Pressure 122/92 11/07/22 06:00 Pulse Oximetry 97 11/07/22 06:00 Oxygen Delivery Me thod 11/06/22 21:01 MDM - Abdominal Pain Medical Decision Making Discussed patient's current findings today and his current status. He has disseminated lung cancer he had previously been advised to go on hospice. He was under the impression he could be on hospice and still receive treatment so was trying to find a hospice service that would allow this. We contacted the cancer center and they were under the impression he was still on hospice so had not pursued any treatment with him, has not had any kind of treatment in about 6 weeks. His abdominal pain is worsening. Suspect that the CT were repeated his metastasis has increased. He is in A-fib with RVR. After long discussion with him we decided to treat his rate control with Cardizem placed by. Lets his rate is controlled to reassess his cancer and he would like to go back and talk to the oncology team and see if there is anything they feel that he can do. At this point I do not think the patient will physically be able to tolerate chemotherapy as last treatment resulted in him being hospitalized. After long discussion he is more amenable to pursuing hospice at this time. Medical Records I reviewed the patient's medical records. Lab Data I reviewed the patient's lab results. 11/07/22 03:27 11/07/22 03:27 Labs/Radiology: Radiology Impressions Chest X-Ray 11/06/22 17:22 IMPRESSION: 1. COPD 2. Left central line extends to the SVC 3. Otherwise negative examination Laboratory Results WBC 9.4 10^3/uL (4.0-10.0) 11/06/22 16:12 RBC 4.45 10^6/uL (4.1-5.3) 11/06/22 16:12 Hgb 14.7 g/dL (11.7-16.6) 11/06/22 16:12 Hct 42.3 % (42.0-52.0) 11/06/22 16:12 MCV 95.1 fl (80-94) H 11/06/22 16:12 MCH 33.0 pg (28.0-34.0) 11/06/22 16:12 MCHC 34.8 g/dL (30.0-36.0) 11/06/22 16:12 RDW 13.9 % (12.1-15.1) 11/06/22 16:12 Plt Count 313 10^3/cmm (130-400) 11/06/22 16:12 MPV 9.1 fL (7.4-10.4) 11/06/22 16:12 Neut % (Auto) 78.8 % 11/06/22 16:12 Lymph % (Auto) 11.5 % 11/06/22 16:12 [place] % (Auto) 7.9 % 11/06/22 16:12 Eos % (Auto) 0.5 % 11/06/22 16:12 Baso % (Auto) 1.1 % 11/06/22 16:12 Neut # (Auto) 7.38 10^3/uL (1.8-7.7) 11/06/22 16:12 Lymph # (Auto) 1.1 10^3/uL (0.8-4.8) 11/06/22 16:12 [place] # (Auto) 0.7 10^3/uL (0.2-0.9) 11/06/22 16:12 Eos # (Auto) 0.1 10^3/uL (0.0-0.8) 11/06/22 16:12 Baso # (Auto) 0.1 10^3/uL (0.0-0.1) 11/06/22 16:12 Nucleated RBC % (auto) 0 % 11/06/22 16:12 Nucleated RBCs # 0.0 /100WBC 11/06/22 16:12 Sodium 137 mmol/L (136-145) 11/06/22 16:12 Potassium 3.2 mmol/L (3.5-5.1) L 11/06/22 16:12 Chloride 90 mmol/L (98-107) L 11/06/22 16:12 Carbon Dioxide 34 mmol/L (22-29) H 11/06/22 16:12 Anion Gap 16.2 (5-19) 11/06/22 16:12 BUN 7 mg/dL (6-20) 11/06/22 16:12 Creatinine 0.8 mg/dL (0.7-1.2) 11/06/22 16:12 GFR Calculation 101.1 mL/min (90-130) 11/06/22 16:12 Glucose 103 mg/dL (65-115) 11/06/22 16:12 Calculated Osmolality 282 mOsm/kg (285-295) L 11/06/22 16:12 Calcium 9.3 mg/dL (8.5-10.5) 11/06/22 16:12 Total Bilirubin 0.6 mg/dL (0.15-1.2) 11/06/22 16:12 AST 14 U/L (0-40) 11/06/22 16:12 ALT 12 U/L (0-41) 11/06/22 16:12 Alkaline Phosphatase 138 U/L (40-130) H 11/06/22 16:12 Total Protein 7.4 g/dL (6.6-8.7) 11/06/22 16:12 Albumin 3.5 g/dL (3.5-5.2) 11/06/22 16:12 Globulin 3.9 g/dL (1.3-4.6) 11/06/22 16:12 Lipase 22 U/L (13-60) 11/06/22 16:12 Discharge Plan Discharge Patient Disposition: Admitted As Inpatient Admit Provider: Hever Driver Clinical Impression: Atrial fibrillation with RVR, Primary adenocarcinoma of lower lobe of right lung, Metastatic cancer Condition: Stable Coding Level of Care Code ED [employer] Driver for Ronit Hendricks
[2022-11-06] MEDS: sodium chloride 0.9% 1,000 ML 999 ML IV (16:32)
[2022-11-06] MEDS: morphine 4 mg/mL SDV 1 mL IVP (16:32)
[2022-11-06 16:44] LABS: Basophils # 0.1 10^3/uL (0.0-0.1); Basophils % 1.1 %; Eosinophils # 0.1 10^3/uL (0.0-0.8); Eosinophils % 0.5 %; Hematocrit 42.3 % (42.0-52.0); Hemoglobin 14.7 g/dL (11.7-16.6); Lymphocytes # 1.1 10^3/uL (0.8-4.8); Lymphocytes % 11.5 %; Mean Corpuscular HGB Conc 34.8 g/dL (30.0-36.0); Mean Corpuscular Volume 95.1 fl (80-94); Mean Platelet Volume 9.1 fL (7.4-10.4); Monocytes # 0.7 10^3/uL (0.2-0.9); Monocytes % 7.9 %; Neutrophils # 7.38 10^3/uL (1.8-7.7); Neutrophils % 78.8 %; Nucleated Red Blood Cells % 0 %; Platelet Count 313 10^3/cmm (130-400); Red Blood Count 4.45 10^6/uL (4.1-5.3); Red Cell Distribution Width 13.9 % (12.1-15.1); White Blood Count 9.4 10^3/uL (4.0-10.0)
--- NOTE | 2022-11-06 16:51 | ECG_ITS ---
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 Measurements Intervals [place] Rate: 122 P: 0 [place]: 0 QRS: -73 QRSD: 96 T: 88 QT: 342 QTc: 488 Interpretive Statements ATRIAL FIBRILLATION WITH RAPID VENTRICULAR RESPONSE LEFT AXIS DEVIATION [QRS AXIS < -30] MODERATE ST DEPRESSION [0.05+ mV ST DEPRESSION] Compared to ECG 09/30/2022 04:08:47 ST (T wave) deviation now present Myocardial infarct finding no longer present Electronically Signed On 11-06-2022 23:55:24 CDT by Glen Hernandez M.D. [email or web address]
[2022-11-06] MEDS: morphine 4 mg/mL SDV 1 mL 6 MG IVP (17:13)
[2022-11-06] MEDS: dilTIAZem 5 mg/mL SDV 5 mL 20 MG IVP (17:14)
[2022-11-06 17:20] LABS: Alanine Aminotransferase 12 U/L (0-41); Albumin Level 3.5 g/dL (3.5-5.2); Alkaline Phosphatase 138 U/L (40-130); Anion Gap 16.2 (5-19); Aspartate Amino Transferase 14 U/L (0-40); Blood Urea Nitrogen 7 mg/dL (6-20); Calcium 9.3 mg/dL (8.5-10.5); Carbon Dioxide 34 mmol/L (22-29); Chloride 90 mmol/L (98-107); Globulin 3.9 g/dL (1.3-4.6); Glomerular Filtration Rate 101.1 mL/min (90-130); Glucose 103 mg/dL (65-115); Lipase 22 U/L (13-60); Osmolality Calculated 282 mOsm/kg (285-295); Potassium 3.2 mmol/L (3.5-5.1); Sodium 137 mmol/L (136-145); Total Bilirubin 0.6 mg/dL (0.15-1.2); Total Protein 7.4 g/dL (6.6-8.7)
--- NOTE | 2022-11-06 17:22 | XRR_ITS ---
PROCEDURE INFORMATION: Exam: XR Chest Exam date and time: 11/06/2022 5:28 PM Age: 52 years old Clinical indication: Cough; Additional info: Dyspnea/cough TECHNIQUE: Imaging protocol: Radiologic exam of the chest. Views: 1 view. COMPARISON: CR XR chest 1V portable [id number] 05/27/2022 7:01 PM FINDINGS: Tubes, catheters and devices: A left central line extends into the SVC Lungs: Hyperexpanded lungs consistent with COPD. No consolidation. Pleural spaces: Unremarkable. No pleural effusion. No pneumothorax. Heart/Mediastinum: Unremarkable. No cardiomegaly. Bones/joints: Unremarkable. XR/XR chest 1V portable [id number] IMPRESSION: 1. COPD 2. Left central line extends to the SVC 3. Otherwise negative examination
[2022-11-06] MEDS: dilTIAZem 100 MG in sodium chloride 0.9% (add-van) 100 ML IV (17:42)
--- NOTE | 2022-11-06 18:37 | PC.NURSE ---
Attempted to call report, nurse not available, states they will have the locksmith nurse call me when they know who is taking the patient
--- NOTE | 2022-11-06 19:08 | P.HP_ITS ---
Providers/Chief Complaint Admitting Physician: Hever Driver MD Primary Care Provider: Michael Cooley MD Chief Complaint: abd pain History of Present Illness Darlin Youssef is a 52 year old male with pmh of CAD S/P PCI, HFrEF, Metastatic cancer came in yesterday with c/o worsening of chronic abdominal pain which is likely due to his metastatic disease, as well as for worsening of lower back pain,on arrival in the ER he was found to be in afib with rvr and was started on cardizem drip, he denied any chest pain, sob, fever,cough,n/v/d. EKG : Showed A.FIB WITH RVR Xray chest : No acute findings, most recent C.T Abdomen and pelvis done this year in sep has shown: . Increased size and number of liver metastasis.Retroperitoneal and mesenteric adenopathy. Although a few nodes have slightly decreased, most nodes are similar to increased in size. adenoopathy is now compressing and may be invading the left renal vein and IVC. Pertinent labs: WBC: 7.1 H&H : 12/35 PLT : 251 ,Na:137B k:3.2 BUN/SCR : 7/0.8 Review of Systems General: Reports: 10 or more systems reviewed and unremarkable except in HPI and below Const: Denies: fever(s), chills, body aches, change in appetite or diaphoresis Card: Denies: palpitations, edema, swelling of feet/ankles, dyspnea on exertion, orthopnea or leg pain with exertion Resp: Denies: dyspnea, productive cough, wheezing or pain on inspiration GI: Denies: abdominal pain, nausea, vomiting, diarrhea or constipation : Denies: flank pain or difficulty urinating Musc: Denies: back pain, extremity pain or extremity swelling Neuro: Denies: headache(s), difficulty walking or confusion Medications/Allergies Home Medications Medication Instructions Recorded Confirmed Last Taken Type ipratropium 0.5 mg-albuterol 3 mg 3 ml inhalation Q6H PRN wheezing 05/19/22 03 /29/23 Unknown Rx (2.5 mg base)/3 mL nebulization #90 mL soln nitroglycerin 0.4 mg sublingual 0.4 mg sublingual Q5M PRN chest 05/30/22 11/06/22 05/27/22 Rx tablet pain 30 days #30 tabs clopidogrel 75 mg tablet 75 mg PO DAILY #90 tabs 06/06/22 11/06/22 11/05/22 Rx Trelegy Ellipta 100 mcg-62.5 1 inh inhalation DAILY #60 ea 06/11/22 11/06/22 11/06/22 Rx mcg-25 mcg powder for inhalation (wnshihfohxn-gslcevvkm-odddnjui) multivitamin 1 tab PO DAILY 06/20/22 11/06/22 11/06/22 History promethazine 25 mg tablet 25 mg PO TID PRN nausea and 06/21/22 11/06/22 Unknown Rx vomiting #60 tabs pantoprazole 40 mg tablet,delayed 40 mg PO DAILY #30 tabs 08/20/22 11/06/22 11/06/22 Rx release albuterol sulfate 90 mcg/actuation 2 puff inhalation Q4H PRN 09/16/22 11/06/22 Unknown Rx aerosol inhaler shortness of breath or wheezing #8.5 grams lorazepam 1 mg tablet 1 mg PO TID PRN severe nausea 30 09/18/22 11/06/22 Unknown Rx days #90 tabs prochlorperazine maleate 10 mg 10 mg PO Q4H PRN Mild Nausea #30 09/25/22 11/06/22 Unknown Rx tablet (Compazine) tabs cyclobenzaprine 10 mg tablet 10 mg PO 2XD PRN muscle spasm 09/30/22 11/06/22 Unknown History ondansetron 8 mg disintegrating 8 mg PO Q6H PRN Nausea 09/30/22 11/06/22 Unknown History tablet diltiazem HCl 120 mg 120 mg PO DAILY #60 tabs 10/01/22 11/06/22 11/06/22 Rx tablet,extended release 24 hr (Cardizem LA) metoprolol tartrate 25 mg tablet 12.5 mg PO BID PRN IF PULSE >100 02/21/23 03/29/23 Unknown Rx after cardizem dose #60 tabs morphine 15 mg immediate release 15 mg PO Q4H PRN pain 30 days #120 10/11/22 11/06/22 Unknown Rx tablet tabs morphine 30 mg tablet,extended 30 mg PO Q12H 30 days #60 tabs 10/11/22 11/06/22 11/06/22 Rx release naloxone 4 mg/actuation nasal spray 4 mg intranasal Q2M PRN opioid 10/11/22 11/06/22 Unknown Rx overdose #2 ea bedside commode #1 ea 10/30/22 11/06/22 Unknown Rx rivaroxaban 20 mg tablet (Xarelto) 20 mg PO BEDTIME #90 tabs 10/30/22 11/06/22 11/05/22 Rx Allergies Allergy/AdvReac Type Severity Reaction Status Date / Time influenza virus vaccine Allergy Severe ALGY-Hives Verified 10/30/22 08:00 tval,purif- wool Allergy Unknown Verified 10/30/22 08:00 talcum powder Allergy Unknown Uncoded 10/30/22 08:00 PFSH Acute PFSH: Medical History (Updated 11/06/22 @ 19:10 by Hever Driver MD) Abdominal pain Atrial fibrillation Atrial fibrillation with RVR Back muscle spasm CAD (coronary artery disease) Cancer of right lung Chronic anticoagulation Chronic anxiety Congestive heart failure Echocardiogram from 05/2022 showed EF of 45%, global LV hypokinesia with mildly dilated RV and low RV systolic functions COPD (chronic obstructive pulmonary disease) Dyslipidemia Fatigue Lung cancer Macular degeneration Metastatic neoplastic disease Non-small cell lung cancer Obstructive sleep apnea Primary adenocarcinoma of lower lobe of right lung Sleep apnea syndrome Tobacco abuse Surgical History History of bronchoscopy 12/29/2020 - Bronchoscopy/EBUS History of cholecystectomy History of coronary angioplasty with insertion of stent 08/2016 Mid left circumflex Port-A-Cath in place (02/14/21) Presence of stent in left circumflex coronary artery 05/29/2022 Distal to previously placed stent S/P right coronary artery (RCA) stent placement 05/29/2022 Mid RCA Family History Other CAD (coronary artery disease) Cancer Diabetes Lung disease Stroke Denies family history of Bleeding disorder Social History Smoking and tobacco status: current every day smoker cigarettes Packs smoked per day: 1.5 Years cigarettes smoked: 48 [ Other cigarette details: 1.5 PPD, 3PPD x 45yrs] Quit status (tobacco): considering quitting Second hand smoke exposure: Yes Smoking risk assessment/counseling performed?: Yes Alcohol intake: current Alcohol intake frequency: holidays/special occasions only Lives independently: Yes Household members: significant other and children Marital status: Life Partner service: No Current occupational status: disabled Pets and animals: Yes Current gender identity: Male Vitals/I&O/Wt Last Vital Signs Temp 97.4 F L 11/06/22 13:43 Pulse 108 H 11/06/22 19:00 Resp 16 11/06/22 19:00 BP 108/78 11/06/22 19:00 Pulse Ox 98 11/06/22 17:57 O2 Del Method 11/06/22 17:57 11/06/22 11/06/22 11/06/22 06:59 14:59 22:59 Intake Total 1003.75 / 1003.75 Balance 1003.75 / 1003.75 Weight last 48 hrs Weight 77.111 kg Physical Exam Const: COMMON NORMALS: patient oriented x3 HENMT: COMMON NORMALS: normocephalic and atraumatic Resp: COMMON NORMALS: normal respiratory effort, No retractions, No use of accessory muscles and clear to auscultation bilaterally EFFORT & INSPECTION: Yes symmetric chest movement AUSCULTATION: clear to auscultation bilaterally Cardio: COMMON NORMALS: No murmurs present (Cardio), No rub (Cardio) and Peripheral pulses 2+ throughout PERIPHERAL PULSES: Peripheral pulses 2+ throughout OTHER: Irregularly irregular rhythm S1-S2 variable intensity GI: COMMON NORMALS: Normal to inspection, nondistended, normoactive bowel sounds present, Soft to palpation, non-tender, No hepatosplenomegaly present and no masses AUSCULTATION: Yes normoactive bowel sounds PALPATION: Yes Soft to palpation and Yes No hepatosplenomegaly present RECTAL EXAM: Yes deferred Extremity: COMMON NORMALS: no clubbing, cyanosis or edema and no pedal edema Neuro: COMMON NORMALS: patient oriented x3 Data 11/06/22 16:12 11/06/22 16:12 A&P Assessment and plan (1) Atrial fibrillation with RVR: (2) CAD (coronary artery disease): Qualifiers: Associated angina: without angina Coronary Disease-Associated Artery/Lesion type: [place] artery [place] vs. 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 EKG : Showed A.FIB WITH RVR Assessment : A.Fib with RVR : Currently on cardizem drip initiate po cardizem 120 Continue xaralto telemetry monitoring H/O CAD S/P PCI : Continue Plavix H/O COPD : DUO NEBS He is on trelegy at home. supplemental oxygen as needed HFrEF Currently compensated monitor intake output monitor electrolytes daily weight Advanced metastatic lung disease; Patient is a hospice candidate. settlement worker on board with further asiistance, Code status :AND Attestations Medical Necessity Statement*: Patient needs to be in hospital for management A-fib with RVR. Anticipated length of stay greater than 2 midnights. Coding Level of Care Code 03311 Diagnoses Atrial fibrillation with RVR I48.91 CAD (coronary artery disease) I25.10 Associated angina: without angina Coronary Disease-Associated Artery/Lesion type: [place] artery [place] vs. transplanted heart: [place] heart Congestive heart failure I50.82 Heart failure type: biventricular Metastatic cancer C78.89 Area of secondary neoplastic involvement: digestive structure Digestive structure secondary neoplasm location: metastatic to other digestive structure
[2022-11-06] MEDS: rivaroxaban 10 mg Tablet 20 MG PO (20:45)
[2022-11-06] MEDS: D5-NS 0.45% + KCL 20 mEq 20 MEQ/1,000 ML BAG 100 MEQ IV (20:46)
[2022-11-06] MEDS: budesonide 0.5 mg/2 mL Neb INHALATION (21:00)
[2022-11-06] MEDS: ipratropium-albuterol 3 mL Neb INHALATION (21:00)
[2022-11-06] MEDS: morphine IR 15 mg Tablet PO (21:20)
[2022-11-06] MEDS: dilTIAZem 100 MG in sodium chloride 0.9% (add-van) 100 ML 15 MG IV (23:31)
[2022-11-07] VITALS (27 sets, daily range): BP systolic 88–135; BP diastolic 69–98; PULSE 89–143; RESP 14–23; TEMP 36.2–36.8; O2SAT 75–100; BMI 21.7
[2022-11-07 03:46] LABS: Basophils # 0.1 10^3/uL (0.0-0.1); Basophils % 1.4 %; Eosinophils # 0.1 10^3/uL (0.0-0.8); Eosinophils % 1.4 %; Hematocrit 35.4 % (42.0-52.0); Hemoglobin 12.5 g/dL (11.7-16.6); Lymphocytes # 1.1 10^3/uL (0.8-4.8); Lymphocytes % 14.7 %; Mean Corpuscular HGB Conc 35.3 g/dL (30.0-36.0); Mean Corpuscular Hemoglobin 33.4 pg (28.0-34.0); Mean Corpuscular Volume 94.7 fl (80-94); Monocytes # 0.6 10^3/uL (0.2-0.9); Neutrophils % 74.4 %; Nucleated Red Blood Cells % 0 %; Platelet Count 251 10^3/cmm (130-400); Red Blood Count 3.74 10^6/uL (4.1-5.3); Red Cell Distribution Width 13.8 % (12.1-15.1); White Blood Count 7.1 10^3/uL (4.0-10.0)
[2022-11-07 04:05] LABS: Alanine Aminotransferase 8 U/L (0-41); Alkaline Phosphatase 110 U/L (40-130); Anion Gap 12.1 (5-19); Aspartate Amino Transferase 8 U/L (0-40); Blood Urea Nitrogen 6 mg/dL (6-20); Calcium 8.4 mg/dL (8.5-10.5); Carbon Dioxide 31 mmol/L (22-29); Chloride 89 mmol/L (98-107); Globulin 3.2 g/dL (1.3-4.6); Glucose 128 mg/dL (65-115); Magnesium 1.8 mg/dL (1.7-2.3); Osmolality Calculated 267 mOsm/kg (285-295); Potassium 3.1 mmol/L (3.5-5.1); Sodium 129 mmol/L (136-145); Total Bilirubin 0.5 mg/dL (0.15-1.2); Total Protein 6.2 g/dL (6.6-8.7)
[2022-11-07] MEDS: morphine IR 15 mg Tablet PO ×2 (05:31→18:20)
[2022-11-07] MEDS: dilTIAZem 100 MG in sodium chloride 0.9% (add-van) 100 ML 15 MG IV ×2 (05:59→12:36)
[2022-11-07] MEDS: D5-NS 0.45% + KCL 20 mEq 20 MEQ/1,000 ML BAG 100 MEQ IV (06:00)
[2022-11-07] MEDS: sodium chlor 0.9% + KCl 40 mEq 40 MEQ/1,000 ML BAG 75 MEQ IV ×2 (06:34→23:01)
[2022-11-07] MEDS: ipratropium-albuterol 3 mL Neb INHALATION ×2 (08:33→19:46)
[2022-11-07] MEDS: budesonide 0.5 mg/2 mL Neb INHALATION ×2 (08:33→19:46)
[2022-11-07] MEDS: morphine 4 mg/mL SDV 1 mL IVP ×2 (09:20→20:41)
[2022-11-07] MEDS: clopidogrel 75 mg Tablet PO (09:57)
[2022-11-07] MEDS: pantoprazole DR 40 mg Tablet PO (09:57)
[2022-11-07] MEDS: dilTIAZem ER (24HR) 120 mg Capsule PO (09:57)
[2022-11-07] MEDS: dilTIAZem 60 mg Tablet PO ×2 (12:28→19:12)
[2022-11-07] MEDS: cyclobenzaprine 10 mg Tablet PO ×2 (12:28→20:35)
[2022-11-07] MEDS: nicotine 21 mg Patch 1 PATCH TRANSDERMA (12:29)
--- NOTE | 2022-11-07 13:03 | P.PN_ITS ---
Subjective Subjective: Patient was seen and examined this morning,continue to be in a.fib with rvr,currently on 15 of cardizem. Medications: Medication Review Details: Generic Name Dose Route Start Last Admin Trade Name Freq PRN Reason Stop Dose Admin Albuterol/Ipratrop ium 3 ml 11/06/22 20:00 11/07/22 12:11 Ipratropium-Albu terol 3 Ml Neb INHALATION Not Given QID.RESPIRATORY S CH Albuterol/Ipratrop ium 3 ml 11/06/22 20:00 11/07/22 12:12 Ipratropium-Albu terol 3 Ml Neb INHALATION Not Given QID.RESPIRATORY S CH Budesonide 0.5 mg 11/06/22 20:00 11/07/22 08:33 Budesonide 0.5 M g/2 Ml Neb INHALATION 0.5 mg BID.RESPIRATORY S CH Administration Clopidogrel Bisulf ate 75 mg 11/07/22 09:00 11/07/22 09:57 Clopidogrel 75 M g Tablet PO 75 mg DAILY ROCKY Administration Cyclobenzaprine HC l 10 mg 11/07/22 12:18 11/07/22 12:28 Cyclobenzaprine 10 Mg Tablet PO 10 mg TID PRN Administration MUSCLE SPASMS Diltiazem HCl 120 mg 11/07/22 09:00 11/07/22 09:57 Diltiazem Er (24 hr) 120 Mg Capsule PO 120 mg DAILY ROCKY Administration Diltiazem HCl 100 mg/ Sodium 100 mls @ 0 mls/h r 11/06/22 17:15 11/07/22 12:36 Chloride IV 15 mg/hr .Q0M ROCKY 15 mls/hr Administration Protocol Per Protocol Potassium Chloride /Sodium Chloride 40 meq in 1,000 m ls @ 75 mls/hr 11/07/22 06:15 11/07/22 06:34 Sodium Chlor 0.9 % + Kcl 40 Meq IV 75 mls/hr .[id number] ROCKY Administration Morphine Sulfate 15 mg 11/06/22 19:06 11/07/22 05:31 Morphine Ir 15 M g Tablet PO 15 mg Q4H PRN Administration MODERATE pain Morphine Sulfate 4 mg 11/06/22 19:56 11/07/22 09:20 Morphine 4 Mg/Ml Sdv 1 Ml IVP 4 mg Q4H PRN Administration SEVERE PAIN Nicotine 1 patch 11/07/22 12:30 11/07/22 12:29 Nicotine 21 Mg P atch TRANSDERMA 1 patch DAILY ROCKY Administration Pantoprazole Sodiu m 40 mg 11/07/22 09:00 11/07/22 09:[address] 40 Mg Tablet PO 40 mg DAILY ROCKY Administration Rivaroxaban 20 mg 11/06/22 21:00 11/06/22 20:45 Rivaroxaban 10 M g Tablet PO 20 mg BEDTIME ROCKY Administration Vitals/I&O/Wt Last Vital Signs Temp 98.2 F 11/07/22 04:00 Pulse 111 H 11/07/22 08:00 Resp 20 H 11/07/22 09:20 BP 122/92 11/07/22 06:00 Pulse Ox 93 11/07/22 09:20 O2 Del Method 11/07/22 08:00 11/06/22 11/07/22 11/07/22 22:59 06:59 14:59 Intake Total 1332.000 / 7895.018 2246.083 / 2692.083 399.25 / 399.25 Output Total 1000 / 1000 300 / 300 Balance 1332.000 / 1332.000 360.083 / 1692.083 99.25 / 99.25 Weight last 48 hrs Weight 76.657 kg Weight 77.111 kg Weight 77.111 kg Physical Exam Const: COMMON NORMALS: patient oriented x3 HENMT: COMMON NORMALS: normocephalic and atraumatic HEAD & SCALP: nor mocephalic and atraumatic Resp: COMMON NORMALS: normal respiratory effort, No retractions, No use of accessory muscles and clear to auscultation bilaterally EFFORT & INSPECTION: Yes symmetric chest movement AUSCULTATION: clear to auscultation bilaterally Cardio: COMMON NORMALS: No murmurs present (Cardio), No rub (Cardio) and Peripheral pulses 2+ throughout PERIPHERAL PULSES: Peripheral pulses 2+ throughout OTHER: Irregularly irregular rhythm S1-S2 variable intensity GI: COMMON NORMALS: Normal to inspection, nondistended, normoactive bowel sounds present, Soft to palpation, non-tender, No hepatosplenomegaly present and no masses AUSCULTATION: Yes normoactive bowel sounds PALPATION: Yes Soft to palpation and Yes No hepatosplenomegaly present RECTAL EXAM: Yes deferred Extremity: COMMON NORMALS: no clubbing, cyanosis or edema and no pedal edema Neuro: COMMON NORMALS: patient oriented x3 Data 11/07/22 03:27 11/07/22 03:27 A&P Assessment and plan (1) Atrial fibrillation with RVR: (2) CAD (coronary artery disease): Qualifiers: Associated angina: without angina Coronary Disease-Associated Artery/Lesion type: [place] artery [place] vs. transplanted heart: [place] heart Qualified Code(s): I25.10 - Atherosclerotic heart disease of [place] coronary artery without angina pectoris (3) Congestive heart failure: Qualifiers: Heart failure type: biventricular Qualified Code(s): I50.82 - Biventricular heart failure (4) Metastatic cancer: (5) Hyponatremia: (6) Hypokalemia: Plan 52 year old male with pmh of CAD S/P PCI, HFrEF, Metastatic cancer came in yesterday with c/o worsening of chronic abdominal pain which is likely due to his metastatic disease, as well as for worsening of lower back pain,on arrival in the ER he was found to be in afib with rvr and was started on cardizem drip, he denied any chest pain, sob, fever,cough,n/v/d. EKG : Showed A.FIB WITH RVR Assessment : A.Fib with RVR : Currently on cardizem drip initiate po cardizem 120 Continue xaralto telemetry monitoring H/O CAD S/P PCI : Continue Plavix H/O COPD : DUO NEBS He is on trelegy at home. supplemental oxygen as needed HFrEF Currently compensated monitor intake output monitor electrolytes daily weight Hyponatremia : have switched I.V Fluid s from D51/2 NS TO NS Monitor Serum Sodium Hypokalemia : Monitor and replace serum sodium. Advanced metastatic lung disease; Patient is a hospice candidate. retail salesworker on board with further assistance, Patient wants hospice on discharge. Code status :AND Attestations Medical Necessity Statement*: Patient needs to be hospital for the management of A-fib with RVR. Coding Level of Care Code 77212 Diagnoses Atrial fibrillation with RVR I48.91 CAD (coronary artery disease) I25.10 Associated angina: without angina Coronary Disease-Associated Artery/Lesion type: [place] artery [place] vs. transplanted heart: [place] heart Congestive heart failure I50.82 Heart failure type: biventricular Metastatic cancer C79.9 Hyponatremia E87.1 Hypokalemia E87.6
[2022-11-07] MEDS: ondansetron 2 mg/ML SDV 2 mL 4 MG IVP (16:05)
[2022-11-07] MEDS: rivaroxaban 10 mg Tablet 20 MG PO (20:35)
[2022-11-08] VITALS (34 sets, daily range): BP systolic 103–130; BP diastolic 73–89; PULSE 62–133; RESP 14–39; TEMP 36.9; O2SAT 82–97; BMI 21.7
[2022-11-08] MEDS: morphine IR 15 mg Tablet PO ×5 (01:18→21:11)
[2022-11-08] MEDS: dilTIAZem 100 MG in sodium chloride 0.9% (add-van) 100 ML 7.5 MG IV (01:22)
[2022-11-08 04:22] LABS: Basophils # 0.1 10^3/uL (0.0-0.1); Basophils % 1.2 %; Eosinophils # 0.1 10^3/uL (0.0-0.8); Eosinophils % 1.7 %; Hematocrit 40.1 % (42.0-52.0); Hemoglobin 13.7 g/dL (11.7-16.6); Lymphocytes # 0.8 10^3/uL (0.8-4.8); Lymphocytes % 10.6 %; Mean Corpuscular HGB Conc 34.2 g/dL (30.0-36.0); Mean Corpuscular Hemoglobin 32.9 pg (28.0-34.0); Mean Corpuscular Volume 96.4 fl (80-94); Mean Platelet Volume 8.6 fL (7.4-10.4); Monocytes # 0.6 10^3/uL (0.2-0.9); Neutrophils # 5.84 10^3/uL (1.8-7.7); Neutrophils % 78.2 %; Nucleated Red Blood Cells % 0 %; Platelet Count 260 10^3/cmm (130-400); Red Blood Count 4.16 10^6/uL (4.1-5.3); White Blood Count 7.5 10^3/uL (4.0-10.0)
[2022-11-08 04:36] LABS: Alanine Aminotransferase 11 U/L (0-41); Albumin Level 3.3 g/dL (3.5-5.2); Alkaline Phosphatase 123 U/L (40-130); Anion Gap 13.7 (5-19); Aspartate Amino Transferase 13 U/L (0-40); Blood Urea Nitrogen 5 mg/dL (6-20); Calcium 8.8 mg/dL (8.5-10.5); Carbon Dioxide 31 mmol/L (22-29); Chloride 93 mmol/L (98-107); Globulin 3.4 g/dL (1.3-4.6); Glomerular Filtration Rate 101.1 mL/min (90-130); Glucose 101 mg/dL (65-115); Osmolality Calculated 275 mOsm/kg (285-295); Potassium 3.7 mmol/L (3.5-5.1); Sodium 134 mmol/L (136-145); Total Bilirubin 0.5 mg/dL (0.15-1.2); Total Protein 6.7 g/dL (6.6-8.7)
[2022-11-08] MEDS: cyclobenzaprine 10 mg Tablet PO ×3 (04:38→20:09)
[2022-11-08] MEDS: ondansetron 2 mg/ML SDV 2 mL 4 MG IVP ×2 (07:12→21:19)
[2022-11-08] MEDS: ipratropium-albuterol 3 mL Neb INHALATION ×4 (07:36→21:54)
[2022-11-08] MEDS: budesonide 0.5 mg/2 mL Neb INHALATION ×2 (07:36→21:54)
[2022-11-08] MEDS: nicotine 21 mg Patch 1 PATCH TRANSDERMA (08:45)
[2022-11-08] MEDS: pantoprazole DR 40 mg Tablet PO (08:46)
[2022-11-08] MEDS: dilTIAZem ER (24HR) 240 mg Capsule PO (08:46)
[2022-11-08] MEDS: clopidogrel 75 mg Tablet PO (08:46)
[2022-11-08] MEDS: dilTIAZem 60 mg Tablet PO (14:58)
--- NOTE | 2022-11-08 15:38 | PM.PN ---
Subjective Subjective: Patient was seen and examined this morning,continue to be in a.fib,will give additional dose of po cardizem. Medications: Medication Review Details: Generic Name Dose Route Start Last Admin Trade Name Freq PRN Reason Stop Dose Admin Albuterol/Ipratrop ium 3 ml 11/06/22 20:00 11/08/22 15:28 Ipratropium-Albu terol 3 Ml Neb INHALATION 3 ml QID.RESPIRATORY S CH Administration Budesonide 0.5 mg 11/06/22 20:00 11/08/22 07:36 Budesonide 0.5 M g/2 Ml Neb INHALATION 0.5 mg BID.RESPIRATORY S CH Administration Clopidogrel Bisulf ate 75 mg 11/07/22 09:00 11/08/22 08:46 Clopidogrel 75 M g Tablet PO 75 mg DAILY ROCKY Administration Cyclobenzaprine HC l 10 mg 11/07/22 12:18 11/08/22 13:09 Cyclobenzaprine 10 Mg Tablet PO 10 mg TID PRN Administration MUSCLE SPASMS Diltiazem HCl 240 mg 11/08/22 09:00 11/08/22 08:46 Diltiazem Er (24 hr) 240 Mg Capsule PO 240 mg DAILY ROCKY Administration Diltiazem HCl 100 mg/ Sodium 100 mls @ 0 mls/h r 11/06/22 17:15 11/08/22 01:22 Chloride IV 7.5 mg/hr .Q0M ROCKY 7.5 mls/hr Administration Protocol Per Protocol Morphine Sulfate 15 mg 11/06/22 19:06 11/08/22 13:09 Morphine Ir 15 M g Tablet PO 15 mg Q4H PRN Administration MODERATE pain Morphine Sulfate 4 mg 11/06/22 19:56 11/07/22 20:41 Morphine 4 Mg/Ml Sdv 1 Ml IVP 4 mg Q4H PRN Administration SEVERE PAIN Nicotine 1 patch 11/07/22 12:30 11/08/22 08:45 Nicotine 21 Mg P atch TRANSDERMA 1 patch DAILY ROCKY Administration Ondansetron HCl 4 mg 11/06/22 19:04 11/08/22 07:12 Ondansetron 2 Mg /Ml Sdv 2 Ml IVP 4 mg Q8H PRN Administration vomiting, or N/V if npo Pantoprazole Sodiu m 40 mg 11/07/22 09:00 11/08/22 08:[address] 40 Mg Tablet PO 40 mg DAILY ROCKY Administration Rivaroxaban 20 mg 11/06/22 21:00 11/07/22 20:35 Rivaroxaban 10 M g Tablet PO 20 mg BEDTIME ROCKY Administration Vitals/I&O/Wt Last Vital Signs Temp 97.6 F 11/07/22 16:00 Pulse 112 H 11/08/22 15:33 Resp 20 H 11/08/22 15:28 BP 112/77 11/08/22 12:00 Pulse Ox 96 11/08/22 15:28 O2 Del Method 11/08/22 15:28 11/08/22 11/08/22 11/08/22 06:59 14:59 22:59 Intake Total 41.5 / 2809.25 650 / 650 Output Total 450 / 450 Balance 41.5 / 1509.25 200 / 200 Weight last 48 hrs Weight 76.657 kg Weight 76.657 kg Weight 77.111 kg Physical Exam Const: COMMON NORMALS: patient oriented x3 HENMT: COMMON NORMALS: normocephalic and atraumatic HEAD & SCALP: normocephalic and atraumatic Resp: COMMON NORMALS: normal respiratory effort, No retractions, No use of accessory muscles and clear to auscultation bilaterally EFFORT & INSPECTION: Yes symmetric chest movement AUSCULTATION: clear to auscultation bilaterally Cardio: COMMON NORMALS: No murmurs present (Cardio), No rub (Cardio) and Peripheral pulses 2+ throughout PERIPHERAL PULSES: Peripheral pulses 2+ throughout OTHER: Irregularly irregular rhythm S1-S2 variable intensity GI: COMMON NORMALS: Normal to inspection, nondistended, normoactive bowel sounds present, Soft to palpation, non-tender, No hepatosplenomegaly present and no masses AUSCULTATION: Yes normoactive bowel sounds PALPATION: Yes Soft to palpation and Yes No hepatosplenomegaly present RECTAL EXAM: Yes deferred Extremity: COMMON NORMALS: no clubbing, cyanosis or edema and no pedal edema Neuro: COMMON NORMALS: patient oriented x3 Data 11/08/22 04:09 11/08/22 04:09 A&P Assessment and plan (1) Atrial fibrillation with RVR: (2) CAD (coronary artery disease): Qualifiers: Coronary Disease-Associated Artery/Lesion type: [place] artery [place] vs. transplanted heart: [place] heart Associated angina: without angina Qualified Code(s): I25.10 - Atherosclerotic heart disease of [place] coronary artery without angina pectoris (3) Congestive heart failure: Qualifiers: Heart failure type: biventricular Qualified Code(s): I50.82 - Biventricular heart failure (4) Metastatic cancer: (5) Hyponatremia: (6) Hypokalemia: Plan 52 year old male with pmh of CAD S/P PCI, HFrEF, Metastatic cancer came in yesterday with c/o worsening of chronic abdominal pain which is likely due to his metastatic disease, as well as for worsening of lower back pain,on arrival in the ER he was found to be in afib with rvr and was started on cardizem drip, he denied any chest pain, sob, fever,cough,n/v/d. EKG : Showed A.FIB WITH RVR Assessment : A.Fib with RVR : Currently on cardizem drip On po cardizem Continue xaralto telemetry monitoring H/O CAD S/P PCI : Continue Plavix H/O COPD : DUO NEBS He is on trelegy at home. supplemental oxygen as needed HFrEF Currently compensated monitor intake output monitor electrolytes daily weight Hyponatremia : have switched I.V Fluid s from D51/2 NS TO NS Monitor Serum Sodium Hypokalemia : Monitor and replace serum sodium. Advanced metastatic lung disease; Patient is a hospice candidate. barnworker groom on board with further assistance, Patient wants hospice on discharge. Code status :AND Attestations Medical Necessity Statement*: needs to be in hospital for the management of a.fib with rvr. Coding Level of Care Code 81757 Diagnoses Atrial fibrillation with RVR I48.91 CAD (coronary artery disease) I25.10 Coronary Disease-Associated Artery/Lesion type: [place] artery [place] vs. transplanted heart: [place] heart Associated angina: without angina Congestive heart failure I50.82 Heart failure type: biventricular Metastatic cancer C79.9 Hyponatremia E87.1 Hypokalemia E87.6
--- NOTE | 2022-11-08 17:42 | PC.NURSE ---
noted tremor pt have check monitor patches several times .. unable to obtain artifact free strip
[2022-11-08] MEDS: rivaroxaban 10 mg Tablet 20 MG PO (21:18)
[2022-11-08] MEDS: calcium carbonate 500 mg Chew Tablet 1000 MG PO (22:54)
[2022-11-09] VITALS (15 sets, daily range): BP systolic 106–133; BP diastolic 54–104; PULSE 104–128; RESP 14–22; TEMP 36.9; O2SAT 91–100; BMI 21.7
[2022-11-09] MEDS: morphine IR 15 mg Tablet PO ×2 (04:18→10:26)
[2022-11-09] MEDS: cyclobenzaprine 10 mg Tablet PO (05:02)
[2022-11-09 05:13] LABS: Basophils # 0.1 10^3/uL (0.0-0.1); Basophils % 1.4 %; Eosinophils # 0.2 10^3/uL (0.0-0.8); Eosinophils % 2.2 %; Hematocrit 36.7 % (42.0-52.0); Hemoglobin 12.4 g/dL (11.7-16.6); Lymphocytes # 0.9 10^3/uL (0.8-4.8); Lymphocytes % 11.8 %; Mean Corpuscular HGB Conc 33.8 g/dL (30.0-36.0); Mean Corpuscular Hemoglobin 32.9 pg (28.0-34.0); Mean Corpuscular Volume 97.3 fl (80-94); Mean Platelet Volume 8.8 fL (7.4-10.4); Monocytes # 0.6 10^3/uL (0.2-0.9); Monocytes % 8.3 %; Neutrophils # 5.59 10^3/uL (1.8-7.7); Nucleated Red Blood Cells % 0 %; Platelet Count 251 10^3/cmm (130-400); Red Blood Count 3.77 10^6/uL (4.1-5.3); Red Cell Distribution Width 14.1 % (12.1-15.1); White Blood Count 7.4 10^3/uL (4.0-10.0)
[2022-11-09 05:32] LABS: Alanine Aminotransferase 10 U/L (0-41); Alkaline Phosphatase 114 U/L (40-130); Anion Gap 12.9 (5-19); Aspartate Amino Transferase 12 U/L (0-40); Blood Urea Nitrogen 7 mg/dL (6-20); Calcium 8.7 mg/dL (8.5-10.5); Carbon Dioxide 30 mmol/L (22-29); Chloride 94 mmol/L (98-107); Globulin 3.2 g/dL (1.3-4.6); Glomerular Filtration Rate 140.9 mL/min (90-130); Glucose 99 mg/dL (65-115); Osmolality Calculated 274 mOsm/kg (285-295); Potassium 3.9 mmol/L (3.5-5.1); Sodium 133 mmol/L (136-145); Total Bilirubin 0.5 mg/dL (0.15-1.2); Total Protein 6.2 g/dL (6.6-8.7)
--- NOTE | 2022-11-09 07:39 | PC.NURSE ---
up in room with monitor off and walking requesting to go home .. explained awaiting doctor to arrive
[2022-11-09] MEDS: pantoprazole DR 40 mg Tablet PO (08:05)
[2022-11-09] MEDS: dilTIAZem ER (24HR) 300 mg Capsule PO (08:06)
[2022-11-09] MEDS: clopidogrel 75 mg Tablet PO (08:06)
[2022-11-09] MEDS: metoprolol tartrate 50 mg Tablet PO (08:06)
[2022-11-09] MEDS: nicotine 21 mg Patch 1 PATCH TRANSDERMA (08:06)
[2022-11-09] MEDS: budesonide 0.5 mg/2 mL Neb INHALATION (08:22)
[2022-11-09] MEDS: ipratropium-albuterol 3 mL Neb INHALATION (08:23)
--- NOTE | 2022-11-09 10:16 | PC.SOCIAL ---
Imm update Imm updated with patient at bedside. Copy of page 2 provided. Patient verbalized understanding. Copy in chart initialed, dated and timed.
--- NOTE | 2022-11-09 11:47 | P.DS_ITS ---
Discharge Providers Date of Admission: 11/06/22 18:34 Date of Discharge: November 09, 2022 Attending Provider at Admission: Hever Driver MD Attending Provider at Discharge: Hever Driver MD Primary Care Provider: Michael Cooley MD Diagnoses at Discharge Discharge Diagnosis (1) Atrial fibrillation with RVR: Status: Acute (2) CAD (coronary artery disease): Status: Acute Qualifiers: Coronary Disease-Associated Artery/Lesion type: [place] artery [place] vs. transplanted heart: [place] heart Associated angina: without angina Qualified Code(s): I25.10 - Atherosclerotic heart disease of [place] coronary artery without angina pectoris (3) Congestive heart failure: Status: Acute Qualifiers: Heart failure type: biventricular Qualified Code(s): I50.82 - Biventricular heart failure Permanent problem details: Echocardiogram from 05/2022 showed EF of 45%, global LV hypokinesia with mildly dilated RV and low RV systolic functions (4) Metastatic cancer: Status: Acute (5) Hyponatremia: Status: Acute (6) Hypokalemia: Status: Acute Reason for Visit Reason for Visit: abd pain Hospital Course Hospital Course 52 year old male with pmh of CAD S/P PCI, HFrEF, Metastatic cancer came in yesterday with c/o worsening of chronic abdominal pain which is likely due to his metastatic disease, as well as for worsening of lower back pain,on arrival in the ER he was found to be in afib with rvr and was started on cardizem drip, he denied any chest pain, sob, fever,cough,n/v/d. EKG : Showed A.FIB WITH RVR,Xray chest : No acute findings, most recent C.T Abdomen and pelvis done this year in sep has shown:?. Increased size and number of liver metastasis.Retroperitoneal and mesenteric adenopathy. Although a few nodes have slightly decreased, most nodes are similar to increased in size. adenoopathy is now compressing and may be invading the left renal vein and IVC. Patient was admitted for the management of A-fib with RVR, he was initially kept on Cardizem drip, later he was transitioned to p.o. Cardizem as well as metoprolol, Xarelto was continued for anticoagulation, patient was discharged on Cardizem 300 mg p.o. daily as well as, metoprolol tartrate 50 mg p.o. twice daily, he continued to be in A-fib at the time of discharge but heart rate was pretty decently controlled. At the time of discharge given his extensive widespread malignancy, patient decided to go home on hospice.He has been discharged home on hospice. Physical Exam Const: COMMON NORMALS: patient oriented x3 HENMT: COMMON NORMALS: normocephalic and atraumatic HEAD & SCALP: normocephalic and atraumatic Resp: COMMON NORMALS: normal respiratory effort, No retractions, No use of accessory muscles and clear to auscultation bilaterally EFFORT & INSPECTION: Yes symmetric chest movement AUSCULTATION: clear to auscultation bilaterally Cardio: COMMON NORMALS: No murmurs present (Cardio), No rub (Cardio) and Peripheral pulses 2+ throughout PERIPHERAL PULSES: Peripheral pulses 2+ throughout OTHER: Irregularly irregular rhythm S1-S2 variable intensity GI: COMMON NORMALS: Normal to inspection, nondistended, normoactive bowel sounds present, Soft to palpation, non-tender, No hepatosplenomegaly present and no masses AUSCULTATION: Yes normoactive bowel sounds PALPATION: Yes Soft to palpation and Yes No hepatosplenomegaly present RECTAL EXAM: Yes deferred Extremity: COMMON NORMALS: no clubbing, cyanosis or edema and no pedal edema Neuro: COMMON NORMALS: patient oriented x3 Discharge Data Studies Completed and Pending Completed Studies During Hospitalization Category Date Time Status XR chest 1V portable [id number] Stat Exams 11/06/22 17:22 Completed Pending at discharge Category Date Time Status Urinalysis Stat Lab 11/06/22 16:11 Uncollected Radiology Impressions Chest X-Ray 11/06/22 17:22 IMPRESSION: 1. COPD 2. Left central line extends to the SVC 3. Otherwise negative examination Laboratory Results WBC 7.4 10^3/uL (4.0-10.0) 11/09/22 04:48 RBC 3.77 10^6/uL (4.1-5.3) L 11/09/22 04:48 Hgb 12.4 g/dL (11.7-16.6) 11/09/22 04:48 Hct 36.7 % (42.0-52.0) L 11/09/22 04:48 MCV 97.3 fl (80-94) H 11/09/22 04:48 MCH 32.9 pg (28.0-34.0) 11/09/22 04:48 MCHC 33.8 g/dL (30.0-36.0) 11/09/22 04:48 RDW 14.1 % (12.1-15.1) 11/09/22 04:48 Plt Count 251 10^3/cmm (130-400) 11/09/22 04:48 MPV 8.8 fL (7.4-10.4) 11/09/22 04:48 Neut % (Auto) 76.0 % 11/09/22 04:48 Lymph % (Auto) 11.8 % 11/09/22 04:48 [place] % (Auto) 8.3 % 11/09/22 04:48 Eos % (Auto) 2.2 % 11/09/22 04:48 Baso % (Auto) 1.4 % 11/09/22 04:48 Neut # (Auto) 5.59 10^3/uL (1.8-7.7) 11/09/22 04:48 Lymph # (Auto) 0.9 10^3/uL (0.8-4.8) 11/09/22 04:48 [place] # (Auto) 0.6 10^3/uL (0.2-0.9) 11/09/22 04:48 Eos # (Auto) 0.2 10^3/uL (0.0-0.8) 11/09/22 04:48 Baso # (Auto) 0.1 10^3/uL (0.0-0.1) 11/09/22 04:48 Nucleated RBC % (auto) 0 % 11/09/22 04:48 Nucleated RBCs # 0.0 /100WBC 11/09/22 04:48 Sodium 133 mmol/L (136-145) L 11/09/22 04:48 Potassium 3.9 mmol/L (3.5-5.1) 11/09/22 04:48 Chloride 94 mmol/L (98-107) L 11/09/22 04:48 Carbon Dioxide 30 mmol/L (22-29) H 11/09/22 04:48 Anion Gap 12.9 (5-19) 11/09/22 04:48 BUN 7 mg/dL (6-20) 11/09/22 04:48 Creatinine 0.6 mg/dL (0.7-1.2) L 11/09/22 04:48 GFR Calculation 140.9 mL/min (90-130) H 11/09/22 04:48 Glucose 99 mg/dL (65-115) 11/09/22 04:48 Calculated Osmolality 274 mOsm/kg (285-295) L 11/09/22 04:48 Calcium 8.7 mg/dL (8.5-10.5) 11/09/22 04:48 Magnesium 1.8 mg/dL (1.7-2.3) 11/07/22 03:27 Total Bilirubin 0.5 mg/dL (0.15-1.2) 11/09/22 04:48 AST 12 U/L (0-40) 11/09/22 04:48 ALT 10 U/L (0-41) 11/09/22 04:48 Alkaline Phosphatase 114 U/L (40-130) 11/09/22 04:48 Total Protein 6.2 g/dL (6.6-8.7) L 11/09/22 04:48 Albumin 3.0 g/dL (3.5-5.2) L 11/09/22 04:48 Globulin 3.2 g/dL (1.3-4.6) 11/09/22 04:48 Lipase 22 U/L (13-60) 11/06/22 16:12 Vitals Last Vital Signs Temp 98.4 F 11/08/22 19:00 Pulse 119 H 11/09/22 08:41 Resp 22 H 11/09/22 10:26 BP 129/54 11/09/22 08:07 Pulse Ox 93 11/09/22 08:23 O2 Del Method 11/09/22 08:23 Discharge Plan Discharge Patient Disposition: Hospice - Home Condition: Stable Prescriptions: New diltiazem HCl 300 mg Capsule,Extended Release 24hr 300 mg PO DAILY 30 Days Qty: 30 2RF metoprolol tartrate 50 mg Tablet 50 mg PO BID@0900,2100 30 Days Qty: 60 2RF Continued promethazine 25 mg tablet 25 mg PO TID PRN (Reason: nausea and vomiting) Qty: 60 0RF prochlorperazine maleate [Compazine] 10 mg tablet 10 mg PO Q4H PRN (Reason: Mild Nausea) Qty: 30 3RF naloxone 4 mg/actuation spray,non-aerosol 4 mg intranasal Q2M PRN (Reason: opioid overdose) Qty: 2 0RF Rx Instructions: spray 1 dose into ONE nostril; alternate nostrils w each dose until EMS morphine 15 mg tablet 15 mg PO Q4H PRN (Reason: pain) 30 Days Qty: 120 0RF morphine 30 mg tablet extended release 30 mg PO Q12H 30 Days Qty: 60 0RF (DME) bedside commode See Rx Instructions .Route .MEDSUPPLY Qty: 1 0RF Rx Instructions: As directed Xarelto 20 mg tablet 20 mg PO BEDTIME Qty: 90 2RF ipratropium-albuterol 0.5 mg-3 mg(2.5 mg base)/3 mL solution for nebulization 3 ml inhalation Q6H PRN (Reason: wheezing) Qty: 90 3RF clopidogrel 75 mg tablet 75 mg PO DAILY Qty: 90 3RF pantoprazole 40 mg tablet,delayed release (DR/EC) 40 mg PO DAILY Qty: 30 3RF Trelegy Ellipta 100-62.5-25 mcg blister with device 1 inh inhalation DAILY Qty: 60 5RF albuterol sulfate 90 mcg/actuation HFA aerosol inhaler 2 puff inhalation Q4H PRN (Reason: shortness of breath or wheezing) Qty: 8.5 5RF lorazepam 1 mg tablet 1 mg PO TID PRN (Reason: severe nausea) 30 Days Qty: 90 0RF nitroglycerin 0.4 mg tablet, sublingual 0.4 mg sublingual Q5M PRN (Reason: chest pain) 30 Days Qty: 30 2RF Rx Instructions: do not exceed 3 doses per episode multivitamin Tablet 1 tab PO DAILY cyclobenzaprine 10 mg tablet 10 mg PO 2XD PRN (Reason: muscle spasm) ondansetron 8 mg tablet,disintegrating 8 mg PO Q6H PRN (Reason: Nausea) Cardizem LA 120 mg tablet extended release 24 hr 120 mg PO DAILY Qty: 60 3RF Discontinued metoprolol tartrate 25 mg tablet 12.5 mg PO BID PRN (Reason: IF PULSE >100 after cardizem dose) Qty: 60 1RF Discharge Orders: Discharge Order (Routine); Ordered 04/01/23 Ordered By: Hever Driver Referrals: [facility] [Outside] Michael Cooley MD [Primary Care Provider] - 1 week Patient Instructions: Metoprolol (By mouth) (Lopressor, Toprol XL), Diltiazem (By mouth) (Cardizem, Cardizem CD, Cardizem LA, Cardizem SR), Opioid Safety Discharge Attestations Time Spent in Discharge Care*: less than 30 min Quality Metrics Clinical Quality Measures [ No reported AMI, CVA or VTE this stay] Coding Level of Care Code Acute Code for Chg Fwd Diagnoses Atrial fibrillation with RVR I48.91 CAD (coronary artery disease) I25.10 Coronary Disease-Associated Artery/Lesion type: [place] artery [place] vs. transplanted heart: [place] heart Associated angina: without angina Congestive heart failure I50.82 Heart failure type: biventricular Metastatic cancer C79.9 Hyponatremia E87.1 Hypokalemia E87.6
--- NOTE | 2022-11-09 13:39 | PC.NURSE ---
noted confusion at this time up in [place] pending ride home called significant other at this time . has been having episodes for several weeks according to her will calll delinquency prevention social worker arrange home
--- NOTE | 2022-11-09 14:22 | PC.NURSE ---
daughter and here at this time ,, anxious that we did not call her until now about status explained that i had talked to her yesterday that he would be discharged today pt was alert requested transport and that he had been on phone several times talking with different family members . did relate that we would make note in chart to contact her due to periods of confusion
== END 2022-11-09 14:30 | disposition hospice, home (50) | DRG 309 ==
LOC: ER 16:28 → ICU 18:36
PROVIDERS: Admitting Provider Internal Medicine; Emergency Provider Family Medicine; PCP Family Medicine; Visit Provider Internal Medicine
DX: I48.91 Unspecified atrial fibrillation (principal); C34.31 Malignant neoplasm of lower lobe, right bronchus or lung; C78.7 Secondary malignant neoplasm of liver and intrahepatic bile duct; E87.1 Hypo-osmolality and hyponatremia; I25.10 Atherosclerotic heart disease of native coronary artery without angina pectoris; Z95.5 Presence of coronary angioplasty implant and graft; G89.3 Neoplasm related pain (acute) (chronic); J44.9 Chronic obstructive pulmonary disease, unspecified; Z79.891 Long term (current) use of opiate analgesic; Z79.01 Long term (current) use of anticoagulants; Z79.02 Long term (current) use of antithrombotics/antiplatelets; Z79.51 Long term (current) use of inhaled steroids; M54.50 Low back pain, unspecified; F41.9 Anxiety disorder, unspecified; E78.5 Hyperlipidemia, unspecified; H35.30 Unspecified macular degeneration; G47.33 Obstructive sleep apnea (adult) (pediatric); Z95.828 Presence of other vascular implants and grafts; F17.210 Nicotine dependence, cigarettes, uncomplicated; E87.6 Hypokalemia; I50.82 Biventricular heart failure
CPT/HCPCS: 36415; 71045; 80053; 83690; 83735; 85025; 93005; 94640; 96365; 96366; 96375; 96376; 99285; J2270; J2405; J3490; J7030; J7626

== ENCOUNTER 2022-11-23 18:50 | Observation (INO) | payer MEDICARE, MEDICAID, SELFPAY ==
[2022-11-23 19:38] VITALS: BMI 19.2
[2022-11-23 19:42] VITALS: BP 118/80; PULSE 96; RESP 16; O2SAT 94
[2022-11-23 22:12] VITALS: BP 131/92; PULSE 72; RESP 17; TEMP 36.8; O2SAT 97
[2022-11-23 22:30] VITALS: PULSE 77; RESP 16; O2SAT 98
[2022-11-23 22:49] LABS: Basophils % 0.3 %; Eosinophils % 0.3 %; Hematocrit 40.8 % (42.0-52.0); Hemoglobin 14.1 g/dL (11.7-16.6); Lymphocytes # 0.9 10^3/uL (0.8-4.8); Lymphocytes % 7.6 %; Mean Corpuscular HGB Conc 34.6 g/dL (30.0-36.0); Mean Corpuscular Volume 95.6 fl (80-94); Mean Platelet Volume 9.1 fL (7.4-10.4); Monocytes # 0.7 10^3/uL (0.2-0.9); Monocytes % 5.8 %; Neutrophils # 10.15 10^3/uL (1.8-7.7); Neutrophils % 85.4 %; Nucleated Red Blood Cells % 0 %; Platelet Count 292 10^3/cmm (130-400); Red Blood Count 4.27 10^6/uL (4.1-5.3); Red Cell Distribution Width 13.2 % (12.1-15.1); White Blood Count 11.9 10^3/uL (4.0-10.0)
[2022-11-23] MEDS: ondansetron 2 mg/ML SDV 2 mL 4 MG IVP ×2 (22:51→22:52)
[2022-11-23] MEDS: sodium chloride 0.9% 1,000 ML 999 ML IV (22:51)
[2022-11-23] MEDS: morphine 4 mg/mL SDV 1 mL 8 MG IVP (22:51)
--- NOTE | 2022-11-23 22:56 | W.ED.NAVMDI ---
HPI - Nausea/Vomiting/Diarrhea General: Chief complaint: Nausea/Vomiting/Diarrhea Stated complaint: bilateral feet swelling,cough Time Seen by Provider: 11/23/22 22:15 Source: patient History of Present Illness: 52-year-old male with a history of metastatic lung cancer, atrial fibrillation, and coronary disease. He presents with vomiting and diarrhea that started yesterday. He has not been able to hold his pain medication down for over a day, which is worsened his vomiting symptoms. He complains of chronic abdominal and back pain as well. Diarrhea has improved, but vomiting has not. He does not know if he had a fever or not. MD elicited complaint: nausea, vomiting, diarrhea and abdominal pain Onset (ago): day(s) Description of vomiting: watery Description of diarrhea: watery Associated nausea: Yes Location of pain: Diffuse Associated symtoms: Reports anorexia and nausea; Denies altered mental status, chest pain, fevers/chills or short of breath Review of Systems Const: Reports: body aches; Denies: fever(s) ENMT: Denies: throat pain Card: Denies: chest pain Resp: Denies: dyspnea, productive cough or non-productive cough GI: Reports: nausea PFSH ED PFSH: Medical History Abdominal pain Atrial fibrillation Atrial fibrillation with RVR Atrial fibrillation with RVR Back muscle spasm CAD (coronary artery disease) Cancer of right lung Chronic anticoagulation Chronic anxiety Congestive heart failure Echocardiogram from 05/2022 showed EF of 45%, global LV hypokinesia with mildly dilated RV and low RV systolic functions COPD (chronic obstructive pulmonary disease) Dyslipidemia Fatigue Hypokalemia Hyponatremia Lung cancer Macular degeneration Metastatic cancer Metastatic neoplastic disease Non-small cell lung cancer Obstructive sleep apnea Primary adenocarcinoma of lower lobe of right lung Sleep apnea syndrome Tobacco abuse Surgical History History of bronchoscopy 12/29/2020 - Bronchoscopy/EBUS History of cholecystectomy History of coronary angioplasty with insertion of stent 08/2016 Mid left circumflex Port-A-Cath in place (02/14/21) Presence of stent in left circumflex coronary artery 05/29/2022 Distal to previously placed stent S/P right coronary artery (RCA) stent placement 05/29/2022 Mid RCA Family History Other CAD (coronary artery disease) Cancer Diabetes Lung disease Stroke Denies family history of Bleeding disorder Social History Smoking and tobacco status: current every day smoker cigarettes Packs smoked per day: 1.5 Years cigarettes smoked: 48 [ Other cigarette details: 1.5 PPD, 3PPD x 45yrs] Quit status (tobacco): considering quitting Second hand smoke exposure: Yes Smoking risk assessment/counseling performed?: Yes Alcohol intake: current Alcohol intake frequency: holidays/special occasions only Lives independently: Yes Household members: significant other and children Marital status: Life Partner service: No Current occupational status: disabled Pets and animals: Yes Current gender identity: Male Physical Exam Const: EXAM LIMITATIONS: no altered mental status GENERAL APPEARANCE: cooperative, ill appearing (Mildly) and frail appearing (Mildly) HENMT: COMMON NORMALS: normocephalic HEAD & SCALP: normocephalic FACE & SINUS: normal facial exam and face symmetric Eye: COMMON NORMALS: Equal, round and reactive pupils present and EOMs intact bilaterally PUPIL: Yes Equal, round and reactive pupils present Chest: CHEST: Yes Symmetrical chest wall rise Resp: COMMON NORMALS: normal respiratory effort, No use of accessory muscles and clear to auscultation bilaterally AUSCULTATION: clear to auscultation bilaterally Cardio: COMMON NORMALS: regular rate and regular rhythm RATE: regular rate RHYTHM: regular rhythm GI: COMMON NORMALS: Soft to palpation PALPATION: Yes Soft to palpation Neuro: MARGARET COMA SCALE: document GCS findings Manito coma scale eye opening: Spontaneous [place] coma scale verbal response: Orientated Margaret coma scale motor response: Obey commands Margaret coma scale total score: 15 Psych: COMMON NORMALS: mental status grossly normal and cooperative Course Vital Signs: Vital signs: Vital Signs Temperature 98.2 F 11/23/22 22:12 Pulse Rate 118 H 11/24/22 04:35 Respiratory Rate 19 H 11/24/22 04:35 Blood Pressure 103/73 11/24/22 04:35 Pulse Oximetry 93 11/24/22 04:35 Oxygen Delivery Me thod Room Air 11/24/22 04:35 MDM - Nausea/Vomiting/Diarrhea Medical Decision Making White blood cell count is 12. Pain and nausea improved after morphine and Zofran here. received an IV fluid bolus. Rest of his labs are pending. Laboratory reveals new elevations in liver enzymes. This was concerning. On reexamination, despite fluid bolus and no vomiting, the patient's heart rate reached 150, rapid atrial fibrillation. The patient noted that he had not been able to hold down his medications, which combined with dehydration is the likely cause. He is placed on a diltiazem drip. Heart rate down to the 1 teens to 120s. His blood pressure remained stable. He feels a bit better. He will be admitted for atrial fibrillation with RVR, dehydration. CT reveals progression of liver metastases as the likely cause of his elevated LFTs. Hospitalist has been consulted and has seen the patient in the ER. Lab Data 11/23/22 22:45 11/23/22 22:45 Radiology Impressions Abdomen/Pelvis CT 11/24/22 01:09 IMPRESSION: 1. Stage IV cancer has progressed from 09/29/2022. Progressive liver and iris metastases in particular. 2. There is mildly increased dilation of the intrahepatic biliary tree most likely due to extrinsic mass effect on the common bile duct. 3. No high-grade small bowel obstruction, abscess or free air. 4. Possible cystitis. 5. Multiple chronic findings Laboratory Results WBC 11.9 10^3/uL (4.0-10.0) H 11/23/22 22:45 RBC 4.27 10^6/uL (4.1-5.3) 11/23/22 22:45 Hgb 14.1 g/dL (11.7-16.6) 11/23/22 22:45 Hct 40.8 % (42.0-52.0) L 11/23/22 22:45 MCV 95.6 fl (80-94) H 11/23/22 22:45 MCH 33.0 pg (28.0-34.0) 11/23/22 22:45 MCHC 34.6 g/dL (30.0-36.0) 11/23/22 22:45 RDW 13.2 % (12.1-15.1) 11/23/22 22:45 Plt Count 292 10^3/cmm (130-400) 11/23/22 22:45 MPV 9.1 fL (7.4-10.4) 11/23/22 22:45 Neut % (Auto) 85.4 % 11/23/22 22:45 Lymph % (Auto) 7.6 % 11/23/22 22:45 [place] % (Auto) 5.8 % 11/23/22 22:45 Eos % (Auto) 0.3 % 11/23/22 22:45 Baso % (Auto) 0.3 % 11/23/22 22:45 Neut # (Auto) 10.15 10^3/uL (1.8-7.7) H 11/23/22 22:45 Lymph # (Auto) 0.9 10^3/uL (0.8-4.8) 11/23/22 22:45 [place] # (Auto) 0.7 10^3/uL (0.2-0.9) 11/23/22 22:45 Eos # (Auto) 0.0 10^3/uL (0.0-0.8) 11/23/22 22:45 Baso # (Auto) 0.0 10^3/uL (0.0-0.1) 11/23/22 22:45 Nucleated RBC % (auto) 0 % 11/23/22 22:45 Nucleated RBCs # 0.0 /100WBC 11/23/22 22:45 Sodium 131 mmol/L (136-145) L 11/23/22 22:45 Potassium 3.3 mmol/L (3.5-5.1) L 11/23/22 22:45 Chloride 83 mmol/L (98-107) L 11/23/22 22:45 Carbon Dioxide 35 mmol/L (22-29) H 11/23/22 22:45 Anion Gap 16.3 (5-19) 11/23/22 22:45 BUN 11 mg/dL (6-20) 11/23/22 22:45 Creatinine 1.0 mg/dL (0.7-1.2) 11/23/22 22:45 GFR Calculation Not Reportable 11/23/22 22:45 Glucose 162 mg/dL (65-115) H 11/23/22 22:45 Calculated Osmolality 275 mOsm/kg (285-295) L 11/23/22 22:45 Calcium 9.6 mg/dL (8.5-10.5) 11/23/22 22:45 Magnesium 1.6 mg/dL (1.7-2.3) L 11/23/22 22:45 Total Bilirubin 0.6 mg/dL (0.15-1.2) 11/23/22 22:45 AST 48 U/L (0-40) H 11/23/22 22:45 ALT 69 U/L (0-41) H 11/23/22 22:45 Alkaline Phosphatase 447 U/L (40-130) H 11/23/22 22:45 C-Reactive Protein 69.9 mg/L (0.0-4.9) H 11/23/22 22:45 Total Protein 7.9 g/dL (6.6-8.7) 11/23/22 22:45 Albumin 3.4 g/dL (3.5-5.2) L 11/23/22 22:45 Globulin 4.5 g/dL (1.3-4.6) 11/23/22 22:45 Lipase 47 U/L (13-60) 11/23/22 22:45 Urine Color Yellow (Yellow) 11/24/22 01:30 Urine Appearance Cloudy (CLEAR) A 11/24/22 01:30 Urine pH 5 (5-7) 11/24/22 01:30 Ur Specific [place] 1.030 (1.005-1.030) 11/24/22 01:30 Urine Protein 1+ (Negative) H 11/24/22 01:30 Urine Glucose (UA) Norm (Normal) 11/24/22 01:30 Urine Ketones 1+ (Negative) H 11/24/22 01:30 Urine Blood Neg (Negative) 11/24/22 01:30 Urine Nitrate Negative (Negative) 11/24/22 01:30 Urine Bilirubin 2+ (Negative) H 11/24/22 01:30 Urine Urobilinogen 4 mg/dL (Negative) H 11/24/22 01:30 Ur Leukocyte Esterase Negative (Negative) 11/24/22 01:30 Urine RBC 0-4 /hpf (0-2) H 11/24/22 01:30 Urine WBC 0-4 /hpf (0-5) H 11/24/22 01:30 Ur Squamous Epith Cells 0-4 /hpf (0-5) H 11/24/22 01:30 Amorphous Sediment Not Reportable 11/24/22 01:30 Urine Bacteria 4+ /hpf (NONE) H 11/24/22 01:30 Critical Care Time Critical Care Time: Critical Care Time: Yes Total Critical Care Time: 40 Attestation: This case had a high probability of a clinically significant, sudden, or life threatening deterioration of this patient's condition which required my full and direct attention, intervention and personal management. Time does not include any procedures. Discharge Plan Discharge Patient Disposition: Admitted As Inpatient Admit Provider: Chiquis Sharma Clinical Impression: Vomiting, Acute dehydration, Atrial fibrillation with RVR Condition: Stable Coding Level of Care Code ED Strap Folding Machine Operator for Ronit Hendricks
[2022-11-23 23:00] VITALS: PULSE 78; RESP 16; O2SAT 99
--- NOTE | 2022-11-23 23:09 | ECG_ITS ---
[facility] Test Date: 2022-11-24 Pat Name: Darlin Youssef Department: Room: Gender: Male [place] Singer: : 1970 Requested By: Ethan Richey Order Number: [id number] Jacobson MD: Marcus Infante M.D. Measurements Intervals [place] Rate: 132 P: 0 NV: 0 QRS: 112 QRSD: 98 T: 84 QT: 329 QTc: 489 Interpretive Statements ATRIAL FIBRILLATION WITH RAPID VENTRICULAR RESPONSE WITH ABERRANT CONDUCTION OR VENTRICULAR PREMATURE COMPLEXES ANTEROLATERAL MYOCARDIAL INFARCTION , PROBABLY OLD [40+ ms Q WAVE IN I/aVL/V3-V6] Compared to ECG 11/06/2022 16:51:40 Aberrant conduction of supraventricular beat(s) now present Ventricular premature complex(es) now present Myocardial infarct finding now present Left-axis deviation no longer present ST (T wave) deviation no longer present Electronically Signed On 11-24-2022 11:49:39 CDT by Marcus Infante M.D. [id number]
[2022-11-23 23:28] LABS: Blood Urea Nitrogen 11 mg/dL (6-20); Calcium 9.6 mg/dL (8.5-10.5); Creatinine Clr Calc Pharmacy 82.2138; Lipase 47 U/L (13-60); Total Bilirubin 0.6 mg/dL (0.15-1.2); Total Protein 7.9 g/dL (6.6-8.7)
[2022-11-23 23:30] VITALS: BP 140/81; PULSE 88; RESP 16; O2SAT 97
[2022-11-23 23:32] LABS: Alanine Aminotransferase 69 U/L (0-41); Albumin Level 3.4 g/dL (3.5-5.2); Alkaline Phosphatase 447 U/L (40-130); Anion Gap 16.3 (5-19); Aspartate Amino Transferase 48 U/L (0-40); C Reactive Protein 69.9 mg/L (0.0-4.9); Carbon Dioxide 35 mmol/L (22-29); Chloride 83 mmol/L (98-107); Globulin 4.5 g/dL (1.3-4.6); Glucose 162 mg/dL (65-115); Osmolality Calculated 275 mOsm/kg (285-295); Potassium 3.3 mmol/L (3.5-5.1); Sodium 131 mmol/L (136-145)
[2022-11-24] VITALS (45 sets, daily range): BP systolic 93–153; BP diastolic 47–100; PULSE 89–142; RESP 4–32; TEMP 36.6–36.9; O2SAT 88–99; BMI 22.4
--- NOTE | 2022-11-24 01:09 | CTR_ITS ---
PROCEDURE INFORMATION: Exam: CT Abdomen And Pelvis With Contrast Exam date and time: 11/24/2022 1:34 AM Age: 52 years old Clinical indication: Abdominal pain; Localized; Right; Prior surgery; Surgery date: 6+ months; Surgery type: Cholecystectomy; Patient HX: HX lung CA; Additional info: Abd pain, elevated lft's HX cancer. TECHNIQUE: Imaging protocol: Computed tomography of the abdomen and pelvis with contrast. Radiation optimization: All CT scans at this facility use at least one of these dose optimization techniques: automated exposure control; mA and/or kV adjustment per patient size (includes targeted exams where dose is matched to clinical indication); or iterative reconstruction. Contrast material: OMNI 350; Contrast volume: 75 ml; Contrast route: INTRAVENOUS (IV); REPORTING DATA: Count of CT and Cardiac NM exams in prior 12 months: This patient has received 6 known CTs and 0 known cardiac nuclear medicine studies in the 12 months prior to the current study. COMPARISON: CT abdomen pelvis w con* [id number] 09/29/2022 8:19 PM RADIATION DOSE METRICS: Total DLP (mGy-cm): 514.42 FINDINGS: Lungs: The visualized lung bases are clear. Liver: Multiple hypodense hepatic masses are present. There is a large infiltrative mass about the caudate in particular, which measures up to about 9.6 cm. A left hepatic lobe mass measures 5.3 cm. Other smaller liver masses. Liver is large Gallbladder and bile ducts: Absent gallbladder. At least mild intra and extrahepatic biliary dilation again seen, which may be due to compressive mass effect from the periportal nodes. Pancreas: The pancreas remains compressed by the described lymph nodes. Spleen: The spleen is not enlarged. No suspicious enhancing mass is noted. Adrenal glands: Normal. No mass. Kidneys and ureters: Tiny right kidney stone. Tiny left kidney stones. No new renal mass or hydronephrosis. Stomach and bowel: [id number] sigmoid diverticulosis. The colon is quite fecal filled. No small bowel obstruction, abscess or free air. Appendix: No evidence of appendicitis. Intraperitoneal space: Bulky mesenteric iris metastases are progressive. Trace pelvic free fluid has improved. No new fluid collection. Vasculature: Advanced diffuse vascular calcification noted. Adenopathy is again compressing and may be invading the left renal vein and IVC. Lymph nodes: Retrocrural nodes measure up to 2.7 cm, larger. Progressive diffuse mesenteric, retroperitoneal, and periportal lymphadenopathy. Urinary bladder: Bladder wall thickening. Reproductive: Unremarkable as visualized. Bones/joints: No new bone mass. Soft tissues: No acute or suspicious finding noted. CT/CT abdomen pelvis w con* [id number] IMPRESSION: 1. Stage IV cancer has progressed from 09/29/2022. Progressive liver and iris metastases in particular. 2. There is mildly increased dilation of the intrahepatic biliary tree most likely due to extrinsic mass effect on the common bile duct. 3. No high-grade small bowel obstruction, abscess or free air. 4. Possible cystitis. 5. Multiple chronic findings
[2022-11-24] MEDS: ondansetron 2 mg/ML SDV 2 mL 4 MG IVP (01:28)
[2022-11-24] MEDS: morphine 4 mg/mL SDV 1 mL IVP (01:28)
[2022-11-24] MEDS: iohexol 350 mg/mL 500 mL Btl (per mL) IV (01:29)
[2022-11-24] MEDS: sodium chloride 0.9% 1,000 ML 999 ML IV (01:29)
[2022-11-24] MEDS: dilTIAZem 100 MG in sodium chloride 0.9% (add-van) 100 ML IV (01:29)
[2022-11-24] MEDS: dilTIAZem 5 mg/mL SDV 5 mL 15 MG IVP (02:38)
--- NOTE | 2022-11-24 02:39 | PC.NURSE ---
PATIENT CARDIZEM DRIP MAXED AT 15. PROVIDER NOTIFIED. 15 MG BOLUS ORDERED.
--- NOTE | 2022-11-24 03:38 | PM.HP ---
Providers/Chief Complaint Primary Care Provider: Michael Cooley MD Chief Complaint: bilateral feet swelling,cough History of Present Illness Darlin Youssef is a 52 year old male with history of stage IV metastatic lung cancer, atrial fibrillation, COPD, chronic anticoagulation with Xarelto, hyponatremia, obstructive sleep apnea, coronary artery disease presented to the hospital today for vomiting, nausea, diarrhea that started yesterday. He was recently discharged from the hospital 2 weeks ago at which admission he was treated for atrial fibrillation and started on Cardizem elevated. He had pretty good heart rate control with that. During nausea vomiting he has been unable to keep any of his medications down and therefore went back into atrial fibrillation with RVR. On arrival his heart rate was in the 150s. He was given Cardizem push and started on a Cardizem drip. He is maxed out on Cardizem drip at this time and has received another IV push by ER. Patient does have chronic abdominal and back pain as well. He states his diarrhea has somewhat improved by now but the vomiting has not. He cannot particularly give history for any other review of systems at this time patient states that there is no hope with chemo at this point and that he has been on hospice. He was discharged from hospice 2 weeks ago. He would like to be resuscitated with CPR but does not want intubation. He states that he is in a lot of pain right now but does not want to bother us. He is requesting for pain medicine. Due to abdominal pain he did have a abdomen CT pelvis repeated in the ER which showed stage IV cancer/progressed from September. Progressive liver and iris metastases in particular. Mildly increased dilatation of intrahepatic biliary tree most likely due to extrinsic mass effect on the common bile duct, no high-grade small bowel obstruction, abscess or free air, possible cystitis, multiple chronic findings. Labs show WBC 11.9, hemoglobin 14.1, platelets 292, sodium 131, potassium 3.3, anion gap 16.3, creatinine 1.0, glucose 163, AST 48, ALT 69, C-reactive protein 69.9. UA negative for leukocyte esterase, nitrates but does have 4+ bacteria. Medications/Allergies Home Medications Medication Instructions Recorded Confirmed Last Taken Type ipratropium 0.5 mg-albuterol 3 mg 3 ml inhalation Q6H PRN wheezing 12/27/21 11/11/22 Unknown Rx (2.5 mg base)/3 mL nebulization #90 mL soln nitroglycerin 0.4 mg sublingual 0.4 mg sublingual Q5M PRN chest 05/30/22 11/11/22 05/27/22 Rx tablet pain 30 days #30 tabs clopidogrel 75 mg tablet 75 mg PO DAILY #90 tabs 06/06/22 11/11/22 11/05/22 Rx Trelegy Ellipta 100 mcg-62.5 1 inh inhalation DAILY #60 ea 06/11/22 11/11/22 11/06/22 Rx mcg-25 mcg powder for inhalation ([id number]-[id number]) multivitamin 1 tab PO DAILY 06/20/22 11/11/22 11/06/22 History promethazine 25 mg tablet 25 mg PO TID PRN nausea and 06/21/22 11/11/22 Unknown Rx vomiting #60 tabs pantoprazole 40 mg tablet,delayed 40 mg PO DAILY #30 tabs 08/20/22 11/11/22 11/06/22 Rx release albuterol sulfate 90 mcg/actuation 2 puff inhalation Q4H PRN 09/16/22 11/11/22 Unknown Rx aerosol inhaler shortness of breath or wheezing #8.5 grams lorazepam 1 mg tablet 1 mg PO TID PRN severe nausea 30 09/18/22 11/11/22 Unknown Rx days #90 tabs prochlorperazine maleate 10 mg 10 mg PO Q4H PRN Mild Nausea #30 09/25/22 11/11/22 Unknown Rx tablet (Compazine) tabs cyclobenzaprine 10 mg tablet 10 mg PO 2XD PRN muscle spasm 09/30/22 11/11/22 Unknown History ondansetron 8 mg disintegrating 8 mg PO Q6H PRN Nausea 09/30/22 11/11/22 Unknown History tablet diltiazem HCl 120 mg 120 mg PO DAILY #60 tabs 10/01/22 11/11/22 11/06/22 Rx tablet,extended release 24 hr (Cardizem LA) morphine 15 mg immediate release 15 mg PO Q4H PRN pain 30 days #120 10/11/22 11/11/22 Unknown Rx tablet tabs morphine 30 mg tablet,extended 30 mg PO Q12H 30 days #60 tabs 03/10/3111/11/22 11/06/22 Rx release naloxone 4 mg/actuation nasal spray 4 mg intranasal Q2M PRN opioid 10/11/22 11/11/22 Unknown Rx overdose #2 ea bedside commode #1 ea 10/30/22 11/11/22 Unknown Rx rivaroxaban 20 mg tablet (Xarelto) 20 mg PO BEDTIME #90 tabs 10/30/22 11/11/22 11/05/22 Rx diltiazem HCl 300 mg 300 mg PO DAILY 30 days #30 caps 11/09/22 11/11/22 Unknown Rx capsule,extended release 24 hr metoprolol tartrate 50 mg tablet 50 mg PO BID@0900,2100 30 days #60 11/09/22 11/11/22 Unknown Rx tabs Allergies Allergy/AdvReac Type Severity Reaction Status Date / Time influenza virus vaccine Allergy Severe ALGY-Hives Verified 10/30/22 08:00 tval,purif- wool Allergy Unknown Verified 10/30/22 08:00 talcum powder Allergy Unknown Uncoded 10/30/22 08:00 PFSH Acute PFSH: Medical History Abdominal pain Atrial fibrillation Atrial fibrillation with RVR Atrial fibrillation with RVR Back muscle spasm CAD (coronary artery disease) Cancer of right lung Chronic anticoagulation Chronic anxiety Congestive heart failure Echocardiogram from 05/2022 showed EF of 45%, global LV hypokinesia with mildly dilated RV and low RV systolic functions COPD (chronic obstructive pulmonary disease) Dyslipidemia Fatigue Hypokalemia Hyponatremia Lung cancer Macular degeneration Metastatic cancer Metastatic neoplastic disease Non-small cell lung cancer Obstructive sleep apnea Primary adenocarcinoma of lower lobe of right lung Sleep apnea syndrome Tobacco abuse Surgical History History of bronchoscopy 12/29/2020 - Bronchoscopy/EBUS History of cholecystectomy History of coronary angioplasty with insertion of stent 08/2016 Mid left circumflex Port-A-Cath in place (02/14/21) Presence of stent in left circumflex coronary artery 05/29/2022 Distal to previously placed stent S/P right coronary artery (RCA) stent placement 05/29/2022 Mid RCA Family History Other CAD (coronary artery disease) Cancer Diabetes Lung disease Stroke Denies family history of Bleeding disorder Social History Smoking and tobacco status: current every day smoker cigarettes Packs smoked per day: 1.5 Years cigarettes smoked: 48 [ Other cigarette details: 1.5 PPD, 3PPD x 45yrs] Quit status (tobacco): considering quitting Second hand smoke exposure: Yes Smoking risk assessment/counseling performed?: Yes Alcohol intake: current Alcohol intake frequency: holidays/special occasions only Lives independently: Yes Household members: significant other and children Marital status: Life Partner service: No Current occupational status: disabled Pets and animals: Yes Current gender identity: Male Vitals/I&O/Wt Last Vital Signs Temp 98.2 F 11/23/22 22:12 Pulse 125 H 11/24/22 03:32 Resp 18 11/24/22 03:32 BP 115/73 11/24/22 03:32 Pulse Ox 98 11/24/22 03:32 O2 Del Method Room Air 11/24/22 03:32 11/23/22 11/23/22 11/24/22 14:59 22:59 06:59 Intake Total 1009.375 / 1009.375 Balance 1009.375 / 1009.375 Weight last 48 hrs Weight 68.039 kg Physical Exam Narrative: General: Alert oriented x3, patient seen sitting at edge of bed bent forward holding his abdomen. States he is in pain. HEENT: Normocephalic, atraumatic, EOMI, breathing room air. Cardio: Regular rate rhythm, normal S1-S2 Respiratory: Good bilateral air entry, no wheezes no rhonchi appreciated GI: Abdomen soft, mildly tender, distended, bowel sounds + Extremities: 3+ pitting edema bilateral lower extremities up to knees, 4+ pedal edema. Data 11/23/22 22:45 11/23/22 22:45 A&P Assessment and plan (1) Vomiting: (2) Acute dehydration: (3) Atrial fibrillation with RVR: (4) Debility: (5) Cancer related pain: (6) Nausea: Plan #Atrial fibrillation with RVR #Stage IV metastatic lung cancer #Progression of cancer #Potential impingement on common bile duct from mass #Nausea vomiting possibly secondary to above #Coronary disease #Hospice status #Mild hyponatremia ? Continue Cardizem drip at this time. Oral metoprolol 50 twice daily. Wean off drip and switch to oral Cardizem as able ? Promethazine, Zofran alternating for nausea ? Reviewed oncology note. Patient is now hospice status ? Continue supportive care ? Patient did get a normal saline bolus in the ER however he states that he has puffiness and that he does not want any more fluids at this time. ? We will order Dilaudid 0.5 IV push every 4 hours as needed for pain ? DuoNeb every 6 hours as needed Protonix 40 IV push every 24 hours Docusate senna twice daily ? Continue Xarelto, Plavix, ? Plan to discharge home back with hospice once atrial fibrillation is controlled and patient able to hold down oral medications ? N.p.o. and advance as tolerated. ? Reviewed admission EKG myself. Reviewed CT abdomen pelvis results myself. DNI, okay with CPR, ACLS medications and defibrillation. SCDs, Xarelto will suffice for DVT prophylaxis Attestations Medical Necessity Statement*: Greater than 2 midnight stay for management of atrial fibrillation Other Coding Information Focused coding review requested Diagnoses Vomiting R11.10 Acute dehydration E86.0 Atrial fibrillation with RVR I48.91 Debility R53.81 Cancer related pain G89.3 Nausea R11.0
[2022-11-24] MEDS: pantoprazole 40 mg SDV IVP (04:00)
[2022-11-24 04:09] LABS: Glucose Urine UA Norm (Normal); Ketones Urine 1+ (Negative); Urine Appearance Cloudy (CLEAR); Urine Color Yellow (Yellow); pH Urine 5 (5-7)
[2022-11-24 04:10] LABS: Protein Urine 1+ (Negative)
[2022-11-24 04:11] LABS: Bilirubin Urine 2+ (Negative); Blood Urine Neg (Negative); Nitrate Urine Negative (Negative)
[2022-11-24 04:12] LABS: Add Urine Microscopic? YES; Leukocyte Esterase Urine Negative (Negative); Urobilinogen Urine 4 mg/dL (Negative)
[2022-11-24 04:17] LABS: RBC Urine 0-4 /hpf (0-2); WBC Urine 0-4 /hpf (0-5)
[2022-11-24 04:18] LABS: Add Urine Culture? Yes; Bacteria Urine 4+ /hpf; Squamous Epithelial Cell Urine 0-4 /hpf (0-5)
[2022-11-24 04:35] LABS: Magnesium 1.6 mg/dL (1.7-2.3)
[2022-11-24] MEDS: dilTIAZem 100 MG in sodium chloride 0.9% (add-van) 100 ML 15 MG IV (06:18)
--- NOTE | 2022-11-24 07:36 | PC.NURSE ---
11/24/22 0636 - Updated MD on admit to unit. Upon physical assessment it is noted pt swollen ble. Concern for possible clot mentioned with pt in afib. Awaiting response. Dayshift oncoming, will pass along.
[2022-11-24] MEDS: morphine IR 15 mg Tablet PO ×2 (07:49→14:21)
[2022-11-24] MEDS: cefTRIAXone 1,000 MG in sodium chloride 0.9% (plus) 50 ML 100 MG IV (07:50)
[2022-11-24] MEDS: clopidogrel 75 mg Tablet PO (08:15)
[2022-11-24] MEDS: FUROsemide 10 mg/mL SDV 4mL 40 MG IVP ×2 (08:15→17:35)
[2022-11-24] MEDS: potassium chloride ER 20 mEq Tablet 40 MEQ PO ×2 (08:15→17:34)
[2022-11-24] MEDS: morphine ER (12 HR) 30 mg tablet PO ×2 (09:45→17:34)
[2022-11-24] MEDS: metoprolol tartrate 50 mg Tablet PO ×2 (09:46→20:59)
[2022-11-24 10:09] LABS: NT Pro B Type Natriuretic Pept 1907 pg/mL (0-125)
--- NOTE | 2022-11-24 12:41 | PC.NURSE ---
Swelling in patient's ankle and feet seems to be getting worse. Patient educated on need to elevate feet in order to help decrease swelling. Patient declined to elevate his feet.
--- NOTE | 2022-11-24 15:13 | PM.PN ---
Subjective Subjective: Patient was seen this morning, he tells me that he does not want any fluids, he has bilateral lower extremity edema Vitals/I&O/Wt Last Vital Signs Temp 98.5 F 11/24/22 11:56 Pulse 111 H 11/24/22 15:10 Resp 24 H 11/24/22 15:10 BP 107/69 11/24/22 15:10 Pulse Ox 90 11/24/22 15:10 O2 Del Method Room Air 11/24/22 15:10 11/24/22 11/24/22 11/24/22 06:59 14:59 22:59 Intake Total 2063. / 2063. 1567.375 / 1567.375 Output Total 1625 / 1625 Balance 2063. / 2063. -57.625 / -57.625 Weight last 48 hrs Weight 79.424 kg Weight 68.039 kg Physical Exam Const: COMMON NORMALS: no acute distress and patient oriented x3 Resp: COMMON NORMALS: normal respiratory effort, No retractions and No use of accessory muscles AUSCULTATION: crackles Cardio: COMMON NORMALS: regular rate, regular rhythm, S1 normal heart sound present and S2 normal heart sound present RATE: regular rate RHYTHM: regular rhythm HEART SOUNDS: S1 normal heart sound present and S2 normal heart sound present GI: COMMON NORMALS: Normal to inspection, nondistended, normoactive bowel sounds present and non-tender Extremity: NARRATIVE EXTREMITY EXAM: 3+ pitting edema bilateral extremity Neuro: COMMON NORMALS: patient oriented x3 Psych: COMMON NORMALS: mental status grossly normal Data 11/23/22 22:45 11/23/22 22:45 A&P Assessment and plan (1) Vomiting: (2) Acute dehydration: (3) Atrial fibrillation with RVR: (4) Debility: (5) Cancer related pain: (6) Nausea: (7) Fluid overload: (8) Congestive heart failure: Qualifiers: Heart failure type: biventricular Qualified Code(s): I50.82 - Biventricular heart failure (9) CHF exacerbation: (10) Urinary tract infection: Plan #Atrial fibrillation with RVR #Stage IV metastatic lung cancer #Progression of cancer #Potential impingement on common bile duct from mass #Nausea vomiting possibly secondary to above #Coronary disease #Hospice status #Mild hyponatremia #CHF exacerbation, fluid overload, bilateral lower extremity plus edema, crackles on exam #Urinary tract infection ? Continue Cardizem drip at this time. Transition to oral Cardizem 60 every 6 hours, oral metoprolol 50 twice daily ? Promethazine, Zofran alternating for nausea ? Reviewed oncology note. Patient is now hospice status ? Continue supportive care ? Patient did get a normal saline bolus in the ER however he states that he has puffiness and that he does not want any more fluids at this time. -Fluid overloaded, Lasix 40 IV twice daily today with potassium replacement ? DuoNeb every 6 hours as needed Protonix 40 IV push every 24 hours Docusate senna twice daily ? Continue Xarelto, Plavix, ? Plan to discharge home back with hospice once atrial fibrillation is controlled and patient able to hold down oral medications, and fluid overload has improved ? Advance to cardiac diet -1. ? Stage IV cancer has progressed from 09/29/2022. Progressive liver and iris metastases in particular. 2. ? There is mildly increased dilation of the intrahepatic biliary tree most likely due to extrinsic mass effect on the common bile duct. 3. ? No high-grade small bowel obstruction, abscess or free air. 4. ? Possible cystitis. 5. ? Multiple chronic findings DNI, okay with CPR, ACLS medications and defibrillation. SCDs, Xarelto will suffice for DVT prophylaxis Attestations Medical Necessity Statement*: Patient requires hospitalization for A-fib with RVR, nausea, vomiting, fluid overload, CHF exacerbation, UTI and High MDM includes number and complexity of problems actively addressed during encounter, amount and/or complexity of data reviewed/ordered and described risk of complication, morbidity or mortality of management as documented Diagnoses Vomiting R11.10 Acute dehydration E86.0 Atrial fibrillation with RVR I48.91 Debility R53.81 Cancer related pain G89.3 Nausea R11.0 Fluid overload E87.70 Congestive heart failure I50.82 Heart failure type: biventricular CHF exacerbation I50.9 Urinary tract infection N39.0
[2022-11-24] MEDS: dilTIAZem 60 mg Tablet PO ×2 (16:39→20:59)
[2022-11-24] MEDS: rivaroxaban 10 mg Tablet 20 MG PO (20:59)
[2022-11-25] MEDS: pantoprazole 40 mg SDV IVP (03:35)
[2022-11-25] MEDS: dilTIAZem 60 mg Tablet PO (03:35)
[2022-11-25 03:42] VITALS: BP 92/68; PULSE 117; O2SAT 94
[2022-11-25 05:15] VITALS: PULSE 97
[2022-11-25 05:22] LABS: Basophils # 0.1 10^3/uL (0.0-0.1); Basophils % 0.7 %; Eosinophils # 0.1 10^3/uL (0.0-0.8); Eosinophils % 1.6 %; Hematocrit 37.4 % (42.0-52.0); Hemoglobin 12.5 g/dL (11.7-16.6); Lymphocytes # 0.6 10^3/uL (0.8-4.8); Lymphocytes % 7.2 %; Mean Corpuscular HGB Conc 33.4 g/dL (30.0-36.0); Mean Corpuscular Hemoglobin 32.6 pg (28.0-34.0); Mean Corpuscular Volume 97.4 fl (80-94); Mean Platelet Volume 9.5 fL (7.4-10.4); Monocytes # 0.6 10^3/uL (0.2-0.9); Neutrophils % 82.9 %; Nucleated Red Blood Cells % 0 %; Platelet Count 309 10^3/cmm (130-400); Red Blood Count 3.84 10^6/uL (4.1-5.3); Red Cell Distribution Width 13.4 % (12.1-15.1); White Blood Count 8.6 10^3/uL (4.0-10.0)
[2022-11-25 05:45] LABS: Anion Gap 13.3 (5-19); Blood Urea Nitrogen 11 mg/dL (6-20); Calcium 8.4 mg/dL (8.5-10.5); Carbon Dioxide 36 mmol/L (22-29); Chloride 87 mmol/L (98-107); Glomerular Filtration Rate 88.3 mL/min (90-130); Glucose 129 mg/dL (65-115); NT Pro B Type Natriuretic Pept 2633 pg/mL (0-125); Osmolality Calculated 277 mOsm/kg (285-295); Potassium 3.3 mmol/L (3.5-5.1); Sodium 133 mmol/L (136-145)
[2022-11-25] MEDS: cefTRIAXone 1,000 MG in sodium chloride 0.9% (plus) 50 ML 100 MG IV (07:40)
[2022-11-25 08:38] VITALS: PULSE 71; RESP 18; O2SAT 94
[2022-11-25] MEDS: ipratropium-albuterol 3 mL Neb INHALATION (08:38)
[2022-11-25] MEDS: clopidogrel 75 mg Tablet PO (08:53)
[2022-11-25] MEDS: sennosides-docusate Tablet 2 TAB PO (08:53)
[2022-11-25 08:54] VITALS: RESP 19; O2SAT 98
[2022-11-25] MEDS: morphine ER (12 HR) 30 mg tablet PO (08:54)
--- NOTE | 2022-11-25 09:09 | PM.DCS ---
Discharge Providers Date of Admission: 11/24/22 03:20 Date of Discharge: November 25, 2022 Attending Provider at Admission: Chiquis Sharma MD Attending Provider at Discharge: Amilcar Thomas MD Primary Care Provider: Michael Cooley MD Diagnoses at Discharge Discharge Diagnosis (1) Vomiting: Status: Acute (2) Acute dehydration: Status: Acute (3) Atrial fibrillation with RVR: Status: Acute (4) Debility: Status: Acute (5) Cancer related pain: Status: Acute (6) Nausea: Status: Acute (7) Fluid overload: Status: Acute (8) Congestive heart failure: Status: Acute Qualifiers: Heart failure type: biventricular Qualified Code(s): I50.82 - Biventricular heart failure Permanent problem details: Echocardiogram from 05/2022 showed EF of 45%, global LV hypokinesia with mildly dilated RV and low RV systolic functions (9) CHF exacerbation: Status: Acute (10) Urinary tract infection: Status: Acute Reason for Visit Reason for Visit: bilateral feet swelling,cough Brief History: History as per HPI: Darlin Youssef is a 52 year old male with history of stage IV metastatic lung cancer, atrial fibrillation, COPD, chronic anticoagulation with Xarelto, hyponatremia, obstructive sleep apnea, coronary artery disease presented to the hospital today for vomiting, nausea, diarrhea that started yesterday.? He was recently discharged from the hospital 2 weeks ago at which admission he was treated for atrial fibrillation and started on Cardizem elevated.? He had pretty good heart rate control with that.? During nausea vomiting he has been unable to keep any of his medications down and therefore went back into atrial fibrillation with RVR.? On arrival his heart rate was in the 150s.? He was given Cardizem push and started on a Cardizem drip.? He is maxed out on Cardizem drip at this time and has received another IV push by ER.? Patient does have chronic abdominal and back pain as well.? He states his diarrhea has somewhat improved by now but the vomiting has not.? He cannot particularly give history for any other review of systems at this time patient states that there is no hope with chemo at this point and that he has been on hospice.? He was discharged from hospice 2 weeks ago.? He would like to be resuscitated with CPR but does not want intubation.? He states that he is in a lot of pain right now but does not want to bother us.? He is requesting for pain medicine. Due to abdominal pain he did have a abdomen CT pelvis repeated in the ER which showed stage IV cancer/progressed from September.? Progressive liver and iris metastases in particular.? Mildly increased dilatation of intrahepatic biliary tree most likely due to extrinsic mass effect on the common bile duct, no high-grade small bowel obstruction, abscess or free air, possible cystitis, multiple chronic findings.? Labs show WBC 11.9, hemoglobin 14.1, platelets 292, sodium 131, potassium 3.3, anion gap 16.3, creatinine 1.0, glucose 163, AST 48, ALT 69, C-reactive protein 69.9.? UA negative for leukocyte esterase, nitrates but does have 4+ bacteria. Hospital Course Hospital Course Patient's heart rate was controlled with IV Cardizem which earlier transition to oral. He was found to be in mild congestive heart failure which was treated with IV diuresis. After managing both tachyarrhythmia and CHF his oral intake improved as well. Currently he is able to tolerate regular diet well. Patient heart rate is moderately controlled on current medication. He was advised to stay a little longer hospitalization while he has been transitioned over to amiodarone and Cardizem is reduced but patient requested to be discharged home as soon as possible. Given his status of hospice at baseline and improved oral intake decision was made to switch him over to oral Cardizem load with 400 mg twice daily for next 7 days followed by 200 mg twice daily for 7 days and then 200 mg daily. Cardizem has been switched over to 60 mg every 8 hourly which is to be withheld if heart rate is less than 90 bpm. Metropolol has been continued at home dose. Physical Exam Narrative: General: Alert oriented x3, patient seen sitting at edge of bed bent forward holding his abdomen. States he is in pain. HEENT: Normocephalic, atraumatic, EOMI, breathing room air. Cardio: Irregular irregular rate rhythm, normal S1-S2 Respiratory: Good bilateral air entry, no wheezes no rhonchi appreciated GI: Abdomen soft, mildly tender, distended, bowel sounds + Extremities: 3+ pitting edema bilateral lower extremities up to knees, 4+ pedal edema. Discharge Data Studies Completed and Pending Completed Studies During Hospitalization Category Date Time Status CT abdomen pelvis w con* [id number] Urgent Cat Scan 11/24/22 01:09 Completed Pending at discharge Category Date Time Status NT Pro B Type Natriuretic Pept QAM Lab 11/26/22 06:00 Ordered NT Pro B Type Natriuretic Pept QAM Lab 11/27/22 06:00 Ordered Urine Culture Stat Lab 11/24/22 01:30 Received Radiology Impressions Abdomen/Pelvis CT 11/24/22 01:09 IMPRESSION: 1. Stage IV cancer has progressed from 09/29/2022. Progressive liver and iris metastases in particular. 2. There is mildly increased dilation of the intrahepatic biliary tree most likely due to extrinsic mass effect on the common bile duct. 3. No high-grade small bowel obstruction, abscess or free air. 4. Possible cystitis. 5. Multiple chronic findings Laboratory Results WBC 8.6 10^3/uL (4.0-10.0) 11/25/22 04:32 RBC 3.84 10^6/uL (4.1-5.3) L 11/25/22 04:32 Hgb 12.5 g/dL (11.7-16.6) 11/25/22 04:32 Hct 37.4 % (42.0-52.0) L 11/25/22 04:32 MCV 97.4 fl (80-94) H 11/25/22 04:32 MCH 32.6 pg (28.0-34.0) 11/25/22 04:32 MCHC 33.4 g/dL (30.0-36.0) 11/25/22 04:32 RDW 13.4 % (12.1-15.1) 11/25/22 04:32 Plt Count 309 10^3/cmm (130-400) 11/25/22 04:32 MPV 9.5 fL (7.4-10.4) 11/25/22 04:32 Neut % (Auto) 82.9 % 11/25/22 04:32 Lymph % (Auto) 7.2 % 11/25/22 04:32 [place] % (Auto) 7.0 % 11/25/22 04:32 Eos % (Auto) 1.6 % 11/25/22 04:32 Baso % (Auto) 0.7 % 11/25/22 04:32 Neut # (Auto) 7.10 10^3/uL (1.8-7.7) 11/25/22 04:32 Lymph # (Auto) 0.6 10^3/uL (0.8-4.8) L 11/25/22 04:32 [place] # (Auto) 0.6 10^3/uL (0.2-0.9) 11/25/22 04:32 Eos # (Auto) 0.1 10^3/uL (0.0-0.8) 11/25/22 04:32 Baso # (Auto) 0.1 10^3/uL (0.0-0.1) 11/25/22 04:32 Nucleated RBC % (auto) 0 % 11/25/22 04:32 Nucleated RBCs # 0.0 /100WBC 11/25/22 04:32 Sodium 133 mmol/L (136-145) L 11/25/22 04:32 Potassium 3.3 mmol/L (3.5-5.1) L 11/25/22 04:32 Chloride 87 mmol/L (98-107) L 11/25/22 04:32 Carbon Dioxide 36 mmol/L (22-29) H 11/25/22 04:32 Anion Gap 13.3 (5-19) 11/25/22 04:32 BUN 11 mg/dL (6-20) 11/25/22 04:32 Creatinine 0.9 mg/dL (0.7-1.2) 11/25/22 04:32 GFR Calculation 88.3 mL/min (90-130) L 11/25/22 04:32 Glucose 129 mg/dL (65-115) H 11/25/22 04:32 Calculated Osmolality 277 mOsm/kg (285-295) L 11/25/22 04:32 Calcium 8.4 mg/dL (8.5-10.5) L 11/25/22 04:32 Magnesium 1.6 mg/dL (1.7-2.3) L 11/23/22 22:45 Total Bilirubin 0.6 mg/dL (0.15-1.2) 11/23/22 22:45 AST 48 U/L (0-40) H 11/23/22 22:45 ALT 69 U/L (0-41) H 11/23/22 22:45 Alkaline Phosphatase 447 U/L (40-130) H 11/23/22 22:45 C-Reactive Protein 69.9 mg/L (0.0-4.9) H 11/23/22 22:45 NT-Pro-B Natriuret Pep 2633 pg/mL (0-125) H 11/25/22 04:32 Total Protein 7.9 g/dL (6.6-8.7) 11/23/22 22:45 Albumin 3.4 g/dL (3.5-5.2) L 11/23/22 22:45 Globulin 4.5 g/dL (1.3-4.6) 11/23/22 22:45 Lipase 47 U/L (13-60) 11/23/22 22:45 Urine Color Yellow (Yellow) 11/24/22 01:30 Urine Appearance Cloudy (CLEAR) A 11/24/22 01:30 Urine pH 5 (5-7) 11/24/22 01:30 Ur Specific [place] 1.030 (1.005-1.030) 11/24/22 01:30 Urine Protein 1+ (Negative) H 11/24/22 01:30 Urine Glucose (UA) Norm (Normal) 11/24/22 01:30 Urine Ketones 1+ (Negative) H 11/24/22 01:30 Urine Blood Neg (Negative) 11/24/22 01:30 Urine Nitrate Negative (Negative) 11/24/22 01:30 Urine Bilirubin 2+ (Negative) H 11/24/22 01:30 Urine Urobilinogen 4 mg/dL (Negative) H 11/24/22 01:30 Ur Leukocyte Esterase Negative (Negative) 11/24/22 01:30 Urine RBC 0-4 /hpf (0-2) H 11/24/22 01:30 Urine WBC 0-4 /hpf (0-5) H 11/24/22 01:30 Ur Squamous Epith Cells 0-4 /hpf (0-5) H 11/24/22 01:30 Amorphous Sediment Not Reportable 11/24/22 01:30 Urine Bacteria 4+ /hpf (NONE) H 11/24/22 01:30 Vitals Last Vital Signs Temp 97.8 F 11/24/22 23:52 Pulse 71 11/25/22 08:38 Resp 19 H 11/25/22 08:54 BP 92/68 11/25/22 03:42 Pulse Ox 98 04/17/23 08:54 O2 Del Method Room Air 11/25/22 08:38 Discharge Plan Discharge Patient Disposition: Hospice - Home Condition: Stable Prescriptions: New diltiazem HCl 60 mg Tablet 60 mg PO Q8H Qty: 90 0RF amiodarone 200 mg tablet See Taper PO BID Qty: 60 0RF Taper: amiodarone 400bid to 200daily 400 mg Twice A Day for 7 Days and 0 Hour 200 mg Twice A Day for 7 Days and 0 Hour 200 mg Daily for 30 Days and 0 Hour Continued promethazine 25 mg tablet 25 mg PO TID PRN (Reason: nausea and vomiting) Qty: 60 0RF prochlorperazine maleate [Compazine] 10 mg tablet 10 mg PO Q4H PRN (Reason: Mild Nausea) Qty: 30 3RF naloxone 4 mg/actuation spray,non-aerosol 4 mg intranasal Q2M PRN (Reason: opioid overdose) Qty: 2 0RF Rx Instructions: spray 1 dose into ONE nostril; alternate nostrils w each dose until EMS morphine 15 mg tablet 15 mg PO Q4H PRN (Reason: pain) 30 Days Qty: 120 0RF morphine 30 mg tablet extended release 30 mg PO Q12H 30 Days Qty: 60 0RF (DME) bedside commode See Rx Instructions .Route .MEDSUPPLY Qty: 1 0RF Rx Instructions: As directed Xarelto 20 mg tablet 20 mg PO BEDTIME Qty: 90 2RF ipratropium-albuterol 0.5 mg-3 mg(2.5 mg base)/3 mL solution for nebulization 3 ml inhalation Q6H PRN (Reason: wheezing) Qty: 90 3RF clopidogrel 75 mg tablet 75 mg PO DAILY Qty: 90 3RF pantoprazole 40 mg tablet,delayed release (DR/EC) 40 mg PO DAILY Qty: 30 3RF Trelegy Ellipta 100-62.5-25 mcg blister with device 1 inh inhalation DAILY Qty: 60 5RF alprazolam 0.5 mg tablet 0.5 mg PO 3XD PRN (Reason: Anxiety) furosemide 40 mg tablet 40 mg PO DAILY potassium chloride 10 mEq tablet extended release 10 meq PO DAILY folic acid 1 mg tablet 1 mg PO DAILY nitroglycerin 0.4 mg tablet, sublingual 0.4 mg sublingual Q5M PRN (Reason: chest pain) 30 Days Qty: 30 2RF Rx Instructions: do not exceed 3 doses per episode multivitamin Tablet 1 tab PO DAILY cyclobenzaprine 10 mg tablet 10 mg PO 2XD PRN (Reason: muscle spasm) ondansetron 8 mg tablet,disintegrating 8 mg PO Q6H PRN (Reason: Nausea) Changed metoprolol tartrate 50 mg tablet 50 mg PO BID Qty: 60 0RF Discontinued diltiazem HCl 300 mg Capsule,Extended Release 24hr 300 mg PO DAILY 30 Days Qty: 30 2RF Discharge Orders: Discharge Order (Routine); Ordered 11/25/22 Ordered By: Amilcar Thomas Referrals: Michael Cooley MD [Primary Care Provider] - 7-10 days ([facility] will contact you within 24 hours to schedule you r follow-up appointment in 7 to 10 days. ) Discharge Diet: Regular Discharge Activity: Resume usual activity and Increase activity as tolerated Patient Instructions: Dependent Edema, Diltiazem (By mouth) (Cardizem, Cardizem CD, Cardizem LA, Cardizem SR), Amiodarone (By mouth) (Cordarone, Pacerone), A-fib (Atrial Fibrillation) (DC), Dehydration (DC), Urinary Tract Infection in Men (DC), CHF Stoplight, Opioid Safety, Pain Management, Vomiting - Adult Activity Restrictions/Additional Instructions: Take amiodarone 400 mg twice daily for 7 days followed by 200 mg twice daily for 7 days and then 200 mg daily. Cardizem dose has been changed to 60 mg every 8 hourly. Which is to be withheld if heart rate is less than 90 bpm. Metoprolol has been changed to 50 mg twice daily. take your nausea medication scheduled every 4 hours while awake for the next 48 hours, then as needed following that. Follow a clear liquid diet for the next 24 hours. Advance as tolerated if no vomiting. Take your pain medication as directed. Return for vomiting liquids or medications despite treatment, development of fever greater than 100 that is sustained, worsening pain, other concerning symptoms Discharge Attestations Time Spent in Discharge Care*: greater than 30 min Specific Discharge Activities: educating patient, discussing with pcp/other providers, discussing with family independence case manager/social workers/dc planners, documenting/other paperwork and evaluating patient/reviewing data Quality Metrics Clinical Quality Measures [ No reported AMI, CVA or VTE this stay] Coding Level of Care Code 97997 Total time (in minutes) for Discharge: 40 Diagnoses Vomiting R11.10 Acute dehydration E86.0 Atrial fibrillation with RVR I48.91 Debility R53.81 Cancer related pain G89.3 Nausea R11.0 Fluid overload E87.70 Congestive heart failure I50.82 Heart failure type: biventricular CHF exacerbation I50.9 Urinary tract infection N39.0
[2022-11-25 09:55] VITALS: BP 99/67; PULSE 84; RESP 18; O2SAT 97
[2022-11-25 13:45] VITALS: BP 112/76; PULSE 88; RESP 16; O2SAT 99
--- NOTE | 2022-11-25 13:48 | PC.NURSE ---
IV removed, education provided and new medication explained to patient and daughter. verbalized understanding. patiet left via wheel chair escorted by [employer] and daughter to door.
== END 2022-11-25 13:49 | disposition hospice, home (50) ==
LOC: ER 11-24 00:47 → ER IP 11-24 05:50 → CSU 11-24 05:54 → ER IP 11-27 15:32
PROVIDERS: Family Medicine; Admitting Provider Internal Medicine; Emergency Provider Emergency Medicine; PCP Family Medicine; Visit Provider Student in an Organized Health Care Education/Training Program
DX: C78.7 Secondary malignant neoplasm of liver and intrahepatic bile duct (principal); C34.90 Malignant neoplasm of unspecified part of unspecified bronchus or lung; G89.3 Neoplasm related pain (acute) (chronic); R11.2 Nausea with vomiting, unspecified; I50.82 Biventricular heart failure; E87.1 Hypo-osmolality and hyponatremia; E86.0 Dehydration; R53.81 Other malaise; N39.0 Urinary tract infection, site not specified; I48.91 Unspecified atrial fibrillation; E78.5 Hyperlipidemia, unspecified; J44.9 Chronic obstructive pulmonary disease, unspecified; R74.01 Elevation of levels of liver transaminase levels; I25.10 Atherosclerotic heart disease of native coronary artery without angina pectoris; I49.3 Ventricular premature depolarization; F17.210 Nicotine dependence, cigarettes, uncomplicated; Z79.01 Long term (current) use of anticoagulants
CPT/HCPCS: 36415; 74177; 80048; 80053; 81001; 83690; 83735; 83880; 85025; 86140; 87086; 93005; 94640; 96365; 96375; 96376; 99285; A9270; C9113; G0378; J0282; J0696; J1940; J2270; J2405; J3490; J7030; J7060; Q9967